=== PATIENT | female | born 1980 | race Two or more races ===

== ENCOUNTER 2024-01-17 08:36 | Emergency (ER) | payer MEDICAID, SELFPAY ==
--- NOTE | ~2024-01-17 | CT_ITS ---
EXAMINATION: CT ABDOMEN AND PELVIS WITHOUT CONTRAST CLINICAL INFORMATION: Probable kidney stones. COMPARISON: CT dated August 06, 2007 TECHNIQUE: Multidetector volumetric imaging was performed from the superior aspect of the liver through the pubic symphysis. Sagittal and coronal reformatted images were obtained on the technologist's workstation. This CT examination was performed using dose optimization techniques as appropriate, variously including the following: *Automated exposure control *Adjustment of mA and/or kV according to patient size (this includes techniques or standardized protocols for targeted exams where dose is matched to indication/reason for exam; i.e. extremities or head) *Use of iterative reconstruction technique DLP: 457 mGy-cm FINDINGS: Limited evaluation of the intra-abdominal organs and vascular structures due to lack of IV contrast. LIVER, GALLBLADDER, AND BILIARY TREE: Liver measures 16 cm. Focal punctate calcification right hepatic lobe. No pericholecystic fluid collection or gallbladder wall thickening. No intrahepatic or extrahepatic biliary ductal dilatation. PANCREAS: No peripancreatic fluid collections. No main pancreatic ductal dilatation. SPLEEN: 8 cm. ADRENAL GLANDS: No nodular lesions KIDNEYS AND URETERS: Right kidney: Less than 1 mm punctate calcifications in the pelvicalyceal system. No hydronephrosis. Small morphology of the kidney when compared with its contralateral side. Left kidney: Multiple less than 2 mm calculi throughout the pelvicalyceal system. There is a 2 cm fluid density lesion at the corticomedullary junction/parapelvic in the midportion lower pole junction of the left kidney. No hydronephrosis. BLADDER: Fluid-filled without gross calcifications or wall thickening. GASTROINTESTINAL TRACT: Abundant stool within the large intestine. No intestinal obstruction pattern. No ascites. No pneumatosis intestinalis. No pneumoperitoneum. I do not see the appendix, though no gross pericecal edema pattern. Punctate calcifications in the right peritoneal pelvic cavity. ABDOMINAL WALL: Small tiny fat-containing umbilical hernia. Diastases abdominal rectus muscles. LYMPH NODES: No gross lymphadenopathy. VASCULAR: No aneurysm, abdominal aorta. PELVIC VISCERA: Absent uterus. OSSEOUS STRUCTURES: Superior endplate compression deformity at representing 40% volume loss with 2 mm retropulsion at L1 vertebra and likely old. Multilevel thoracolumbar spondylosis. CT/CT abdomen pelvis wo IV con IMPRESSION: Nonobstructing nephrolithiasis, bilaterally. Probable cyst, left kidney. Abundant stool, large intestine without intestinal obstruction pattern. Small fat-containing umbilical hernia. Fleischner guidelines were followed. Electronically signed by: Miko Cabello MD 01/17/2024 01:53 PM [facility]SM[facility]APA
[2024-01-17 08:38] VITALS: BP 179/106; PULSE 102; RESP 18; TEMP 36.6; O2SAT 97; BMI 32.5
[2024-01-17 09:35] VITALS: BP 144/92; PULSE 96; RESP 20; TEMP 37.6; O2SAT 98
[2024-01-17 09:41] LABS: MANUAL DIFF FLAG NO
[2024-01-17 09:43] LABS: Basophils Percent Auto 0.8 % (0-2); Eosinophils Absolute Auto 0.1 X10*3/uL (0.0-0.4); Eosinophils Percent Auto 1.1 % (0-4); Hematocrit 33.4 % (37.0-47.0); Hemoglobin 10.4 g/dl (12.0-16.0); Lymphocytes Percent Auto 38.7 % (20-40); Mean Corpuscular HGB Conc 31.1 g/dl (31.0-35.0); Mean Corpuscular Hemoglobin 26.8 pg (27.0-33.0); Mean Corpuscular Volume 86.1 fL (80.0-98.0); Mean Platelet Volume 9.6 fL (9.4-12.3); Monocytes Absolute Auto 0.3 X10*3/uL (0.1-1.2); Monocytes Percent Auto 6.5 % (2-11); Neutrophils Absolute Auto 2.8 x10*3/uL (2.0-8.3); Neutrophils Percent Auto 52.9 % (45-73); Platelet Count 415 X10*3/uL (160-400); Red Blood Count 3.88 X10*6/uL (4.20-5.50); Red Cell Distribution Width 14.4 % (11.0-16.0); White Blood Count 5.2 X10*3/uL (4.8-10.8)
--- NOTE | 2024-01-17 09:48 | PC.NURSE ---
Awaiting urine spec. Pt. was only able to urinate a very small amount- not enough for urine tests.
--- NOTE | 2024-01-17 09:49 | ED.FEMALEGU ---
HPI - Female Genitourinary General Chief complaint: Urogenital-Female Stated complaint: kidney stone pain history UTI Time Seen by Provider: 01/17/24 08:56 Source: patient Mode of arrival: ambulatory Limitations: no limitations History of Present Illness HPI Narrative: this is a 43 years old the patient presented to the emergency department complaining of back pain, she states she has a as history of kidney stones a recurrent UTI she just returned from [place], the pain is localized in the more in the left side of the back left flank radiating to the front no reported fever no reported vomiting or diarrhea MD elicited complaint: dysuria and flank pain Pertinent past history: other (kidney stones) Onset (ago): day(s) (1) Severity: moderate Consistency: constant Urinary symptoms: Dysuria Exacerbating factors: urination Relieving factors: none Related Data Previous Rx's ?Medication ?Instructions ?Recorded ondansetron 4 mg disintegrating 4 mg PO Q8H 5 days #15 tabs 01/17/24 tablet oxycodone 5 mg tablet 5 mg PO Q6H PRN pain #15 tabs 01/17/24 polyethylene glycol 3350 17 17 g PO DAILY #119 grams 01/17/24 gram/dose oral powder (Miralax) Allergies Allergy/AdvReac Type Severity Reaction Status Date / Time diphenhydramine Allergy Severe PASSED OUT Unverified 11/13/19 21:03 [From BENADRYL] WITH IV USE GIVEN. shellfish derived Allergy Intermediate HIVES Unverified 11/02/19 16:41 [SHELLFISH DERIVED] lactose [LACTOSE] Allergy Unknown INTOLERANT Unverified 11/02/19 16:41 metoclopramide [From REGLAN] Allergy Unknown UNKNOWN Unverified 11/02/19 16:41 NSAIDS (Non-Steroidal Allergy Unknown PEPTIC Unverified 11/02/19 16:41 Anti-Inflamma ULCER [NSAIDS (NON-STEROIDAL ANTI-INFLAMMA] prochlorperazine Allergy Unknown UNKNOWN Unverified 11/02/19 16:41 [From COMPAZINE] sertraline [From ZOLOFT] Allergy Unknown SUICIDAL Unverified 11/02/19 16:41 THOUGHTS. zolpidem [From AMBIEN] Allergy Unknown HALLUCINATI Unverified 11/02/19 16:41 ONS ketorolac [From Toradol] Allergy Anaphylaxis Verified 01/17/24 08:42 Review of Systems Review of Systems: Yes all other systems are reviewed and are negative [facility] Past Medical History [facility] Narrative: history of kidney stone, history of recurrent urinary tract infection Physical Exam Vital Signs: Vital Signs: Last Vital Signs Temp 98.9 F 01/17/24 14:53 Pulse 93 01/17/24 14:53 Resp 18 01/17/24 14:53 BP 147/98 H 01/17/24 14:53 Pulse Ox 98 01/17/24 14:53 O2 Del Method Room Air 01/17/24 14:53 BMI result Body Mass Index 32.5 vital signs stable she looks well she is not toxic Const: General: cooperative Nutritional Appearance: well nourished Orientation/consciousness: patient oriented x3 HEENT: Head: Yes normal to inspection General nose exam: Normal external nose present Face and sinus: Yes normal facial exam Mouth: Normal oral and palatal mucosa present Throat: Yes posterior oropharynx normal Neck: Neck: Yes normal visual inspection and Yes full ROM Chest: Chest palpation & inspection: normal inspection of the chest Resp: Effort & Inspection: normal respiratory effort Auscultation: clear to auscultation bilaterally Cardio: Other: regular rate and rhythm Rate: regular rate Rhythm: regular rhythm GI: Inspection: Yes normal to inspection Palpation (GI): Soft to palpation, not firm, nontender and no guarding Auscultation: normal bowel sounds Skin: General skin exam: no rashes or lesions noted, elasticity normal and turgor normal Lesions: no lesions Rashes: no rashes Neuro: General: patient oriented x3 Course Reevaluation(s) Reevaluation #1: Patient is feeling better at this time, the urine does not show evidence of infection she has no bacteria in the urine she has epithelial cells 6-10 6-10 WBC also is nitrate negative. So I do not think she needs antibiotic. CT scan shows nephrolithiasis but not ureteral stone. At this point we will discharge the patient home she is very comfortable with the plan of care Time: 14:11 Medications Administered Discontinued Medications Generic Name Dose Route Start Last Admin Trade Name Freq PRN Reason Stop Dose Admin Ondansetron HCl 4 mg 01/17/24 09:47 01/17/24 09:54 Ondansetron Odt 4 Mg Tab.Rapdis TRANSLINGU 01/17/24 09:48 4 mg ONCE ONE Administration Oxycodone HCl 5 mg 12/02/24 09:48 01/17/24 09:54 Oxycodone Hcl Immed Release 5 Mg Tablet PO 01/17/24 09:49 5 mg ONCE ONE Administration Medical Decision Making Medical Decision Making [facility] Narrative: patient presented with a chief complaint of flank pain will obtain CT labs UA Differential Diagnosis Differential Diagnoses: The differential diagnosis associated with the presentation includes kidney stone/pyelonephritis Admission/Observation Consideration of admission/observation: Escalation of care including admission/observation considered Lab Data [facility] Lab Attestation statement: I reviewed the patient's lab results. 01/17/24 08:51 01/17/24 08:51 Labs: Lab Results 01/17/24 01/17/24 Range/Units 08:51 09:59 WBC 5.2 (4.8-10.8) X10*3/uL RBC 3.88 L (4.20-5.50) X10*6/uL Hgb 10.4 L (12.0-16.0) g/dl Hct 33.4 L (37.0-47.0) % MCV 86.1 (80.0-98.0) fL MCH 26.8 L (27.0-33.0) pg MCHC 31.1 (31.0-35.0) g/dl RDW 14.4 (11.0-16.0) % Plt Count 415 H (160-400) X10*3/uL MPV 9.6 (9.4-12.3) fL Immature Gran % (Auto) 0.0 (0.0-0.4) % Neut % (Auto) 52.9 (45-73) % Lymph % (Auto) 38.7 (20-40) % [place] % (Auto) 6.5 (2-11) % Eos % (Auto) 1.1 (0-4) % Baso % (Auto) 0.8 (0-2) % Lymph # (Auto) 2.0 (1.2-4.9) X10*3/uL [place] # (Auto) 0.3 (0.1-1.2) X10*3/uL Eos # (Auto) 0.1 (0.0-0.4) X10*3/uL Baso # (Auto) 0.0 (0.0-0.2) X10*3/uL Abs Immat Gran (auto) 0.00 (0.00-0.03) X10*3/uL Absolute Neuts (auto) 2.8 (2.0-8.3) x10*3/uL Absolute Nucleated RBC 0.000 (0.0-0.012) X10*3/uL Nucleated RBC % (auto) 0.0 (0.0-0.2) /100WBC Sodium 142 (135-145) mmol/L Potassium 3.9 (3.3-5.1) mmol/L Chloride 109 H (96-108) mmol/L Carbon Dioxide 24 (22-29) mmol/L Anion Gap 13 (12-20) BUN 16 (9-16) mg/dL Creatinine 0.72 (0.5-1.4) mg/dL Estim Creat Clear Calc 78.5 Estimated GFR > 60 Random Glucose 99 (60-115) mg/dL Calcium 9.4 (8.4-10.2) mg/dL Urine Color Yellow Urine Appearance Cloudy Urine pH 6.0 (5.0-9.0) Ur Specific [place] >= 1.030 H (1.005-1.025) Urine Protein 30 (1+) H (Neg-Trace) mg/dL Urine Glucose (UA) Negative (Negative) mg/dL Urine Ketones Negative (Negative) mg/dL Urine Blood Small (1+) H (Negative) Urine Nitrite Negative (Negative) Ur Leukocyte Esterase Moderate (2+) H (Negative) Urine RBC 3-5 H (0-2) /HPF Urine WBC 6-10 (0-5) /HPF Ur Squamous Epith Cells 6-10 (0-2) /HPF Calcium Oxalate Crystal Present Urine Bacteria None Seen (None Seen) Hyaline Casts 0-2 (0-2) /LPF Independent Interpretation I performed an independent interpretation of an: CT Scan Radiology Impression Discussion of test interpretation with radiology: I have reviewed the radiologist's reading. Prescription Management I considered prescription management with: Pain Medication Discharge Plan Discharge Clinical Impression: Acute flank pain, Bilateral nephrolithiasis Patient Disposition: Home, Self-Care Instructions: Flank Pain (ED) Prescriptions: New ondansetron 4 mg tablet,disintegrating 4 mg PO Q8H 5 Days Qty: 15 0RF oxycodone 5 mg tablet 5 mg PO Q6H PRN (Reason: pain) Qty: 15 0RF Rx Instructions: partial filing upon pt request; Partial Fill upon patient request. polyethylene glycol 3350 [Miralax] 17 gram/dose powder 17 g PO DAILY Qty: 119 0RF Referrals: Prasanna Black MD [Physician] - 2 days Interventions: ED Discharge Assessment Last Done: 01/17/24 14:53 Discharge Date/Time: 01/17/24 14:54 Print Language: Citizen Of [place]
[2024-01-17] MEDS: Ondansetron ODT 4 MG TAB.RAPDIS TRANSLINGU (09:54)
[2024-01-17] MEDS: oxyCODONE HCl Immed Release 5 MG TABLET PO (09:54)
[2024-01-17 10:00] LABS: Anion Gap 13 (12-20); Blood Urea Nitrogen 16 mg/dL (9-16); Calcium 9.4 mg/dL (8.4-10.2); Carbon Dioxide 24 mmol/L (22-29); Chloride 109 mmol/L (96-108); Creatinine Clr Calc Pharmacy 78.5; Estimated Glomerular Filt Rate > 60; Glucose Random 99 mg/dL (60-115); Potassium 3.9 mmol/L (3.3-5.1); Sodium 142 mmol/L (135-145)
[2024-01-17 10:06] LABS: Appearance Urine Cloudy; Color Urine Yellow; Glucose Urine UA Negative (Negative); Leukocyte Esterase Urine Moderate (2+) (Negative); Nitrite Urine Negative (Negative); Specific Gravity - Urine >= 1.030 (1.005-1.025); UMIC TRIGGER UACC YES; Urine Blood Small (1+) (Negative); Urine Ketones Negative (Negative); Urine Protein 30 (1+) mg/dL (Neg-Trace)
[2024-01-17 10:27] LABS: Bacteria Urine None Seen (None Seen); Calcium Oxalate Crystals Urine Present; Hyaline Casts Urine 0-2 /LPF (0-2); UACC Culture Trigger YES
[2024-01-17 12:15] VITALS: BP 147/98; PULSE 93; RESP 18; TEMP 37.2; O2SAT 98
[2024-01-17 14:53] VITALS: BP 147/98; PULSE 93; RESP 18; TEMP 37.2; O2SAT 98
== END 2024-01-17 14:54 | disposition home or self-care (01) ==
PROVIDERS: Emergency Provider Emergency Medicine
DX: N20.0 Calculus of kidney (principal); Z87.442 Personal history of urinary calculi; Z87.440 Personal history of urinary (tract) infections
CPT/HCPCS: 36415; 74176; 80048; 81001; 85025; 87086; 99284

== ENCOUNTER → 2024-01-17 09:48 | Outpatient (BNV) | payer MEDICAID, SELFPAY | PROVIDERS: Emergency Provider Emergency Medicine; Visit Provider Radiology Diagnostic Radiology | DX: N20.0 Calculus of kidney (principal); K42.9 Umbilical hernia without obstruction or gangrene | CPT/HCPCS: 74176 ==

== ENCOUNTER 2024-01-23 11:20 | Emergency (ER) | payer MEDICAID, SELFPAY ==
--- NOTE | ~2024-01-23 | CT_ITS ---
EXAMINATION: CT ABDOMEN AND PELVIS WITHOUT CONTRAST CLINICAL INFORMATION: Left flank pain, rule out ureteral stone COMPARISON: CT abdomen and pelvis on 02-07 TECHNIQUE: Multidetector volumetric imaging was performed from the superior aspect of the liver through the pubic symphysis. Sagittal and coronal reformatted images were obtained on the technologist's workstation. This CT examination was performed using dose optimization techniques as appropriate, variously including the following: *Automated exposure control *Adjustment of mA and/or kV according to patient size (this includes techniques or standardized protocols for targeted exams where dose is matched to indication/reason for exam; i.e. extremities or head) *Use of iterative reconstruction technique DLP: 513 mGy-cm FINDINGS: LUNG BASES: The visualized lung bases are unremarkable. LIVER, GALLBLADDER, AND BILIARY TREE: The liver is normal in size, shape, and attenuation. No focal hepatic lesion or biliary ductal dilatation is present. The gallbladder is unremarkable with no evidence of radiopaque gallstones, gallbladder wall thickening, or obvious pericholecystic inflammatory changes. PANCREAS: Unremarkable. SPLEEN: Unremarkable. ADRENAL GLANDS: Unremarkable. KIDNEYS AND URETERS: The kidneys are normal in size, shape, and attenuation. No hydronephrosis or renal calculi. Bilateral nonobstructing calculi. The largest is on the left and measures 0.4 cm. There is a left parapelvic cyst which is required follow-up. No perinephric stranding. BLADDER: Unremarkable. GASTROINTESTINAL TRACT: The small and large bowel are unremarkable. The appendix is unremarkable. ABDOMINAL WALL: No significant hernia is appreciated. LYMPH NODES: Normal. VASCULAR: Unremarkable. PELVIC VISCERA: Unremarkable. OSSEOUS STRUCTURES: Unremarkable. CT/CT abdomen pelvis wo IV con IMPRESSION: Bilateral nonobstructing renal calculi. Fleischner guidelines were followed. Electronically signed by: Connie Emery MD 01/23/2024 03:28 PM EST
--- NOTE | 2024-01-23 11:31 | ED_ITS ---
HPI - Female Genitourinary General Chief complaint: Urogenital-Female Stated complaint: uti Time Seen by Provider: 01/23/24 12:08 Source: patient Mode of arrival: ambulatory Limitations: no limitations History of Present Illness ED Provider: Dr. Roly Barney HPI Narrative: 43-year-old female with a history of hypertension, rheumatoid arthritis, ulcers, migraines, pancreatitis, kidney stones, urinary tract infections with sepsis who presents emergency department for evaluation of left flank pain radiating to the left lower quadrant, urinary frequency, fever, chills, nausea and vomiting. The patient states that she developed left-sided flank pain radiates were left lower quadrant since 01/14/2024 (9 days prior). She describes the pain as a sharp pain that a last minutes, go away for several minutes and then returned. She states that the pain is severe in his 11/24. She was also had urinary frequency and dysuria. She states she was had intermittent fever and chills. She had associated nausea and vomiting with no diarrhea. Patient states that she had similar symptoms when she was in [place] and was hospitalized 3 times in the month of December for urinary tract infection secondary to kidney stones and with sepsis. The patient was seen here in the emergency department on 01/17/2024 similar symptoms, her urinalysis was negative, and urine culture was negative, CT abdomen pelvis revealed renal stones but no obstructing stones. Related Data Previous Rx's ?Medication ?Instructions ?Recorded ondansetron 4 mg disintegrating 4 mg PO Q8H 5 days #15 tabs 01/17/24 tablet oxycodone 5 mg tablet 5 mg PO Q6H PRN pain #15 tabs 01/17/24 polyethylene glycol 3350 17 17 g PO DAILY #119 grams 01/17/24 gram/dose oral powder (Miralax) cefuroxime axetil 250 mg tablet 250 mg PO Q12H 5 days #10 tabs 01/23/24 morphine 15 mg immediate release 15 mg PO Q8H PRN pain #10 tabs 01/23/24 tablet Allergies Allergy/AdvReac Type Severity Reaction Status Date / Time diphenhydramine Allergy Severe PASSED OUT Verified 01/23/24 11:34 [From BENADRYL] WITH IV USE GIVEN. shellfish derived Allergy Intermediate HIVES Verified 01/23/24 11:34 [SHELLFISH DERIVED] lactose [LACTOSE] Allergy Unknown INTOLERANT Verified 01/23/24 11:34 metoclopramide [From REGLAN] Allergy Unknown UNKNOWN Verified 01/23/24 11:34 NSAIDS (Non-Steroidal Allergy Unknown PEPTIC Verified 01/23/24 11:34 Anti-Inflamma ULCER [NSAIDS (NON-STEROIDAL ANTI-INFLAMMA] prochlorperazine Allergy Unknown UNKNOWN Verified 01/23/24 11:34 [From COMPAZINE] sertraline [From ZOLOFT] Allergy Unknown SUICIDAL Verified 01/23/24 11:34 THOUGHTS. zolpidem [From AMBIEN] Allergy Unknown HALLUCINATI Verified 01/23/24 11:34 ONS ketorolac [From Toradol] Allergy Anaphylaxis Verified 01/23/24 11:34 Review of Systems 2 Review of Systems: Yes all other systems are reviewed and are negative [facility] Past Medical History [facility] Narrative: Social history: Patient states that her recently and she moved back to this area from [place] Social History Social History Advance Directives: No Advance Directives Information Provided: No Physical Exam 2 Vital Signs: Vital Signs: Last Vital Signs Temp 98.9 F 01/23/24 11:32 Pulse 117 H 01/23/24 11:32 Resp 18 01/23/24 11:32 BP 164/108 H 01/23/24 11:32 Pulse Ox 99 01/23/24 11:32 O2 Del Method Room Air 01/23/24 11:32 BMI result Body Mass Index 34.1 Vital signs revealed elevated blood pressure and elevated heart rate otherwise unremarkable Exam: General: Awake, alert in no distress Head: Normocephalic, atraumatic EENT: PERRL, Lids normal, sclera normal, conjunctiva normal, nose normal , ears normal, throat without erythema or exudates Neck: Supple, no adenopathy Lung: breath sounds symmetric, no wheezing, rales or rhonchi Chest: symmetric movement, nontender Heart: regular rate and rhythm, normal S1, S2 no murmurs or rubs Abdomen: Soft, moderate left lower quadrant and suprapubic tenderness, no rebound, no voluntary or involuntary guarding, normoactive bowel sounds Back: no vertebral tenderness, no CVAT Extremities: no deformities, moves all extremities symmetrically Neuro: Awake, alert, oriented, normal speech, cranial nerves intact, moves all extremities symmetrically Psych: Pleasant, cooperative Course Course Course Narrative: This is a rapid medical exam. Deferred additional HPI, ROS, PE to primary provider. 43 yo female with past medical history of HTN, HLD, migraines, gastric ulcers, RA, renal colic, pyelonephritis here with complaints of urinary urgency, nausea, chills, left sided flank pain since yesterday. Does not get her cycle d/t total hyst 2015 Patient seen 01/17/24 with imaging that showed kidney stones, none within the ureter. Given rx for oxycodone, zofran. WIll obtain labs, UA. VSS -A. Pascucci [employer] Medications Administered Discontinued Medications Generic Name Dose Route Start Last Admin Trade Name Freq PRN Reason Stop Dose Admin Morphine Sulfate 4 mg 01/23/24 12:23 01/23/24 13:09 Morphine Sulfate 4 Mg/Ml Cartridge IVPUSH 01/23/24 12:24 4 mg ONCE STA Administration Protocol Ondansetron HCl 4 mg 01/23/24 12:23 01/23/24 13:09 Ondansetron Hcl 4 Mg/2 Ml Vial IVPUSH 01/23/24 12:24 4 mg ONCE ONE Administration Medical Decision Making Medical Decision Making MDM Narrative: 43-year-old female with a history of hypertension, rheumatoid arthritis, ulcers, migraines, pancreatitis, kidney stones, urinary tract infections with sepsis who presents emergency department for evaluation of left flank pain radiating to the left lower quadrant, urinary frequency, fever, chills, nausea and vomiting x9 days. Patient was seen in the emergency department on 01/17/2024 for similar symptoms with a negative workup. Vital signs revealed an elevated blood pressure and elevated heart rate. Physical examination did reveal suprapubic and left lower quadrant tenderness with no CVA tenderness Differential diagnosis: ?Includes but is not limited to renal colic, ureteral stones, urinary tract infection, pyelonephritis, diverticulitis, pancreatitis, electrolyte abnormalities, anemia Patient was initially treated with the following: Morphine 4 mg IV, Zofran 4 mg IV, normal saline x1 L Course: 15:51 Patient got minimal relief of her abdominal pain with the above treatment but her nausea did improve. Patient was given Dilaudid 1 mg IV. Patient's laboratory evaluation revealed a microcytic anemia which is chronic. Otherwise her labs were unremarkable. Urinalysis was similar to the urine with RBCs, WBCs but no bacteria. Given her symptoms, I am going to treat her with cefuroxime 250 mg q.12 hours x5 days and she did get a dose here in the emergency department. Patient will also be prescribed morphine 15 mg every 8 hours as needed for pain. She was given printed and verbal instructions and discharged home. CT scan did reveal nonobstructing stones in no other findings to explain her pain or her other symptoms. Patient was advised to follow-up with our urologist for management and re-evaluation. Admission/Observation Consideration of admission/observation: Escalation of care including admission/observation considered (Yes) Lab Data MDM Lab Attestation statement: I reviewed the patient's lab results. 13:40 My independent interpretation patient's laboratory evaluation is as follows: Urinalysis revealed elevated specific gravity, positive protein, positive blood, positive leukocyte esterase. Microscopic revealed 6-10 RBCs, 6-10 WBCs, 3-5 squamous cells, no bacteria. Normocytic anemia with an H&H of 10.7 and 33.6 with an MCV of 85.7. Unchanged from previous values. CMP was normal. Lipase was normal. 01/23/24 12:39 01/23/24 12:39 Labs: Lab Results 01/23/24 01/23/24 01/23/24 Range/Units 12:35 12:38 12:39 WBC 5.5 (4.8-10.8) X10*3/uL RBC 3.92 L (4.20-5.50) X10*6/uL Hgb 10.7 L (12.0-16.0) g/dl Hct 33.6 L (37.0-47.0) % MCV 85.7 (80.0-98.0) fL MCH 27.3 (27.0-33.0) pg MCHC 31.8 (31.0-35.0) g/dl RDW 14.5 (11.0-16.0) % Plt Count 331 (160-400) X10*3/uL MPV 8.9 L (9.4-12.3) fL Immature Gran % (Auto) 0.0 (0.0-0.4) % Neut % (Auto) 62.3 (45-73) % Lymph % (Auto) 29.2 (20-40) % [place] % (Auto) 7.3 (2-11) % Eos % (Auto) 0.7 (0-4) % Baso % (Auto) 0.5 (0-2) % Lymph # (Auto) 1.6 (1.2-4.9) X10*3/uL [place] # (Auto) 0.4 (0.1-1.2) X10*3/uL Eos # (Auto) 0.0 (0.0-0.4) X10*3/uL Baso # (Auto) 0.0 (0.0-0.2) X10*3/uL Abs Immat Gran (auto) 0.00 (0.00-0.03) X10*3/uL Absolute Neuts (auto) 3.4 (2.0-8.3) x10*3/uL Absolute Nucleated RBC 0.000 (0.0-0.012) X10*3/uL Nucleated RBC % (auto) 0.0 (0.0-0.2) /100WBC Sodium 141 (135-145) mmol/L Potassium 4.0 (3.3-5.1) mmol/L Chloride 106 (96-108) mmol/L Carbon Dioxide 28 (22-29) mmol/L Anion Gap 11 L (12-20) BUN 12 (9-16) mg/dL Creatinine 0.66 (0.5-1.4) mg/dL Estim Creat Clear Calc 87.9 Estimated GFR > 60 Random Glucose 91 (60-115) mg/dL Lactic Acid 0.9 (0.5-2.0) mmol/L Calcium 9.8 (8.4-10.2) mg/dL Total Bilirubin 0.4 (0.0-1.0) mg/dL Direct Bilirubin 0.1 (0.0-0.5) mg/dL AST 27 (5-31) U/L ALT 23 (0-31) U/L Alkaline Phosphatase 91 (39-117) U/L Total Protein 7.5 (6.5-8.0) g/dL Albumin 4.1 (3.5-5.0) g/dL Lipase 16 (8-78) U/L Urine Color Yellow Urine Appearance Clear Urine pH 5.0 (5.0-9.0) Ur Specific [place] >= 1.030 H (1.005-1.025) Urine Protein 30 (1+) H (Neg-Trace) mg/dL Urine Glucose (UA) Negative (Negative) mg/dL Urine Ketones Trace (Negative) mg/dL Urine Blood Trace H (Negative) Urine Nitrite Negative (Negative) Ur Leukocyte Esterase Small (1+) H (Negative) Urine RBC 6-10 H (0-2) /HPF Urine WBC 6-10 H (0-5) /HPF Ur Squamous Epith Cells 3-5 (0-2) /HPF Urine Bacteria None Seen (None Seen) Hyaline Casts 3-5 (0-2) /LPF Radiology Impression Discussion of test interpretation with radiology: I have reviewed the radiologist's reading. Radiologist Impression: CT abdomen pelvis wo IV con IMPRESSION: Bilateral nonobstructing renal calculi. Fleischner guidelines were followed. Electronically signed by: Connie Emery MD 01/23/2024 03:28 PM Prescription Management I considered prescription management with: Pain Medication (Morphine) and Antibiotic (Cefuroxime) Chronic Conditions Patient?s care impacted by: Hypertension and Other (Nephrolithiasis) Critical Care Time Critical Care Time Critical Care Time: Yes Total Critical Care Time: 35 Attestation: Critical Care: The patient was critically ill with a high probability of imminent or life threatening deterioration. I spent greater than 30 minutes of discontinuous time evaluating the patient,delivering critical care at the bedside, discussing and evaluating pertinent data with consultants. Critical care time does not include time spent performing separately billable procedures or teaching. Total time spent performing critical care was 35 minutes. Discharge Plan Discharge Clinical Impression: Acute left flank pain, Acute left lower quadrant pain, Dysuria Patient Disposition: Home, Self-Care Additional Instructions: Your blood work was unremarkable. The CT scan did reveal kidney stones but no stone that is blocking the drainage of your urine and no signs of infection of your kidneys. Your urine did reveal white blood cells and red blood cells but no bacteria. Given your symptoms, I am going to treat you with cefuroxime 250 mg pills, 1 pill every 12 hours for 5 days. Take Tylenol (acetaminophen) 2 pills every 6 hours as needed for pain. For pain not relieved byTylenol take morphine 15 mg pills, 1 pill every 6 hours as needed for pain. This medication will make you sleepy, do not drive or work while taking this medication. Morphine is a narcotic medication and can be addicting. If you are concerned about addiction you can ask the pharmacist for less pills or do not get this prescription filled. Follow-up with your doctor in 2 days. Please return to the emergency department if your symptoms get worse or if you develop any symptoms that are concerning to you. Prescriptions: New morphine 15 mg tablet 15 mg PO Q8H PRN (Reason: pain) Qty: 10 0RF Rx Instructions: Partial Fill upon patient request. cefuroxime axetil 250 mg tablet 250 mg PO Q12H 5 Days Qty: 10 0RF No Action ondansetron 4 mg tablet,disintegrating 4 mg PO Q8H 5 Days Qty: 15 0RF oxycodone 5 mg tablet 5 mg PO Q6H PRN (Reason: pain) Qty: 15 0RF Rx Instructions: partial filing upon pt request; Partial Fill upon patient request. polyethylene glycol 3350 [Miralax] 17 gram/dose powder 17 g PO DAILY Qty: 119 0RF Print Language: [place]
[2024-01-23 11:32] VITALS: BP 164/108; PULSE 117; RESP 18; TEMP 37.2; O2SAT 99; BMI 34.1
[2024-01-23 12:44] LABS: MANUAL DIFF FLAG NO
[2024-01-23 12:46] LABS: Basophils Percent Auto 0.5 % (0-2); Eosinophils Percent Auto 0.7 % (0-4); Hematocrit 33.6 % (37.0-47.0); Hemoglobin 10.7 g/dl (12.0-16.0); Lymphocytes Absolute Auto 1.6 X10*3/uL (1.2-4.9); Lymphocytes Percent Auto 29.2 % (20-40); Mean Corpuscular HGB Conc 31.8 g/dl (31.0-35.0); Mean Corpuscular Hemoglobin 27.3 pg (27.0-33.0); Mean Corpuscular Volume 85.7 fL (80.0-98.0); Mean Platelet Volume 8.9 fL (9.4-12.3); Monocytes Absolute Auto 0.4 X10*3/uL (0.1-1.2); Monocytes Percent Auto 7.3 % (2-11); Neutrophils Absolute Auto 3.4 x10*3/uL (2.0-8.3); Neutrophils Percent Auto 62.3 % (45-73); Platelet Count 331 X10*3/uL (160-400); Red Blood Count 3.92 X10*6/uL (4.20-5.50); Red Cell Distribution Width 14.5 % (11.0-16.0); White Blood Count 5.5 X10*3/uL (4.8-10.8)
[2024-01-23 12:47] LABS: Appearance Urine Clear; Color Urine Yellow; Glucose Urine UA Negative (Negative); Leukocyte Esterase Urine Small (1+) (Negative); Nitrite Urine Negative (Negative); Specific Gravity - Urine >= 1.030 (1.005-1.025); UMIC TRIGGER UACC YES; Urine Blood Trace (Negative); Urine Ketones Trace mg/dL (Negative); Urine Protein 30 (1+) mg/dL (Neg-Trace)
[2024-01-23 12:52] LABS: Bacteria Urine None Seen (None Seen); UACC Culture Trigger YES
[2024-01-23 12:59] LABS: Lipase 16 U/L (8-78)
[2024-01-23 13:02] LABS: Lactic Acid 0.9 mmol/L (0.5-2.0)
[2024-01-23 13:03] LABS: Alanine Aminotransferase 23 U/L (0-31); Albumin Level 4.1 g/dL (3.5-5.0); Alkaline Phosphatase 91 U/L (39-117); Anion Gap 11 (12-20); Aspartate Amino Transferase 27 U/L (5-31); Bilirubin Direct 0.1 mg/dL (0.0-0.5); Bilirubin Total 0.4 mg/dL (0.0-1.0); Blood Urea Nitrogen 12 mg/dL (9-16); Calcium 9.8 mg/dL (8.4-10.2); Carbon Dioxide 28 mmol/L (22-29); Chloride 106 mmol/L (96-108); Creatinine Clr Calc Pharmacy 87.9; Estimated Glomerular Filt Rate > 60; Glucose Random 91 mg/dL (60-115); Sodium 141 mmol/L (135-145); Total Protein 7.5 g/dL (6.5-8.0)
[2024-01-23] MEDS: Morphine Sulfate 4 MG/ML CARTRIDGE IVPUSH (13:09)
[2024-01-23] MEDS: ondansetron HCL 4 MG/2 ML VIAL IVPUSH (13:09)
[2024-01-23 15:46] VITALS: BP 117/78; PULSE 92; RESP 16; TEMP 36.8; O2SAT 96
[2024-01-23] MEDS: HYDROmorphone HCl 1 MG/ML SYRINGE IVPUSH (15:59)
[2024-01-23] MEDS: cefuroxime axetiL 250 MG TABLET PO (15:59)
[2024-01-23 16:26] VITALS: BP 139/90; PULSE 99; RESP 16; TEMP 36.9; O2SAT 99
== END 2024-01-23 16:28 | disposition home or self-care (01) ==
PROVIDERS: Nurse Practitioner Family; Emergency Provider Emergency Medicine Emergency Medical Services
DX: N39.0 Urinary tract infection, site not specified (principal); R30.0 Dysuria; R11.2 Nausea with vomiting, unspecified; R35.0 Frequency of micturition; R10.2 Pelvic and perineal pain; R10.32 Left lower quadrant pain; Z79.899 Other long term (current) drug therapy
CPT/HCPCS: 36415; 74176; 80048; 80076; 81001; 83605; 83690; 85025; 87040; 87086; 96374; 96375; 99283; 99284; J1171; J2270; J2405

== ENCOUNTER 2024-01-31 16:28 | Emergency (ER) | payer MEDICAID, SELFPAY ==
[2024-01-31 16:47] VITALS: BP 182/111; PULSE 110; RESP 16; TEMP 37.4; O2SAT 100; BMI 32.5
--- NOTE | 2024-01-31 16:51 | ED_ITS ---
HPI - Abdominal Pain General Chief Complaint: Abdominal Pain Stated Complaint: pancreatitis? Related Data Previous Rx's ?Medication ?Instructions ?Recorded ondansetron 4 mg disintegrating 4 mg PO Q8H 5 days #15 tabs 01/17/24 tablet oxycodone 5 mg tablet 5 mg PO Q6H PRN pain #15 tabs 01/17/24 polyethylene glycol 3350 17 17 g PO DAILY #119 grams 01/17/24 gram/dose oral powder (Miralax) cefuroxime axetil 250 mg tablet 250 mg PO Q12H 5 days #10 tabs 01/23/24 morphine 15 mg immediate release 15 mg PO Q8H PRN pain #10 tabs 01/23/24 tablet levofloxacin 500 mg tablet 500 mg PO DAILY #7 tabs 02/02/24 methenamine hippurate 1 gram tablet 1 g PO BID #60 tabs 02/02/24 ondansetron 4 mg disintegrating 4 mg PO TID PRN nausea and 02/02/24 tablet vomiting 5 days #10 tabs Allergies Allergy/AdvReac Type Severity Reaction Status Date / Time diphenhydramine Allergy Severe PASSED OUT Verified 02/02/24 13:01 [From BENADRYL] WITH IV USE GIVEN. shellfish derived Allergy Intermediate HIVES Verified 02/02/24 13:01 [SHELLFISH DERIVED] lactose [LACTOSE] Allergy Unknown INTOLERANT Verified 02/02/24 13:01 metoclopramide [From REGLAN] Allergy Unknown UNKNOWN Verified 02/02/24 13:01 NSAIDS (Non-Steroidal Allergy Unknown PEPTIC Verified 02/02/24 13:01 Anti-Inflamma ULCER [NSAIDS (NON-STEROIDAL ANTI-INFLAMMA] prochlorperazine Allergy Unknown UNKNOWN Verified 02/02/24 13:01 [From COMPAZINE] sertraline [From ZOLOFT] Allergy Unknown SUICIDAL Verified 02/02/24 13:01 THOUGHTS. zolpidem [From AMBIEN] Allergy Unknown HALLUCINATI Verified 02/02/24 13:01 ONS Iodinated Contrast Media Allergy Anaphylaxis Verified 02/02/24 13:01 [Contrast Dye] ketorolac [From Toradol] Allergy Anaphylaxis Verified 02/02/24 13:01 [facility] Social History Social History Unable to assess alcohol history related to: Unknown Smoked in Last 30 Days: No Use of substances other than those prescribed or required for medical reasons: Unknown Advance Directives: No Advance Directives Information Provided: Yes Do you have a plan to hurt others: No Plan Physical Exam ED Vital Signs: Vital Signs - 24 hr 01/31/24 16:47 Temperature 99.3 F Pulse Rate 110 H Respiratory Rate 16 Blood Pressure 182/111 H Pulse Oximetry 100 Oxygen Delivery Method Room Air BMI result Body Mass Index 32.5 Course Course Course Narrative: This is an RME: Additional HPI, ROS, PE not included below will be deferred to primary provider. RME assessment and note performed by: Sarah Davis PA-C This is a 43-year-old female who presents emergency department with complaints of abdominal pain with diarrhea starting yesterday. History of pancreatitis, symptoms feel similar. Unable to tolerate p.o.. She is tachycardic and hypertensive, afebrile. Will obtain labs, EKG. Further ER evaluation needed. Reevaluation(s) Reevaluation #1: Patient left without completing treatment. Medical Decision Making Lab Data 01/31/24 17:49 01/31/24 17:49 Labs: Lab Results 01/31/24 Range/Units 17:49 WBC 9.1 (4.8-10.8) X10*3/uL RBC 3.91 L (4.20-5.50) X10*6/uL Hgb 10.6 L (12.0-16.0) g/dl Hct 33.3 L (37.0-47.0) % MCV 85.2 (80.0-98.0) fL MCH 27.1 (27.0-33.0) pg MCHC 31.8 (31.0-35.0) g/dl RDW 14.6 (11.0-16.0) % Plt Count 424 H D (160-400) X10*3/uL MPV 10.0 (9.4-12.3) fL Immature Gran % (Auto) 0.2 (0.0-0.4) % Neut % (Auto) 62.7 (45-73) % Lymph % (Auto) 28.1 (20-40) % [place] % (Auto) 7.9 (2-11) % Eos % (Auto) 0.7 (0-4) % Baso % (Auto) 0.4 (0-2) % Lymph # (Auto) 2.6 (1.2-4.9) X10*3/uL [place] # (Auto) 0.7 (0.1-1.2) X10*3/uL Eos # (Auto) 0.1 (0.0-0.4) X10*3/uL Baso # (Auto) 0.0 (0.0-0.2) X10*3/uL Abs Immat Gran (auto) 0.02 (0.00-0.03) X10*3/uL Absolute Neuts (auto) 5.7 (2.0-8.3) x10*3/uL Absolute Nucleated RBC 0.000 (0.0-0.012) X10*3/uL Nucleated RBC % (auto) 0.0 (0.0-0.2) /100WBC Sodium 142 (135-145) mmol/L Potassium 3.1 L D (3.3-5.1) mmol/L Chloride 109 H (96-108) mmol/L Carbon Dioxide 23 (22-29) mmol/L Anion Gap 13 (12-20) BUN 11 (9-16) mg/dL Creatinine 0.72 (0.5-1.4) mg/dL Estim Creat Clear Calc 78.5 Estimated GFR > 60 Random Glucose 119 H (60-115) mg/dL Lactic Acid 2.7 H* (0.5-2.0) mmol/L Calcium 9.2 D (8.4-10.2) mg/dL Magnesium 1.8 (1.6-2.6) mg/dL Total Bilirubin 0.3 (0.0-1.0) mg/dL Direct Bilirubin 0.2 (0.0-0.5) mg/dL AST 23 (5-31) U/L ALT 21 (0-31) U/L Alkaline Phosphatase 99 (39-117) U/L Troponin I High Sens 4.0 (<3.5-17.0) ng/L Total Protein 8.3 H (6.5-8.0) g/dL Albumin 4.5 (3.5-5.0) g/dL Lipase 44 (8-78) U/L Influenza Type A (PCR) NEGATIVE (Negative) Influenza Type B (PCR) NEGATIVE (Negative) RSV RNA Qual (PCR) NEGATIVE (Negative) SARS-CoV-2 RNA (RT-PCR) NEGATIVE (Negative) Discharge Plan Discharge Clinical Impression: Abdominal pain Patient Disposition: Left W/O Completing Treatment Prescriptions: No Action morphine 15 mg tablet 15 mg PO Q8H PRN (Reason: pain) Qty: 10 0RF Rx Instructions: Partial Fill upon patient request. cefuroxime axetil 250 mg tablet 250 mg PO Q12H 5 Days Qty: 10 0RF methenamine hippurate 1 gram tablet 1 g PO BID Qty: 60 0RF ondansetron 4 mg tablet,disintegrating 4 mg PO Q8H 5 Days Qty: 15 0RF oxycodone 5 mg tablet 5 mg PO Q6H PRN (Reason: pain) Qty: 15 0RF Rx Instructions: partial filing upon pt request; Partial Fill upon patient request. polyethylene glycol 3350 [Miralax] 17 gram/dose powder 17 g PO DAILY Qty: 119 0RF ondansetron 4 mg tablet,disintegrating 4 mg PO TID PRN (Reason: nausea and vomiting) 5 Days Qty: 10 0RF levofloxacin 500 mg tablet 500 mg PO DAILY Qty: 7 0RF Discharge Date/Time: 01/31/24 18:15
--- NOTE | 2024-01-31 16:52 | ECG_ITS ---
Test Reason : tachycardia Blood Pressure : / mmHG Vent. Rate : 117 BPM Atrial Rate : 117 BPM P-R Int : 114 ms QRS Dur : 072 ms QT Int : 330 ms P-R-T Axes : 068 076 031 degrees QTc Int : 460 ms Sinus tachycardia Nonspecific ST abnormality Abnormal ECG When compared with ECG of 13-NOV-2019 21:36, ST now depressed in Inferior leads ST now depressed in Lateral leads Referred By: Sarah Davis Electronically Signed By:LESLEE SON
[2024-01-31 18:02] LABS: MANUAL DIFF FLAG NO
[2024-01-31 18:18] LABS: Alanine Aminotransferase 21 U/L (0-31); Albumin Level 4.5 g/dL (3.5-5.0); Alkaline Phosphatase 99 U/L (39-117); Anion Gap 13 (12-20); Aspartate Amino Transferase 23 U/L (5-31); Bilirubin Direct 0.2 mg/dL (0.0-0.5); Bilirubin Total 0.3 mg/dL (0.0-1.0); Blood Urea Nitrogen 11 mg/dL (9-16); Calcium 9.2 mg/dL (8.4-10.2); Carbon Dioxide 23 mmol/L (22-29); Chloride 109 mmol/L (96-108); Creatinine Clr Calc Pharmacy 78.5; Estimated Glomerular Filt Rate > 60; Glucose Random 119 mg/dL (60-115); Lipase 44 U/L (8-78); Magnesium 1.8 mg/dL (1.6-2.6); Potassium 3.1 mmol/L (3.3-5.1); Sodium 142 mmol/L (135-145); Total Protein 8.3 g/dL (6.5-8.0)
[2024-01-31 18:21] LABS: Basophils Percent Auto 0.4 % (0-2); Eosinophils Absolute Auto 0.1 X10*3/uL (0.0-0.4); Eosinophils Percent Auto 0.7 % (0-4); Hematocrit 33.3 % (37.0-47.0); Hemoglobin 10.6 g/dl (12.0-16.0); Imm Gran Abs Auto 0.02 X10*3/uL (0.00-0.03); Imm Gran Pct Auto 0.2 % (0.0-0.4); Lymphocytes Absolute Auto 2.6 X10*3/uL (1.2-4.9); Lymphocytes Percent Auto 28.1 % (20-40); Mean Corpuscular HGB Conc 31.8 g/dl (31.0-35.0); Mean Corpuscular Hemoglobin 27.1 pg (27.0-33.0); Mean Corpuscular Volume 85.2 fL (80.0-98.0); Monocytes Absolute Auto 0.7 X10*3/uL (0.1-1.2); Monocytes Percent Auto 7.9 % (2-11); Neutrophils Absolute Auto 5.7 x10*3/uL (2.0-8.3); Neutrophils Percent Auto 62.7 % (45-73); Platelet Count 424 X10*3/uL (160-400); Red Blood Count 3.91 X10*6/uL (4.20-5.50); Red Cell Distribution Width 14.6 % (11.0-16.0); White Blood Count 9.1 X10*3/uL (4.8-10.8)
[2024-01-31 18:22] LABS: Lactic Acid 2.7 mmol/L (0.5-2.0)
[2024-01-31 18:40] LABS: Influenza A PCR NEGATIVE (Negative); Influenza B PCR NEGATIVE (Negative); Resp Syncy Virus RNA Qual PCR NEGATIVE (Negative); SARS COV2 PCR INHOUSE NEGATIVE (Negative)
== END 2024-01-31 18:15 | disposition left against medical advice (07) ==
PROVIDERS: Physician Assistant Medical; Emergency Provider Internal Medicine
DX: R10.2 Pelvic and perineal pain (principal); R00.0 Tachycardia, unspecified; Z03.818 Encounter for observation for suspected exposure to other biological agents ruled out; Z79.899 Other long term (current) drug therapy
CPT/HCPCS: 0241U; 36415; 80048; 80076; 83605; 83690; 83735; 84484; 85025; 87040; 93005; 99283

== ENCOUNTER → 2024-01-31 16:52 | Outpatient (BNV) | payer MEDICAID, SELFPAY | PROVIDERS: Emergency Provider Internal Medicine; Visit Provider Internal Medicine | DX: R94.31 Abnormal electrocardiogram [ECG] [EKG] (principal) | CPT/HCPCS: 93010 ==

== ENCOUNTER 2024-02-01 09:58 | Emergency (ER) | payer MEDICAID, SELFPAY | END 2024-02-01 12:15 | disposition left against medical advice (07) | PROVIDERS: Emergency Provider Emergency Medicine Emergency Medical Services | DX: R11.2 Nausea with vomiting, unspecified (principal) ==

== ENCOUNTER 2024-02-01 22:20 | Emergency (ER) | payer MEDICAID, SELFPAY ==
[2024-02-01 22:21] VITALS: BP 169/90; PULSE 113; RESP 20; TEMP 36.2; O2SAT 99; BMI 32.5
[2024-02-01 22:49] LABS: MANUAL DIFF FLAG NO
[2024-02-01 22:51] LABS: Basophils Percent Auto 0.3 % (0-2); Eosinophils Absolute Auto 0.1 X10*3/uL (0.0-0.4); Eosinophils Percent Auto 0.7 % (0-4); Hematocrit 31.2 % (37.0-47.0); Imm Gran Abs Auto 0.02 X10*3/uL (0.00-0.03); Imm Gran Pct Auto 0.2 % (0.0-0.4); Lymphocytes Absolute Auto 2.4 X10*3/uL (1.2-4.9); Lymphocytes Percent Auto 26.2 % (20-40); Mean Corpuscular HGB Conc 32.1 g/dl (31.0-35.0); Mean Corpuscular Hemoglobin 26.7 pg (27.0-33.0); Mean Corpuscular Volume 83.4 fL (80.0-98.0); Monocytes Absolute Auto 0.8 X10*3/uL (0.1-1.2); Monocytes Percent Auto 8.6 % (2-11); Neutrophils Absolute Auto 5.8 x10*3/uL (2.0-8.3); Platelet Count 346 X10*3/uL (160-400); Red Blood Count 3.74 X10*6/uL (4.20-5.50); Red Cell Distribution Width 14.7 % (11.0-16.0); White Blood Count 9.1 X10*3/uL (4.8-10.8)
[2024-02-01 23:06] LABS: Alanine Aminotransferase 15 U/L (0-31); Albumin Level 4.3 g/dL (3.5-5.0); Alkaline Phosphatase 94 U/L (39-117); Anion Gap 11 (12-20); Aspartate Amino Transferase 25 U/L (5-31); Bilirubin Direct 0.1 mg/dL (0.0-0.5); Bilirubin Total 0.3 mg/dL (0.0-1.0); Blood Urea Nitrogen 13 mg/dL (9-16); Calcium 9.4 mg/dL (8.4-10.2); Carbon Dioxide 26 mmol/L (22-29); Chloride 109 mmol/L (96-108); Creatinine Clr Calc Pharmacy 78.5; Estimated Glomerular Filt Rate > 60; Glucose Random 125 mg/dL (60-115); Lipase 35 U/L (8-78); Potassium 3.3 mmol/L (3.3-5.1); Sodium 143 mmol/L (135-145); Total Protein 7.6 g/dL (6.5-8.0)
[2024-02-01 23:33] LABS: Influenza A PCR NEGATIVE (Negative); Influenza B PCR NEGATIVE (Negative); Resp Syncy Virus RNA Qual PCR NEGATIVE (Negative); SARS COV2 PCR INHOUSE NEGATIVE (Negative)
[2024-02-02 01:25] VITALS: BP 155/103; PULSE 108; RESP 16; TEMP 36.6; O2SAT 99
[2024-02-02 02:42] LABS: Appearance Urine Turbid; Color Urine Yellow; Glucose Urine UA Negative (Negative); Leukocyte Esterase Urine Large (3+) (Negative); Nitrite Urine Negative (Negative); Specific Gravity - Urine 1.025 (1.005-1.025); UMIC TRIGGER UACC YES; Urine Blood Small (1+) (Negative); Urine Ketones 15 mg/dL (Negative); Urine Protein 30 (1+) mg/dL (Neg-Trace)
[2024-02-02 03:01] LABS: Bacteria Urine 3+ (None Seen); Calcium Oxalate Crystals Urine Present; Hyaline Casts Urine 0-2 /LPF (0-2); RBC Urine >20 /HPF (0-2); UACC Culture Trigger YES; WBC Urine >50 /HPF (0-5)
--- NOTE | 2024-02-02 03:20 | ED.ABDPAIN ---
HPI - Abdominal Pain General Chief Complaint: Abdominal Pain Stated Complaint: pancreatitus attack Time Seen by Provider: 02/02/24 02:15 Source: patient Mode of arrival: ambulatory Limitations: no limitations History of Present Illness ED Provider: HPI narrative: Patient complaining of L flank pain started yesterday patient has had 2 CT scan done 01/16 and 01/22 did not show any obstructive kidney stone showed bilateral nonobstructing calculi did have history of remote pancreatitis has slight nausea no vomiting no fever no chills no diarrhea patient has chronic UTI on cefuroxime which she finished 3 days ago had multiple courses of antibiotic in last 6 months cultures all were negative Related Data Previous Rx's ?Medication ?Instructions ?Recorded ondansetron 4 mg disintegrating 4 mg PO Q8H 5 days #15 tabs 01/17/24 tablet oxycodone 5 mg tablet 5 mg PO Q6H PRN pain #15 tabs 01/17/24 polyethylene glycol 3350 17 17 g PO DAILY #119 grams 01/17/24 gram/dose oral powder (Miralax) cefuroxime axetil 250 mg tablet 250 mg PO Q12H 5 days #10 tabs 01/23/24 morphine 15 mg immediate release 15 mg PO Q8H PRN pain #10 tabs 01/23/24 tablet levofloxacin 500 mg tablet 500 mg PO DAILY #7 tabs 02/02/24 methenamine hippurate 1 gram tablet 1 g PO BID #60 tabs 02/02/24 ondansetron 4 mg disintegrating 4 mg PO TID PRN nausea and 02/02/24 tablet vomiting 5 days #10 tabs Allergies Allergy/AdvReac Type Severity Reaction Status Date / Time diphenhydramine Allergy Severe PASSED OUT Verified 02/02/24 13:01 [From BENADRYL] WITH IV USE GIVEN. shellfish derived Allergy Intermediate HIVES Verified 02/02/24 13:01 [SHELLFISH DERIVED] lactose [LACTOSE] Allergy Unknown INTOLERANT Verified 02/02/24 13:01 metoclopramide [From REGLAN] Allergy Unknown UNKNOWN Verified 02/02/24 13:01 NSAIDS (Non-Steroidal Allergy Unknown PEPTIC Verified 02/02/24 13:01 Anti-Inflamma ULCER [NSAIDS (NON-STEROIDAL ANTI-INFLAMMA] prochlorperazine Allergy Unknown UNKNOWN Verified 02/02/24 13:01 [From COMPAZINE] sertraline [From ZOLOFT] Allergy Unknown SUICIDAL Verified 02/02/24 13:01 THOUGHTS. zolpidem [From AMBIEN] Allergy Unknown HALLUCINATI Verified 02/02/24 13:01 ONS Iodinated Contrast Media Allergy Anaphylaxis Verified 02/02/24 13:01 [Contrast Dye] ketorolac [From Toradol] Allergy Anaphylaxis Verified 02/02/24 13:01 Review of Systems Review of Systems Yes all other systems are reviewed and are negative [facility] Social History Social History Unable to assess alcohol history related to: Unknown Smoked in Last 30 Days: No Use of substances other than those prescribed or required for medical reasons: Unknown Advance Directives: No Advance Directives Information Provided: Yes Do you have a plan to hurt others: No Plan Physical Exam ED Vital Signs: Vital Signs - 24 hr 02/01/24 22:21 02/02/24 01:25 02/02/24 03:45 Temperature 97.2 F 97.8 F 97.8 F Pulse Rate 113 H 108 H 108 H Respiratory Rate 20 16 16 Blood Pressure 169/90 H 155/103 H 155/103 H Pulse Oximetry 99 99 99 Oxygen Delivery Method Room Air Room Air Room Air BMI result Body Mass Index 32.5 Appearance: Alert. Oriented X3. No acute distress. Eyes: PERRLA, No Nystagmus ENT: Pharynx normal. Oral Mucosa moist Neck: Normal inspection. Neck supple. CVS: Normal heart rate and rhythm. Pulses normal. Respiratory: No respiratory distress. Equal air entry bilateral, no wheezing/rales/rhonchi Abdomen: Soft and nontender. Bowel sounds are present, no mass palpable, no CVA tenderness diffuse paralumbar tenderness Skin: Skin warm and dry. Normal skin color. Normal skin turgor. Extremities: No lower extremity edema. No calf tenderness Neuro: Oriented X 3. No motor deficit. Medical Decision Making Medical Decision Making MDM Narrative: Patient with chronic UTI symptoms and flank pain at to CT scan already this month which were negative urine with WBCs and red cells nitrite multiple cultures in the past negative likely patient has interstitial cystitis will treat with methenamine hippurate for chronic suppressive treatment advised to follow with urologist as scheduled Lab Data [facility] Lab Attestation statement: I reviewed the patient's lab results. 02/01/24 22:44 02/01/24 22:44 Labs: Lab Results 02/01/24 02/02/24 Range/Units 22:44 02:34 WBC 9.1 (4.8-10.8) X10*3/uL RBC 3.74 L (4.20-5.50) X10*6/uL Hgb 10.0 L (12.0-16.0) g/dl Hct 31.2 L (37.0-47.0) % MCV 83.4 (80.0-98.0) fL MCH 26.7 L (27.0-33.0) pg MCHC 32.1 (31.0-35.0) g/dl RDW 14.7 (11.0-16.0) % Plt Count 346 (160-400) X10*3/uL MPV 9.0 L (9.4-12.3) fL Immature Gran % (Auto) 0.2 (0.0-0.4) % Neut % (Auto) 64.0 (45-73) % Lymph % (Auto) 26.2 (20-40) % [place] % (Auto) 8.6 (2-11) % Eos % (Auto) 0.7 (0-4) % Baso % (Auto) 0.3 (0-2) % Lymph # (Auto) 2.4 (1.2-4.9) X10*3/uL [place] # (Auto) 0.8 (0.1-1.2) X10*3/uL Eos # (Auto) 0.1 (0.0-0.4) X10*3/uL Baso # (Auto) 0.0 (0.0-0.2) X10*3/uL Abs Immat Gran (auto) 0.02 (0.00-0.03) X10*3/uL Absolute Neuts (auto) 5.8 (2.0-8.3) x10*3/uL Absolute Nucleated RBC 0.000 (0.0-0.012) X10*3/uL Nucleated RBC % (auto) 0.0 (0.0-0.2) /100WBC Sodium 143 (135-145) mmol/L Potassium 3.3 (3.3-5.1) mmol/L Chloride 109 H (96-108) mmol/L Carbon Dioxide 26 (22-29) mmol/L Anion Gap 11 L (12-20) BUN 13 (9-16) mg/dL Creatinine 0.72 (0.5-1.4) mg/dL Estim Creat Clear Calc 78.5 Estimated GFR > 60 Random Glucose 125 H (60-115) mg/dL Calcium 9.4 (8.4-10.2) mg/dL Total Bilirubin 0.3 (0.0-1.0) mg/dL Direct Bilirubin 0.1 (0.0-0.5) mg/dL AST 25 (5-31) U/L ALT 15 (0-31) U/L Alkaline Phosphatase 94 (39-117) U/L Total Protein 7.6 (6.5-8.0) g/dL Albumin 4.3 (3.5-5.0) g/dL Lipase 35 (8-78) U/L Urine Color Yellow Urine Appearance Turbid Urine pH 6.0 (5.0-9.0) Ur Specific [place] 1.025 (1.005-1.025) Urine Protein 30 (1+) H (Neg-Trace) mg/dL Urine Glucose (UA) Negative (Negative) mg/dL Urine Ketones 15 (Negative) mg/dL Urine Blood Small (1+) H (Negative) Urine Nitrite Negative (Negative) Ur Leukocyte Esterase Large (3+) H (Negative) Urine RBC >20 H (0-2) /HPF Urine WBC >50 H (0-5) /HPF Ur Squamous Epith Cells 11-20 (0-2) /HPF Calcium Oxalate Crystal Present Urine Bacteria 3+ (None Seen) Hyaline Casts 0-2 (0-2) /LPF Influenza Type A (PCR) NEGATIVE (Negative) Influenza Type B (PCR) NEGATIVE (Negative) RSV RNA Qual (PCR) NEGATIVE (Negative) SARS-CoV-2 RNA (RT-PCR) NEGATIVE (Negative) Discharge Plan Discharge Clinical Impression: Abdominal pain, Chronic UTI Patient Disposition: Home, Self-Care Instructions: Urinary Tract Infection in Women (DC), Abdominal Pain (ED) Additional Instructions: Cause of your chronic bacteriuria is not clear 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 cefuroxime axetil 250 mg tablet 250 mg PO Q12H 5 Days Qty: 10 0RF ondansetron 4 mg tablet,disintegrating 4 mg PO Q8H 5 Days Qty: 15 0RF oxycodone 5 mg tablet 5 mg PO Q6H PRN (Reason: pain) Qty: 15 0RF Rx Instructions: partial filing upon pt request; Partial Fill upon patient request. polyethylene glycol 3350 [Miralax] 17 gram/dose powder 17 g PO DAILY Qty: 119 0RF ondansetron 4 mg tablet,disintegrating 4 mg PO TID PRN (Reason: nausea and vomiting) 5 Days Qty: 10 0RF levofloxacin 500 mg tablet 500 mg PO DAILY Qty: 7 0RF Interventions: ED Discharge Assessment Last Done: 02/02/24 03:45 Discharge Date/Time: 02/02/24 03:45 Print Language: [place]
--- NOTE | 2024-02-02 03:32 | PC.NURSE ---
Dr. Alexander entered the patient's room to discuss lab results and plan of care. Dr. Alexander stated I am not going to give you pain medications for this chronic issue, but I will give you antibiotics for the infection and send you home with discharge papers . Patient does not appear to be in acute distress at this time. Patient appears to be resting comfortably, no grimacing, no guarding, has been intermittently sleeping (primarily while laying on her left side). Patient agreeable with plan of care, awaiting discharge paperwork. Care ongoing by this RN.
[2024-02-02 03:45] VITALS: BP 155/103; PULSE 108; RESP 16; TEMP 36.6; O2SAT 99
== END 2024-02-02 03:45 | disposition home or self-care (01) ==
PROVIDERS: Emergency Provider Internal Medicine
DX: N39.0 Urinary tract infection, site not specified (principal); R10.2 Pelvic and perineal pain; R11.0 Nausea; Z79.899 Other long term (current) drug therapy; Z03.818 Encounter for observation for suspected exposure to other biological agents ruled out
CPT/HCPCS: 0241U; 80053; 81001; 82248; 83690; 85025; 87086; 87147; 99283

== ENCOUNTER 2024-02-02 12:42 | Emergency (ER) | payer MEDICAID, SELFPAY ==
--- NOTE | ~2024-02-02 | CT_ITS ---
EXAMINATION: CT ABDOMEN AND PELVIS WITHOUT CONTRAST CLINICAL INFORMATION: Left-sided flank pain. COMPARISON: CT abdomen and pelvis from 01/23/2024. TECHNIQUE: Multidetector volumetric imaging was performed from the lung bases to the pubic without contrast. Sagittal and coronal reformatted images were obtained on the technologist workstation. This CT examination was performed using dose optimization techniques as appropriate, variously including the following: *Automated exposure control. *Adjustment of mA and/or kV according to patient size (this includes techniques or standardized protocols for targeted exams where dose is matched to indication/reason for exam; i.e. extremities or head). *Use of iterative reconstruction technique. DLP: 498 mGy-cm FINDINGS: LUNG BASES: Mild bilateral dependent atelectasis. Otherwise, no abnormalities of the visualized lung bases. No demonstrated abnormalities of the visualized cardiac structures. ABDOMEN/PELVIS: Liver, Biliary Ducts, and Gallbladder: The unenhanced liver is normal in size and attenuation without focal hepatic lesions or biliary ductal dilatation. The gallbladder is physiologically distended without radiopaque gallstones, pericholecystic fluid, or significant gallbladder wall thickening. Pancreas: The pancreas is normal in appearance. Adrenal Glands: The adrenal glands are normal in appearance. Spleen: The spleen is normal in appearance. Kidneys and Ureters: The unenhanced kidneys are normal in size without hydronephrosis. Multiple nonobstructive stones in the lower poles of the left greater than right kidneys, measuring punctate in size up to 0.4 cm. There is a 1.3 cm simple renal cyst in the lower pole the left kidney (no follow-up imaging recommended based on current guidelines at the time of examination). No ureterolithiasis or hydroureter. Urinary Bladder: The urinary bladder is partially distended without focal wall thickening. No bladder calculi are demonstrated. Gastrointestinal System: The stomach is decompressed and therefore not well evaluated on this exam. The small bowel is of normal caliber. The colon is normal in appearance without focal wall thickening or pericolonic inflammatory change. Normal appendix. Genitourinary: No demonstrated adnexal soft tissue masses. Intra-abdominal and Retroperitoneal Spaces: No intra-abdominal free fluid collections or gas. No mesenteric, retroperitoneal, or inguinal lymphadenopathy. VASCULATURE: Normal contour and caliber of the abdominal aorta. MUSCULOSKELETAL: Mild multilevel degenerative changes of the spine. Chronic anterior wedge deformity of the L1 vertebral body. No lytic or sclerotic osseous lesions demonstrated. No soft tissue masses demonstrated. CT/CT abdomen pelvis wo IV con IMPRESSION: 1. Bilateral nonobstructive nephrolithiasis. 2. No additional CT abnormalities to explain the patient's symptoms. Electronically signed by: Kaiser Carrera DO 02/02/2024 06:17 PM OSMAN
[2024-02-02 12:46] VITALS: BP 136/74; PULSE 120; O2SAT 98
[2024-02-02 12:58] VITALS: BP 168/96; PULSE 122; RESP 22; TEMP 37.1; O2SAT 98; BMI 32.5
--- NOTE | 2024-02-02 13:13 | ECG_ITS ---
Test Reason : tachycardia Blood Pressure : / mmHG Vent. Rate : 106 BPM Atrial Rate : 106 BPM P-R Int : 114 ms QRS Dur : 070 ms QT Int : 368 ms P-R-T Axes : 052 061 016 degrees QTc Int : 488 ms Sinus tachycardia Otherwise normal ECG When compared with ECG of 31-JAN-2024 17:40, ST no longer depressed in Inferior leads Referred By: Vidhi Mcclure Electronically Signed By:LESLEE SON
[2024-02-02 13:31] LABS: MANUAL DIFF FLAG NO
[2024-02-02 13:40] LABS: Basophils Percent Auto 0.4 % (0-2); Eosinophils Percent Auto 0.5 % (0-4); Hematocrit 32.4 % (37.0-47.0); Hemoglobin 10.5 g/dl (12.0-16.0); Imm Gran Abs Auto 0.03 X10*3/uL (0.00-0.03); Imm Gran Pct Auto 0.4 % (0.0-0.4); Lymphocytes Absolute Auto 1.6 X10*3/uL (1.2-4.9); Lymphocytes Percent Auto 21.7 % (20-40); Mean Corpuscular HGB Conc 32.4 g/dl (31.0-35.0); Mean Corpuscular Hemoglobin 26.9 pg (27.0-33.0); Mean Corpuscular Volume 83.1 fL (80.0-98.0); Mean Platelet Volume 9.6 fL (9.4-12.3); Monocytes Absolute Auto 0.6 X10*3/uL (0.1-1.2); Monocytes Percent Auto 7.9 % (2-11); Neutrophils Absolute Auto 5.1 x10*3/uL (2.0-8.3); Neutrophils Percent Auto 69.1 % (45-73); Platelet Count 372 X10*3/uL (160-400); Red Cell Distribution Width 14.6 % (11.0-16.0); White Blood Count 7.4 X10*3/uL (4.8-10.8)
[2024-02-02 13:43] LABS: INTERNATIONAL NORM RATIO 1.1 (0.9-1.1); Prothrombin Time 13.1 SEC (10.9-12.4)
--- NOTE | 2024-02-02 13:44 | ED.ABDPAIN ---
HPI - Abdominal Pain General Chief Complaint: Abdominal Pain Stated Complaint: L FLANK PAIN,H/O KIDNEY STONES PER EMS Time Seen by Provider: 02/02/24 12:48 History of Present Illness HPI narrative: Patient is a 43-year-old female presents today with having left-sided flank pain. The pain radiated down from the left flank to the suprapubic area had a history of kidney stones in the past. No fever chest pain or shortness breath no diaphoresis positive nausea. Had a history of urinary tract infection as well. Patient is status post hysterectomy In 2018. Denies any change in bowel movement. no coughing or congestion or upper respiratory symptoms. Related Data Previous Rx's ?Medication ?Instructions ?Recorded ondansetron 4 mg disintegrating 4 mg PO Q8H 5 days #15 tabs 01/17/24 tablet oxycodone 5 mg tablet 5 mg PO Q6H PRN pain #15 tabs 01/17/24 polyethylene glycol 3350 17 17 g PO DAILY #119 grams 01/17/24 gram/dose oral powder (Miralax) cefuroxime axetil 250 mg tablet 250 mg PO Q12H 5 days #10 tabs 01/23/24 morphine 15 mg immediate release 15 mg PO Q8H PRN pain #10 tabs 01/23/24 tablet levofloxacin 500 mg tablet 500 mg PO DAILY #7 tabs 02/02/24 methenamine hippurate 1 gram tablet 1 g PO BID #60 tabs 02/02/24 ondansetron 4 mg disintegrating 4 mg PO TID PRN nausea and 02/02/24 tablet vomiting 5 days #10 tabs Allergies Allergy/AdvReac Type Severity Reaction Status Date / Time diphenhydramine Allergy Severe PASSED OUT Verified 02/02/24 13:01 [From BENADRYL] WITH IV USE GIVEN. shellfish derived Allergy Intermediate HIVES Verified 02/02/24 13:01 [SHELLFISH DERIVED] lactose [LACTOSE] Allergy Unknown INTOLERANT Verified 02/02/24 13:01 metoclopramide [From REGLAN] Allergy Unknown UNKNOWN Verified 02/02/24 13:01 NSAIDS (Non-Steroidal Allergy Unknown PEPTIC Verified 02/02/24 13:01 Anti-Inflamma ULCER [NSAIDS (NON-STEROIDAL ANTI-INFLAMMA] prochlorperazine Allergy Unknown UNKNOWN Verified 02/02/24 13:01 [From COMPAZINE] sertraline [From ZOLOFT] Allergy Unknown SUICIDAL Verified 02/02/24 13:01 THOUGHTS. zolpidem [From AMBIEN] Allergy Unknown HALLUCINATI Verified 02/02/24 13:01 ONS Iodinated Contrast Media Allergy Anaphylaxis Verified 02/02/24 13:01 [Contrast Dye] ketorolac [From Toradol] Allergy Anaphylaxis Verified 02/02/24 13:01 Review of Systems Review of Systems Positive abdominal pain on the left flank area Yes all other systems are reviewed and are negative ON LICENSE OF [facility] Social History Social History Unable to assess alcohol history related to: Unknown Smoked in Last 30 Days: No Use of substances other than those prescribed or required for medical reasons: Unknown Advance Directives: No Advance Directives Information Provided: Yes Do you have a plan to hurt others: No Plan Physical Exam ED Vital Signs: Vital Signs - 24 hr 02/02/24 12:58 02/02/24 18:09 Temperature 98.8 F 97.9 F Pulse Rate 122 H 90 Respiratory Rate 22 H 18 Blood Pressure 168/96 H 135/71 Pulse Oximetry 98 98 Oxygen Delivery Method Room Air Room Air BMI result Body Mass Index 32.5 Appearance: Alert. Oriented X3. No acute distress. Eyes: Pupils equal, round and reactive to light. ENT: Pharynx normal. Neck: Normal inspection. Neck supple. No lymph nodes noted. No crepitus CVS: Normal heart rate and rhythm. Pulses normal. Normal S1 and S2 Respiratory: No respiratory distress. Breath sounds normal. No Wheezing. No rales Abdomen: Soft and nontender. No rigidity. No distention. good BS x4 Skin: Skin warm and dry. Normal skin color. Normal skin turgor. Extremities: No lower extremity edema. Neurovascular intact to all extremities. No Lacerations. No Rash Neuro: Oriented X 3. No motor deficit. No sensory deficit. Moving all extermities. No slurred speech Medical Decision Making Medical Decision Making MDM Narrative: 43 years old with a history of kidney stone status post partial hysterectomy presented today with having pain on urination frequency. Patient CT scan of the abdomen pelvis was done. Radiology's reading was negative for any ureteral stone. Patient's urine did showed signs of a UTI. A dose of Rocephin was given. Previous culture results was reviewed. Patient's electrolytes showed a potassium of 2.9 was repleted. Will ask patient to take good oral intake of potassium. Patient's hemoglobin is normal at 7.4. Hemoglobin is 10.5. No gross anemia. Will start patient on Levaquin. Patient claims that that has worked for her in the past for urinary tract infection wants that antibiotics if possible. Patient to be discharged home. Differential Diagnosis Differential Diagnoses: The differential diagnosis associated with the presentation includes Urinary tract infection, kidney stone, diverticulitis, obstruction abscess perforation Admission/Observation Consideration of admission/observation: Escalation of care including admission/observation considered Lab Data MDM Lab Attestation statement: I reviewed the patient's lab results. 02/02/24 12:15 02/02/24 12:15 Labs: Lab Results 02/02/24 02/02/24 Range/Units 12:15 13:49 WBC 7.4 (4.8-10.8) X10*3/uL RBC 3.90 L (4.20-5.50) X10*6/uL Hgb 10.5 L (12.0-16.0) g/dl Hct 32.4 L (37.0-47.0) % MCV 83.1 (80.0-98.0) fL MCH 26.9 L (27.0-33.0) pg MCHC 32.4 (31.0-35.0) g/dl RDW 14.6 (11.0-16.0) % Plt Count 372 (160-400) X10*3/uL MPV 9.6 (9.4-12.3) fL Immature Gran % (Auto) 0.4 (0.0-0.4) % Neut % (Auto) 69.1 (45-73) % Lymph % (Auto) 21.7 (20-40) % [place] % (Auto) 7.9 (2-11) % Eos % (Auto) 0.5 (0-4) % Baso % (Auto) 0.4 (0-2) % Lymph # (Auto) 1.6 (1.2-4.9) X10*3/uL [place] # (Auto) 0.6 (0.1-1.2) X10*3/uL Eos # (Auto) 0.0 (0.0-0.4) X10*3/uL Baso # (Auto) 0.0 (0.0-0.2) X10*3/uL Abs Immat Gran (auto) 0.03 (0.00-0.03) X10*3/uL Absolute Neuts (auto) 5.1 (2.0-8.3) x10*3/uL Absolute Nucleated RBC 0.000 (0.0-0.012) X10*3/uL Nucleated RBC % (auto) 0.0 (0.0-0.2) /100WBC PT 13.1 H (10.9-12.4) SEC INR 1.1 (0.9-1.1) Sodium 142 (135-145) mmol/L Potassium 2.9 L* (3.3-5.1) mmol/L Chloride 108 (96-108) mmol/L Carbon Dioxide 26 (22-29) mmol/L Anion Gap 11 L (12-20) BUN 11 (9-16) mg/dL Creatinine 0.65 (0.5-1.4) mg/dL Estim Creat Clear Calc 86.9 Estimated GFR > 60 Random Glucose 102 (60-115) mg/dL Lactic Acid 1.1 (0.5-2.0) mmol/L Calcium 8.9 (8.4-10.2) mg/dL Magnesium 1.8 (1.6-2.6) mg/dL Total Bilirubin 0.4 (0.0-1.0) mg/dL AST 25 (5-31) U/L ALT 17 (0-31) U/L Alkaline Phosphatase 92 (39-117) U/L Total Protein 7.9 (6.5-8.0) g/dL Albumin 4.4 (3.5-5.0) g/dL Urine Color Yellow Urine Appearance Cloudy Urine pH 6.5 (5.0-9.0) Ur Specific [place] 1.020 (1.005-1.025) Urine Protein 30 (1+) H (Neg-Trace) mg/dL Urine Glucose (UA) Negative (Negative) mg/dL Urine Ketones Trace (Negative) mg/dL Urine Blood Trace H (Negative) Urine Nitrite Negative (Negative) Ur Leukocyte Esterase Moderate (2+) H (Negative) Urine RBC 3-5 H (0-2) /HPF Urine WBC 11-20 H (0-5) /HPF Ur Squamous Epith Cells 6-10 (0-2) /HPF Urine Bacteria None Seen (None Seen) Hyaline Casts 3-5 (0-2) /LPF Independent Interpretation I performed an independent interpretation of an: CT Scan ( no gross ureteral stone noted) Radiology Impression Discussion of test interpretation with radiology: I have reviewed the radiologist's reading. External Record Review External record reviewed: Prior outpatient labs Chronic Conditions history of kidney stone history urinary tract infection Social Determinants Patient?s care significantly limited by Social Determinants of Health including: Inadequate housing and Problems related to primary support group Medications Administered Discontinued Medications Generic Name Dose Route Start Last Admin Trade Name Freq PRN Reason Stop Dose Admin Ceftriaxone Sodium 1 gm 02/02/24 14:48 02/02/24 14:58 Ceftriaxone Sodium 1 Gm Vial IVPUSH 02/02/24 14:49 1 gm ONCE ONE Administration Hydromorphone HCl 0.5 mg 02/02/24 13:41 02/02/24 14:14 Hydromorphone Hcl 0.5 Mg/0.5 Ml Syringe IVPUSH 02/02/24 13:42 0.5 mg ONCE ONE Administration Protocol Sodium Chloride 1,000 mls @ 999 mls/hr 02/02/24 13:45 02/02/24 15:16 Ns IV 02/02/24 14:45 Infused .Q1H1M MELINDA Infusion Ondansetron HCl 4 mg 02/02/24 13:41 02/02/24 14:14 Ondansetron Hcl 4 Mg/2 Ml Vial IVPUSH 02/02/24 13:42 4 mg ONCE ONE Administration Potassium Chloride 40 meq 02/02/24 14:56 02/02/24 15:03 Potassium Chloride Packet 20 Meq Packet PO 02/02/24 14:57 40 meq ONCE ONE Administration Discharge Plan Discharge Clinical Impression: Urinary tract infection Patient Disposition: Home, Self-Care Instructions: Urinary Tract Infection in Women (DC), Hypokalemia (ED) Prescriptions: New ondansetron 4 mg tablet,disintegrating 4 mg PO TID PRN (Reason: nausea and vomiting) 5 Days Qty: 10 0RF levofloxacin 500 mg tablet 500 mg PO DAILY Qty: 7 0RF No Action morphine 15 mg tablet 15 mg PO Q8H PRN (Reason: pain) Qty: 10 0RF Rx Instructions: Partial Fill upon patient request. cefuroxime axetil 250 mg tablet 250 mg PO Q12H 5 Days Qty: 10 0RF methenamine hippurate 1 gram tablet 1 g PO BID Qty: 60 0RF ondansetron 4 mg tablet,disintegrating 4 mg PO Q8H 5 Days Qty: 15 0RF oxycodone 5 mg tablet 5 mg PO Q6H PRN (Reason: pain) Qty: 15 0RF Rx Instructions: partial filing upon pt request; Partial Fill upon patient request. polyethylene glycol 3350 [Miralax] 17 gram/dose powder 17 g PO DAILY Qty: 119 0RF Referrals: Physician,Unknown J [Primary Care Provider] - 02/04/24 Print Language: Guinean
[2024-02-02 13:47] LABS: Lactic Acid 1.1 mmol/L (0.5-2.0)
[2024-02-02 13:57] LABS: Alanine Aminotransferase 17 U/L (0-31); Albumin Level 4.4 g/dL (3.5-5.0); Alkaline Phosphatase 92 U/L (39-117); Anion Gap 11 (12-20); Aspartate Amino Transferase 25 U/L (5-31); Bilirubin Total 0.4 mg/dL (0.0-1.0); Blood Urea Nitrogen 11 mg/dL (9-16); Calcium 8.9 mg/dL (8.4-10.2); Carbon Dioxide 26 mmol/L (22-29); Chloride 108 mmol/L (96-108); Creatinine Clr Calc Pharmacy 86.9; Estimated Glomerular Filt Rate > 60; Glucose Random 102 mg/dL (60-115); Magnesium 1.8 mg/dL (1.6-2.6); Potassium 2.9 mmol/L (3.3-5.1); Sodium 142 mmol/L (135-145); Total Protein 7.9 g/dL (6.5-8.0)
[2024-02-02 14:00] LABS: Appearance Urine Cloudy; Color Urine Yellow; Glucose Urine UA Negative (Negative); Leukocyte Esterase Urine Moderate (2+) (Negative); Nitrite Urine Negative (Negative); PH 6.5 (5.0-9.0); UMIC TRIGGER UACC YES; Urine Blood Trace (Negative); Urine Ketones Trace mg/dL (Negative); Urine Protein 30 (1+) mg/dL (Neg-Trace)
[2024-02-02 14:07] LABS: Bacteria Urine None Seen (None Seen); UACC Culture Trigger YES
[2024-02-02] MEDS: 0.9 % Sodium Chloride 1,000 ML 999 ML IV (14:13)
[2024-02-02] MEDS: HYDROmorphone HCl 0.5 MG/0.5 ML SYRINGE IVPUSH (14:14)
[2024-02-02] MEDS: ondansetron HCL 4 MG/2 ML VIAL IVPUSH (14:14)
[2024-02-02] MEDS: cefTRIAXone sodium 1 GM VIAL IVPUSH (14:58)
[2024-02-02] MEDS: Potassium Chloride Packet 20 MEQ PACKET 40 MEQ PO (15:03)
[2024-02-02 18:09] VITALS: BP 135/71; PULSE 90; RESP 18; TEMP 36.6; O2SAT 98
--- NOTE | 2024-02-02 18:17 | PC.NURSE ---
Pt stating she wants to go home, frustrated with wait time for CT result. dr palacio notified, will speak to patient.
[2024-02-02 18:38] VITALS: BP 135/71; PULSE 90; RESP 18; TEMP 36.6; O2SAT 98
== END 2024-02-02 18:45 | disposition home or self-care (01) ==
PROVIDERS: Emergency Provider Emergency Medicine Emergency Medical Services
DX: N39.0 Urinary tract infection, site not specified (principal); R10.2 Pelvic and perineal pain; R11.2 Nausea with vomiting, unspecified; R00.0 Tachycardia, unspecified; Z79.899 Other long term (current) drug therapy
CPT/HCPCS: 36415; 74176; 80053; 81001; 81003; 83605; 83735; 85025; 85610; 87040; 87086; 87147; 93005; 96361; 96374; 96375; 99285; J0696; J1171; J2405

== ENCOUNTER → 2024-02-02 13:13 | Outpatient (BNV) | payer MEDICAID, SELFPAY | PROVIDERS: Emergency Provider Emergency Medicine Emergency Medical Services; Visit Provider Internal Medicine | DX: R00.0 Tachycardia, unspecified (principal) | CPT/HCPCS: 93010 ==

== ENCOUNTER 2024-02-08 21:24 | Emergency (ER) | payer MEDICAID, SELFPAY ==
--- NOTE | 2024-02-08 | ECG_ITS ---
Test Reason : TACHYCARDIA Blood Pressure : / mmHG Vent. Rate : 114 BPM Atrial Rate : 114 BPM P-R Int : 118 ms QRS Dur : 068 ms QT Int : 330 ms P-R-T Axes : 046 059 032 degrees QTc Int : 454 ms Sinus tachycardia Otherwise normal ECG When compared with ECG of 02-FEB-2024 13:28, Nonspecific T wave abnormality has replaced inverted T waves in Inferior leads Referred By: Generic ED Physician Electronically Signed By:Ashish Kc
[2024-02-08 21:29] VITALS: BP 172/104; BP 200/130; PULSE 124; PULSE 125; RESP 20; TEMP 36.9; O2SAT 95; O2SAT 97; BMI 32.8
[2024-02-08 21:30] VITALS: PULSE 124
[2024-02-08 21:34] VITALS: BP 172/104; PULSE 124; RESP 20; TEMP 36.9; O2SAT 97
[2024-02-08 22:09] LABS: MANUAL DIFF FLAG NO
[2024-02-08 22:10] LABS: Basophils Absolute Auto 0.1 X10*3/uL (0.0-0.2); Basophils Percent Auto 0.7 % (0-2); Eosinophils Absolute Auto 0.1 X10*3/uL (0.0-0.4); Eosinophils Percent Auto 0.9 % (0-4); Hematocrit 31.9 % (37.0-47.0); Hemoglobin 10.5 g/dl (12.0-16.0); Imm Gran Abs Auto 0.02 X10*3/uL (0.00-0.03); Imm Gran Pct Auto 0.2 % (0.0-0.4); Lymphocytes Absolute Auto 2.7 X10*3/uL (1.2-4.9); Lymphocytes Percent Auto 29.6 % (20-40); Mean Corpuscular HGB Conc 32.9 g/dl (31.0-35.0); Mean Platelet Volume 9.6 fL (9.4-12.3); Monocytes Absolute Auto 0.8 X10*3/uL (0.1-1.2); Monocytes Percent Auto 9.1 % (2-11); Neutrophils Absolute Auto 5.4 x10*3/uL (2.0-8.3); Neutrophils Percent Auto 59.5 % (45-73); Platelet Count 438 X10*3/uL (160-400); Red Blood Count 3.89 X10*6/uL (4.20-5.50); Red Cell Distribution Width 14.8 % (11.0-16.0)
--- NOTE | 2024-02-08 22:11 | ED_ITS ---
HPI - General Adult General Chief complaint: Abdominal Pain Stated complaint: BACK PAIN RADIATING TO L ABD PER EMS Time Seen by Provider: 02/08/24 21:40 Source: patient, RN notes reviewed and old records reviewed Mode of arrival: EMS Limitations: no limitations History of Present Illness ED Provider: Vitaliy HPI narrative: 43-year-old female with past medical history significant for pancreatitis, recurrent UTI presents for evaluation of abdominal pain. Patient reports about 5 hours prior to arrival she developed mid back pain that has since rate around to the left mid to upper abdomen. She has associated nausea and vomiting. She reports a history of pancreatitis a month ago while in [place] and this feels similar. You she reports that she recently relocated to this area. She is currently on Levaquin for a UTI. Denies any urinary complaints pain Denies any fevers but endorses chills Her pain is 10/10, sharp, stabbing Related Data Previous Rx's ?Medication ?Instructions ?Recorded ondansetron 4 mg disintegrating 4 mg PO Q8H 5 days #15 tabs 01/17/24 tablet oxycodone 5 mg tablet 5 mg PO Q6H PRN pain #15 tabs 01/17/24 polyethylene glycol 3350 17 17 g PO DAILY #119 grams 01/17/24 gram/dose oral powder (Miralax) cefuroxime axetil 250 mg tablet 250 mg PO Q12H 5 days #10 tabs 01/23/24 morphine 15 mg immediate release 15 mg PO Q8H PRN pain #10 tabs 01/23/24 tablet levofloxacin 500 mg tablet 500 mg PO DAILY #7 tabs 02/02/24 methenamine hippurate 1 gram tablet 1 g PO BID #60 tabs 02/02/24 ondansetron 4 mg disintegrating 4 mg PO TID PRN nausea and 02/02/24 tablet vomiting 5 days #10 tabs Allergies Allergy/AdvReac Type Severity Reaction Status Date / Time diphenhydramine Allergy Severe PASSED OUT Verified 02/08/24 21:41 [From BENADRYL] WITH IV USE GIVEN. shellfish derived Allergy Intermediate HIVES Verified 02/08/24 21:41 [SHELLFISH DERIVED] lactose [LACTOSE] Allergy Unknown INTOLERANT Verified 02/08/24 21:41 metoclopramide [From REGLAN] Allergy Unknown UNKNOWN Verified 02/08/24 21:41 NSAIDS (Non-Steroidal Allergy Unknown PEPTIC Verified 02/08/24 21:41 Anti-Inflamma ULCER [NSAIDS (NON-STEROIDAL ANTI-INFLAMMA] prochlorperazine Allergy Unknown UNKNOWN Verified 02/08/24 21:41 [From COMPAZINE] sertraline [From ZOLOFT] Allergy Unknown SUICIDAL Verified 02/08/24 21:41 THOUGHTS. zolpidem [From AMBIEN] Allergy Unknown HALLUCINATI Verified 02/08/24 21:41 ONS Iodinated Contrast Media Allergy Anaphylaxis Verified 02/08/24 21:41 [Contrast Dye] ketorolac [From Toradol] Allergy Anaphylaxis Verified 02/08/24 21:41 Review of Systems 2 Constitutional: Constitutional: Denies body ache(s), Reports chills, Denies fever(s) and Denies frequent falls ENT: Denies vertigo and Denies dizziness Cardiovascular: Cardiovascular: Denies chest pain and Denies dyspnea Respiratory: Respiratory: Denies cough and Denies dyspnea Gastrointestinal: Gastrointestinal: Reports abdominal pain, Reports nausea and Reports vomiting Musculoskeletal: Musculoskeletal: Reports back pain Integumentary/Breasts: Skin/Breast: Denies rash Neurologic: Denies vertigo, Denies dizziness and Denies frequent falls Psychiatric: Psychiatric: Denies anxiety PMFSH Social History Social History Unable to assess alcohol history related to: Unknown Advance Directives: No Advance Directives Information Provided: No Do you have a plan to hurt others: No Plan Physical Exam ED Vital Signs: Vital Signs - 24 hr 02/08/24 21:29 02/08/24 21:34 02/08/24 23:23 Temperature 98.4 F 98.4 F Pulse Rate 124 H 124 H Respiratory Rate 20 20 16 Blood Pressure 172/104 H 172/104 H Pulse Oximetry 97 97 Oxygen Delivery Method Room Air Room Air BMI result Body Mass Index 32.8 Const General: healthy appearing, alert and awake Nutritional Appearance: well nourished Orientation/consciousness: patient oriented x3 HENMT Head: Yes normocephalic and Yes atraumatic Eyes Eyelids: Yes eyelids normal Conjunctivae: conjunctivae normal Sclerae: sclerae normal Corneas: corneas normal Pupils: Equal, round and reactive pupils present EOM: EOMs intact bilaterally Neck Neck: Yes full ROM Resp Effort & Inspection: normal respiratory effort, able to speak in complete sentences and not labored Cardio Rhythm: regular rhythm GI Inspection: No distended Palpation (GI): Soft to palpation, not firm, Tenderness to palpation present (GI) in the epigastrum and in the LUQ; Deshpande's sign negative and with no rebound tenderness, no guarding and not rigid General: Yes no CVA tenderness Back/Spine/Pelvis Back: no CVA tenderness Skin General skin exam: elasticity normal Neuro General: patient oriented x3 Cranial nerves: Yes Equal, round and reactive pupils present and Yes Bilaterally intact EOM present Cognition (Neuro): normal cognition Extrem Other: Moving all extremities well without any obvious deformities Course Reevaluation(s) Reevaluation #1: Patient's pain has resolved, she is no longer tachycardic and reports that she feels much better. I reviewed her labs, she has no white count, no significant electrolyte abnormality. Renal function within normal limits. It is possible that she passed a kidney stone to have severe, sudden onset of pain that is transient and has resolved. She would have calcium oxalate in her urine. She has follow-up with Urology next month per her report Time: 00:34 Medications Administered Discontinued Medications Generic Name Dose Route Start Last Admin Trade Name Freq PRN Reason Stop Dose Admin Sodium Chloride 1,000 mls @ 999 mls/hr 02/08/24 22:00 02/08/24 23:24 Ns IV 02/08/24 23:00 999 mls/hr .Q1H1M MELINDA Administration Morphine Sulfate 4 mg 02/08/24 21:56 02/08/24 23:23 Morphine Sulfate 4 Mg/Ml Cartridge IVPUSH 02/08/24 21:57 4 mg ONCE ONE Administration Protocol Ondansetron HCl 4 mg 02/08/24 21:56 02/08/24 23:23 Ondansetron Hcl 4 Mg/2 Ml Vial IVPUSH 02/08/24 21:57 4 mg ONCE ONE Administration Medical Decision Making Medical Decision Making MDM Narrative: 43-year-old female presents for evaluation of abdominal pain that radiates to her back. This is the patient's [facility] for abdominal related symptoms this month. She has had 3 CT scans of the abdomen pelvis. However that being said she appears uncomfortable, she was tachycardic, plan for labs initially, will treat with IV fluids and morphine. Plan for obstructive uropathy versus pyelonephritis, pancreatitis, less likely bowel obstruction. Less likely acute appendicitis or biliary disease as her pain is left-sided the central, not right-sided. Further workup as indicated Differential Diagnosis Differential Diagnoses: The differential diagnosis associated with the presentation includes As above Lab Data 02/08/24 22:03 02/08/24 22:03 Labs: Lab Results 02/08/24 02/08/24 Range/Units 22:03 22:54 WBC 9.0 (4.8-10.8) X10*3/uL RBC 3.89 L (4.20-5.50) X10*6/uL Hgb 10.5 L (12.0-16.0) g/dl Hct 31.9 L (37.0-47.0) % MCV 82.0 (80.0-98.0) fL MCH 27.0 (27.0-33.0) pg MCHC 32.9 (31.0-35.0) g/dl RDW 14.8 (11.0-16.0) % Plt Count 438 H (160-400) X10*3/uL MPV 9.6 (9.4-12.3) fL Immature Gran % (Auto) 0.2 (0.0-0.4) % Neut % (Auto) 59.5 (45-73) % Lymph % (Auto) 29.6 (20-40) % [place] % (Auto) 9.1 (2-11) % Eos % (Auto) 0.9 (0-4) % Baso % (Auto) 0.7 (0-2) % Lymph # (Auto) 2.7 (1.2-4.9) X10*3/uL [place] # (Auto) 0.8 (0.1-1.2) X10*3/uL Eos # (Auto) 0.1 (0.0-0.4) X10*3/uL Baso # (Auto) 0.1 (0.0-0.2) X10*3/uL Abs Immat Gran (auto) 0.02 (0.00-0.03) X10*3/uL Absolute Neuts (auto) 5.4 (2.0-8.3) x10*3/uL Absolute Nucleated RBC 0.000 (0.0-0.012) X10*3/uL Nucleated RBC % (auto) 0.0 (0.0-0.2) /100WBC Sodium 143 (135-145) mmol/L Potassium 3.3 (3.3-5.1) mmol/L Chloride 106 (96-108) mmol/L Carbon Dioxide 25 (22-29) mmol/L Anion Gap 15 (12-20) BUN 11 (9-16) mg/dL Creatinine 0.80 (0.5-1.4) mg/dL Estim Creat Clear Calc 67.7 Estimated GFR > 60 Random Glucose 105 (60-115) mg/dL Calcium 9.8 D (8.4-10.2) mg/dL Total Bilirubin 0.2 (0.0-1.0) mg/dL AST 27 (5-31) U/L ALT 21 (0-31) U/L Alkaline Phosphatase 101 (39-117) U/L Total Protein 8.1 H (6.5-8.0) g/dL Albumin 4.5 (3.5-5.0) g/dL Lipase 26 (8-78) U/L Urine Color Yellow Urine Appearance Cloudy Urine pH 5.5 (5.0-9.0) Ur Specific [place] >= 1.030 H (1.005-1.025) Urine Protein 100 (2+) H (Neg-Trace) mg/dL Urine Glucose (UA) Negative (Negative) mg/dL Urine Ketones Trace (Negative) mg/dL Urine Blood Trace H (Negative) Urine Nitrite Negative (Negative) Ur Leukocyte Esterase Small (1+) H (Negative) Urine RBC 6-10 H (0-2) /HPF Urine WBC 11-20 H (0-5) /HPF Ur Squamous Epith Cells 6-10 (0-2) /HPF Calcium Oxalate Crystal Present Urine Bacteria None Seen (None Seen) Hyaline Casts >20 (0-2) /LPF Urine Opiates Screen Not Detected (Not Detect) Ur Buprenorphine Scrn Not Detected (Not Detect) ng/mL Ur Oxycodone Screen Not Detected (Not Detect) ng/mL Urine Methadone Screen Not Detected (Not Detect) ng/mL Urine Fentanyl Screen Not Detected (Not Detect) Ur Barbiturates Screen Not Detected (Not Detect) Ur Phencyclidine Scrn Not Detected (Not Detect) Ur Amphetamines Screen Not Detected (Not Detect) U Benzodiazepines Scrn Not Detected (Not Detect) Urine Cocaine Screen Not Detected (Not Detect) U Marijuana (THC) Screen Not Detected (Not Detect) Independent Interpretation I performed an independent interpretation of an: EKG (Sinus tachycardia rate of [address] segment elevations or depressions.) Discharge Plan Discharge Clinical Impression: Abdominal pain Patient Disposition: Home, Self-Care Instructions: Abdominal Pain (ED) Additional Instructions: Your workup in the ER today was reassuring. This includes your blood work. Your urinalysis did show calcium oxalate which could be indicative of a recently passed kidney stone. Hydrate while in follow-up with your outpatient provider Prescriptions: No Action morphine 15 mg tablet 15 mg PO Q8H PRN (Reason: pain) Qty: 10 0RF Rx Instructions: Partial Fill upon patient request. cefuroxime axetil 250 mg tablet 250 mg PO Q12H 5 Days Qty: 10 0RF methenamine hippurate 1 gram tablet 1 g PO BID Qty: 60 0RF ondansetron 4 mg tablet,disintegrating 4 mg PO Q8H 5 Days Qty: 15 0RF oxycodone 5 mg tablet 5 mg PO Q6H PRN (Reason: pain) Qty: 15 0RF Rx Instructions: partial filing upon pt request; Partial Fill upon patient request. polyethylene glycol 3350 [Miralax] 17 gram/dose powder 17 g PO DAILY Qty: 119 0RF ondansetron 4 mg tablet,disintegrating 4 mg PO TID PRN (Reason: nausea and vomiting) 5 Days Qty: 10 0RF levofloxacin 500 mg tablet 500 mg PO DAILY Qty: 7 0RF Print Language: [place]
[2024-02-08 22:25] LABS: Alanine Aminotransferase 21 U/L (0-31); Albumin Level 4.5 g/dL (3.5-5.0); Alkaline Phosphatase 101 U/L (39-117); Anion Gap 15 (12-20); Aspartate Amino Transferase 27 U/L (5-31); Bilirubin Total 0.2 mg/dL (0.0-1.0); Blood Urea Nitrogen 11 mg/dL (9-16); Calcium 9.8 mg/dL (8.4-10.2); Carbon Dioxide 25 mmol/L (22-29); Chloride 106 mmol/L (96-108); Creatinine Clr Calc Pharmacy 67.7; Estimated Glomerular Filt Rate > 60; Glucose Random 105 mg/dL (60-115); Lipase 26 U/L (8-78); Potassium 3.3 mmol/L (3.3-5.1); Sodium 143 mmol/L (135-145); Total Protein 8.1 g/dL (6.5-8.0)
[2024-02-08 23:01] LABS: Appearance Urine Cloudy; Color Urine Yellow; Glucose Urine UA Negative (Negative); Leukocyte Esterase Urine Small (1+) (Negative); Nitrite Urine Negative (Negative); PH 5.5 (5.0-9.0); Specific Gravity - Urine >= 1.030 (1.005-1.025); UMIC TRIGGER UACC YES; Urine Blood Trace (Negative); Urine Ketones Trace mg/dL (Negative); Urine Protein 100 (2+) mg/dL (Neg-Trace)
[2024-02-08 23:13] LABS: Amphetamine Screen Urine Not Detected (Not Detect); Bacteria Urine None Seen (None Seen); Barbiturates, Urine Not Detected (Not Detect); Benzodiazepines Screen Urine Not Detected (Not Detect); Buprenorphine Scr Not Detected (Not Detect); Calcium Oxalate Crystals Urine Present; Cannabinoid Screen Urine Not Detected (Not Detect); Cocaine Screen Urine Not Detected (Not Detect); Fentanyl, urine Not Detected (Not Detect); Hyaline Casts Urine >20 /LPF (0-2); Methadone Screen, Urine Not Detected (Not Detect); Opiate Screen Urine Not Detected (Not Detect); Oxycodone Screen Urine Not Detected (Not Detect); Phencyclidine Screen Urine Not Detected (Not Detect); UACC Culture Trigger YES
[2024-02-08 23:23] VITALS: RESP 16
[2024-02-08] MEDS: Morphine Sulfate 4 MG/ML CARTRIDGE IVPUSH (23:23)
[2024-02-08] MEDS: ondansetron HCL 4 MG/2 ML VIAL IVPUSH (23:23)
[2024-02-08] MEDS: 0.9 % Sodium Chloride 1,000 ML 999 ML IV (23:24)
[2024-02-09 00:40] VITALS: BP 127/82; PULSE 90; RESP 12; TEMP 36.8; O2SAT 97
[2024-02-09 01:03] VITALS: BP 127/82; PULSE 90; RESP 12; TEMP 36.8; O2SAT 97
== END 2024-02-09 01:03 | disposition home or self-care (01) ==
PROVIDERS: Physician Assistant; Emergency Provider Internal Medicine
DX: M54.50 Low back pain, unspecified (principal); R10.2 Pelvic and perineal pain; R00.0 Tachycardia, unspecified; R11.2 Nausea with vomiting, unspecified; Z51.81 Encounter for therapeutic drug level monitoring; Z79.899 Other long term (current) drug therapy
CPT/HCPCS: 36415; 80053; 80307; 81001; 83690; 85025; 87086; 93005; 96361; 96374; 96375; 99285; J2270; J2405

== ENCOUNTER → 2024-02-08 21:47 | Outpatient (BNV) | payer MEDICAID, SELFPAY | PROVIDERS: Emergency Provider Internal Medicine; Visit Provider Internal Medicine Cardiovascular Disease | DX: R00.0 Tachycardia, unspecified (principal) | CPT/HCPCS: 93010 ==

== ENCOUNTER 2024-02-12 11:48 | Emergency (ER) | payer MEDICAID, SELFPAY | END 2024-02-12 12:24 | disposition left against medical advice (07) | PROVIDERS: Emergency Provider Emergency Medicine | DX: J45.909 Unspecified asthma, uncomplicated (principal); Z53.21 Procedure and treatment not carried out due to patient leaving prior to being seen by health care provider ==

== ENCOUNTER 2024-02-15 17:39 | Emergency (ER) | payer MEDICAID, SELFPAY ==
[2024-02-15 17:40] VITALS: BP 153/129; PULSE 137; O2SAT 97
[2024-02-15 17:54] VITALS: BP 152/109; PULSE 115; RESP 26; TEMP 37.2; O2SAT 98; BMI 32.5
--- NOTE | 2024-02-15 18:02 | ED.GENADULT ---
HPI - General Adult General Chief complaint: Abdominal Pain Stated complaint: SOB,CP,BODY ACHES Time Seen by Provider: 02/15/24 17:47 Source: patient Mode of arrival: ambulatory Limitations: no limitations History of Present Illness ED Provider: HPI narrative: Patient's history of asthma been here 6 times in last 1 month for flank pain had a history of remote pancreatitis was seen at [facility] yesterday and diagnose with influenza comes here as having pain all over the body tachycardic afebrile asking for pain medicine Related Data Previous Rx's ?Medication ?Instructions ?Recorded ondansetron 4 mg disintegrating 4 mg PO Q8H 5 days #15 tabs 01/17/24 tablet oxycodone 5 mg tablet 5 mg PO Q6H PRN pain #15 tabs 01/17/24 polyethylene glycol 3350 17 17 g PO DAILY #119 grams 01/17/24 gram/dose oral powder (Miralax) cefuroxime axetil 250 mg tablet 250 mg PO Q12H 5 days #10 tabs 01/23/24 morphine 15 mg immediate release 15 mg PO Q8H PRN pain #10 tabs 01/23/24 tablet levofloxacin 500 mg tablet 500 mg PO DAILY #7 tabs 02/02/24 methenamine hippurate 1 gram tablet 1 g PO BID #60 tabs 02/02/24 ondansetron 4 mg disintegrating 4 mg PO TID PRN nausea and 02/02/24 tablet vomiting 5 days #10 tabs Allergies Allergy/AdvReac Type Severity Reaction Status Date / Time diphenhydramine Allergy Severe PASSED OUT Verified 02/15/24 17:56 [From BENADRYL] WITH IV USE GIVEN. shellfish derived Allergy Intermediate HIVES Verified 02/15/24 17:56 [SHELLFISH DERIVED] lactose [LACTOSE] Allergy Unknown INTOLERANT Verified 02/15/24 17:56 metoclopramide [From REGLAN] Allergy Unknown UNKNOWN Verified 02/15/24 17:56 NSAIDS (Non-Steroidal Allergy Unknown PEPTIC Verified 02/15/24 17:56 Anti-Inflamma ULCER [NSAIDS (NON-STEROIDAL ANTI-INFLAMMA] prochlorperazine Allergy Unknown UNKNOWN Verified 02/15/24 17:56 [From COMPAZINE] sertraline [From ZOLOFT] Allergy Unknown SUICIDAL Verified 02/15/24 17:56 THOUGHTS. zolpidem [From AMBIEN] Allergy Unknown HALLUCINATI Verified 02/15/24 17:56 ONS Iodinated Contrast Media Allergy Anaphylaxis Verified 02/15/24 17:56 [Contrast Dye] ketorolac [From Toradol] Allergy Anaphylaxis Verified 02/15/24 17:56 Review of Systems Review of Systems: Yes all other systems are reviewed and are negative PMFSH Social History Social History Unable to assess alcohol history related to: Unknown Advance Directives: No Advance Directives Information Provided: No Do you have a plan to hurt others: No Plan Physical Exam ED Vital Signs: Vital Signs - 24 hr 02/15/24 17:54 Temperature 99 F Pulse Rate 115 H Respiratory Rate 26 H Blood Pressure 152/109 H Pulse Oximetry 98 BMI result Body Mass Index 32.5 Appearance: Alert. Oriented X3. No acute distress. Eyes: No pallor or icterus ENT: Pharynx normal. Oral Mucosa moist Neck: Normal inspection. Neck supple. CVS: Regular heart rate rhythm tachycardic Pulses normal. Respiratory: No respiratory distress. Equal air entry bilateral, bilateral wheeze Abdomen: Soft and nontender. Bowel sounds are present, no mass palpable, no CVA tenderness Skin: Skin warm and dry. Normal skin color. Normal skin turgor. Extremities: No lower extremity edema. No calf tenderness Neuro: Oriented X 3. No motor deficit. Medical Decision Making Medical Decision Making MDM Narrative: Patient with anxiety with tachycardia during stay in the ED patient has been here multiple times for multiple will give DuoNeb treatment and cough syrup 1809: Patient has refused nebulizing treatment would like to go home and take the inhaler treatment at home patient has been taking prednisone for asthma heart rate improved to 100 now Discharge Plan Discharge Clinical Impression: Influenza A, Asthma Patient Disposition: Left Against Medical Advice Instructions: Asthma (ED), Influenza (DC) Additional Instructions: Take medication as prescribed by your previous visit Report to the ER if you decide to get further management Prescriptions: No Action morphine 15 mg tablet 15 mg PO Q8H PRN (Reason: pain) Qty: 10 0RF Rx Instructions: Partial Fill upon patient request. cefuroxime axetil 250 mg tablet 250 mg PO Q12H 5 Days Qty: 10 0RF methenamine hippurate 1 gram tablet 1 g PO BID Qty: 60 0RF ondansetron 4 mg tablet,disintegrating 4 mg PO Q8H 5 Days Qty: 15 0RF oxycodone 5 mg tablet 5 mg PO Q6H PRN (Reason: pain) Qty: 15 0RF Rx Instructions: partial filing upon pt request; Partial Fill upon patient request. polyethylene glycol 3350 [Miralax] 17 gram/dose powder 17 g PO DAILY Qty: 119 0RF ondansetron 4 mg tablet,disintegrating 4 mg PO TID PRN (Reason: nausea and vomiting) 5 Days Qty: 10 0RF levofloxacin 500 mg tablet 500 mg PO DAILY Qty: 7 0RF Stand Alone Forms: Against Medical Advice Print Language: Brazilian
--- NOTE | 2024-02-15 18:27 | PC.NURSE ---
Pt arrived via EMS, this primary nurse did not triage this pt, this RN was not in room before DC was in, pt refused medications, RN who triage dc patient at this time
[2024-02-15 18:30] VITALS: BP 152/109; PULSE 115; RESP 26; TEMP 37.2; O2SAT 98
== END 2024-02-15 18:31 | disposition left against medical advice (07) ==
PROVIDERS: Emergency Provider Internal Medicine
DX: J10.1 Influenza due to other identified influenza virus with other respiratory manifestations (principal); J45.909 Unspecified asthma, uncomplicated; R06.02 Shortness of breath; M79.10 Myalgia, unspecified site; R07.89 Other chest pain; R00.0 Tachycardia, unspecified
CPT/HCPCS: 99283

== ENCOUNTER 2024-02-20 17:42 | Emergency (ER) | payer MEDICAID, SELFPAY ==
--- NOTE | ~2024-02-20 | CT_ITS ---
CLINICAL HISTORY: right flank pain CT abdomen and pelvis without contrast Comparison: CT/SR - CT ABDOMEN PELVIS WO IV CON - 02/02/24 15:50 EST Findings: Lung bases clear. Gallbladder and bile ducts normal. Unremarkable liver, pancreas, spleen, and adrenal glands. Unchanged nonobstructing bilateral renal calculi. Normal urinary bladder. Hysterectomy changes. No free fluid or free air within the abdomen or pelvis. Normal small bowel, appendix, and colon. Bones intact. No suspicious bone lesion. IMPRESSION: No acute findings. Unchanged nonobstructing bilateral renal calculi. This document has been electronically signed by: Logan Daigle MD on 02/21/2024 00:35:17
[2024-02-20 17:50] VITALS: BP 170/00; PULSE 138; O2SAT 99
[2024-02-20 18:19] VITALS: BP 175/101; PULSE 121; RESP 16; TEMP 37.4; O2SAT 98; BMI 33.2
--- NOTE | 2024-02-20 18:27 | ED.GENADULT ---
HPI - General Adult General Chief complaint: Abdominal Pain Stated complaint: R side abd pain, N/V Time Seen by Provider: 02/20/24 22:51 Related Data Previous Rx's ?Medication ?Instructions ?Recorded ondansetron 4 mg disintegrating 4 mg PO Q8H 5 days #15 tabs 01/17/24 tablet oxycodone 5 mg tablet 5 mg PO Q6H PRN pain #15 tabs 01/17/24 polyethylene glycol 3350 17 17 g PO DAILY #119 grams 01/17/24 gram/dose oral powder (Miralax) cefuroxime axetil 250 mg tablet 250 mg PO Q12H 5 days #10 tabs 01/23/24 morphine 15 mg immediate release 15 mg PO Q8H PRN pain #10 tabs 01/23/24 tablet levofloxacin 500 mg tablet 500 mg PO DAILY #7 tabs 02/02/24 methenamine hippurate 1 gram tablet 1 g PO BID #60 tabs 02/02/24 ondansetron 4 mg disintegrating 4 mg PO TID PRN nausea and 02/02/24 tablet vomiting 5 days #10 tabs sulfamethoxazole 800 1 tab PO BID Urinary tract 02/21/24 mg-trimethoprim 160 mg tablet infection #14 tabs (Bactrim DS) Allergies Allergy/AdvReac Type Severity Reaction Status Date / Time diphenhydramine Allergy Severe PASSED OUT Verified 02/20/24 18:22 [From BENADRYL] WITH IV USE GIVEN. shellfish derived Allergy Intermediate HIVES Verified 02/20/24 18:22 [SHELLFISH DERIVED] lactose [LACTOSE] Allergy Unknown INTOLERANT Verified 02/20/24 18:22 metoclopramide [From REGLAN] Allergy Unknown UNKNOWN Verified 02/20/24 18:22 NSAIDS (Non-Steroidal Allergy Unknown PEPTIC Verified 02/20/24 18:22 Anti-Inflamma ULCER [NSAIDS (NON-STEROIDAL ANTI-INFLAMMA] prochlorperazine Allergy Unknown UNKNOWN Verified 02/20/24 18:22 [From COMPAZINE] sertraline [From ZOLOFT] Allergy Unknown SUICIDAL Verified 02/20/24 18:22 THOUGHTS. zolpidem [From AMBIEN] Allergy Unknown HALLUCINATI Verified 02/20/24 18:22 ONS Iodinated Contrast Media Allergy Anaphylaxis Verified 02/20/24 18:22 [Contrast Dye] ketorolac [From Toradol] Allergy Anaphylaxis Verified 02/20/24 18:22 [facility] Social History Social History Unable to assess alcohol history related to: Unknown Advance Directives: No Advance Directives Information Provided: Yes Do you have a plan to hurt others: No Plan Physical Exam ED Vital Signs: Vital Signs - 24 hr 02/20/24 18:19 Temperature 99.3 F Pulse Rate 121 H Respiratory Rate 16 Blood Pressure 175/101 H Pulse Oximetry 98 Oxygen Delivery Method Room Air BMI result Body Mass Index 33.2 Course Course Course Narrative: RME: 43-year-old female presents to ED for right lower quadrant abdominal pain that is not generalized. Patient has history of pancreatitis. Patient denies any constipation genitourinary symptoms. Labs SARs strep ordered. Medications Administered Discontinued Medications Generic Name Dose Route Start Last Admin Trade Name Freq PRN Reason Stop Dose Admin Hydromorphone HCl 0.5 mg 02/20/24 23:12 02/20/24 23:32 Hydromorphone Hcl 0.5 Mg/0.5 Ml Syringe IVPUSH 02/20/24 23:13 0.5 mg ONCE ONE Administration Protocol Sodium Chloride 1,000 mls @ 999 mls/hr 02/20/24 23:15 02/20/24 23:32 Ns IV 02/21/24 00:15 999 mls/hr .Q1H1M MELINDA Administration Ondansetron HCl 4 mg 02/20/24 23:12 02/20/24 23:32 Ondansetron Hcl 4 Mg/2 Ml Vial IVPUSH 02/20/24 23:13 4 mg ONCE ONE Administration Medical Decision Making Lab Data 02/20/24 19:43 02/20/24 19:43 Labs: Lab Results 02/20/24 02/20/24 Range/Units 19:43 19:51 WBC 8.0 (4.8-10.8) X10*3/uL RBC 3.98 L (4.20-5.50) X10*6/uL Hgb 10.3 L (12.0-16.0) g/dl Hct 32.6 L (37.0-47.0) % MCV 81.9 (80.0-98.0) fL MCH 25.9 L (27.0-33.0) pg MCHC 31.6 (31.0-35.0) g/dl RDW 15.0 (11.0-16.0) % Plt Count 434 H (160-400) X10*3/uL MPV 9.6 (9.4-12.3) fL Immature Gran % (Auto) 0.4 (0.0-0.4) % Neut % (Auto) 63.1 (45-73) % Lymph % (Auto) 28.1 (20-40) % [place] % (Auto) 7.3 (2-11) % Eos % (Auto) 0.9 (0-4) % Baso % (Auto) 0.2 (0-2) % Lymph # (Auto) 2.3 (1.2-4.9) X10*3/uL [place] # (Auto) 0.6 (0.1-1.2) X10*3/uL Eos # (Auto) 0.1 (0.0-0.4) X10*3/uL Baso # (Auto) 0.0 (0.0-0.2) X10*3/uL Abs Immat Gran (auto) 0.03 (0.00-0.03) X10*3/uL Absolute Neuts (auto) 5.1 (2.0-8.3) x10*3/uL Absolute Nucleated RBC 0.000 (0.0-0.012) X10*3/uL Nucleated RBC % (auto) 0.0 (0.0-0.2) /100WBC PT 13.2 H (10.9-12.4) SEC INR 1.1 (0.9-1.1) APTT 27.9 (26.0-36.8) SEC Sodium 145 (135-145) mmol/L Potassium 3.5 (3.3-5.1) mmol/L Chloride 111 H (96-108) mmol/L Carbon Dioxide 25 (22-29) mmol/L Anion Gap 13 (12-20) BUN 10 (9-16) mg/dL Creatinine 0.64 (0.5-1.4) mg/dL Estim Creat Clear Calc 89.4 Estimated GFR > 60 Random Glucose 123 H (60-115) mg/dL Calcium 9.3 (8.4-10.2) mg/dL Total Bilirubin 0.2 (0.0-1.0) mg/dL AST 24 (5-31) U/L ALT 28 (0-31) U/L Alkaline Phosphatase 83 (39-117) U/L Total Protein 7.5 (6.5-8.0) g/dL Albumin 4.1 (3.5-5.0) g/dL Lipase 20 (8-78) U/L Beta HCG, Quant 3 mIU/mL Urine Color Yellow Urine Appearance Clear Urine pH 6.5 (5.0-9.0) Ur Specific [place] 1.020 (1.005-1.025) Urine Protein Negative (Neg-Trace) mg/dL Urine Glucose (UA) Negative (Negative) mg/dL Urine Ketones Trace (Negative) mg/dL Urine Blood Negative (Negative) Urine Nitrite Negative (Negative) Ur Leukocyte Esterase Moderate (2+) H (Negative) Urine RBC 3-5 H (0-2) /HPF Urine WBC 6-10 H (0-5) /HPF Ur Squamous Epith Cells 0-2 (0-2) /HPF Urine Bacteria None Seen (None Seen) Hyaline Casts 0-2 (0-2) /LPF Influenza Type A (PCR) NEGATIVE (Negative) Influenza Type B (PCR) NEGATIVE (Negative) RSV RNA Qual (PCR) NEGATIVE (Negative) SARS-CoV-2 RNA (RT-PCR) NEGATIVE (Negative) Discharge Plan Discharge Clinical Impression: Urinary tract infection Patient Disposition: Home, Self-Care Instructions: Urinary Tract Infection in Women (DC) Prescriptions: New sulfamethoxazole-trimethoprim [Bactrim DS] 800-160 mg tablet 1 tab PO BID Qty: 14 0RF No Action morphine 15 mg tablet 15 mg PO Q8H PRN (Reason: pain) Qty: 10 0RF Rx Instructions: Partial Fill upon patient request. cefuroxime axetil 250 mg tablet 250 mg PO Q12H 5 Days Qty: 10 0RF methenamine hippurate 1 gram tablet 1 g PO BID Qty: 60 0RF ondansetron 4 mg tablet,disintegrating 4 mg PO Q8H 5 Days Qty: 15 0RF oxycodone 5 mg tablet 5 mg PO Q6H PRN (Reason: pain) Qty: 15 0RF Rx Instructions: partial filing upon pt request; Partial Fill upon patient request. polyethylene glycol 3350 [Miralax] 17 gram/dose powder 17 g PO DAILY Qty: 119 0RF ondansetron 4 mg tablet,disintegrating 4 mg PO TID PRN (Reason: nausea and vomiting) 5 Days Qty: 10 0RF levofloxacin 500 mg tablet 500 mg PO DAILY Qty: 7 0RF Referrals: Physician,Unknown J [Primary Care Provider] - 02/23/24 Print Language: Salvadorean
[2024-02-20 19:48] LABS: MANUAL DIFF FLAG NO
[2024-02-20 19:51] LABS: Basophils Percent Auto 0.2 % (0-2); Eosinophils Absolute Auto 0.1 X10*3/uL (0.0-0.4); Eosinophils Percent Auto 0.9 % (0-4); Hematocrit 32.6 % (37.0-47.0); Hemoglobin 10.3 g/dl (12.0-16.0); Imm Gran Abs Auto 0.03 X10*3/uL (0.00-0.03); Imm Gran Pct Auto 0.4 % (0.0-0.4); Lymphocytes Absolute Auto 2.3 X10*3/uL (1.2-4.9); Lymphocytes Percent Auto 28.1 % (20-40); Mean Corpuscular HGB Conc 31.6 g/dl (31.0-35.0); Mean Corpuscular Hemoglobin 25.9 pg (27.0-33.0); Mean Corpuscular Volume 81.9 fL (80.0-98.0); Mean Platelet Volume 9.6 fL (9.4-12.3); Monocytes Absolute Auto 0.6 X10*3/uL (0.1-1.2); Monocytes Percent Auto 7.3 % (2-11); Neutrophils Absolute Auto 5.1 x10*3/uL (2.0-8.3); Neutrophils Percent Auto 63.1 % (45-73); Platelet Count 434 X10*3/uL (160-400); Red Blood Count 3.98 X10*6/uL (4.20-5.50)
[2024-02-20 19:55] LABS: INTERNATIONAL NORM RATIO 1.1 (0.9-1.1); Prothrombin Time 13.2 SEC (10.9-12.4)
[2024-02-20 19:57] LABS: Partial Thromboplastin Time 27.9 SEC (26.0-36.8)
[2024-02-20 20:04] LABS: Appearance Urine Clear; Color Urine Yellow; Glucose Urine UA Negative (Negative); Leukocyte Esterase Urine Moderate (2+) (Negative); Nitrite Urine Negative (Negative); PH 6.5 (5.0-9.0); UMIC TRIGGER UACC YES; Urine Blood Negative (Negative); Urine Ketones Trace mg/dL (Negative); Urine Protein Negative (Neg-Trace)
[2024-02-20 20:10] LABS: Alanine Aminotransferase 28 U/L (0-31); Albumin Level 4.1 g/dL (3.5-5.0); Alkaline Phosphatase 83 U/L (39-117); Anion Gap 13 (12-20); Aspartate Amino Transferase 24 U/L (5-31); Bilirubin Total 0.2 mg/dL (0.0-1.0); Blood Urea Nitrogen 10 mg/dL (9-16); Calcium 9.3 mg/dL (8.4-10.2); Carbon Dioxide 25 mmol/L (22-29); Chloride 111 mmol/L (96-108); Creatinine Clr Calc Pharmacy 89.4; Estimated Glomerular Filt Rate > 60; Glucose Random 123 mg/dL (60-115); HCG Quantitative 3 mIU/mL; Lipase 20 U/L (8-78); Potassium 3.5 mmol/L (3.3-5.1); Sodium 145 mmol/L (135-145); Total Protein 7.5 g/dL (6.5-8.0)
[2024-02-20 20:25] LABS: Influenza A PCR NEGATIVE (Negative); Influenza B PCR NEGATIVE (Negative); Resp Syncy Virus RNA Qual PCR NEGATIVE (Negative); SARS COV2 PCR INHOUSE NEGATIVE (Negative)
[2024-02-20 20:27] LABS: Bacteria Urine None Seen (None Seen); Hyaline Casts Urine 0-2 /LPF (0-2); Squamous Epithelial Cell Urine 0-2 /HPF (0-2); UACC Culture Trigger YES
--- NOTE | 2024-02-20 23:14 | ED_ITS ---
HPI - Abdominal Pain General Chief Complaint: Abdominal Pain Stated Complaint: R side abd pain, N/V Time Seen by Provider: 02/20/24 22:51 History of Present Illness HPI narrative: Patient is 43 years old presents today with having right lower quadrant pain that was sudden abrupt in onset. Had a history of pancreatitis in the past. History of kidney stones in the past. Status post hysterectomy. Patient from home. No fever no chills. Has pain that was very son. It is sharp. Is similar to previous kidney stone. No change in bowel movement. Associated with nausea. Related Data Previous Rx's ?Medication ?Instructions ?Recorded ondansetron 4 mg disintegrating 4 mg PO Q8H 5 days #15 tabs 01/17/24 tablet oxycodone 5 mg tablet 5 mg PO Q6H PRN pain #15 tabs 01/17/24 polyethylene glycol 3350 17 17 g PO DAILY #119 grams 01/17/24 gram/dose oral powder (Miralax) cefuroxime axetil 250 mg tablet 250 mg PO Q12H 5 days #10 tabs 01/23/24 morphine 15 mg immediate release 15 mg PO Q8H PRN pain #10 tabs 01/23/24 tablet levofloxacin 500 mg tablet 500 mg PO DAILY #7 tabs 02/02/24 methenamine hippurate 1 gram tablet 1 g PO BID #60 tabs 02/02/24 ondansetron 4 mg disintegrating 4 mg PO TID PRN nausea and 02/02/24 tablet vomiting 5 days #10 tabs sulfamethoxazole 800 1 tab PO BID Urinary tract 02/21/24 mg-trimethoprim 160 mg tablet infection #14 tabs (Bactrim DS) Allergies Allergy/AdvReac Type Severity Reaction Status Date / Time diphenhydramine Allergy Severe PASSED OUT Verified 02/20/24 18:22 [From BENADRYL] WITH IV USE GIVEN. shellfish derived Allergy Intermediate HIVES Verified 02/20/24 18:22 [SHELLFISH DERIVED] lactose [LACTOSE] Allergy Unknown INTOLERANT Verified 02/20/24 18:22 metoclopramide [From REGLAN] Allergy Unknown UNKNOWN Verified 02/20/24 18:22 NSAIDS (Non-Steroidal Allergy Unknown PEPTIC Verified 02/20/24 18:22 Anti-Inflamma ULCER [NSAIDS (NON-STEROIDAL ANTI-INFLAMMA] prochlorperazine Allergy Unknown UNKNOWN Verified 02/20/24 18:22 [From COMPAZINE] sertraline [From ZOLOFT] Allergy Unknown SUICIDAL Verified 02/20/24 18:22 THOUGHTS. zolpidem [From AMBIEN] Allergy Unknown HALLUCINATI Verified 02/20/24 18:22 ONS Iodinated Contrast Media Allergy Anaphylaxis Verified 02/20/24 18:22 [Contrast Dye] ketorolac [From Toradol] Allergy Anaphylaxis Verified 02/20/24 18:22 Review of Systems Review of Systems Positive right-sided abdominal pain Yes all other systems are reviewed and are negative [facility] Past Medical History Attestation statement: The following information was validated with the patient. Social History Social History Unable to assess alcohol history related to: Unknown Advance Directives: No Advance Directives Information Provided: Yes Do you have a plan to hurt others: No Plan Physical Exam ED Vital Signs: Vital Signs - 24 hr 02/20/24 18:19 Temperature 99.3 F Pulse Rate 121 H Respiratory Rate 16 Blood Pressure 175/101 H Pulse Oximetry 98 Oxygen Delivery Method Room Air BMI result Body Mass Index 33.2 Appearance: Alert. Oriented X3. No acute distress. Eyes: Pupils equal, round and reactive to light. ENT: Pharynx normal. Neck: Normal inspection. Neck supple. No lymph nodes noted. No crepitus CVS: Normal heart rate and rhythm. Pulses normal. Normal S1 and S2 Respiratory: No respiratory distress. Breath sounds normal. No Wheezing. No rales Abdomen: Soft and nontender. No rigidity. No distention. good BS x4 Skin: Skin warm and dry. Normal skin color. Normal skin turgor. Extremities: No lower extremity edema. Neurovascular intact to all extremities. No Lacerations. No Rash Neuro: Oriented X 3. No motor deficit. No sensory deficit. Moving all extermities. No slurred speech Medical Decision Making Medical Decision Making MDM Narrative: Patient is 43 years old presents today with having lower abdominal. History of UTIs in the past. Patient's electrolytes are normal. Lipase is normal. No evidence for pancreatitis. No evidence for liver disease. Patient's urine showed a question UTI with 2+ leukocyte esterase but only 6-10 white cell with no bacteria seen. Flu COVID RSV all negative. CT scan of the abdomen pelvis was interpreted by Radiology is negative for any acute evidence of abscess no perforation no appendicitis. Will start patient on antibiotics will discharge patient home close follow-up on an outpatient basis. In stable condition. Differential Diagnosis Differential Diagnoses: The differential diagnosis associated with the presentation includes UTI, appendicitis, kidney stone, infected kidney stone Admission/Observation Consideration of admission/observation: Escalation of care including admission/observation considered Lab Data MDM Lab Attestation statement: I reviewed the patient's lab results. 02/20/24 19:43 02/20/24 19:43 Labs: Lab Results 02/20/24 02/20/24 Range/Units 19:43 19:51 WBC 8.0 (4.8-10.8) X10*3/uL RBC 3.98 L (4.20-5.50) X10*6/uL Hgb 10.3 L (12.0-16.0) g/dl Hct 32.6 L (37.0-47.0) % MCV 81.9 (80.0-98.0) fL MCH 25.9 L (27.0-33.0) pg MCHC 31.6 (31.0-35.0) g/dl RDW 15.0 (11.0-16.0) % Plt Count 434 H (160-400) X10*3/uL MPV 9.6 (9.4-12.3) fL Immature Gran % (Auto) 0.4 (0.0-0.4) % Neut % (Auto) 63.1 (45-73) % Lymph % (Auto) 28.1 (20-40) % [place] % (Auto) 7.3 (2-11) % Eos % (Auto) 0.9 (0-4) % Baso % (Auto) 0.2 (0-2) % Lymph # (Auto) 2.3 (1.2-4.9) X10*3/uL [place] # (Auto) 0.6 (0.1-1.2) X10*3/uL Eos # (Auto) 0.1 (0.0-0.4) X10*3/uL Baso # (Auto) 0.0 (0.0-0.2) X10*3/uL Abs Immat Gran (auto) 0.03 (0.00-0.03) X10*3/uL Absolute Neuts (auto) 5.1 (2.0-8.3) x10*3/uL Absolute Nucleated RBC 0.000 (0.0-0.012) X10*3/uL Nucleated RBC % (auto) 0.0 (0.0-0.2) /100WBC PT 13.2 H (10.9-12.4) SEC INR 1.1 (0.9-1.1) APTT 27.9 (26.0-36.8) SEC Sodium 145 (135-145) mmol/L Potassium 3.5 (3.3-5.1) mmol/L Chloride 111 H (96-108) mmol/L Carbon Dioxide 25 (22-29) mmol/L Anion Gap 13 (12-20) BUN 10 (9-16) mg/dL Creatinine 0.64 (0.5-1.4) mg/dL Estim Creat Clear Calc 89.4 Estimated GFR > 60 Random Glucose 123 H (60-115) mg/dL Calcium 9.3 (8.4-10.2) mg/dL Total Bilirubin 0.2 (0.0-1.0) mg/dL AST 24 (5-31) U/L ALT 28 (0-31) U/L Alkaline Phosphatase 83 (39-117) U/L Total Protein 7.5 (6.5-8.0) g/dL Albumin 4.1 (3.5-5.0) g/dL Lipase 20 (8-78) U/L Beta HCG, Quant 3 mIU/mL Urine Color Yellow Urine Appearance Clear Urine pH 6.5 (5.0-9.0) Ur Specific [place] 1.020 (1.005-1.025) Urine Protein Negative (Neg-Trace) mg/dL Urine Glucose (UA) Negative (Negative) mg/dL Urine Ketones Trace (Negative) mg/dL Urine Blood Negative (Negative) Urine Nitrite Negative (Negative) Ur Leukocyte Esterase Moderate (2+) H (Negative) Urine RBC 3-5 H (0-2) /HPF Urine WBC 6-10 H (0-5) /HPF Ur Squamous Epith Cells 0-2 (0-2) /HPF Urine Bacteria None Seen (None Seen) Hyaline Casts 0-2 (0-2) /LPF Influenza Type A (PCR) NEGATIVE (Negative) Influenza Type B (PCR) NEGATIVE (Negative) RSV RNA Qual (PCR) NEGATIVE (Negative) SARS-CoV-2 RNA (RT-PCR) NEGATIVE (Negative) Radiology Impression Discussion of test interpretation with radiology: I have reviewed the radiologist's reading. External Record Review External record reviewed: Outpatient record Prior CT scan results from January Prescription Management I considered prescription management with: Antibiotic Chronic Conditions Status post hysterectomy Social Determinants Patient?s care significantly limited by Social Determinants of Health including: Problems related to primary support group Medications Administered Discontinued Medications Generic Name Dose Route Start Last Admin Trade Name Freq PRN Reason Stop Dose Admin Hydromorphone HCl 0.5 mg 02/20/24 23:12 02/20/24 23:32 Hydromorphone Hcl 0.5 Mg/0.5 Ml Syringe IVPUSH 02/20/24 23:13 0.5 mg ONCE ONE Administration Protocol Sodium Chloride 1,000 mls @ 999 mls/hr 02/20/24 23:15 02/20/24 23:32 Ns IV 02/21/24 00:15 999 mls/hr .Q1H1M MELINDA Administration Ondansetron HCl 4 mg 02/20/24 23:12 02/20/24 23:32 Ondansetron Hcl 4 Mg/2 Ml Vial IVPUSH 02/20/24 23:13 4 mg ONCE ONE Administration Discharge Plan Discharge Clinical Impression: Urinary tract infection Patient Disposition: Home, Self-Care Instructions: Urinary Tract Infection in Women (DC) Prescriptions: New sulfamethoxazole-trimethoprim [Bactrim DS] 800-160 mg tablet 1 tab PO BID Qty: 14 0RF No Action morphine 15 mg tablet 15 mg PO Q8H PRN (Reason: pain) Qty: 10 0RF Rx Instructions: Partial Fill upon patient request. cefuroxime axetil 250 mg tablet 250 mg PO Q12H 5 Days Qty: 10 0RF methenamine hippurate 1 gram tablet 1 g PO BID Qty: 60 0RF ondansetron 4 mg tablet,disintegrating 4 mg PO Q8H 5 Days Qty: 15 0RF oxycodone 5 mg tablet 5 mg PO Q6H PRN (Reason: pain) Qty: 15 0RF Rx Instructions: partial filing upon pt request; Partial Fill upon patient request. polyethylene glycol 3350 [Miralax] 17 gram/dose powder 17 g PO DAILY Qty: 119 0RF ondansetron 4 mg tablet,disintegrating 4 mg PO TID PRN (Reason: nausea and vomiting) 5 Days Qty: 10 0RF levofloxacin 500 mg tablet 500 mg PO DAILY Qty: 7 0RF Referrals: Physician,Unknown J [Primary Care Provider] - 02/23/24 Print Language: Fijian
[2024-02-20] MEDS: 0.9 % Sodium Chloride 1,000 ML 999 ML IV (23:32)
[2024-02-20] MEDS: HYDROmorphone HCl 0.5 MG/0.5 ML SYRINGE IVPUSH (23:32)
[2024-02-20] MEDS: ondansetron HCL 4 MG/2 ML VIAL IVPUSH (23:32)
[2024-02-21 01:30] VITALS: BP 135/98; PULSE 98; RESP 16; TEMP 36.7; O2SAT 98
[2024-02-21] MEDS: Sulfamethox/Trimeth 800/160 TABLET 1 TAB PO (01:30)
[2024-02-21 01:33] VITALS: BP 135/98; PULSE 98; RESP 16; TEMP 36.7; O2SAT 98
== END 2024-02-21 01:34 | disposition home or self-care (01) ==
PROVIDERS: Physician Assistant; Emergency Provider Emergency Medicine Emergency Medical Services
DX: N39.0 Urinary tract infection, site not specified (principal); R11.2 Nausea with vomiting, unspecified; R10.31 Right lower quadrant pain; Z03.818 Encounter for observation for suspected exposure to other biological agents ruled out; Z87.442 Personal history of urinary calculi
CPT/HCPCS: 0241U; 74176; 80053; 81001; 81003; 83690; 84702; 85025; 85610; 85730; 87086; 87147; 96361; 96374; 96375; 99284; J1171; J2405

== ENCOUNTER → 2024-02-20 23:12 | Outpatient (BNV) | payer MEDICAID, SELFPAY | PROVIDERS: Emergency Provider Emergency Medicine Emergency Medical Services; Visit Provider Radiology Diagnostic Radiology | DX: N20.0 Calculus of kidney (principal) | CPT/HCPCS: 74176 ==

== ENCOUNTER 2024-12-21 10:06 | Emergency (ER) | payer OTHER, MEDICAID, SELFPAY ==
[2024-12-21 10:09] VITALS: BP 171/96; PULSE 110; RESP 18; TEMP 36.4; O2SAT 99; BMI 31.9
--- NOTE | 2024-12-21 10:09 | ED.GENADULT ---
HPI - General Adult General Chief complaint: Abdominal Pain Stated complaint: Kidney Stone Time Seen by Provider: 12/21/24 10:53 Source: patient, RN notes reviewed and old records reviewed Mode of arrival: ambulatory Limitations: no limitations History of Present Illness ED Provider: Wood HPI narrative: Patient is a 44-year-old female recently treated for UTI with 2 courses of Bactrim presenting to the emergency department with complaint of bilateral flank pain. States she was initially diagnosed and treated at [facility]. Complains of bilateral flank pain, chills and nausea for the past 3 days. Denies any gross hematuria. Denies fevers. Denies any nausea, vomiting, diarrhea, constipation. MD complaint: Flank pain Onset (ago): day(s) Related Data Previous Rx's ?Medication ?Instructions ?Recorded ondansetron 4 mg disintegrating 4 mg PO Q8H 5 days #15 tabs 01/17/24 tablet oxycodone 5 mg tablet 5 mg PO Q6H PRN pain #15 tabs 01/17/24 polyethylene glycol 3350 17 17 g PO DAILY #119 grams 01/17/24 gram/dose oral powder (Miralax) cefuroxime axetil 250 mg tablet 250 mg PO Q12H 5 days #10 tabs 01/23/24 morphine 15 mg immediate release 15 mg PO Q8H PRN pain #10 tabs 01/23/24 tablet levofloxacin 500 mg tablet 500 mg PO DAILY #7 tabs 02/02/24 methenamine hippurate 1 gram tablet 1 g PO BID #60 tabs 02/02/24 ondansetron 4 mg disintegrating 4 mg PO TID PRN nausea and 02/02/24 tablet vomiting 5 days #10 tabs sulfamethoxazole 800 1 tab PO BID Urinary tract 02/21/24 mg-trimethoprim 160 mg tablet infection #14 tabs (Bactrim DS) Allergies Allergy/AdvReac Type Severity Reaction Status Date / Time diphenhydramine (From Allergy Severe PASSED OUT Verified 12/21/24 10:12 BENADRYL) WITH IV USE GIVEN. shellfish derived (SHELLFISH Allergy Intermediate HIVES Verified 12/21/24 10:12 DERIVED) lactose (LACTOSE) Allergy Unknown INTOLERANT Verified 12/21/24 10:12 metoclopramide (From REGLAN) Allergy Unknown UNKNOWN Verified 12/21/24 10:12 NSAIDS (Non-Steroidal Allergy Unknown PEPTIC Verified 12/21/24 10:12 Anti-Inflamma (NSAIDS ULCER (NON-STEROIDAL ANTI-INFLAMMA) prochlorperazine (From Allergy Unknown UNKNOWN Verified 12/21/24 10:12 COMPAZINE) sertraline (From ZOLOFT) Allergy Unknown SUICIDAL Verified 12/21/24 10:12 THOUGHTS. zolpidem (From AMBIEN) Allergy Unknown HALLUCINATI Verified 12/21/24 10:12 ONS Iodinated Contrast Media Allergy Anaphylaxis Verified 12/21/24 10:12 (Contrast Dye) ketorolac (From Toradol) Allergy Anaphylaxis Verified 12/21/24 10:12 Review of Systems Review of Systems: as per hpi Yes all other systems are reviewed and are negative Constitutional: Constitutional: Reports as per HPI [facility] Social History Social History Advance Directives: No Advance Directives Information Provided: Yes Do you have a plan to hurt others: No Plan Physical Exam ED Vital Signs: Vital Signs - 24 hr 12/21/24 10:09 Temperature 97.6 F Pulse Rate 110 H Respiratory Rate 18 Blood Pressure 171/96 H Pulse Oximetry 99 Oxygen Delivery Method Room Air BMI result Body Mass Index 31.9 Vital signs have been reviewed and appear to be correct. Blood pressure elevated. Heart rate mildly tachycardic. Respiratory rate normal. Temperature normal. Oxygen saturation normal. Const General: cooperative, healthy appearing and no acute distress Orientation/consciousness: oriented to person, oriented to place, oriented to time and patient oriented x3 Limitations: no limitations [facility] Head: Yes normocephalic and Yes atraumatic Ears: external ears normal General nose exam: Normal external nose present Face and sinus: Yes face symmetric Mouth: oropharynx normal and moist mucous membranes Throat: Yes uvula midline Eyes Pupils: Equal, round and reactive pupils present Neck Neck: Yes normal visual inspection and Yes supple Resp Effort & Inspection: normal respiratory effort and able to speak in complete sentences Auscultation: clear to auscultation bilaterally Cardio Rate: regular rate Rhythm: regular rhythm Heart sounds: S1 normal heart sound present and S2 normal heart sound present GI Palpation (GI): Soft to palpation and nontender Auscultation: normoactive bowel sounds General: Yes CVA tenderness on the right Back/Spine/Pelvis Back: CVA tenderness Skin General skin exam: elasticity normal and turgor normal Neuro General: oriented to person, oriented to place, oriented to time, patient oriented x3, moves all extremities, no focal motor deficits and CN's II-XI intact bilaterally Cranial nerves: Yes Equal, round and reactive pupils present Cognition (Neuro): normal cognition Extrem General: Yes full ROM, Yes no pedal edema and Yes no calf tenderness Psych Mental Status: mental status grossly normal Affect: normal affect Thought process: Normal thought process present Course Course Course Narrative: Rapid medical examination performed in triage by Rahel Flores PA-C: Patient is a 44 year old assigned female at presenting to the emergency department with flank pain. Detailed physical exam and review of systems are deferred to the signal tester. Labs ordered. Patient placed back in the waiting room pending room availability and results. Medical Decision Making Medical Decision Making [facility] Narrative: Patient is a 44-year-old female recently treated for UTI with 2 courses of Bactrim presenting to the emergency department with complaint of bilateral flank pain. On exam patient is awake, A+Ox3, VS WNL, afebrile, normal neurological exam without focal deficits, physical exam findings as above. Given reported symptoms and physical exam findings, initial differential includes but is not limited to UTI, pyelonephritis, renal colic, ureteral calculi, hydronephrosis. Labs unremarkable. UA notable for 1+ leukocytes, 2+ blood, 11-20 wbc's, 11-20 epithelials, 4+ bacteria. Patient declined pain and nausea medications when RN attempted to medicate her. CT abdomen pelvis without contrast ordered, however, notified by nursing that patient eloped from the department prior to obtaining CT imaging. I attempted to contact patient via telephone number listed in chart to discuss UA results, no answer, was unable to leave voicemail. Differential Diagnosis Differential Diagnoses: The differential diagnosis associated with the presentation includes as per [facility] Admission/Observation Consideration of admission/observation: Escalation of care including admission/observation considered Patient would have been admitted to the hospital and transferred to appropriate facility had their clinical presentation warranted hospital admission. Lab Data [facility] Lab Attestation statement: I reviewed the patient's lab results. as per [facility] 12/21/24 10:29 12/21/24 10:29 Labs: Lab Results 12/21/24 Range/Units 10:29 WBC 4.9 (4.8-10.8) X10*3/uL RBC 4.31 (4.20-5.50) X10*6/uL Hgb 13.2 D (12.0-16.0) g/dl Hct 39.8 D (37.0-47.0) % MCV 92.3 (80.0-98.0) fL MCH 30.6 (27.0-33.0) pg MCHC 33.2 (31.0-35.0) g/dl RDW 13.1 (11.0-16.0) % Plt Count 251 D (160-400) X10*3/uL MPV 9.1 L (9.4-12.3) fL Immature Gran % (Auto) 0.2 (0.0-0.4) % Neut % (Auto) 54.4 (45-73) % Lymph % (Auto) 36.0 (20-40) % Prentiss % (Auto) 7.0 (2-11) % Eos % (Auto) 1.6 (0-4) % Baso % (Auto) 0.8 (0-2) % Lymph # (Auto) 1.8 (1.2-4.9) X10*3/uL Prentiss # (Auto) 0.3 (0.1-1.2) X10*3/uL Eos # (Auto) 0.1 (0.0-0.4) X10*3/uL Baso # (Auto) 0.0 (0.0-0.2) X10*3/uL Abs Immat Gran (auto) 0.01 (0.00-0.03) X10*3/uL Absolute Neuts (auto) 2.7 (2.0-8.3) x10*3/uL Absolute Nucleated RBC 0.000 (0.0-0.012) X10*3/uL Nucleated RBC % (auto) 0.0 (0.0-0.2) /100WBC Sodium 142 (135-145) mmol/L Potassium 3.4 (3.3-5.1) mmol/L Chloride 109 H (96-108) mmol/L Carbon Dioxide 27 (22-29) mmol/L Anion Gap 9 L (12-20) BUN 14 (9-16) mg/dL Creatinine 0.68 (0.5-1.4) mg/dL Estim Creat Clear Calc 81.3 Estimated GFR > 60 Random Glucose 104 (60-115) mg/dL Calcium 9.5 (8.4-10.2) mg/dL Total Bilirubin 0.4 (0.0-1.0) mg/dL AST 23 (5-31) U/L ALT 17 (0-31) U/L Alkaline Phosphatase 65 (39-117) U/L Total Protein 7.1 (6.5-8.0) g/dL Albumin 4.3 (3.5-5.0) g/dL Urine Color Yellow Urine Appearance Cloudy Urine pH 5.0 (5.0-9.0) Ur Specific Screven >= 1.030 H (1.005-1.025) Urine Protein Trace (Neg-Trace) mg/dL Urine Glucose (UA) Negative (Negative) mg/dL Urine Ketones Negative (Negative) mg/dL Urine Blood Moderate (2+) H (Negative) Urine Nitrite Negative (Negative) Ur Leukocyte Esterase Small (1+) H (Negative) Urine RBC 11-20 H (0-2) /HPF Urine WBC 11-20 H (0-5) /HPF Ur Squamous Epith Cells 11-20 (0-2) /HPF Urine Bacteria 4+ (None Seen) Hyaline Casts 0-2 (0-2) /LPF External Record Review External record reviewed: Inpatient record, Office record and Outpatient record Discharge Plan Discharge Clinical Impression: Flank pain Patient Disposition: Left W/O Completing Treatment Prescriptions: No Action morphine 15 mg tablet 15 mg PO Q8H PRN (Reason: pain) Qty: 10 0RF Rx Instructions: Partial Fill upon patient request. cefuroxime axetil 250 mg tablet 250 mg PO Q12H 5 Days Qty: 10 0RF methenamine hippurate 1 gram tablet 1 g PO BID Qty: 60 0RF ondansetron 4 mg tablet,disintegrating 4 mg PO Q8H 5 Days Qty: 15 0RF oxycodone 5 mg tablet 5 mg PO Q6H PRN (Reason: pain) Qty: 15 0RF Rx Instructions: partial filing upon pt request; Partial Fill upon patient request. polyethylene glycol 3350 [Miralax] 17 gram/dose powder 17 g PO DAILY Qty: 119 0RF ondansetron 4 mg tablet,disintegrating 4 mg PO TID PRN (Reason: nausea and vomiting) 5 Days Qty: 10 0RF levofloxacin 500 mg tablet 500 mg PO DAILY Qty: 7 0RF sulfamethoxazole-trimethoprim [Bactrim DS] 800-160 mg tablet 1 tab PO BID Qty: 14 0RF
[2024-12-21 10:33] LABS: MANUAL DIFF FLAG NO
--- NOTE | 2024-12-21 10:33 | MHC.EDTECH ---
Clean catch urine collected/sent. Labs drawn/sent
[2024-12-21 10:35] LABS: Hematocrit 39.8 % (37.0-47.0); Hemoglobin 13.2 g/dl (12.0-16.0); Imm Gran Abs Auto 0.01 X10*3/uL (0.00-0.03); Imm Gran Pct Auto 0.2 % (0.0-0.4); Lymphocytes Absolute Auto 1.8 X10*3/uL (1.2-4.9); Mean Corpuscular HGB Conc 33.2 g/dl (31.0-35.0); Mean Corpuscular Hemoglobin 30.6 pg (27.0-33.0); Mean Corpuscular Volume 92.3 fL (80.0-98.0); NRBC Abs Auto 0.000 X10*3/uL (0.0-0.012); NRBC Pct Auto 0.0 /100WBC (0.0-0.2); Platelet Count 251 X10*3/uL (160-400); Red Blood Count 4.31 X10*6/uL (4.20-5.50); White Blood Count 4.9 X10*3/uL (4.8-10.8)
[2024-12-21 10:36] LABS: Appearance Urine Cloudy; Glucose Urine UA Negative (Negative); PH 5.0 (5.0-9.0); Specific Gravity - Urine >= 1.030 (1.005-1.025); UMIC TRIGGER UACC YES
[2024-12-21 10:46] LABS: UACC Culture Trigger YES
[2024-12-21 11:01] LABS: Alanine Aminotransferase 17 U/L (0-31); Albumin Level 4.3 g/dL (3.5-5.0); Alkaline Phosphatase 65 U/L (39-117); Anion Gap 9 (12-20); Aspartate Amino Transferase 23 U/L (5-31); Blood Urea Nitrogen 14 mg/dL (9-16); Calcium 9.5 mg/dL (8.4-10.2); Carbon Dioxide 27 mmol/L (22-29); Chloride 109 mmol/L (96-108); Creatinine Clr Calc Pharmacy 81.3; Estimated Glomerular Filt Rate > 60; Potassium 3.4 mmol/L (3.3-5.1); Sodium 142 mmol/L (135-145); Total Protein 7.1 g/dL (6.5-8.0)
--- NOTE | 2024-12-21 11:20 | PC.NURSE ---
Pt refused IV placement stating that she has bad veins and took tyl and zofran at home.
--- OUTSIDE RECORDS SUMMARY | 2024-12-21 12:10 | XMS_ITS | Encounter Summary ---
Author Organization [facility] Address [address] [place] [address] Care Team Providers Care Resident In Diagnostic Radiology Name Role Phone [facility] Unavailable Unavailable Omaira Champion APRN Primary Care Provider [phone] Encounter Details Date Type Department Care Team (Late st Contact Info) Description 05/12/2024 Scanned Document [facility] [address] [address] Henna Brush MD [address] [facility] [address] [place], [place] [address] Social History Tobacco Use Types Packs/Day Years Used Date Smoking Tobacco: Never Smokeless Tobacco: Never Alcohol Use Standard Drinks/Week Comments Not Currently 0 (1 standard drink = 0.6 oz pur e alcohol) PHQ-2 Answer Date Recorded PHQ-2 Total Score 0 03/12/2022 Comments No Sex and Gender Information Value Date Recorded Sex Assigned at Female 03/11/2022 1:40 PM EST Legal Sex Female 4:21 PM EDT Gender Identity Female 03/11/2022 1:40 PM EST Sexual Orientation Heterosexual (straight) 05/29 11:03 AM EDT documented as of this encounter Plan of Treatment Not on file documented as of this encounter Visit Diagnoses Not on filedocumented in this encounter Care Teams Resident In Diagnostic Radiology Relationship Specialty Start Date End Date Omaira Champion APRN [address] [place] [address] PCP - General Internal Medicine 04/18/24 [facility] 02/14/22 documented as of this encounter
--- OUTSIDE RECORDS SUMMARY | 2024-12-21 12:10 | XMS_ITS | Encounter Summary ---
Author Organization [facility] Address [address] [place] [address] Care Team Providers Care Rock Breaker Name Role Phone Nicola Mcbride MD Primary Care Provider [phone] [facility] Primary Care Provider Unavailable Pcp, No Primary Care Provider Unavailabl e [facility] Unavailable Unavailable Unknown Primary Care Provider [phone] [facility] Primary Care Provider Unavailable Nicola Mcbride MD Primary Care Provider + Omaira Champion APRN Primary Care Provider [phone] Encounter Details Date Type Department Care Team (Late st Contact Info) Description 05/20/2021 Scanned Document [facility] Neurology [address] [address] Nicola Mcbride MD [address] [place], [place] [address] Social History Tobacco Use Types Packs/Day Years Used Date Smoking Tobacco: Never Smokeless Tobacco: Never Alcohol Use Standard Drinks/Week Comments Not Currently 0 (1 standard drink = 0.6 oz pur e alcohol) Comments No Sex and Gender Information Value Date Recorded Sex Assigned at Female 03/11/2022 1:40 PM EST Legal Sex Female 4:21 PM EDT Gender Identity Female 03/11/2022 1:40 PM EST Sexual Orientation Heterosexual (straight) 05/29 11:03 AM EDT documented as of this encounter Plan of Treatment Not on file documented as of this encounter Visit Diagnoses Not on filedocumented in this encounter Additional Health Concerns Infection Onset Date Last Indicated Resolved Time R/O Respiratory Disease 03/12/2024 03/12/202402/16 7:19 AM EST documented as of this encounter Care Teams Rock Breaker Relationship Specialty Start Date End Date Nicola Mcbride MD [address] [place] [address] PCP - General Family Medicine 11/16/19 10/15/21 [facility] PCP - General 10/16/21 02/13/22 Pcp, No PCP - General General Medicine 02/14/22 03/21/22 Unknown Unknow Provider Address PCP - General 08/31/22 09/11/22 [facility] PCP - General 09/12/22 02/21/24 Nicola Mcbride MD [address] [place] [address] PCP - General Family Medicine 02/22/24 04/17/24 Omaira Champion APRN [address] [place] [phone] PCP - General Internal Medicine 04/18/24 [facility] 02/14/22 documented as of this encounter
--- OUTSIDE RECORDS SUMMARY | 2024-12-21 12:10 | XMS_ITS | Encounter Summary ---
Author Organization [facility] Address [address] [place] [address] Care Team Providers Care Assembly Line Driver Name Role Phone Nicola Mcbride MD Primary Care Provider [phone] [facility] Primary Care Provider Unavailable Pcp, No Primary Care Provider Unavailabl e [facility] Unavailable Unavailable Unknown Primary Care Provider [phone] [facility] Primary Care Provider Unavailable Nicola Mcbride MD Primary Care Provider + Omaira Champion APRN Primary Care Provider [phone] Encounter Details Date Type Department Care Team (Late st Contact Info) Description 09/18/2020 Scanned Document [facility] Rheumatology [address] [address] Nicola Mcbride MD [address] [place], [place] [address] Social History Tobacco Use Types Packs/Day Years [...] documented as of this encounter Care Teams Assembly Line Driver Relationship Specialty Start Date End Date Nicola Mcbride MD [address] [place] [address] PCP - General Family Medicine 11/16/19 10/15/21 [facility] PCP - General 10/16/21 02/13/22 Pcp, No PCP - General General Medicine 02/14/22 03/21/22 Unknown Unknow Provider Address PCP - General 08/31/22 09/11/22 [facility] PCP - General 09/12/22 02/21/24 Nicola Mcbride MD [address] [place] [address] PCP - General Family Medicine 02/22/24 04/17/24 Omaira Champion, ERYN [address] [place] [phone] PCP - General Internal Medicine 04/18/24 [facility] 02/14/22 documented as of this encounter
--- OUTSIDE RECORDS SUMMARY | 2024-12-21 12:10 | XMS_ITS | Encounter Summary ---
Author Organization [facility] Address [address] [place] [address] Care Team Providers Care Straightener And Aligner Name Role Phone Nicola Mcbride MD Primary Care Provider [phone] [facility] Primary Care Provider Unavailable Pcp, No Primary Care Provider Unavailabl e [facility] Unavailable Unavailable Unknown Primary Care Provider [phone] [facility] Primary Care Provider Unavailable Nicola Mcbride MD Primary Care Provider + Omaira Champion APRN Primary Care Provider [phone] Encounter Details Date Type Department Care Team (Late st Contact Info) Description 05/20/2021 Scanned Document [facility] Neurology [address] [address] Nicola Mcbride MD [address] [place], [place] [address] Social History Tobacco Use Types Packs/Day Years [...] documented as of this encounter Care Teams Straightener And Aligner Relationship Specialty Start Date End Date Nicola Mcbride MD [address] [place] [address] PCP - General Family Medicine 11/16/19 10/15/21 [facility] PCP - General 10/16/21 02/13/22 Pcp, No PCP - General General Medicine 02/14/22 03/21/22 Unknown Unknow Provider Address PCP - General 08/31/22 09/11/22 [facility] PCP - General 09/12/22 02/21/24 Nicola Mcbride MD [address] [place] [address] PCP - General Family Medicine 02/22/24 04/17/24 Omaira Champion APRN [address] [place] [phone] PCP - General Internal Medicine 04/18/24 [facility] 02/14/22 documented as of this encounter
--- OUTSIDE RECORDS SUMMARY | 2024-12-21 12:10 | XMS_ITS | Encounter Summary ---
Author Organization [facility] Address [address] [place] [address] Care Team Providers Care Assistant Producer Name Role Phone [facility] Primary Care Provider Unavailable Pcp, No Primary Care Provider Unavailabl e [facility] Unavailable Unavailable Unknown Primary Care Provider +-[phone] [facility] Primary Care Provider Unavailable Nicola Mcbride MD Primary Care Provider [phone] Omaira Champion APRN Primary Care Provider [phone] Encounter Details Date Type Department Care Team (Late st Contact Info) Description 10/22/2021 Scanned Document [facility] [address] [facility] [address] [place] [address] Provider, Generic Social History Tobacco Use Types Packs/Day Years [...] Orientation Heterosexual (straight) 05/29 11:03 AM EDT COVID-19 Exposure Response Date Recorded In the last 10 days, have yo u been in contact with someone who was confirmed or suspected to have Coronavirus/COVID-19? No / Unsure 10/16/2021 10:10 AM EDT documented as of this encounter Plan of Treatment Not on file documented as of this encounter Visit Diagnoses Not on filedocumented in this encounter Additional Health Concerns Infection Onset Date Last Indicated Resolved Time R/O Respiratory Disease 03/12/2024 03/12/202402/16 7:19 AM EST documented as of this encounter Care Teams Assistant Producer Relationship Specialty Start Date End Date [facility] PCP - General 10/16/21 02/13/22 Pcp, No PCP - General General Medicine 02/14/22 03/21/22 Unknown Unknow Provider Address PCP - General 08/31/22 09/11/22 [facility] PCP - General 09/12/22 02/21/24 Nicola Mcbride MD [address] [place] [address] PCP - General Family Medicine 02/22/24 04/17/24 Omaira Champion, AIR SUPPORT OPERATIONS OPERATOR [address] [place] [phone] PCP - General Internal Medicine 04/18/24 [facility] 02/14/22 documented as of this encounter
--- OUTSIDE RECORDS SUMMARY | 2024-12-21 12:10 | XMS_ITS | Clinical Summary ---
Author Organization [facility] Address [address] [place] [address] Care Team Providers Care Student Development Coordinator Name Role Phone [facility] Unavailable Unavailable Omaira Champion APRN Primary Care Provider [phone] Allergies Active Allergy Reactions Criticality Noted Date Comments Adhesives/Tape Hives Medium 08/08/2019 Paper tape is OK per pt Amoxicillin Hives Medium 08/26/2021 Amoxicillin-Pot Clavulanate Hives Medium 02/14/2022 Diphenhydramine Hives,Anxiety Medium 02/14/2022 Ibuprofen Hives Medium 02/14/2022 Iodinated Contrast Media Hives Medium 02/29/2020 Iodine Hives Medium 02/14/2022 Lactose GI Intolerance/Nausea/ Vomiting Low 10/09/2015 Nsaids Hives,GI Intolerance/Nausea/ Vomiting Medium 09/28/2017 Prochlorperazine Hives Medium 02/14/2022 Metoclopramide Hives Medium 02/14/2022 Sertraline Hives,Other (See Comments) Medium 01/10/2013 SUICIDAL THOUGHTS Shellfish Allergy Itching,Shortness Of Breath,Hives High 02/14/2013 Unsure of reaction to betadine Zolpidem Delirium/Confusion/ Psychosis Medium 12/25/2012 Pt states she starts seeing things and gets amnesia when she takes more than 10 mg Medications albuterol (PROVENTIL HFA; VENTOLIN HFA) 108 (90 Base) MCG/ACT inhaler Inhale 2 puffs every 4 (four) hours as needed. 11/22/19 21 Active PANTOprazole (PROTONIX) 40 MG EC tablet Take 1 tablet (40 mg total) by mouth every morning before breakfast. 30 tablet 08/26/19 22 Active EPINEPHrine 0.3 mg/0.3 mL IJ auto-injection Inject 0.3 mL (0.3 mg total) into the thigh once as needed for allergic reaction. 03/06/19 23 Active clonazePAM (KlonoPIN) 0.5 MG tablet Take 1 tablet (0.5 mg total) by mouth daily as needed. 04/21/19 23 Active ondansetron (ZOFRAN-ODT) 4 MG disintegrating tablet Take 1 tablet (4 mg total) by mouth 3 times daily (every 8 hours) as needed for nausea or vomiting. Place tablet on tongue to dissolve. 10 tablet 10/05/19 23 Active ketoconazole (NIZORAL) 2 % cream Apply topically 2 (two) times a day. Apply to affected area twice daily 15 g 03/14/19 25 Active losartan (COZAAR) 50 MG tablet Take 1 tablet (50 mg total) by mouth daily. 30 tablet 04/04/19 25 Active cloNIDine (CATAPRES) 0.1 MG tablet Take 1 tablet (0.1 mg total) by mouth 2 (two) times a day. Active divalproex er (DEPAKOTE ER) 250 MG 24 hr tablet Take 1 tablet (250 mg total) by mouth daily. 04/19/19 25 Active Depakote Sprinkles 125 MG capsule Take 1 capsule (125 mg total) by mouth 2 (two) times a day. 04/19/19 25 Active amLODIPine (NORVASC) 5 MG tablet Take 1 tablet (5 mg total) by mouth daily. 03/28/19 25 Active methylPREDNISolone (MEDROL DOSEPAK) 4 MG tablet Take as directed. Be sure to take all the tablets in decreasing doses as stated in the juanjo 21 tablet 09/11/19 25 Active tiZANidine (ZANAFLEX) 2 MG tabletIndications: Chronic midline low back pain with right-sided sciatica Take 1 tablet (2 mg total) by mouth 3 (three) times a day. 90 tablet 10/05/19 25 Active oxyCODONE (ROXICODONE) 5 MG immediate release tablet Take 1 tablet (5 mg total) by mouth Every 4 (four) to 6 (six) hours as needed for severe pain. Max Daily Amount: 30 mg 2 tablet 11/24/19 25 Active sulfamethoxazole-t rimethoprim (BACTRIM DS,SEPTRA DS) 800-160 MG per tablet Take 1 tablet by mouth 2 (two) times a day. Take as directed or until you run out. Take with lots of fluids. 10 tablet 11/24/19 25 025 Active Problems Problem Noted Date Diagnosed Date Gastroesophageal reflux disease 05/06/2022 Depression 12/18/2021 Overview (05/06/2022): On lithium and klonopin, follows behavioral health clinic. 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 Lung volume not tested, DLCO normal. No bronchoprovocation test. Encounters Date Type Department Care Team Description 11/23/2024 7:10 AM EDT - 11/23/2024 11:14 AM EDT Emergency [facility] Emergency Department [facility] [place] [address] Shama Lombardo MD UTI (urinary tract infection) (Primary Dx) Discharge Disposition: Home or Self Care 11/23/2024 Travel 11/01/2024 Scanned Document [facility] [address] [place] [address] Henna Brush MD 10/25/2024 7:58 AM EDT - 10/25/2024 2:15 PM EDT Emergency [facility] Emergency Department [address] [place] [id number] Vincenzo Esquivel MD Acute cystitis (Primary Dx) Discharge Disposition: Home or Self Care 10/25/2024 Travel 10/04/2024 11:00 AM EDT Office Visit [facility] [address] [place] [address] Henna Brush MD Encounter for therapeutic drug monitoring (Primary Dx); Cocaine use; Noncompliance with treatment plan; Illness anxiety disorder ; Anxiety; Chronic midline low back pain with right-sided sciatica 10/04/2024 Travel from Last 3 Months Social History Tobacco Use Types Packs/Day Years Used Date Smoking Tobacco: Never Smokeless Tobacco: Never Tobacco Cessation:Counseling Given: Not Answered Alcohol Use Standard Drinks/Week Comments Never 0 (1 standard drink = 0.6 oz pur e alcohol) PHQ-2 Answer Date Recorded PHQ-2 Total Score 0 03/12/2022 [facility] - Occupational Stress Questionnaire Answer Date Recorded Do you feel stress - tense, restless, nervous, or anxious, or unable to sleep at night because your mind is troubled all the time - these days? To some extent 10/02/2024 Physical Activity Answer Date Recorded On average, how many days pe r week do you engage in moderate to strenuous exercise (like a brisk walk)? 4 days 10/02/2024 On average, how many minutes do you exercise per day at this level? 40 min 10/02/2024 Comments No Sex and Gender Information Value Date Recorded Sex Assigned at Female 03/11/2022 1:40 PM EST Legal Sex Female 4:21 PM EDT Gender Identity Female 03/11/2022 1:40 PM EST Sexual Orientation Heterosexual (straight) 05/29 11:03 AM EDT Last Filed Vital Signs Vital Sign Reading Time Taken Comments Blood Pressure 121/73 11/23/2024 11:10 AM EDT Pulse 90 11/23/2024 11:10 AM EDT Temperature 36.9 C (98.4 F) 11/23/2024 11:10 AM EDT Respiratory Rate 18 11/23/2024 11:10 AM EDT Oxygen Saturation 99% 11/23/2024 11:10 AM EDT Inhaled Oxygen Concentration - - Weight 68.5 kg (151 lb 0.2 oz) 10/25/2024 7:56 A M EDT Height 144.8 cm (4' 9 ) 10/25/2024 7:56 AM EDT Body Mass Index 32.68 10/25/2024 7:56 AM EDT Plan of Treatment Health Maintenance Due Date Last Done Comments Hepatitis C Virus Screening 1978 DTaP/Tdap/Td Vaccines (1 - Tdap) 1997 Hepatitis B Vaccines (1 of 3 - 19+ 3-dose series) 1997 Pneumococcal Vaccine: Pediat lynn (0-5 Years) and At-Risk Patients (6 to 49 Years) (1 of 2 - PCV) 1997 Pap Smear (Ages 21-65) 07/29/1999 Mammogram 2018 Colonoscopy 07/29/2023 Influenza Vaccine 09/15/2024 12/20/2013, , 03/09/2012 COVID-19 Vaccine ( - 2023-2 5 season) 2024 HIV Screening Completed 10/08/2011 Controlled Substance Agreeme nt Initial and Annual Review Discontinued 05/08/2024 Chronic Controlled Substance User PDMP Review Discontinued 08/04/2024, 05/08/2024, 03/11/2024, Additional history exists Chronic Controlled Substance Toxicology Screening Discontinued 10/04/2024, 10/04/2024, 10/04/2024, Additional history exists Procedures Procedure Name Priority Date/Time Associated Diagnosis Comments CT ABDOMEN+PELVIS W/O CONTRAST STAT 11/23/2024 9:12 AM EDT ECG 12-LEAD STAT 11/23/2024 8:06 AM EDT URINALYSIS WITH REFLEX TO MICROSCOPIC AND CULTURE STAT 11/23/2024 7:45 AM EDT (REPORT) REFLEXIVE URINE CULTURE Routine 11/23/2024 7:45 AM EDT LIPASE STAT 11/23/2024 7:32 AM EDT MAGNESIUM STAT 11/23/2024 7:32 AM EDT COMPREHENSIVE METABOLIC PANEL STAT 11/23/2024 7:32 AM EDT COMPLETE BLOOD COUNT, WITH DIFFERENTIAL STAT 11/23/2024 7:[address] STONE STUDY W/O CONTRAST STAT 10/25/2024 11:32 AM EDT LACTIC ACID, PLASMA STAT 10/25/2024 9 :02 AM EDT COMPREHENSIVE METABOLIC PANEL STAT 10/25/2024 9:02 AM EDT COMPLETE BLOOD COUNT, WITH DIFFERENTIAL STAT 10/25/2024 9:02 AM EDT BLOOD CULTURE (HOSP LAB) STAT 10/25/2024 9:02 AM EDT XR CHEST 1 VIEW-PORTABLE STAT 10/25/2024 8:53 AM EDT MICROSCOPIC URINALYSIS STAT 8:23 AM EDT URINALYSIS WITH REFLEX TO MICROSCOPIC AND CULTURE STAT 10/25/2024 8:23 AM EDT DRUG MONITOR, TRAMADOL, QN, URINE Routine 10/04/2024 11:15 AM EDT DRUG MONITOR, TAPENTADOL, QN, URINE Routine 10/04/2024 11:15 AM EDT DRUG MONITORING, PREGABALIN, QUANTITATIVE, URINE Routine 10/04/2024 11:15 AM EDT PAIN MGMT, FENTANYL, QN, URINE Routine 10/04/2024 11:15 AM EDT PAIN MGMT, HEROIN METAB W/CONFIRMATION, URINE Routine 10/04/2024 11:15 AM EDT DRUG MONITORING,BUPRENORPHI NE WITH CONFIRMATION,NALOXONE, URINE Routine 10/04/2024 11:15 AM EDT DRUG MONITOR, ALCOHOL, METAB, W/CONF, URINE Routine 10/04/2024 11:15 AM EDT DRUG MONITOR, PANEL 1, W/CONF, URINE Routine 10/04/2024 11:15 AM EDT DRUG MONITOR, MEDMATCH Routine 11:15 AM EDT from Last 3 Months Results * CT Abdomen+pelvis w/o contrast- flank pain (11/23/2024 9:12 AM EDT) Anatomical Region Laterality Modality Abdomen, Pelvis Computed Tomogra phy 11/23/2024 9:20 AM EDT Impressions 11/23/2024 9:31 AM EDT Bilateral renal calculi. No significant hydronephrosis. Stable fluid attenuation structure within the left lower pole, probably a parapelvic cyst. Stable L1 vertebral body compression fracture. Moderate to large amount of residual stool in the rectum. No evidence for bowel obstruction. Narrative 11/23/2024 9:31 AM EDT CLINICAL INFORMATION: Flank pain COMPARISON: Noncontrast CT abdomen and pelvis 10/25/2024 TECHNIQUE: CT Abdomen and Pelvis w/o contrast. Protocol: Routine. Oral Contrast: Given. Dose modulation and/or iterative reconstruction was utilized to minimize dose. FINDINGS: Lower Chest: Unremarkable. Liver: Unremarkable. Gallbladder/Biliary: Unremarkable. No biliary dilation. Spleen: Unremarkable. Pancreas: Unremarkable. No masses or ductal dilation. Adrenals: Unremarkable. Kidneys: Again seen are bilateral small/punctate renal calculi, left greater than right with the largest measuring approximately 3 mm within the left lower pole. No evidence for ureteral calculus. There is a stable approximately 2 cm fluid attenuation structure within the left lower pole, probably a parapelvic cyst. There is cortical scarring along the lateral aspect of the right kidney. Retroperitoneum: No aortic aneurysm. No adenopathy. Gastrointestinal: Moderate to large amount of residual stool in the rectum. No obstruction. Urinary Bladder: Unremarkable. Reproductive: Status post hysterectomy. Bones: Again seen is a L1 vertebral body compression fracture. Procedure Note Ron Shah MD - 11/23/2024 CLINICAL INFORMATION: Flank pain COMPARISON: Noncontrast CT abdomen and pelvis 10/25/2024 TECHNIQUE: CT Abdomen and Pelvis w/o contrast. Protocol: Routine. OralContrast: Given. Dose modulation and/or iterative reconstruction wasutilized to minimize dose. FINDINGS: Lower Chest: Unremarkable. Liver: Unremarkable. Gallbladder/Biliary: Unremarkable. No biliary dilation. Spleen: Unremarkable. Pancreas: Unremarkable. No masses or ductal dilation. Adrenals: Unremarkable. Kidneys: Again seen are bilateral small/punctate renal calculi, leftgreater than right with the largest measuring approximately 3 mm withinthe left lower pole. No evidence for ureteral calculus. There is a stableapproximately 2 cm fluid attenuation structure within the left lower pole, probably a parapelvic cyst. There iscortical scarring along the lateral aspect of the right kidney. Retroperitoneum: No aortic aneurysm. No adenopathy. Gastrointestinal: Moderate to large amount of residual stool in therectum. No obstruction. Urinary Bladder: Unremarkable. Reproductive: Status post hysterectomy. Bones: Again seen is a L1 vertebral body compression fracture. IMPRESSION: Bilateral renal calculi. No significant hydronephrosis. Stable fluid attenuation structure within the left lower pole, probably aparapelvic cyst. Stable L1 vertebral body compression fracture. Moderate to large amount of residual stool in the rectum. No evidence forbowel obstruction. us Shama Lombardo MD IMG CT ORDERABLES Final Result * ECG 12 lead (11/23/2024 8:06 AM EDT) Ventricular rate 67 BPM EKG [facility] Atrial rate 67 BPM EKG [facility] P-R interval 114 ms EKG [facility] QRS duration 68 ms EKG [facility] Q-T interval 394 ms EKG [facility] QTC calculation (Bazett) 416 ms EKG [facility] P axis 48 degrees EKG [facility] R axis 39 degrees EKG [facility] T axis 47 degrees EKG [facility] 11/23/2024 8:06 AM EDT Narrative EKG [facility] - 11/23/2024 1:44 PM EDT Normal sinus rhythm Normal ECG When compared with ECG of 04-Aug-2024 07:09, Nonspecific T wave abnormality no longer evident in Anterior leads Confirmed by MD Smith Anja ([id number]) on 11/23/2024 1:44:50 PM Procedure Note Pineda Smith MD - 11/23/2024 Normal sinus rhythm Normal ECG When compared with ECG of 04-Aug-2024 07:09, Nonspecific T wave abnormality no longer evident in Anterior leads Confirmed by MD Smith Anja ([id number]) on 11/23/2024 1:44:50 PM us Shama Lombardo MD ECG ORDERABLES Final Result [facility] * (ABNORMAL) Reflexive Urine Culture (11/23/2024 7:45 AM EDT) Culture Non lactose fermenting Gram negative yadira 1000 col/mL (A) 11/25/2024 8:34 AM EDT [facility] Culture Gram positive coryneform bacillus or Gram positive cocci 1000 col/mL (A) 11/25/2024 8:34 AM EDT [facility] Culture This is a mixed culture. No further identification will be performed.(A) 11/25/2024 8:34 AM EDT [facility] Urine specimen obtained by clean catch procedure / Unknown 11/23/2024 7:45 AM EDT 11/23/2024 7:58 AM EDT Comment:Urine us Shama Lombardo MD MICROBIOLOGY - GENERAL ORDERABLE S Final Result [facility] [address] [place] [address], [place] * (ABNORMAL) Urinalysis with Reflex to Microscopic and Culture (11/23/2024 7:45 AM EDT) Only the most recent of2 resultswithin the time period is included. Color Yellow 11/23/2024 8:36 AM EDT [facility] Clarity Clear 11/23/2024 8:36 AM EDT [facility] Specific [employer] Mdl 1.020 1.005 - 1.030 11/23/2024 8:36 AM EDT [facility] pH 6.0 5.0 - 8.0 11/23/2024 8:36 AM EDT [facility] Leukocyte Esterase Small(A) Negative 11/23/2024 8:36 AM EDT [facility] Nitrite Negative Negative 11/23/2024 8:36 AM EDT [facility] Protein Negative Negative mg/dL 11/23/2024 8:36 AM EDT [facility] Glucose Negative Negative mg/dL 11/23/2024 8:36 AM EDT [facility] Ketones Trace(A) Negative mg/dL 11/23/2024 8:36 AM EDT [facility] Blood Small(A) Negative 11/23/2024 8:36 AM EDT [facility] Bilirubin Negative Negative 11/23/2024 8:36 AM EDT [facility] RBC 12(H) 0 - 4 per hpf 11/23/2024 8:36 AM EDT [facility] WBC 16(H) 0 - 4 per hpf 11/23/2024 8:36 AM EDT [facility] Epithelial Cells 4 per hpf 11/23/2024 8:36 AM EDT [facility] Bacteria Present(A) Absent 11/23/2024 8:36 AM EDT [facility] Comment:Presence of bacteria does not necessarily indicate a UTI. Please correlate with degree of pyuria and presence of clinical symptoms for UTI. Urine Urine specimen obtained by clean catch procedure / Unknown 11/23/2024 7:45 AM EDT 11/23/2024 7:58 AM EDT us Shama Lombardo MD URINE ORDERABLES Final Result [facility] [address] [place] [address], [place] * Complete Blood Count, with Differential (11/23/2024 7:32 AM EDT) Only the most recent of2 resultswithin the time period is included. White Blood Cell Count 8.7 4.0 - 11.0 Thou/uL 11/23/2024 7:52 AM EDT [facility] Platelet Count 327 150 - 450 Thou/uL 11/23/2024 7:52 AM EDT [facility] Hemoglobin 13.5 11.7 - 15.7 g/dL 11/23/2024 7:52 AM EDT [facility] Hematocrit 40.9 35.0 - 47.0 % 11/23/2024 7:52 AM EDT [facility] Red Blood Cell Count 4.40 4.00 - 5.40 Mil/uL 11/23/2024 7:52 AM EDT [facility] MCV 93 80 - 100 fL 11/23/2024 7:52 AM EDT [facility] MCH 30.7 26.0 - 34.0 pg 11/23/2024 7:52 AM EDT [facility] MCHC 33.0 30.0 - 36.0 g/dL 11/23/2024 7:52 AM EDT [facility] RDW 12.9 11.5 - 14.5 % 11/23/2024 7:52 AM EDT [facility] MPV 9.1 7.5 - 12.5 fL 11/23/2024 7:52 AM EDT [facility] Neutrophils Auto 79.5 % 11/24/19 7:52 AM EDT [facility] Immature Granulocytes 0.7 % 11/23/2024 7:52 AM EDT [facility] Lymphocytes Auto 17.4 % 11/24/19 7:52 AM EDT [facility] Monocytes Auto 2.3 % 11/23/2024 7:52 AM EDT [facility] Eosinophils Auto 0.0 % 11/24/19 7:52 AM EDT [facility] Basophils Auto 0.1 % 11/23/2024 7:52 AM EDT [facility] Abs Neutrophils Auto 6.88 2.00 - 7.50 Thou/uL 11/23/2024 7:52 AM EDT [facility] Abs Immature Granulocytes 0.06 0.00 - 0.10 Thou/uL 11/23/2024 7:52 AM EDT [facility] Abs Lymphocytes Auto 1.51 1.50 - 4.50 Thou/uL 11/23/2024 7:52 AM EDT [facility] Abs Monocytes Auto 0.20 0.20 - 1.50 Thou/uL 11/23/2024 7:52 AM EDT [facility] Abs Eosinophils Auto 0.00 0.00 - 0.70 Thou/uL 11/23/2024 7:52 AM EDT [facility] Abs Basophils Auto 0.01 0.00 - 0.20 Thou/uL 11/23/2024 7:52 AM EDT [facility] Blood Blood specimen / Unknown 11/23/2024 7:32 AM EDT 11/23/2024 7:39 AM EDT us Shama Lombardo MD LAB BLOOD ORDERABLES Final Resul t [facility] [address] [place] [address], * Magnesium (11/23/2024 7:32 AM EDT) Magnesium 1.9 1.6 - 2.6 mg/dL 11/23/2024 8:23 AM EDT [facility] Blood Blood specimen / Unknown 11/23/2024 7:32 AM EDT 11/23/2024 7:39 AM EDT us Shama Lombardo MD LAB BLOOD ORDERABLES Final Resul t Performing Organization Address City/[facility]/[place] [address], [place] * Lipase (11/23/2024 7:32 AM EDT) Lipase 34 12 - 53 U/L 11/23/2024 8:23 AM EDT [facility] Blood Blood specimen / Unknown 11/23/2024 7:32 AM EDT 11/23/2024 7:39 AM EDT us Shama Lombardo MD LAB BLOOD ORDERABLES Final Resul t Performing Organization Address City/[facility] [place] [address], [place] * (ABNORMAL) Comprehensive Metabolic Panel (11/23/2024 7:32 AM EDT) Only the most recent of2 resultswithin the time period is included. Glucose 106 74 - 106 mg/dL 11/23/2024 8:23 AM EDT [facility] Comment:Fasting: <100 mg/dL, Non-Fasting: <200 mg/dL (ADA 2005) Blood Urea Nitrogen (BUN) 14 9 - 23 mg/dL 11/23/2024 8:23 AM EDT [facility] Creatinine 0.81 0.60 - 1.00 mg/dL 11/23/2024 8:23 AM EDT [facility] eGFR >90 >59 11/23/2024 8:23 AM EDT [facility] Comment:CKD-EPI (2020) in mL /min/1.73 sq meters. Sodium 137 136 - 145 mmol/L 11/23/2024 8:23 AM EDT [facility] Potassium 4.8(H) 3.4 - 4.5 mmol/L 11/23/2024 8:23 AM EDT [facility] Comment:Slight hemolysis Chloride 103 98 - 107 mmol/L 11/23/2024 8:23 AM EDT [facility] CO2 24 20 - 31 mmol/L 11/23/2024 8:23 AM EDT [facility] Calcium 10.1 8.7 - 10.5 mg/dL 11/23/2024 8:23 AM EDT [facility] Alkaline Phosphatase 71 32 - 122 U/L 11/23/2024 8:23 AM EDT [facility] Aspartate Aminotrans (AST) 36(H) <34 U/L 11/23/2024 8:23 AM EDT [facility] Alanine Aminotrans (ALT) 19 7 - 35 U/L 11/23/2024 8:23 AM EDT [facility] Bilirubin, Total 0.3 0.3 - 1.2 mg/dL 11/23/2024 8:23 AM EDT [facility] Protein, Total 8.5(H) 5.7 - 8.2 g/dL 11/23/2024 8:23 AM EDT [facility] Albumin 5.0(H) 3.4 - 4.8 g/dL 11/23/2024 8:23 AM EDT [facility] BUN/Creatinine Ratio 17 10.0 - 25.0 Ratio 11/23/2024 8:23 AM EDT [facility] Globulin 3.5 1.5 - 3.9 g/dL 11/23/2024 8:23 AM EDT [facility] Albumin/Globulin Ratio 1.4(L) 1.5 - 2.5 Ratio 11/23/2024 8:23 AM EDT [facility] Anion Gap 10 5 - 15 11/23/2024 8:23 AM EDT [facility] Blood Blood specimen / Unknown 11/23/2024 7:32 AM EDT 11/23/2024 7:39 AM EDT us Shama Lombardo MD LAB BLOOD ORDERABLES Final Resul t [facility] [address] [place] [address], [place] * CT Stone study w/o contrast (10/25/2024 11:32 AM EDT) Anatomical Region Laterality Modality Abdomen, Pelvis Computed Tomogra phy 10/25/2024 11:4 7 AM EDT Impressions 10/25/2024 12:24 PM EDT No significant change in bilateral nonobstructing renal calculi. Narrative 10/25/2024 12:24 PM EDT CLINICAL INFORMATION: Nephrolithiasis, diagnosed with kidney stones yesterday at [facility] COMPARISON: [facility] abdomen and pelvis 10/24/2024, [facility] CT abdomen and pelvis 06/29/2024. Please note that this patient has had 12 CT scans performed [facility] since February [address] scans performed at [facility] since February 2024. TECHNIQUE: CT Abdomen and Pelvis w/o contrast. Protocol: Renal stone. Oral Contrast: Not Given. Dose modulation and/or iterative reconstruction was utilized to minimize dose. FINDINGS: Lower Chest: Unremarkable. Liver: Visualized portions of the unenhanced liver are unremarkable. Gallbladder/Biliary: Unremarkable. No biliary dilation. Spleen: Unremarkable. Pancreas: Unremarkable. No masses or ductal dilation. Adrenals: Unremarkable. Kidneys: Bilateral nonobstructing renal calculi are without significant change since 10/24/2024, the largest of which measures 3 mm in the left lower pole. No hydronephrosis or obstructive uropathy. Stable 1.5 cm left lower pole renal cyst. Calcified phleboliths stable. Retroperitoneum: No aortic aneurysm. No adenopathy. Gastrointestinal: Unremarkable. No obstruction. Urinary Bladder: Unremarkable. Reproductive: Status post hysterectomy. Bones: No acute or suspicious abnormalities. Stable chronic impression deformity of the L1 vertebral body. Procedure Note Rebecca Avendaño MD - 10/25/2024 CLINICAL INFORMATION: Nephrolithiasis, diagnosed with kidney stonesyesterday at [facility] COMPARISON: [facility] abdomen and pelvis 10/24/2024, [facility] CT abdomen andpelvis 06/29/2024. Please note that this patient has had 12 CT scans [facility] [address] scans performed at [facility] since February 2024. TECHNIQUE: CT Abdomen and Pelvis w/o contrast. Protocol: Renal stone.Oral Contrast: Not Given. Dose modulation and/or iterative reconstructionwas utilized to minimize dose. FINDINGS: Lower Chest: Unremarkable. Liver: Visualized portions of the unenhanced liver are unremarkable. Gallbladder/Biliary: Unremarkable. No biliary dilation. Spleen: Unremarkable. Pancreas: Unremarkable. No masses or ductal dilation. Adrenals: Unremarkable. Kidneys: Bilateral nonobstructing renal calculi are without significantchange since 10/24/2024, the largest of which measures 3 mm in the leftlower pole. No hydronephrosis or obstructive uropathy. Stable 1.5 cm leftlower pole renal cyst. Calcified phleboliths stable. Retroperitoneum: No aortic aneurysm. No adenopathy. Gastrointestinal: Unremarkable. No obstruction. Urinary Bladder: Unremarkable. Reproductive: Status post hysterectomy. Bones: No acute or suspicious abnormalities. Stable chronic impressiondeformity of the L1 vertebral body. IMPRESSION: No significant change in bilateral nonobstructing renal calculi. us Deana Greenwood PA-C IMG CT ORDERABLES Final Res ult * Blood Culture (10/25/2024 9:02 AM EDT) Culture Sterile after 5 days 10/30/2024 7:32 AM EDT [facility] Blood Blood specimen / Unknown 10/25/2024 9:02 AM EDT 10/25/2024 9:14 AM EDT Comment:Blood us Deana Greenwood PA-C LAB BLOOD ORDERABLES Final Result [facility] [address] [place] [address], [place] * Lactic Acid, Plasma (10/25/2024 9:02 AM EDT) Lactic Acid 0.9 0.5 - 1.9 mmol/L 10/25/2024 9:36 AM EDT [facility] Blood Blood specimen / Unknown 10/25/2024 9:02 AM EDT 10/25/2024 9:10 AM EDT Deana Greenwood PA-C LAB BLOOD ORDERABLES Final Result [facility] [address] [place] [address], * XR Chest 1 view-Portable (10/25/2024 8:53 AM EDT) Anatomical Region Laterality Modality Chest Digital Radiogra phy 10/25/2024 9:01 AM EDT Impressions 10/25/2024 9:02 AM EDT Negative study. Narrative 10/25/2024 9:02 AM EDT CLINICAL INFORMATION: sepsis r/u, pls eval pna COMPARISON: Chest x-ray 08/04/2024 TECHNIQUE: AP view of the chest. FINDINGS: Heart/Mediastinum: Normal heart size. Unremarkable mediastinum. Lungs: No acute consolidation. No pleural effusions. Osseous Structures: No acute abnormalities. Procedure Note Rebecca Avendaño MD - 10/25/2024 CLINICAL INFORMATION: sepsis r/u, pls eval pna COMPARISON: Chest x-ray 08/04/2024 TECHNIQUE: AP view of the chest. FINDINGS: Heart/Mediastinum: Normal heart size. Unremarkable mediastinum. Lungs: No acute consolidation. No pleural effusions. Osseous Structures: No acute abnormalities. IMPRESSION: Negative study. Deana Greenwood PA-C IMG DIAGNOSTIC IMAGING ORDE RABLES Final Result * (ABNORMAL) Microscopic Urinalysis (10/25/2024 8:23 AM EDT) WBC 5(H) 0 - 4 per hpf 10/25/2024 9:49 AM EDT [facility] RBC 20(H) 0 - 4 per hpf 10/25/2024 9:49 AM EDT [facility] Bacteria Absent Absent 10/25/2024 9:49 AM EDT [facility] Crystals Absent 10/25/2024 9:49 AM EDT [facility] Epithelial Cells 11 per hpf 10/25/2024 9:49 AM EDT [facility] Urine specimen / Unknown 10/25/2024 8:23 AM EDT 10/25/2024 8:56 AM EDT us Deana Greenwood PA-C URINE ORDERABLES Final Resu lt [facility] [address] [place] [address], [place] * (ABNORMAL) DRUG MONITOR, PANEL 1, W/CONF, URINE (10/04/2024 11:15 AM EDT) Amphetamines, Urine Ql NEGATIVE <500 ng/mL [employer] Barbiturates NEGATIVE <300 ng/mL [employer] Benzodiazepines NEGATIVE <100 ng/mL [employer] Cocaine Metabolite POSITIVE(A) <150 ng/mL [employer] Benzoylecgonine 266(H) <100 ng/mL [employer] medMATCH Benzoylecgonine INCONSISTEN T(A) [facility] [employer] Cocaine Comments [facility] [employer] Comment:See Cocaine Notes, L DT Notes Marijuana Metabolite NEGATIVE <20 ng/mL [employer] Methadone Metabolite NEGATIVE <100 ng/mL [facility] [employer] Opiates NEGATIVE <100 ng/mL [employer] Oxycodone Screen, Urine NEGATIVE <100 ng/mL [employer] Phencyclidine, Urine NEGATIVE <25 ng/mL [facility] [employer] Creatinine, Urine 144.1 > or = 20.0 mg/dL [employer] pH 6.3 4.5 - 9.0 [employer] Oxidant NEGATIVE <200 mcg/mL [employer] Notes and Comments [employer] Comment: This drug testing is for medical treatment only. Analysis was performed as non-forensic testing and these results should be used only by healthcare providers to render diagnosis or treatment, or to monitor progress of medical conditions. Cocaine Notes: Benzoylecgonine detected is consistent with the use of the drug Cocaine. LDT Notes: Confirmation tests were developed and their analytical performance characteristics have been determined by [employer]. It has not been cleared or approved by the FDA. This assay has been validated pursuant to the CLIA regulations and is used for clinical purposes. medMATCH(R) enables providers to identify if drug use is consistent or inconsistent with a corresponding prescribed medication(s) list. Healthcare Providers needing Interpretation assistance, please contact us at [phone] ( ) M-F, 8am to 10pm EST 10/04/2024 11:1 5 AM EDT 10/04/2024 10:17 PM EDT Henna Brush MD URINE ORDERABLES Final [facility] [address] [place] [phone] * Drug Monitor, MedMATCH (Q [id number]) (10/04/2024 11:15 AM EDT) Pathologist [facility] medMATCH Summary [employer] Comment: Prescribed Prescribed Not Prescribed Consistent Inconsistent Inconsistent [employer] Benzoylecgonine Prescribed Drug 1 Pregabalin [employer] 10/04/2024 11:1 5 AM EDT 10/04/2024 10:17 PM EDT us Henna Brush MD URINE ORDERABLES Final Resu lt Performing Organization Address [facility]/ZIP Co de Phone Number [address] [place] [address] * Drug Monitor, Tapentadol, Qn, Urine (Q [id number]) (10/04/2024 11:15 AM EDT) Tapentadol NEGATIVE <50 ng/mL [facility] Nortapentadol NEGATIVE <50 ng/mL [facility] Tapentadol Comments [facility] Comment:See LDT Notes 10/04/2024 11:1 5 AM EDT 10/04/2024 10:17 PM EDT us Henna Brush MD URINE ORDERABLES Final Resu lt Performing Organization Address [facility] Co de Phone Number [facility] [address] [place] [address] * Drug Monitor, Alcohol, Metab, W/Conf, Urine (Q [id number]) (10/04/2024 11:15 AM EDT) Alcohol Metabolites NEGATIVE <500 ng/mL [employer] 10/04/2024 11:1 5 AM EDT 10/04/2024 10:17 PM EDT us Henna Brush MD URINE ORDERABLES Final Resu lt Performing Organization Address [facility] Co de Phone Number [address] [place] [address] * (ABNORMAL) Drug Monitoring, Pregabalin, Quantitative, Urine (Q [id number]) (10/04/2024 11:15 AM EDT) Pregabalin NEGATIVE <1000 ng/mL [employer] Medmatch Pregabalin INCONSISTENT (A) [employer] Pregabalin Comments [employer] Comment:See LDT Notes 10/04/2024 11:1 5 AM EDT 10/04/2024 10:17 PM EDT us Henna Brush MD URINE ORDERABLES Final Resu lt Performing Organization Address [facility] Co de Phone Number [address] [place] [phone] * Drug Monitor, Tramadol, Qn, Urine (Q [id number]) (10/04/2024 11:15 AM EDT) Desmethyltramadol NEGATIVE <100 ng/mL [employer] Tramadol NEGATIVE <100 ng/mL [employer] Tramadol Comments [employer] Comment:See LDT Notes 10/04/2024 11:1 5 AM EDT 10/04/2024 10:17 PM EDT us Henna Brush MD URINE ORDERABLES Final Resu lt Performing Organization Address [facility] Co de Phone Number [address] [place] [phone] * Drug Monitoring,Buprenorphine With Confirmation,Naloxone, Urine ([id number]) (10/04/2024 11:15 AM EDT) Buprenorphine, Urine Ql NEGATIVE <5 ng/mL [employer] 10/04/2024 11:1 5 AM EDT 10/04/2024 10:17 PM EDT us Henna Brush MD URINE ORDERABLES Final Resu lt Performing Organization Address [facility] Co de Phone Number [address] [place] [phone] * Pain Mgmt, Heroin Metab W/Confirmation, Urine (Q [id number]) (10/04/2024 11:15 AM EDT) 6 Acetylmorphine NEGATIVE <10 ng/mL [facility] 10/04/2024 11:1 5 AM EDT 10/04/2024 10:17 PM EDT us Henna Brush MD URINE ORDERABLES Final Resu lt Performing Organization Address [facility] Co de Phone Number [address] [place] [phone] * Pain Mgmt, Fentanyl, Qn, Urine (Q [id number]) (10/04/2024 11:15 AM EDT) Fentanyl, Urine NEGATIVE <0.5 ng/mL [employer] Norfentanyl, Urine NEGATIVE <0.5 ng/mL [employer] Fentanyl Comments [employer] Comment:See LDT Notes 10/04/2024 11:1 5 AM EDT 10/04/2024 10:17 PM EDT us Henna Brush MD URINE ORDERABLES Final Resu lt Performing Organization Address [facility] de Phone Number [address] [place] [phone] from Last 3 Months Insurance [facility] Care Teams Student Development Coordinator Relationship Specialty Start Date End Date Omaira Champion APRN [address] [place] [phone] PCP - General Internal Medicine 04/18/24 [facility] 02/14/22
--- OUTSIDE RECORDS SUMMARY | 2024-12-21 12:10 | XMS_ITS | Encounter Summary ---
Author Organization [facility] Address [address] [place] [address] Care Team Providers Care Branch Sales Manager Name Role Phone Nicola Mcbride MD Primary Care Provider [phone] [facility] Primary Care Provider Unavailable Pcp, No Primary Care Provider Unavailabl e [facility] Unavailable Unavailable Unknown Primary Care Provider [phone] [facility] Primary Care Provider Unavailable Nicola Mcbride MD Primary Care Provider + Omaira Champion APRN Primary Care Provider [phone] Encounter Details Date Type Department Care Team (Late st Contact Info) Description 07/20/2021 Scanned Document [address] [place] [phone] Provider, Generic Social History Tobacco Use [...] suspected to have Coronavirus/COVID-19? No / Unsure 07/17/2021 2:32 PM EDT documented as of this encounter Plan of Treatment Not on file documented as of this encounter Visit Diagnoses Not on filedocumented in this encounter Additional Health Concerns Infection Onset Date Last Indicated Resolved Time R/O Respiratory Disease 03/12/2024 03/12/202402/16 7:19 AM EST documented as of this encounter Care Teams Branch Sales Manager Relationship Specialty Start Date End Date Nicola Mcbride MD [address] [place], [place] [phone] PCP - General Family Medicine 11/16/19 10/15/21 [facility] PCP - General 10/16/21 02/13/22 [facility] PCP - General General Medicine 02/14/22 03/21/22 Unknown Unknow Provider Address PCP - General 08/31/22 09/11/22 [facility] PCP - General 09/12/22 02/21/24 Nicola Mcbride MD [address] [place] [address] PCP - General Family Medicine 02/22/24 04/17/24 Omaira Champion APRN [address] [place] [phone] PCP - General Internal Medicine 04/18/24 [facility] 02/14/22 documented as of this encounter
--- OUTSIDE RECORDS SUMMARY | 2024-12-21 12:10 | XMS_ITS | Encounter Summary ---
Author Organization Formerly [facility] Address [address] [place] [address] Care Team Providers Care Record Tabulating Clerk Name Role Phone [facility] Unavailable Unavailable Omaira Champion APRN Primary Care Provider [phone] Encounter Details Date Type Department Care Team (Late st Contact Info) Description 11/01/2024 Scanned Document [facility] Pain Management [address] [place] [address] Henna Brush MD [address] [facility] [address] [place], [place] [id number] Social History Tobacco Use Types Packs/Day Years Used Date Smoking Tobacco: Never Smokeless Tobacco: Never Alcohol Use Standard Drinks/Week Comments Never 0 (1 standard drink = 0.6 oz pur e alcohol) PHQ-2 Answer Date Recorded PHQ-2 Total Score 0 03/12/2022 [facility] Occup[facility] ional [facility] - Occupational Stress [...] on filedocumented in this encounter Care Teams Record Tabulating Clerk Relationship Specialty Start Date End Date Omaira Champion APRN [address] [place] [phone] PCP - General Internal Medicine 04/18/[address] [facility] 02/14/22 documented as of this encounter
--- OUTSIDE RECORDS SUMMARY | 2024-12-21 12:10 | XMS_ITS | Encounter Summary ---
Author Organization [facility] Address [address] [place] [address] Care Team Providers Care Senior Clinical Data Manager Name Role Phone [facility] Unavailable Unavailable Nicola Mcbride MD Primary Care Provider [phone] Omaira Champion APRN Primary Care Provider [phone] Encounter Details Date Type Department Care Team (Late st Contact Info) Description 04/07/2024 Scanned Document [facility] Radiology [address] [place] [address] Provider, Generic Social History Tobacco Use Types [...] on filedocumented in this encounter Care Teams Senior Clinical Data Manager Relationship Specialty Start Date End Date Nicola Mcbride MD [address] [place] [address] PCP - General Family Medicine 02/22/24 04/17/24 Omaira Champion APRN [address] [place] [phone] PCP - General Internal Medicine 04/18/24 [facility] 02/14/22 documented as of this encounter
--- OUTSIDE RECORDS SUMMARY | 2024-12-21 12:10 | XMS_ITS | Encounter Summary ---
Author Organization [facility] Address [address] [place] [address] Care Team Providers Care Food Adviser Name Role Phone [facility] Unavailable Unavailable Omaira Champion APRN Primary Care Provider [phone] Encounter Details Date Type Department Care Team (Late st Contact Info) Description 05/09/2024 Scanned Document [facility] [address] [place] [address] Henna Brush MD [address] [facility] [address] [place], [place] [address] Social History Tobacco Use Types Packs/Day Years [...] on filedocumented in this encounter Care Teams Food Adviser Relationship Specialty Start Date End Date Omaira Champion APRN [address] [place] [phone] PCP - General Internal Medicine 04/18/24 [facility] 02/14/22 documented as of this encounter
--- NOTE | 2024-12-21 12:39 | PC.NURSE ---
Pt left unit without talking to nurse, without notifying any staff. stacey foote
== END 2024-12-21 13:00 | disposition left against medical advice (07) ==
PROVIDERS: Physician Assistant Medical; Emergency Provider Emergency Medicine
DX: R10.A0 Flank pain, unspecified side (principal); Z87.440 Personal history of urinary (tract) infections; R11.0 Nausea; R82.90 Unspecified abnormal findings in urine; Z79.899 Other long term (current) drug therapy
CPT/HCPCS: 36415; 80053; 81001; 85025; 87086; 99282; 99283

== ENCOUNTER 2024-12-28 11:25 | Emergency (ER) | payer OTHER, MEDICAID, SELFPAY ==
[2024-12-28 11:39] VITALS: BP 122/73; PULSE 86; RESP 18; TEMP 36.8; O2SAT 100; BMI 32.2
--- NOTE | 2024-12-28 11:43 | ED.GENADULT ---
HPI - General Adult General Chief complaint: General Medical Stated complaint: General Medical Time Seen by Provider: 12/28/24 12:41 Source: patient, RN notes reviewed and old records reviewed Mode of arrival: ambulatory History of Present Illness ED Provider: Kati Christian PA-C HPI narrative: 44-year-old female with a past medical history of rheumatoid arthritis presenting to the ED complaining of rheumatoid arthritis flare x2 days with worsening pain and swelling to bilateral hands and feet. Reports pain worse with movement and palpation. States she used to follow with endocrinology in [place] however has been 1 year ago and has not followed up since his passing. States she used to take Lyrica, prednisone, and pain medication. Is attempting to establish care with endocrinology at [facility]. Denies fever, chills, injuries, trauma, gout history Related Data Previous Rx's ?Medication ?Instructions ?Recorded ondansetron 4 mg disintegrating 4 mg PO Q8H 5 days #15 tabs 01/17/24 tablet oxycodone 5 mg tablet 5 mg PO Q6H PRN pain #15 tabs 01/17/24 polyethylene glycol 3350 17 17 g PO DAILY #119 grams 01/17/24 gram/dose oral powder (Miralax) cefuroxime axetil 250 mg tablet 250 mg PO Q12H 5 days #10 tabs 01/23/24 morphine 15 mg immediate release 15 mg PO Q8H PRN pain #10 tabs 01/23/24 tablet levofloxacin 500 mg tablet 500 mg PO DAILY #7 tabs 02/02/24 methenamine hippurate 1 gram tablet 1 g PO BID #60 tabs 02/02/24 ondansetron 4 mg disintegrating 4 mg PO TID PRN nausea and 02/02/24 tablet vomiting 5 days #10 tabs sulfamethoxazole 800 1 tab PO BID Urinary tract 02/21/24 mg-trimethoprim 160 mg tablet infection #14 tabs (Bactrim DS) prednisone 10 mg tablet 10 mg PO BID 5 days #10 tabs 12/28/24 Allergies Allergy/AdvReac Type Severity Reaction Status Date / Time diphenhydramine (From Allergy Severe PASSED OUT Verified 12/28/24 11:40 BENADRYL) WITH IV USE GIVEN. shellfish derived (SHELLFISH Allergy Intermediate HIVES Verified 12/28/24 11:40 DERIVED) lactose (LACTOSE) Allergy Unknown INTOLERANT Verified 12/28/24 11:40 metoclopramide (From REGLAN) Allergy Unknown UNKNOWN Verified 12/28/24 11:40 NSAIDS (Non-Steroidal Allergy Unknown PEPTIC Verified 12/28/24 11:40 Anti-Inflamma (NSAIDS ULCER (NON-STEROIDAL ANTI-INFLAMMA) prochlorperazine (From Allergy Unknown UNKNOWN Verified 12/28/24 11:40 COMPAZINE) sertraline (From ZOLOFT) Allergy Unknown SUICIDAL Verified 12/28/24 11:40 THOUGHTS. zolpidem (From AMBIEN) Allergy Unknown HALLUCINATI Verified 12/28/24 11:40 ONS Iodinated Contrast Media Allergy Anaphylaxis Verified 12/28/24 11:40 (Contrast Dye) ketorolac (From Toradol) Allergy Anaphylaxis Verified 12/28/24 11:40 Review of Systems Review of Systems: Yes all other systems are reviewed and are negative Constitutional: Constitutional: Reports as per [facility] Past Medical History Attestation statement: The following information was validated with the patient. Source: old records reviewed Social History Social History Advance Directives: No Advance Directives Information Provided: Yes Physical Exam ED Vital Signs: Vital Signs - 24 hr 12/28/24 11:39 12/28/24 14:29 Temperature 98.3 F 98.4 F Pulse Rate 86 80 Respiratory Rate 18 16 Blood Pressure 122/73 128/80 Pulse Oximetry 100 95 Oxygen Delivery Method Room Air BMI result Body Mass Index 32.2 Const General: cooperative, healthy appearing and no acute distress Orientation/consciousness: patient oriented x3 Limitations: no limitations [facility] Head: Yes normal to inspection and Yes atraumatic Ears: hearing grossly normal bilaterally General nose exam: Normal external nose present Face and sinus: Yes normal facial exam Eyes General: appearance normal, both eyes and all related structures EOM: EOMs intact bilaterally Neck Neck: Yes normal visual inspection and Yes no meningeal signs Resp Effort & Inspection: normal respiratory effort and no respiratory distress Cardio Rate: regular rate Skin Rashes: no rashes Wounds: no wounds Neuro General: patient oriented x3, tone normal and no meningeal signs Cranial nerves: Yes CN's II-XII intact bilaterally Gait exam (Neuro): Normal gait present Extrem Other: bilateral hands and ankles / feet with mild swelling. Diffuse joint tenderness. No erythema or warmth. Neurovascularly intact. No crepitus. No lymphangitis. Course Course Course Narrative: RME: 44-year-old female with history of rheumatoid arthritis presents to ED for rheumatoid arthritis flare. Patient states generalized joint pain, cramping and feet swelling. patient requesting IV solumedrol. has appointment with Rheumatoid specialist on -- no leukocytosis. ESR minimally elevated to 23. CRP WNL. > case d/w Dr. Pan > Agreeable to discharge patient home with prednisone 10 mg b.i.d. x5 days with close endocrinology follow-up. Had lengthy discussion with patient at bedside that steroids are not recommended from ED however with her limited outpatient services at this time/known prior improvement with prednisone will send 5 day course. Results discussed with patient including worrisome signs and symptoms and strict return precautions, and when to return to the emergency department. They verbalized understanding and feel safe for discharge at this time. Medical Decision Making Medical Decision Making MDM Narrative: 44-year-old female with a past medical history of rheumatoid arthritis presenting to the ED complaining of rheumatoid arthritis flare x2 days with worsening pain and swelling to bilateral hands and feet. On exam vital signs stable, NAD, nontoxic appearing, physical exam as noted above. Concern for RA flare vs MSK pain. No evidence of septic joint / arthritis. Lower suspicion for gout plan: Labs Please refer to course for remaining clinical decision making, interpretation of labs/imaging results, and discussions with consultants and/or family members. Differential Diagnosis Differential Diagnoses: The differential diagnosis associated with the presentation includes As above Lab Data [facility] Lab Attestation statement: I reviewed the patient's lab results. 12/28/24 11:53 12/28/24 11:53 Labs: Lab Results 12/28/24 Range/Units 11:53 WBC 5.2 (4.8-10.8) X10*3/uL RBC 4.40 (4.20-5.50) X10*6/uL Hgb 13.5 (12.0-16.0) g/dl Hct 41.0 (37.0-47.0) % MCV 93.2 (80.0-98.0) fL MCH 30.7 (27.0-33.0) pg MCHC 32.9 (31.0-35.0) g/dl RDW 13.3 (11.0-16.0) % Plt Count 272 (160-400) X10*3/uL MPV 9.3 L (9.4-12.3) fL Immature Gran % (Auto) 0.2 (0.0-0.4) % Neut % (Auto) 50.1 (45-73) % Lymph % (Auto) 39.0 (20-40) % Sully % (Auto) 8.8 (2-11) % Eos % (Auto) 1.3 (0-4) % Baso % (Auto) 0.6 (0-2) % Lymph # (Auto) 2.0 (1.2-4.9) X10*3/uL Sully # (Auto) 0.5 (0.1-1.2) X10*3/uL Eos # (Auto) 0.1 (0.0-0.4) X10*3/uL Baso # (Auto) 0.0 (0.0-0.2) X10*3/uL Abs Immat Gran (auto) 0.01 (0.00-0.03) X10*3/uL Absolute Neuts (auto) 2.6 (2.0-8.3) x10*3/uL Absolute Nucleated RBC 0.000 (0.0-0.012) X10*3/uL Nucleated RBC % (auto) 0.0 (0.0-0.2) /100WBC ESR 23 H (0-20) MM/HR Sodium 143 (135-145) mmol/L Potassium 3.7 (3.3-5.1) mmol/L Chloride 107 (96-108) mmol/L Carbon Dioxide 28 (22-29) mmol/L Anion Gap 12 (12-20) BUN 14 (9-16) mg/dL Creatinine 0.69 (0.5-1.4) mg/dL Estim Creat Clear Calc 80.7 Estimated GFR > 60 Random Glucose 91 (60-115) mg/dL Calcium 9.7 (8.4-10.2) mg/dL Magnesium 1.8 (1.6-2.6) mg/dL Total Bilirubin 0.2 (0.0-1.0) mg/dL AST 21 (5-31) U/L ALT 16 (0-31) U/L Alkaline Phosphatase 79 (39-117) U/L Total Creatine Kinase 117 (26-140) U/L C-Reactive Protein 0.50 (< or = 0.50) mg/dL Total Protein 7.5 (6.5-8.0) g/dL Albumin 4.4 (3.5-5.0) g/dL External Record Review External record reviewed: Inpatient record, Office record, Outpatient record, Prior outpatient labs, Prior outpatient radiology, Primary care record and Outside ED record Tests considered The following testing was considered but not selected: As above Prescription Management I considered prescription management with: Pain Medication Chronic Conditions Patient?s care impacted by: Other (RA) Social Determinants Patient?s care significantly limited by Social Determinants of Health including: Other Social Determinant of Health Discharge Plan Discharge Clinical Impression: Rheumatoid arthritis flare Patient Disposition: Home, Self-Care Instructions: Rheumatoid Arthritis (ED) Additional Instructions: your blood work is reassuring Please take prednisone as prescribed You need to establish care with endocrinology in your PCP If areas become increasingly swollen, painful, red, warm or you have fever return to the ED Prescriptions: New prednisone 10 mg tablet 10 mg PO BID 5 Days Qty: 10 0RF No Action morphine 15 mg tablet 15 mg PO Q8H PRN (Reason: pain) Qty: 10 0RF Rx Instructions: Partial Fill upon patient request. cefuroxime axetil 250 mg tablet 250 mg PO Q12H 5 Days Qty: 10 0RF methenamine hippurate 1 gram tablet 1 g PO BID Qty: 60 0RF ondansetron 4 mg tablet,disintegrating 4 mg PO Q8H 5 Days Qty: 15 0RF oxycodone 5 mg tablet 5 mg PO Q6H PRN (Reason: pain) Qty: 15 0RF Rx Instructions: partial filing upon pt request; Partial Fill upon patient request. polyethylene glycol 3350 [Miralax] 17 gram/dose powder 17 g PO DAILY Qty: 119 0RF ondansetron 4 mg tablet,disintegrating 4 mg PO TID PRN (Reason: nausea and vomiting) 5 Days Qty: 10 0RF levofloxacin 500 mg tablet 500 mg PO DAILY Qty: 7 0RF sulfamethoxazole-trimethoprim [Bactrim DS] 800-160 mg tablet 1 tab PO BID Qty: 14 0RF Referrals: [facility] Endocrinology [Provider Group] - 3 days Interventions: ED Discharge Assessment Last Done: 12/28/24 14:29 Discharge Date/Time: 12/28/24 14:29 Print Language: French
[2024-12-28 11:58] LABS: MANUAL DIFF FLAG NO
[2024-12-28 12:00] LABS: Hematocrit 41.0 % (37.0-47.0); Hemoglobin 13.5 g/dl (12.0-16.0); Imm Gran Abs Auto 0.01 X10*3/uL (0.00-0.03); Imm Gran Pct Auto 0.2 % (0.0-0.4); Lymphocytes Absolute Auto 2.0 X10*3/uL (1.2-4.9); Mean Corpuscular HGB Conc 32.9 g/dl (31.0-35.0); Mean Corpuscular Hemoglobin 30.7 pg (27.0-33.0); Mean Corpuscular Volume 93.2 fL (80.0-98.0); NRBC Abs Auto 0.000 X10*3/uL (0.0-0.012); NRBC Pct Auto 0.0 /100WBC (0.0-0.2); Platelet Count 272 X10*3/uL (160-400); Red Blood Count 4.40 X10*6/uL (4.20-5.50); White Blood Count 5.2 X10*3/uL (4.8-10.8)
[2024-12-28 12:18] LABS: Alanine Aminotransferase 16 U/L (0-31); Albumin Level 4.4 g/dL (3.5-5.0); Alkaline Phosphatase 79 U/L (39-117); Anion Gap 12 (12-20); Aspartate Amino Transferase 21 U/L (5-31); Blood Urea Nitrogen 14 mg/dL (9-16); Calcium 9.7 mg/dL (8.4-10.2); Carbon Dioxide 28 mmol/L (22-29); Chloride 107 mmol/L (96-108); Creatinine Clr Calc Pharmacy 80.7; Estimated Glomerular Filt Rate > 60; Potassium 3.7 mmol/L (3.3-5.1); Sodium 143 mmol/L (135-145); Total Protein 7.5 g/dL (6.5-8.0)
[2024-12-28 12:37] LABS: Erythrocyte Sedimentation Rate 23 MM/HR (0-20)
[2024-12-28 13:19] LABS: Magnesium 1.8 mg/dL (1.6-2.6)
[2024-12-28 14:29] VITALS: BP 128/80; PULSE 80; RESP 16; TEMP 36.9; O2SAT 95
--- OUTSIDE RECORDS SUMMARY | 2024-12-28 15:16 | XMS_ITS | Encounter Summary ---
Author Organization [facility] and [facility] Address [address] [place] [address] Care Team Providers Care Front Desk Coordinator Name Role Phone AkiraOmaira ferreira ERYN Primary Care Provider [phone] Encounter Details Date Type Department Care Team ([facility] st Contact Info) Description 10/28/2024 Results Follow-Up [facility] Emergency Department [address] [place] [address] Oren Gibbs MD [address] [place] [address] UA reflex to culture, Urinalysis with culture reflex ( LMW YH), Urine culture Social History Tobacco Use Types Packs/Day Years Used Date Smoking Tobacco: Never Smokeless Tobacco: Never Alcohol Use Standard Drinks/Week Comments Not Currently 0 (1 standard drink = 0.6 oz pur e alcohol) [facility] Utilities Answer Date Recorded In the past 12 months has [employer] gas, oil, or water [employer] threatened to shut off services in your home? No 03/23/2024 Social Connection and Isolation Panel Answer Date Recorded In a typical week, how many times do you talk on the phone with family, friends, or neighbors? Patient declined 05/26/2020 How often do you get togethe r with friends or relatives? Patient declined 05/26/2020 How often do you attend quaker or gnosticism serv ices? Patient declined 05/26/2020 Do you belong to any clubs o r organizations such as quaker groups, unions, fraternal or athletic groups, or school groups? Patient declined 05/26/2020 How often do you attend meet ings of the clubs or organizations you belong to? Patient declined 05/26/2020 Are you , , di vorced, , never , or living with a partner? Patient declined 05/26/2020 AUDIT-C Answer Date Recorded Q1: How often do you have a drink containing alc ohol? Monthly or less 06/26/2020 Average Number of Drinks Not on file Frequency of Binge Drinking Not on file 06/15 PHQ-2 Answer Date Recorded PHQ-2 Total Score 0 03/23/2024 [facility] - Occupational Stress Questionnaire Answer Date Recorded Do you feel stress - tense, restless, nervous, or anxious, or unable to sleep at night because your mind is troubled all the time - these days? Patient declined 05/26/2020 Exercise Vital Sign Answer Date Recorde d On average, how many days pe r week do you engage in moderate to strenuous exercise (like a brisk walk)? Patient declined On average, how many minutes do you engage in exercise at this level? Patient declined 05/26/2020 Hunger Vital Sign Answer Date Recorded Within the past 12 months, y ou worried that your food would run out before you got the money to buy more. Never true 03/23/19 25 Within the past 12 months, t he food you bought just didn't last and you didn't have money to get more. Never true 03/23/2024 PRAPARE - Transportation Answer Date Re corded In the past 12 months, has l ack of transportation kept you from medical appointments or from getting medications? No 07/2024 In the past 12 months, has l ack of transportation kept you from meetings, work, or from getting things needed for daily living? No 03/23/2024 Housing Stability Answer Date Recorded What is your living situation today? I have a [place] place to live 03/23/2024 Housing Stability Not on file 03/23/2024 Interpersonal Safety Answer Date Record ed Is there anyone in your life that is hurting or threatening you in anyway? no 10/24/2024 Physical Indicators of Abuse No evidence of phys ical abuse 10/24/2024 Comments No Sex and Gender Information Value Date Recorded Sex Assigned at Female 08/20/2021 7:10 AM EDT Legal Sex Female 8:50 AM EST Gender Identity Female 04/10/2024 2:45 AM EST Sexual Orientation Straight 06/09/2024 11 :58 PM EDT documented as of this encounter Miscellaneous Notes * Result Encounter Note - Oren Gibbs MD - 10/28/2024 5:19 PM EDT On appropriate antibiotic ( bactrim). documented in this encounter Plan of Treatment Not on file documented as of this encounter Visit Diagnoses Not on filedocumented in this encounter Additional Health Concerns Assessment Noted Time PHQ-9 Depression Total Score: 2 12/02/19 22 1:13 PM EDT documented as of this encounter Care Teams Front Desk Coordinator Relationship Specialty Start Date End Date Omaira Champion APRN [address] [place] [phone] PCP - General Family Medicine 04/10/24 documented as of this encounter
--- OUTSIDE RECORDS SUMMARY | 2024-12-28 15:16 | XMS_ITS | Encounter Summary ---
Author Organization [facility] and [facility] Address [address] [place] [address] Care Team Providers Care International Operations Manager Name Role Phone AkiraOmaira ferreira ERYN Primary Care Provider [phone] Encounter Details Date Type Department Care Team (Late st Contact Info) Description 10/22/2024 Results Follow-Up [facility] [address] [facility] [address] [place] [address] Oren Gibbs MD [address] [place] [address] UA reflex to culture, Urinalysis with culture reflex ( LMW YH), Urine culture Social History Tobacco Use Types Packs/Day Years Used Date Smoking Tobacco: Never Smokeless Tobacco: Never Alcohol Use Standard Drinks/Week Comments Not Currently 0 (1 standard drink = 0.6 oz pur e alcohol) [facility] Utilities Answer Date Recorded In the past 12 months has [employer], gas, oil, or water [employer] threatened to shut off services in your home? No 03/23/2024 Social Connection and Isolation Panel Answer Date Recorded In a typical week, how many times do you talk on the phone with family, friends, or neighbors? Patient declined 05/26/2020 How often do you get togethe r with friends or relatives? Patient declined 05/26/2020 How often do you attend congregation or zoroastrian serv ices? Patient declined 05/26/2020 Do you belong to any clubs o r organizations such as congregation groups, unions, fraternal or athletic groups, or [...] Date Recorded PHQ-2 Total Score 0 03/23/2024 [facility] - Occupational Stress Questionnaire Answer Date [...] hurting or threatening you in anyway? no 12/11/2024 Physical Indicators of Abuse No evidence of phys ical abuse 12/11/2024 Comments No Sex and Gender Information Value Date Recorded Sex Assigned at Female 08/20/2021 7:10 AM EDT Legal Sex Female 8:50 AM EST Gender Identity Female 04/10/2024 2:45 AM EST Sexual Orientation Straight 06/09/2024 11 :58 PM EDT documented as of this encounter Miscellaneous Notes * Result Encounter Note - Mary Lundberg RN - 10/26/2024 5:12 PM EDT Phone number in chart called and spoke with patient. Patient identity and privacy verified prior todiscussion. Provider message, UCX result and follow up reviewed. Patient states she experienced severe pain, was seen at [facility] and prescribed Bactrim. Patient will f/u with PCP, Neurology and Urology. * Result Encounter Note - Mary Lundberg RN - 10/23/2024 1:22 PM EDT Phone number in chart called and voicemail message left for call back to discuss provider message and result. [employer] message sent. * Result Encounter Note - Oren Gibbs MD - 10/22/2024 9:29 AM EDT Declined abx - said she will follow with Urology - confirm documented in this encounter Plan of Treatment Not on file documented as of this encounter Visit Diagnoses Not on filedocumented in this encounter Additional Health Concerns Assessment Noted Time PHQ-9 Depression Total Score: 2 12/02/19 22 1:13 PM EDT documented as of this encounter Care Teams International Operations Manager Relationship Specialty Start Date End Date Omaira Champion APRN [address] [place] [phone] PCP - General Family Medicine 04/10/24 documented as of this encounter
--- OUTSIDE RECORDS SUMMARY | 2024-12-28 15:16 | XMS_ITS | Encounter Summary ---
Author Organization [facility] and [facility] Address [address] [place] [address] Care Team Providers Care Pharmacy Buyer Name Role Phone AkiraOmaira Robert CERNA Primary Care Provider [phone] Encounter Details Date Type Department Care Team ([facility] st Contact Info) Description 09/05/2024 Scanned Document INTERFACE DEFAULT [address] [place] [id number] System, Provider Not In Social History Tobacco Use Types Packs/Day Years Used Date Smoking Tobacco: Never Smokeless Tobacco: Never Alcohol Use Standard Drinks/Week Comments Not Currently 0 (1 standard drink = 0.6 oz pur e alcohol) [facility] Utilities Answer Date Recorded In the past 12 months has th e electric, gas, oil, or water company threatened to shut off services in your home? No 03/23/2024 Social Connection and Isolation Panel Answer Date Recorded In a typical week, how many times do you talk on the phone with family, friends, or neighbors? Patient declined 05/26/2020 How often do you get togethe r with friends or relatives? Patient declined 05/26/2020 How often do you attend judaism or baptism serv ices? Patient declined 05/26/2020 Do you belong to any clubs o r organizations such as judaism groups, unions, fraternal or athletic groups, or [...] Average Number of Drinks Not on file 021 Frequency of Binge Drinking Not on file 06/15 PHQ-2 Answer Date Recorded PHQ-2 Total Score 0 03/23/2024 [facility] - Occupational Stress Questionnaire Answer Date Recorded [...] your living situation today? I have a [facility] place to live 03/23/2024 Housing Stability Not on file 03/23/2024 Interpersonal Safety Answer Date Record ed Is there anyone in your life that is hurting or threatening you in anyway? no 08/20/2024 Physical Indicators of Abuse No evidence of phys ical abuse 08/20/2024 Comments No Sex and Gender Information Value [...] documented as of this encounter Care Teams Pharmacy Buyer Relationship Specialty Start Date End Date Omaira Champion, WAFER SUBSTRATE TESTER [address] [place] [phone] PCP - General Family Medicine 04/10/24 documented as of this encounter
--- OUTSIDE RECORDS SUMMARY | 2024-12-28 15:16 | XMS_ITS | Encounter Summary ---
Author Organization [facility] and [facility] Address [address] [place] [address] Care Team Providers Care Regulatory Submissions Associate Name Role Phone AkiraOmaira ferreira ERYN Primary Care Provider [phone] Encounter Details Date Type Department Care Team (Late st Contact Info) Description 12/08/2012 Abstract [facility] [address] [place] [address], [address] [place], [place] [id number] Viky Fountain APRN [address] [place] [address] Social History Tobacco Use Types Packs/Day Years Used Date Smoking Tobacco: Never Alcohol Use Standard Drinks/Week Comments Not Asked 0 (1 standard drink = 0.6 oz pur e alcohol) Comments Unknown Sex and Gender Information Value Date Recorded [...] Infection Onset Date Last Indicated Resolved Time ESBL 10/05/2018 10/05/2018 10/07/2018 3:03 PM EDT MDR E. coli Comment:Urine: 10/05/18, 04/16/19 10/07/2018 10/07/20182018 3:03 PM EDT ESBL E. coli 04/16/2019 04/16/2019 04/18/2019 1:12 PM EST ESBL E. coli 04/17/2019 04/17/2019 04/20/2019 7:53 AM EST R/O COVID-19 09/24/2019 09/24/2019 09/24/2019 6:14 PM EDT R/O COVID-19 10/10/2019 10/10/2019 10/10/2019 2:56 PM EDT R/O COVID-19 11/09/2019 11/09/2019 11/09/2019 11:5 6 PM EDT R/O COVID-19 12/21/2019 12/21/2019 12/21/2019 3:39 PM EST R/O COVID-19 01/18/2020 01/18/2020 01/18/2020 3:23 AM EST R/O COVID-19 03/16/2020 03/16/2020 03/16/2020 5:30 PM EST COVID-19 03/16/2020 03/16/2020 03/26/2020 7:19 PM EST R/O COVID-19 04/10/2020 04/10/2020 04/10/2020 3:37 PM EST COVID-19 04/10/2020 04/10/2020 04/20/2020 7:19 PM EST R/O COVID-19 04/23/2020 04/23/2020 04/23/2020 4:25 AM EST R/O Influenza 04/23/2020 04/23/2020 04/23/2020 4:2 5 AM EST COVID-19 Comment:Patient meets criteria for removal of precautions per current protocol. 04/23/2020 04/23/2020 04/23/2020 7:[address] R/O Respiratory Virus 08/22/2021 08/22/20212021 3:53 PM EDT R/O COVID-19 08/22/2021 08/22/2021 08/22/2021 3:53 PM EDT R/O Respiratory Virus 12/12/2021 12/12/20212021 7:10 AM EDT R/O COVID-19 12/12/2021 12/12/2021 12/12/2021 7:10 AM EDT R/O Influenza 04/18/2024 04/18/2024 04/18/2024 10: 57 AM EST R/O RSV 04/18/2024 04/18/2024 04/18/2024 10:5 7 AM EST R/O Respiratory Virus 04/18/2024 04/18/20242024 10:57 AM EST R/O COVID-19 04/18/2024 04/18/2024 04/18/2024 10:5 7 AM EST R/O Influenza 07/08/2024 07/08/2024 07/09/2024 3:4 1 AM EDT R/O RSV 07/08/2024 07/08/2024 07/09/2024 3:41 AM EDT R/O Respiratory Virus 07/08/2024 07/08/20242024 3:41 AM EDT R/O COVID-19 07/08/2024 07/08/2024 07/09/2024 3:41 AM EDT documented as of this encounter Care Teams Regulatory Submissions Associate Relationship Specialty Start Date End Date Omaira Champion APRN [address] [place] [phone] PCP - General Family Medicine 04/10/24 documented as of this encounter
--- OUTSIDE RECORDS SUMMARY | 2024-12-28 15:16 | XMS_ITS | Encounter Summary ---
Author Organization [facility] Address [address] [place] [address] Care Team Providers Care Network Program Manager Name Role Phone Nicola Mcbride MD Primary Care Provider [phone] [facility] Primary Care Provider Unavailable Pcp, No Primary Care Provider Unavailabl e [facility] Unavailable Unavailable Unknown Primary Care Provider [phone] [facility] Primary Care Provider Unavailable Nicola Mcbride MD Primary Care Provider + Omaira Champion APRN Primary Care Provider [phone] Encounter Details Date Type Department Care Team (Late st Contact Info) Description 05/20/2021 Scanned Document [facility] Neurology [address] [address] Nicola Mcbride MD [address] [place], [place] [phone] Social History Tobacco Use Types Packs/Day Years [...] documented as of this encounter Care Teams Network Program Manager Relationship Specialty Start Date End Date Nicola Mcbride MD [address] [place] [address] PCP - General Family Medicine 11/16/19 10/15/21 [facility] PCP - General 10/16/21 02/13/22 Pcp, No PCP - General General Medicine 02/14/22 03/21/22 Unknown Unknow Provider Address PCP - General 08/31/22 09/11/22 [facility] PCP - General 09/12/22 02/21/24 Nicola Mcbride MD [address] [place] [address] PCP - General Family Medicine 02/22/24 04/17/24 Omaira Champion APRN [address] [place] [phone] PCP - General Internal Medicine 04/18/24 [facility] 02/14/22 12/26/24 documented as of this encounter
--- OUTSIDE RECORDS SUMMARY | 2024-12-28 15:16 | XMS_ITS | Encounter Summary ---
Author Organization [facility] and [facility] Address [address] [place] [address] Care Team Providers Care Uniform Attendant Name Role Phone Omaira Champion APRN Primary Care Provider [phone] Encounter Details Date Type Department Care Team (Latest Contact Info) Description 06/28/2024 Transcribed Orders Purchase Draw Station - [address] [address] Omaira Couch NP [address] [phone] Bipolar disorder, unspecified (HC Code) (Primary Dx) Social History Tobacco Use Types Packs/Day Years Used Date Smoking Tobacco: Never Smokeless Tobacco: Never Alcohol Use Standard Drinks/Week Comments Not Currently 0 (1 standard drink = 0.6 oz pur e alcohol) [facility] Utilities Answer Date Recorded In the past 12 months has [employer], gas, oil, or water [employer] threatened to shut off services in your home? No 03/23/2024 Social Connection and Isolation Panel Answer Date Recorded In a typical week, how many times do you talk on the phone with family, friends, or neighbors? Patient declined 05/26/2020 How often do you get togethe r with friends or relatives? Patient declined 05/26/2020 How often do you attend taoist or hinduism serv ices? Patient declined 05/26/2020 Do you belong to any clubs o r organizations such as taoist groups, unions, fraternal or athletic groups, or [...] Date Recorded PHQ-2 Total Score 0 03/23/2024 [facility] - Occupational Stress [...] hurting or threatening you in anyway? no 06/21/2024 Physical Indicators of Abuse No evidence of phys ical abuse 06/21/2024 Comments No Sex and Gender Information Value Date Recorded Sex Assigned at Female 08/20/2021 7:10 AM EDT Legal Sex Female 8:50 AM EST Gender Identity Female 04/10/2024 2:45 AM EST Sexual Orientation Straight 06/09/2024 11 :58 PM EDT documented as of this encounter Plan of Treatment Not on file documented as of this encounter Procedures Procedure Name Priority Date/Time Associated Diagnosis Comments COMPREHENSIVE METABOLIC PANEL Routine 06/28/2024 7:50 AM EDT Bipolar disorder, unspecified (HC Code) VALPROIC ACID LEVEL, TOTAL Routine 06/28/2024 7:50 AM EDT Bipolar disorder, unspecified (HC Code) COMPREHENSIVE METABOLIC PANEL Routine 06/28/2024 7:50 AM EDT Bipolar disorder, unspecified (HC Code) documented in this encounter Results * Comprehensive metabolic panel (06/28/2024 7:50 AM EDT) Sodium 142 136 - 144 mmol/L [facility] Potassium 3.7 3.3 - 5.3 mmol/L 06/28/2024 9:45 AM [facility] Chloride 105 98 - 107 mmol/L [facility] CO2 26 20 - 30 mmol/L 06/28/2024 9:45 AM [facility] Anion Gap 11 7 - 17 06/28/2024 9:45 AM [facility] Glucose 95 70 - 100 mg/dL 06/28/2024 9:45 AM [facility] BUN 14 6 - 20 mg/dL 06/28/2024 9:45 AM [facility] Creatinine 0.67 0.40 - 1.30 mg/dL 06/28/2024 9:45 AM [facility] Calcium 9.6 8.8 - 10.2 mg/dL 06/28/2024 9:45 AM [facility] BUN/Creatinine Ratio 20.9 8.0 - 23.0 06/28/2024 9:45 AM [facility] Total Protein 7.7 5.9 - 8.3 g/dL 025 9:45 AM [facility] Comment:As of 2023, th e reference interval for Total Protein has been changed from (6.6 to 8.7 g/dL) to (5.9 to 8.3 g/dL). Albumin 4.4 3.6 - 5.1 g/dL 06/28/2024 9:45 AM [facility] Comment:As of 2023, th e reference interval for Albumin has been changed from (3.6 to 4.9 g/dL) to (3.6 to 5.1 g/dL). Total Bilirubin 0.3 <=1.2 mg/dL 06/29/19 25 9:45 AM [facility] Alkaline Phosphatase 72 9 - 122 U/L 06/28/2024 9:45 AM [facility] Alanine Aminotransferase (ALT) 21 10 - 35 U/L 06/28/2024 9:45 AM [facility] Comment:Calcium dobesilate c an cause artificially low ALT results at therapeutic concentrations Aspartate Aminotransferase (AST) 24 10 - 35 U/L 06/28/2024 9:45 AM [facility] Globulin 3.3 2.0 - 3.9 g/dL 06/28/2024 9:45 AM [facility] Comment:As of 2023, th e reference interval for Globulin has been changed from (2.3 to 3.5 g/dL) to (2.0 to 3.9 g/dL). A/G Ratio 1.3 1.0 - 2.2 06/28/2024 9:45 AM [facility] AST/ALT Ratio 1.1 Reference Range Not Established 06/28/2024 9:45 AM [facility] eGFR (Creatinine) >60 >=60 mL/min/1.73m2 06/28/2024 9:45 AM [facility] Comment: [facility] utilizes CKD-EPI Creatinine 2020 to report eGFR. Values < 60 mL/min/1.73 m2 may indicate CKD if present for more than three months AND creatinine is at steady state. The eGFR provides a rough estimate of kidney function. For further guidance, please refer to the CKD: Adult Extrusion Machine Operator Signature pathway. Creatinine Delta -0.12 See Comment 025 9:45 AM EDT [facility] Comment: Delta creatinine is the difference between the current creatinine and the most recent prior creatinine (if available within the previous 12 months). It is intended to detect significant changes in kidney function for patients whose creatinine is <5 mg/dL. A delta is not calculated for patients whose baseline creatinine is >=5 mg/dL or those who do not have a baseline within the last year. The following deltas will flag as critical (triggering a call from the laboratory): a) Deltas >= +1.5 mg/dL for patients with baseline creatinine <= 1.5 mg/dL. b) Deltas >= +3 mg/dL for patients with baseline creatinine between 1.5 and 5 mg/dL. Blood Venipuncture / Unknown 06/28/2024 7:50 AM EDT 06/28/2024 7:50 AM EDT us Omaira Couch NP LAB BLOOD ORDERABLES Final Res ult Performing Organization Address [facility] Co de Phone Number [address] [phone] * (ABNORMAL) Valproic acid level, total (06/28/2024 7:50 AM EDT) Valproic Acid Lvl 24.3(L) 50.0 - 100.0 ug/mL 06/28/2024 9:35 AM EDT [facility] Blood Venipuncture / Unknown 06/28/2024 7:50 AM EDT 06/28/2024 7:50 AM EDT us Omaira Couch NP LAB BLOOD ORDERABLES Final Res ult Performing Organization Address [facility] Co de Phone Number [address] [phone] documented in this encounter Visit Diagnoses Diagnosis Bipolar disorder, unspecified (HC Code) (HC CODE)- Primary Bipolar disorder, unspecified documented in this encounter Additional Health Concerns Infection Onset Date Last Indicated Resolved Time R/O Influenza 07/08/2024 07/08/2024 07/09/2024 3:4 1 AM EDT R/O RSV 07/08/2024 07/08/2024 07/09/2024 3:41 AM EDT R/O Respiratory Virus 07/08/2024 07/08/20242024 3:41 AM EDT R/O COVID-19 07/08/2024 07/08/2024 07/09/2024 3:41 AM EDT Assessment Noted Time PHQ-9 Depression Total Score: 2 12/02/19 22 1:13 PM EDT documented as of this encounter Care Teams Uniform Attendant Relationship Specialty Start Date End Date Omaira Champion, ERYN [address] [place] [phone] PCP - General Family Medicine 04/10/24 documented as of this encounter
--- OUTSIDE RECORDS SUMMARY | 2024-12-28 15:16 | XMS_ITS | Encounter Summary ---
Author Organization [facility] Address [address] [place] [address] Care Team Providers Care Dry Cleaner Apprentice Name Role Phone [facility] Unavailable Unavailable Nicola Mcbride MD Primary Care Provider [phone] Omaira Champion APRN Primary Care Provider [phone] Encounter Details Date Type Department Care Team (Late st Contact Info) Description 04/07/2024 Scanned Document [facility] Radiology [address] [place] [address] Provider, Generic Social History Tobacco [...] on filedocumented in this encounter Care Teams Dry Cleaner Apprentice Relationship Specialty Start Date End Date Nicola Mcbride MD [address] [place] [address] PCP - General Family Medicine 02/22/24 04/17/24 Omaira Champion APRN [address] [place] [phone] PCP - General Internal Medicine 04/18/24 [facility] 02/14/22 12/26/24 documented as of this encounter
--- OUTSIDE RECORDS SUMMARY | 2024-12-28 15:16 | XMS_ITS | Encounter Summary ---
Author Organization [facility] and [facility] Address [address] [place] [address] Care Team Providers Care Network Developer Name Role Phone Omaira Champion APRN Primary Care Provider [phone] Reason for Referral * Psychiatric (Routine) - Closed Specialty Diagnoses / Procedures Referred By Kala wooten Referred To Contact Psychiatry / Behavioral Health Diagnoses Bipolar 1 disorder (HC Code) (HC CODE) Anxiety Allison Castaneda MD Phone: tel: fax: [facility] [address] [place] [address] Phone: tel: fax: Referral ID Status Reason Start Date Expiration Date V isits Requested Visits Authorized [id number] Closed Specialty Services Required 07/20/2017 07/30/2018 90 90 Encounter Details Date Type Department Care Team (Latest Contact Info) Description 07/30/2017 Transcribed Orders [facility] [address] [place] [address] Allison Castaneda MD [address] [place] [address] [phone] Bipolar 1 disorder (HC Code) (Primary Dx); Anxiety Social History Tobacco Use Types Packs/Day Years Used Date Smoking Tobacco: Never Smokeless Tobacco: Never Alcohol Use Standard Drinks/Week Comments No 0 (1 standard drink = 0.6 oz pur e alcohol) Comments No Sex and Gender Information Value Date Recorded Sex Assigned at Female 08/20/2021 7:10 AM EDT Legal Sex Female 8:50 AM EST Gender Identity Female 04/10/2024 2:45 AM EST Sexual Orientation Straight 06/09/2024 11 :58 PM EDT documented as of this encounter Plan of Treatment Scheduled Referrals Name Type Priority Associated Diagnoses Order Schedule Ambulatory referral to Behavioral Health/[facility] Behavioral Health Outpatient Referral Routine Bipolar 1 disorder (HC Code) Anxiety Ordered: 07/30/2017 documented as of this encounter Visit Diagnoses Diagnosis Bipolar 1 disorder (HC Code) (HC CODE)- Primary Bipolar I disorder, most recent episode (or current) unspecified Anxiety Anxiety state, unspecified documented in this encounter Additional Health [...] 07/08/20242024 3:41 AM EDT R/O COVID-19 07/08/2024 07/08/202407/09/2024 3:41 AM EDT Assessment Noted Time PHQ-9 Depression Total Score: 19 017 3:11 PM EST documented as of this encounter Care Teams Network Developer Relationship Specialty Start Date End Date Omaira Champion APRN [address] [place] [address] PCP - General Family Medicine 04/10/24 documented as of this encounter
--- OUTSIDE RECORDS SUMMARY | 2024-12-28 15:16 | XMS_ITS | Encounter Summary ---
Author Organization [facility] Address [address] [place] [address] Care Team Providers Care Development Chemist Name Role Phone Nicola Mcbride MD Primary Care Provider [phone] [facility] Primary Care Provider Unavailable Pcp, No Primary Care Provider Unavailabl e [facility] Unavailable Unavailable Unknown Primary Care Provider [phone] [facility] Primary Care Provider Unavailable Nicola Mcbride MD Primary Care Provider + Omaira Champion APRN Primary Care Provider [phone] Encounter Details Date Type Department Care Team (Late st Contact Info) Description 09/18/2020 Scanned Document [facility] Rheumatology [address] [phone] Nicola Mcbride MD [address] [place], [place] [phone] Social History Tobacco Use Types Packs/Day Years [...] documented as of this encounter Care Teams Development Chemist Relationship Specialty Start Date End Date Nicola Mcbride MD [address] [place] [address] PCP - General Family Medicine 11/16/19 10/15/21 [facility] PCP - General 10/16/21 02/13/22 Pcp, No PCP - General General Medicine 02/14/22 03/21/22 Unknown Unknow Provider Address PCP - General 08/31/22 09/11/22 [facility] PCP - General 09/12/22 02/21/24 Nicola Mcbride MD [address] [place] [address] PCP - General Family Medicine 02/22/24 04/17/24 Omaira Champion, ERYN [address] [place] [phone] PCP - General Internal Medicine 04/18/24 [facility] 02/14/22 12/26/24 documented as of this encounter
--- OUTSIDE RECORDS SUMMARY | 2024-12-28 15:16 | XMS_ITS | Encounter Summary ---
Author Organization [facility] and [facility] Address [address] [place] [address] Care Team Providers Care Upper Cutter Out Name Role Phone AkiraOmaira ferreira Robert CERNA Primary Care Provider [phone] Encounter Details Date Type Department Care Team ([facility] st Contact Info) Description 04/25/2022 Scanned Document INTERFACE DEFAULT [address] [place] [phone] System, Provider Not In Social History Tobacco Use Types Packs/Day Years Used Date Smoking Tobacco: Never Smokeless Tobacco: Never Alcohol Use Standard Drinks/Week Comments Not Currently 0 (1 standard drink = 0.6 oz pur e alcohol) Social Connection and Isolation Panel Answer Date Recorded In a typical week, how many times do you talk on the phone with family, friends, or neighbors? Patient declined 05/26/2020 How often do you get togethe r with friends or relatives? Patient declined 05/26/2020 How often do you attend shinto or nondenominational serv ices? Patient declined 05/26/2020 Do you belong to any clubs o r organizations such as shinto groups, unions, fraternal or athletic groups, or [...] PHQ-2 Answer Date Recorded PHQ-2 Total Score 2 12/01/2021 [facility] - Occupational Stress Questionnaire Answer Date Recorded [...] exercise at this level? Patient declined 05/26/2020 Comments No Sex and Gender Information Value Date Recorded Sex Assigned at Female 08/20/2021 7:10 AM EDT Legal Sex Female 8:50 AM EST Gender Identity Female 04/10/2024 2:45 AM EST Sexual Orientation Straight 06/09/2024 11 :58 PM EDT COVID-19 Exposure Response Date Recorded In the last 10 days, have yo u been in contact with someone who was confirmed or suspected to have Coronavirus/COVID-19? No / Unsure 04/18/2022 5:55 AM EST documented as of this encounter Plan of Treatment Not on file documented as of this encounter Visit Diagnoses Not on filedocumented in this encounter Additional Health Concerns Infection Onset Date Last Indicated Resolved Time R/O Influenza 04/18/2024 04/18/2024 04/18/2024 10: 57 [...] documented as of this encounter Care Teams Upper Cutter Out Relationship Specialty Start Date End Date Omaira Champion, RECORD SEARCHER [address] [place] [phone] PCP - General Family Medicine 04/10/24 documented as of this encounter
--- OUTSIDE RECORDS SUMMARY | 2024-12-28 15:16 | XMS_ITS | Encounter Summary ---
Author Organization [facility] and [facility] Address [address] [place] [address] Care Team Providers Care Marketing Research Coordinator Name Role Phone Omaira Champion APRN Primary Care Provider [phone] Reason for Referral * Consultation (Routine) - New Request Specialty Diagnoses / Procedures Referred By Kala wooten Referred To Contact Neurology Diagnoses Hx of migraine headaches Omaira Champion APRN [address] [place] [address] Phone: tel: fax: [address] [address] Phone: tel: fax: Referral ID Status Reason Start Date Expiration Date Visits Requested Visits Authorized [id number] New Request Specialty Services Required: Fax 04/19/2024 04/19/2025 1 1 Encounter Details Date Type Department Care Team (Latest Contact Info) Description 04/19/2024 Transcribed Orders [facility]TER[facility] REFERRAL S[facility] [address] [place] [id number] Omaira Champion APRN [address] [place] [address] Hx of migraine headaches (Primary Dx) Social History Tobacco Use Types Packs/Day Years Used Date Smoking Tobacco: Never Smokeless Tobacco: Never Alcohol Use Standard Drinks/Week Comments Not Currently 0 (1 standard drink = 0.6 oz pur e alcohol) [facility] Utilities Answer Date Recorded In the past [...] declined 05/26/2020 How often do you attend methodist or pentecostal serv ices? Patient declined 05/26/2020 Do you belong to any clubs o r organizations such as methodist groups, unions, fraternal or athletic groups, or [...] Date Recorded PHQ-2 Total Score 0 03/23/2024 [facility] - Occupational Stress Questionnaire Answer Date Recorded [...] living situation today? I have a [facility] place to live 03/23/2024 Housing Stability Not on file 03/23/2024 Interpersonal Safety Answer Date Record ed Is there anyone in your life that is hurting or threatening you in anyway? no 04/20/2024 Physical Indicators of Abuse No evidence of phys ical abuse 04/20/2024 Comments No Sex and Gender Information Value Date Recorded Sex Assigned at Female 08/20/2021 7:10 AM EDT Legal Sex Female 8:50 AM EST Gender Identity Female 04/10/2024 2:45 AM EST Sexual Orientation Straight 06/09/2024 11 :58 PM EDT documented as of this encounter Plan of Treatment Scheduled Referrals Name Type Priority Associated Diagnoses Order Schedule Ambulatory referral to Neurology Outpatient Referral Routine Hx of migraine headaches Ordered: 04/19/2024 documented as of this encounter Visit Diagnoses Diagnosis Hx of migraine headaches- Primary Personal history of other disorders of nervous system and sense organs documented in this encounter Additional Health Concerns [...] documented as of this encounter Care Teams Marketing Research Coordinator Relationship Specialty Start Date End Date Omaira Champion, FACILITY MAINTENANCE TECHNICIAN [address] [place] [address] PCP - General Family Medicine 04/10/24 documented as of this encounter
--- OUTSIDE RECORDS SUMMARY | 2024-12-28 15:16 | XMS_ITS | Encounter Summary ---
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 Patient declined 05/26/2020 Do you belong to any clubs o r organizations such as zoroastrian groups, unions, fraternal or athletic groups, or [...] file 06/15 PHQ-2 Answer Date Recorded PHQ-2 Score 2 07/19/2018 [facility] - Occupational Stress Questionnaire Answer Date [...] as of this encounter Plan of Treatment Pending Results Name Type Priority Associated Diagnoses Date /Time Miscellaneous test, blood ([facility]) Lab Routine False positive serological test for syphilis 10/15/2020 10:28 AM EDT Scheduled Orders Name Type Priority Associated Diagnoses Orde r Schedule Miscellaneous test, blood ([facility]) Lab Routine False positive serological test for syphilis 1 Occurrences starting 10/15/2020 until 10/15/2021 documented as of this encounter Visit Diagnoses Diagnosis False positive serological test for syphilis- Primary documented in this encounter Additional Health Concerns Infection Onset Date Last Indicated Resolved Time R/O Respiratory Virus 08/22/2021 08/22/20212021 3:53 PM [...] Assessment Noted Time PHQ-9 Depression Total Score: 9 09/22/19 18 9:41 AM EDT documented as of this encounter Care Teams Retail Loss Prevention Specialist Relationship Specialty Start Date End Date Omaira Champion, ERYN [address] [place] [address] PCP - General Family Medicine 04/10/24 documented as of this encounter
--- OUTSIDE RECORDS SUMMARY | 2024-12-28 15:16 | XMS_ITS | Encounter Summary ---
Author Organization [facility] and [facility] Address [address] [place] [address] Care Team Providers Care Photoengraving Photographer Name Role Phone AkiraOmaira Robert CERNA Primary Care Provider [phone] Encounter Details Date Type Department Care Team ([facility] st Contact Info) Description 09/01/2024 Scanned Document INTERFACE DEFAULT [address] [place] [phone] System, Provider Not In Social History Tobacco Use Types Packs/Day Years Used Date Smoking Tobacco: Never Smokeless Tobacco: Never Alcohol Use Standard Drinks/Week Comments Not Currently 0 (1 standard drink = 0.6 oz pur e alcohol) [facility] Utilities Answer Date Recorded In the [...] declined 05/26/2020 How often do you attend moravian or yarsani serv ices? Patient declined 05/26/2020 Do you belong to any clubs o r organizations such as moravian groups, unions, fraternal or athletic groups, or [...] Date Recorded PHQ-2 Total Score 0 03/23/2024 [facility] - Occupational Stress Questionnaire Answer [...] your living situation today? I have a [facility] place to live 03/23/2024 Housing Stability Not [...] documented as of this encounter Care Teams Photoengraving Photographer Relationship Specialty Start Date End Date Omaira Champion, FILM MOUNTER [address] [place] [phone] PCP - General Family Medicine 04/10/24 documented as of this encounter
--- OUTSIDE RECORDS SUMMARY | 2024-12-28 15:16 | XMS_ITS | Encounter Summary ---
Author Organization [facility] Address [address] [place] [address] Care Team Providers Care Splicing Machine Operator Automatic Name Role Phone AkiraOmaira Robert CERNA Primary Care Provider [phone] Encounter Details Date Type Department Care Team ([facility] st Contact Info) Description 05/08/2024 Scanned Document INTERFACE DEFAULT [address] [place] [phone] System, Provider Not In Social History Tobacco Use Types Packs/Day Years Used Date Smoking Tobacco: Never Smokeless Tobacco: Never Alcohol Use Standard Drinks/Week Comments Not Currently 0 (1 standard drink = 0.6 oz pur e alcohol) [facility] Utilities Answer Date Recorded In the [...] declined 05/26/2020 How often do you attend sikhism or protestant serv ices? Patient declined 05/26/2020 Do you belong to any clubs o r organizations such as sikhism groups, unions, fraternal or athletic groups, or [...] Date Recorded PHQ-2 Total Score 0 03/23/2024 [facility] - Occupational Stress Questionnaire Answer Date [...] your living situation today? I have a [facility] place to live 03/23/2024 Housing Stability [...] documented as of this encounter Care Teams Splicing Machine Operator Automatic Relationship Specialty Start Date End Date Omaira Champion, ACCOUNTING OFFICER [address] [place] [phone] PCP - General Family Medicine 04/10/24 documented as of this encounter
--- OUTSIDE RECORDS SUMMARY | 2024-12-28 15:16 | XMS_ITS | Encounter Summary ---
Author Organization [facility] and [facility] Address [address] [place] [address] Care Team Providers Care Bag Turner Name Role Phone Omaira Champion DIESEL TRUCK MECHANIC Primary Care Provider [phone] Encounter Details Date Type Department Care Team (Late st Contact Info) Description 09/08/2018 Documentation [facility] [address] [place] [address] Elayne Kaminski LCSW [address] [facility] [address] [place] [address] Social History Tobacco Use Types Packs/Day Years Used Date Smoking Tobacco: Never Smokeless Tobacco: Never Alcohol Use Standard Drinks/Week Comments No 0 (1 standard drink = 0.6 oz pur e alcohol) [facility]-C Answer Date Recorded Frequency of Alcohol Consumption Never 04/14/2018 Average Number of Drinks Not on file 019 Frequency of Binge Drinking Not on file 03/19 PHQ-2 Answer Date Recorded PHQ-2 Score 2 07/19/2018 Comments No Sex and Gender Information Value Date Recorded Sex Assigned at Female 08/20/2021 7:10 AM EDT Legal Sex Female 8:50 AM EST Gender Identity Female 04/10/2024 2:45 AM EST Sexual Orientation Straight 06/09/2024 11 :58 PM EDT documented as of this encounter Functional Status documented as of this encounter Miscellaneous Notes * Referral - Elayne Kaminski LCSW - 09/08/2018 1:06 PM EDT Soda Flaker received a referral from Nicolasa Decker APRN of [facility]. Patient was recently in the [facility] ED being treated for lithium toxicity. She was evaluated by Dr. Laura López of theBIT team who recommended IOP level of care. Soda Flaker called patient to overview program and make appointment. Patient stated that she could not make Wednesdays as she sees her daughter who is in DCF custody. Soda Flaker offered That we could possibly work with DCF to change her visitation day so she couldattend program-- but patient stated she did not want to attend the IOP and did not want group therapy, that she wanted individual therapy. Patient stated she had questions about her medication and would call Nicolasa Decker immediately. Soda Flaker also called Nicolasa Decker to inform patient refused IOP services. Patient declined IOP services at this time and if she reconsiders conventional mortgage underwriter provided name and number. Elayne Kamniski LCSW 09/08/2018 1:16 PM documented in this encounter Plan of Treatment [...] documented as of this encounter Care Teams Bag Turner Relationship Specialty Start Date End Date Omaira Champion, ERYN [address] [place] [phone] PCP - General Family Medicine 04/10/24 documented as of this encounter
--- OUTSIDE RECORDS SUMMARY | 2024-12-28 15:16 | XMS_ITS | Clinical Summary ---
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 than 10,000 CFU/mL. 12/12/2024 3:46 AM EDT [facility] DEPARTMENT OF LABORATORY MEDICINE Urine URINE SPECIMEN OBTAINED BY CLEAN CATCH PROCEDURE / Unknown Collection / Unknown 12/11/2024 2:13 AM EDT 12/11/2024 2:22 AM EDT Narrative [facility] DEPARTMENT OF LABORATORY MEDICINE - 12/12/2024 3:46 AM EDT Culture, organism identification, and/or susceptibility results may have been generated with a non-FDA approved method. All methods used in this report have been validated by [facility] Microbiology for clinical use. Ara Salazar MD MICROBIOLOGY - GENERAL ORD ERABLES Final Result [facility] DEPARTMENT OF LABORATORY MEDICINE [address] [place] [id number], [facility] [phone] * (ABNORMAL) Basic metabolic panel (12/11/2024 2:06 AM EDT) Sodium 141 136 - 145 mmol/L 12/11/2024 2:35 AM T [facility] Potassium 3.7 3.5 - 5.1 mmol/L 12/11/2024 2:35 AM T [facility] Chloride 104 98 - 107 mmol/L 12/11/2024 2:35 AM [facility] CO2 28 21 - 32 mmol/L 12/11/2024 2:35 AM [facility] Anion Gap 9 5 - 16 12/11/2024 2:35 AM [facility] Glucose 108(H) 70 - 100 mg/dL 12/11/2024 2:35 AM T [facility] BUN 10 7 - 18 mg/dL 12/11/2024 2:35 AM [facility] Creatinine 0.82 0.60 - 1.00 mg/dL 12/11/2024 2:35 AM [facility] Calcium 9.4 8.5 - 10.5 mg/dL 12/11/2024 2:35 AM [facility] BUN/Creatinine Ratio 12.2 8.0 - 23.0 12/11/2024 2:35 AM [facility] eGFR (Creatinine) >60 >=60 mL/min/1.73 m2 12/11/2024 2:35 AM [facility] Comment: [facility] utilizes CKD-EPI Creatinine 2020 to report eGFR. Values < 60 mL/min/1.73 m2 may indicate CKD if present for more than three months AND creatinine is at steady state. The eGFR provides a rough estimate of kidney function. For further guidance, please refer to the CKD: Adult General Manager Food Signature pathway. Creatinine Delta 0.17 See Comment 2:35 AM EDT [facility] Comment: Delta creatinine is the difference between [...] and 5 mg/dL. Blood Venipuncture / Unknown 12/11/2024 2:06 AM EDT 12/11/2024 2:08 AM EDT us Ara Salazar MD LAB BLOOD ORDERABLES Final Result [facility] [address] [place] [phone] * CBC auto differential (12/11/2024 2:06 AM EDT) Only the most recent of3 resultswithin the time period is included. WBC 6.7 4.0 - 11.0 x1000/ L 12/11/2024 2:11 AM EDT [facility] RBC 4.53 4.00 - 6.00 M/ L 12/11/2024 2:11 AM EDT [facility] Hemoglobin 14.1 11.7 - 15.5 g/dL 12/11/2024 2:11 AM EDT [facility] Hematocrit 41.00 35.00 - 45.00 % 12/11/2024 2:11 AM EDT [facility] MCV 90.5 80.0 - 100.0 fL 12/11/2024 2:11 AM EDT [facility] MCH 31.1 27.0 - 33.0 pg 12/11/2024 2:11 AM EDT [facility] MCHC 34.4 31.0 - 36.0 g/dL 12/11/2024 2:11 AM EDT [facility] RDW-CV 12.9 11.0 - 15.0 % 12/11/2024 2:11 AM EDT [facility] Platelets 281 150 - 420 x1000/ L 12/11/2024 2:11 AM EDT [facility] MPV 9.2 8.0 - 12.0 fL 12/11/2024 2:11 AM EDT [facility] Neutrophils 57.0 39.0 - 72.0 % 12/11/2024 2:11 AM EDT [facility] Lymphocytes 32.2 17.0 - 50.0 % 12/11/2024 2:11 AM EDT [facility] Monocytes 9.2 4.0 - 12.0 % 12/11[facility]24 [facility] Eosinophils 0.9 0.0 - 5.0 % 12/11/2024 2:11 AM EDT [facility] Basophil 0.6 0.0 - 1.4 % 12/11/2024 2:[facility] Immature Granulocytes 0.1 0.0 - 1.0 % 12/11/2024 2:11 AM EDT [facility] nRBC 0.0 0.0 - 1.0 % 12/11/2024 2:11 AM EDT [facility] Absolute Lymphocyte Count 2.17 0.60 - 3.70 x 1000/ L 12/11/2024 2:11 AM EDT [facility] Monocyte Absolute Count 0.62 0.00 - 1.00 x 1000/ L 12/11/2024 2:[facility] Eosinophil Absolute Count 0.06 0.00 - 1.00 x 1000/ L 12/11/2024 2:11 AM EDT [facility] Basophil Absolute Count 0.04 0.00 - 1.00 x 1000/ L 12/11/2024 2:11 AM EDT [facility] Absolute Immature Granulocyte Count 0.01 0.00 - 0.30 x 1000/ L 12/11/2024 2:11 AM EDT [facility] Absolute nRBC 0.00 0.00 - 1.00 x 1000/ L 12/11/2024 2:11 AM EDT [facility] ANC (Abs Neutrophil Count) 3.84 2.00 - 7.60 x 1000/ L 12/11/2024 2:11 AM EDT [facility] Blood Venipuncture / Unknown 12/11/2024 2:06 AM EDT 12/11/2024 2:09 AM EDT us Ara Salazar MD LAB BLOOD ORDERABLES Final Result [facility] [address] [place] [address] * (ABNORMAL) Comprehensive metabolic panel (12/01/2024 1:59 PM EDT) Only the most recent of2 resultswithin the time period is included. Sodium 141 136 - 144 mmol/L 12/01/2024 2:27 PM EDT [facility] Potassium 3.9 3.3 - 5.3 mmol/L 12/01/2024 2:27 PM [facility] Chloride 104 98 - 107 mmol/L 12/01/2024 2:27 PM EDT [facility] CO2 21 20 - 30 mmol/L 12/01/2024 2:27 PM [facility] Anion Gap 16 7 - 17 12/01/2024 2:27 PM T [facility] Glucose 90 70 - 100 mg/dL 12/01/2024 2:27 PM [facility] BUN 25(H) 6 - 20 mg/dL 12/01/2024 2:27 PM T [facility] Creatinine 0.65 0.40 - 1.30 mg/dL 12/01/2024 2:27 PM T [facility] Calcium 9.9 8.8 - 10.2 mg/dL 12/01/2024 2:27 PM [facility] BUN/Creatinine Ratio 38.5(H) 8.0 - 23.0 12/01/2024 2:27 PM [facility] Total Protein 8.3 5.9 - 8.3 g/dL 2:27 PM [facility] Albumin 4.9 3.6 - 5.1 g/dL 12/01/2024 2:27 PM [facility] Total Bilirubin 0.4 <=1.2 mg/dL 12/02/19 2:27 PM [facility] Alkaline Phosphatase 75 9 - 122 U/L 12/01/2024 2:27 PM [facility] Alanine Aminotransferase (ALT) 21 10 - 35 U/L 12/01/2024 2:27 PM [facility] Comment:Calcium dobesilate c an cause artificially low ALT results at therapeutic concentrations Aspartate Aminotransferase (AST) 24 10 - 35 U/L 12/01/2024 2:27 PM [facility] Globulin 3.4 2.0 - 3.9 g/dL 12/01/2024 2:27 PM [facility] A/G Ratio 1.4 1.0 - 2.2 12/01/2024 2:27 PM [facility] AST/ALT Ratio 1.1 Reference Range Not Established 12/01/2024 2:27 PM [facility] eGFR (Creatinine) >60 >=60 mL/min/1.73m2 12/01/2024 2:27 PM [facility] Comment: [facility] utilizes CKD-EPI Creatinine 2020 to report eGFR. Values < 60 mL/min/1.73 m2 may indicate CKD if present for more than three months AND creatinine is at steady state. The eGFR provides a rough estimate of kidney function. For further guidance, please refer to the CKD: Adult General Manager Food Signature pathway. Creatinine Delta -0.01 See Comment 2:27 PM [facility] Comment: Delta creatinine is the difference [...] and 5 mg/dL. Blood Venipuncture / Unknown 12/01/2024 1:59 PM EDT 12/01/2024 2:03 PM EDT us Ben Torres MD LAB BLOOD ORDERABLES Fi nal Result [address] [phone] * CT Head wo IV Contrast (11/13/2024 9:50 PM EDT) Anatomical Region Laterality Modality Head, Ortho Head Computed Tomogr aphy 11/13/2024 9:56 PM EDT Impressions 11/13/2024 9:57 PM EDT No acute intracranial abnormality. Please note that Noncontrast Head CT is not sensitive for the detection of ischemic infarct. If ischemic infarct is of clinical concern, additional clinical or imaging evaluation is recommended. [facility] Radiology Notify System Classification: Routine. Reported and signed by: Sarah Byers MD [facility] Narrative 11/13/2024 9:[address] HEAD WO IV CONTRAST INDICATION: headache, worse than prior COMPARISON: CT HEAD CERVICAL SPINE WO IV CONTRAST ([facility]) 2019-03-12; MRI BRAIN W WO IV CONTRAST 2015-04-01 TECHNIQUE: CT images were obtained from the skull base to the vertex without intravenous contrast. Coronal and sagittal multiplanar reformatted images were provided. FINDINGS: There is no intracranial hemorrhage, edema, mass, mass effect or midline shift. There is no evidence of acute major vascular distribution infarct. The ventricles and sulci are symmetric and normal in size. The basal cisterns are patent. The paranasal sinuses are clear. The mastoids are clear. The visualized osseous structures are intact. The globes are intact. Procedure Note Sarah Byers MD - 11/13/2024 CT HEAD WO IV CONTRAST INDICATION: headache, worse than prior COMPARISON: CT HEAD CERVICAL SPINE WO IV CONTRAST ([facility]) 2019-03-12;MRI BRAIN W WO IV CONTRAST 2015-04-01 TECHNIQUE: CT images were obtained from the skull base to the vertexwithout intravenous contrast. Coronal and sagittal multiplanar reformattedimages were provided. FINDINGS: There is no intracranial hemorrhage, edema, mass, mass effect or midlineshift. There is no evidence of acute major vascular distribution infarct.The ventricles and sulci are symmetric and normal in size. The basalcisterns are patent. The paranasal sinuses are clear. The mastoids are clear. The visualizedosseous structures are intact. The globes are intact. IMPRESSION: No acute intracranial abnormality. Please note that Noncontrast Head CT is not sensitive for the detection ofischemic infarct. If ischemic infarct is of clinical concern, additionalclinical or imaging evaluation is recommended. [facility] Radiology Notify System Classification: Routine. Reported and signed by: Sarah Byers MD [facility] Chuck Hooker MD IMG CT ORDERABLES Final Result * EKG (11/13/2024 8:22 PM EDT) Heart Rate 85 bpm [facility] EKG QRS Interval 80 ms [facility] EKG QT Interval 382 ms [facility] EKG QTC Interval 454 ms [facility] EKG P Iona 72 deg [facility] EKG QRS Iona 83 deg [facility] EKG T Wave Iona 68 deg [facility] EKG P-R Interval 118 msec [facility] EKG SEVERITY Borderline ECG severity [facility] EKG Comment::Normal sinus rhythm :Possible Left atrial enlargement:Borderline ECG:Electronically Signed On 11-14-2024 05:27:17 EDT by Adam Morrison MD OTHER / Unknown 11/13/2024 8 :22 PM EDT us Seven Berg MD ECG ORDERABLES Final Result [facility] * Cardiac EKG Result Scan (11/13/2024 12:00 AM EDT) us Provider Not In System CV CARDIAC REPORT (CVR) F inal Result * CT Abdomen Pelvis wo IV Contrast and NO PO contrast (10/24/2024 9:05 PM EDT) Anatomical Region Laterality Modality Abdomen, Pelvis, Ortho Pelvi s, Abdomen and Pelvis, RCC Abdomen/Pelvis Computed Tomography 10/24/2024 8:56 PM EDT Impressions 10/24/2024 9:16 PM EDT Nephrolithiasis without evidence of hydronephrosis. Please note that ultrasound may be of value to follow up renal stones and assess for hydronephrosis. Please note that in the last 6 months patient underwent 9 CT abdomen pelvis examination [facility] Classification: Routine. Reported and signed by: Fabi Rodrigues MD [facility] Narrative 10/24/2024 9:[address] ABDOMEN PELVIS WO IV CONTRAST on INDICATION: Right flank pain, history of stones, rule out stone. COMPARISON: 08/20/2024 TECHNIQUE: CT images of the abdomen and pelvis were obtained without the administration of intravenous contrast. FINDINGS: Lung bases: Visualized lung bases are clear. Hepatobiliary: Unremarkable. Pancreas: Unremarkable. Spleen: Unremarkable. Adrenal glands: Unremarkable. Kidneys: Multiple nonobstructive calculi are seen in the left kidney and a single punctate nonobstructive calculus in the right kidney. There is no hydronephrosis. Simple appearing cyst at the lower pole of the left kidney. There is mild right renal cortical scarring.. Bowel: No bowel obstruction. Lymph nodes: No lymphadenopathy. Peritoneum: No ascites. Vasculature: No abdominal aortic aneurysm. Calcifications are seen along the right ovarian vein- a sequela of prior TSH BSO. Pelvis: No mass. Post hysterectomy Musculoskeletal system and soft tissue: No aggressive osseous lesion. Stable chronic superior endplate deformity of the L1 vertebral body. Procedure Note Fbai Rodrigues MD - 10/24/2024 CT ABDOMEN PELVIS WO IV CONTRAST on INDICATION: Right flank pain, history of stones, rule out stone. COMPARISON: 08/20/2024 TECHNIQUE: CT images of the abdomen and pelvis were obtained without theadministration of intravenous contrast. FINDINGS: Lung bases: Visualized lung bases are clear. Hepatobiliary: Unremarkable. Pancreas: Unremarkable. Spleen: Unremarkable. Adrenal glands: Unremarkable. Kidneys: Multiple nonobstructive calculi are seen in the left kidney and asingle punctate nonobstructive calculus in the right kidney. There is nohydronephrosis. Simple appearing cyst at the lower pole of the leftkidney. There is mild right renal cortical scarring.. Bowel: No bowel obstruction. Lymph nodes: No lymphadenopathy. Peritoneum: No ascites. Vasculature: No abdominal aortic aneurysm. Calcifications are seen alongthe right ovarian vein- a sequela of prior TSH BSO. Pelvis: No mass. Post hysterectomy Musculoskeletal system and soft tissue: No aggressive osseous lesion.Stable chronic superior endplate deformity of the L1 vertebral body. IMPRESSION: Nephrolithiasis without evidence of hydronephrosis. Please note thatultrasound may be of value to follow up renal stones and assess forhydronephrosis. Please note that in the last 6 months patient underwent 9CT abdomen pelvis examination [facility] Classification: Routine. Reported and signed by: Fabi Rodrigues MD [facility] us Seven Berg MD [facility] [place] CT ORDERABLES Final Resul t * Procalcitonin (BH GH LMW Q YH) (10/24/2024 8:17 PM EDT) Procalcitonin <0.06 See Comment ng/mL 10/24/2024 9:08 PM EDT [facility] Comment: Procalcitonin Value Likelihood of Active Comments Bacterial Infection Less than or = to 0.25 ng/mL Unlikely See Comment 1 0.26 - 0.50 ng/mL Possible See Comment 2 >0.50 ng/mL Likely See Comment 2 Caution is advised as above reference ranges may not be applicable in pediatric and patients. Comment 1: Procalcitonin may be low in the early phase of an infection and clinical judgement should be used. Procalcitonin has a high negative predictive value. Recommend repeating in 12-24 hours if there is high clinical suspicion of bacterial infection. Comment 2: When clinically stable, consider repeating to determine the duration of antibiotic therapy. High procalcitonin levels may be seen in a number of clinical states not limited to but including: acute kidney injury, end stage renal disease, severe trauma and post-operative states. Caution should be exercised when interpreting procalcitonin in and patients. Procalcitonin is not affected by corticosteroid use. Blood Venipuncture / Unknown 10/24/2024 8:17 PM EDT 10/24/2024 8:37 PM EDT Seven Berg MD LAB BLOOD ORDERABLES Final Re sult Performing Organization Address [facility]/ZIP Co de Phone Number [facility] [address] [place] [address] * Lactic Acid, Whole Blood, Venous (Reflex 2H Repeat) ([facility]) (10/24/2024 8:17 PM EDT) Lactic Acid, Blood Gas 0.7 0.6 - 1.4 mmol/L 10/24/2024 8:45 PM EDT [facility] Blood Venipuncture / Unknown 10/24/2024 8:17 PM EDT 10/24/2024 8:39 PM EDT Seven Berg MD LAB BLOOD ORDERABLES Final Re sult [facility] [address] [place] [address] * Blood culture (10/24/2024 8:17 PM EDT) Only the most recent of2 resultswithin the time period is included. Blood Culture No Growth after 5 days of incubation 10/30/2024 3:33 AM EDT [facility]ORATORY MEDICINE Blood PERIPHERAL BLOOD SPECIMEN / Unknown Venipuncture / Unknown 10/24/2024 8:17 PM EDT 10/24/2024 8:37 PM EDT Narrative [facility] DEPARTMENT OF LABORATORY MEDICINE - 10/30/2024 3:33 AM EDT All blood culture bottles with growth will be reported. Culture, organism identification, and/or susceptibility results may have been generated with a non-FDA approved method. All methods used in this report have been validated by [facility] Microbiology for clinical use. Anaerobic bottle loaded. Aerobic bottle loaded. Seven Berg MD MICROBIOLOGY - GENERAL ORDERA BLES Final Result Performing Organization Address [facility] Co de Phone Number [facility] DEPARTMENT OF LABORATORY MEDICINE [address] [place] [id number], [facility] [phone] * Protime and INR (10/24/2024 8:17 PM EDT) Prothrombin Time 10.6 9.0 - 12.0 seconds 10/24/2024 8:53 PM EDT [facility] INR 1.05 0.90 - 1.10 10/24/2024 8:53 PM EDT [facility] Blood Venipuncture / Unknown 10/24/2024 8:17 PM EDT 10/24/2024 8:37 PM EDT Narrative [facility] - 10/24/2024 8:53 PM EDT Effective 10/19/2024. New Normal Reference Intervals are in place at all [facility] Labs. Seven Berg MD LAB BLOOD ORDERABLES Final Re sult [facility] [address] [place] [address] * (ABNORMAL) Lipid panel (01/18/2020 12:44 PM EST) Cholesterol 174 See Comment mg/dL 01/18/2020 3:18 PM EST [facility] Comment: Total Cholesterol (mg/dL) Adults (>18 years) Children (<18 years) Desirable <200 <170 Borderline-High 200-239 170-199 High >=240 >=200 HDL 48 >=40 mg/dL 01/18/2020 3:18 PM [facility] Triglycerides 99 See Comment mg/dL 01/18/2020 3:18 PM [facility] Comment: Triglycerides (mg/dL) Adults (>18 years) Children (<18 years) Desirable <150 Not Established Borderline-High 150-199 Not Established High 200-499 Not Established Chol/HDL Ratio 3.6 0.0 - 5.0 01/18/2020 3:18 PM [facility] LDL Calculated 106(H) See Comment mg/dL 01/18/2020 3:18 PM [facility] Comment: LDL Cholesterol (mg/dL) Adults (>18 years) Children (<18 years) Desirable <100 <110 Above Desirable 100-129 Not Established Borderline-High 130-159 110-129 High 160-189 >=130 Very High >=190 Not Established Blood Venipuncture / Unknown 01/18/2020 12:44 PM EST 01/18/2020 1:18 PM EST us Malcolm Peña MD LAB BLOOD ORDERABL [place] [address], [facility] [phone] * Cytology urogynaecologist cases ([facility]) (05/22/2015 9:45 AM EDT) Cytology Paste Mixer Liquid Cases [facility] REPORT Procedures/Addend a Attached Patient: RAVINDRA MCDONNELL MR #: [id number] (SI=[id number]) Submitted by: Jody Vizcaino M.D. FINAL DIAGNOSIS ENDOCERVICAL, SUREPATH PAP SMEAR: Primary Diagnosis: NEGATIVE FOR INTRAEPITHELIAL LESION OR MALIGNANCY. Additional Findings: ENDOCERVICAL/TRANS FORMATION ZONE COMPONENT PRESENT. Specimen Adequacy: THIS SPECIMEN IS SATISFACTORY FOR EVALUATION. NOTE: Cervical/vaginal cytology is a screening tool for cervical carcinoma and its precursor lesions with an inherent false negative rate. It is an inaccurate test for detection of endometrial lesions and should not be used to evaluate suspected endometrial abnormalities. (The [place] System, 2001) 05/27/2015 16:24 * Report Electronically Signed Out * This electronic signature indicates that the pathologist has personally reviewed the available gross and/or microscopic material and has based the diagnosis on that evaluation. Specimen(s) Received: ENDOCERVICAL, SUREPATH PAP SMEAR Clinical History and Impression: Screening co-testing HPV ordered per protocol Collection device: brush and spatula Procedures/Addenda MOLECULAR DX: HR HPV SCREENING Ordered: 05/23/2015 Status: Signed Out Reported: 05/27/2015 Pathologist: [facility] Interpretation Specimen: SurePath Pap Smear - BPT - ENDOCERVICAL, SUREPATH PAP SMEAR BELOW CUTOFF FOR HIGH RISK HPV HPV types 16, 18, 31, 33, 35, 39, 45, 51, 52, 56, 58, 59, 66, and 68 DNA were either considered NEGATIVE, undetectable,or below the pre-set threshold. This test was performed at [facility] Department of Pathology, [address] [place] [id number], CLIA# [id number] using the Deepti irais 4800 HPV Test System and is only approved by the Food and Drug Administration (FDA) for use oncervicalspecimen s collected in Cytyc Preservcyt Solution (ThinPrep). When using ThinPrep liquid based samples for non-cervical specimens, SurePath liquid based samples, or formalin fixed paraffin embedded tissue, the performance characteristics have been determined by [facility]. Although testing on samples that are not cervical in origin, and/or in any other medium besides ThinPrep, has not been cleared or approved by the FDA, the FDA has determined that such clearance or approval is not necessary. [facility] 05/22/2015 9:45 AM EDT Comment:ENDOCERVICAL, SUREPA TH PAP SMEAR+ HPV Jody Vizcaino MD PATHOLOGY/CYTOLOGY ORDERABL ES Final Result Performing Organization Address [facility] Co de Phone Number [facility] Department of Pathology [address] [place] [phone] * Hepatitis C antibody (10/08/2011 10:30 AM EDT) Hepatitis C Ab Non Reactive Non Reactive [facility] Hepatitis C Antibody Signal/Cutoff Ratio 0.02 ratio [facility] Comment: HCV S/CO RATIO: HCV testing by EIA is regarded as a screening test. S/CO Ratio is recommended by CDC as a means of intitially assessing the validity of initially POSITIVE HCV testing and the need for follow-up (confirmatory testing). S/CO Ratio <1.0 Negative, No further testing needed. S/CO Ratio 1.0 - 3.8 (low), unconfirmed POSITIVE - follow-up (RIBA confrimatory testing) recommended. S/CO Ratio >3.8 (high), confirmed POSITIVE (further testing may be advisable to distinguish past from active HCV infection). BLOOD SPECIMEN / Unknown 10/08/2011 10:30 AM EDT us Cam Evans MD LAB BLOOD ORDERABLES Final R esult Performing Organization Address [facility]/ZIP Co de Phone Number [facility] [address] [place] [phone] * HIV-1 and HIV-2 antibodies ( Y) (10/08/2011 10:30 AM EDT) Exposure? No [facility] HIV-1/HIV-2 Ab Negative [facility] BLOOD SPECIMEN / Unknown 10/08/2011 10:30 AM EDT Cam Evans MD LAB BLOOD ORDERABLES Final R esult [facility] [address] [place] [address] from Last 3 Months or Most Recently Relevant to Health Maintenance Insurance [place] [address] [place] [id number] Advance Directives * Full Code (Latest Code Status on File) Date Activated Date Inactivated Comments 03/23/2024 4:29 PM 03/25/2024 1:48 PM * Full Code Date Activated Date Inactivated Comments 03/07/2024 10:58 AM 03/08/2024 5:06 PM * Full Code Date Activated Date Inactivated Comments 02/28/2024 2:40 PM 03/01/2024 5:35 PM Question Answer Comments With Whom was the Code Status Discussed? Patient * Full ACLS Date Activated Date Inactivated Comments 04/23/2020 3:12 AM 04/23/2020 4:09 PM * Full ACLS Date Activated Date Inactivated Comments 01/18/2020 9:51 AM 01/20/2020 3:56 PM Question Answer Comments With Whom was the Code Status Discussed? Patient Care Teams Card Placer Relationship Specialty Start Date End Date Omaira Champion, ERYN [address] [place] [address] PCP - General Family Medicine 04/10/24
--- OUTSIDE RECORDS SUMMARY | 2024-12-28 15:16 | XMS_ITS | Encounter Summary ---
Author Organization [facility] Address [address] [place] [address] Care Team Providers Care Forensic Medical Examiner Name Role Phone AkiraOmaira Robert CERNA Primary Care Provider [phone] Reason for Visit * Reason Comments Medication Refill Encounter Details Date Type Department Care Team (Late st Contact Info) Description 12/25/2020 Refill Neurology [address] [address] Poncho Sun MD [address] [place] [phone] Medication Refill Social History Tobacco Use Types Packs/Day Years [...] declined 05/26/2020 How often do you attend catholic or jewish serv ices? Patient declined 05/26/2020 Do you belong to any clubs o r organizations such as catholic groups, unions, fraternal or athletic groups, or [...] Answer Date Recorded PHQ-2 Score 2 07/19/2018 [facility]at [facility] - Occupational Stress Questionnaire Answer Date [...] Exposure Response Date Recorded In the last month, have you been in contact with someone who was confirmed or suspected to have Coronavirus / COVID-19? No / Unsure 12/16/2020 8:27 AM EDT documented as of this encounter Miscellaneous Notes * Telephone Encounter - Emerson Jung LPN - 12/25/2020 3:52 PM EST Medication Refill Safety Checks: Medication order: Fioricet Is this a new order? No If yes, was the previous order discontinued? Not Applicable If the order is being updated, did you update the instruction box? Not Applicable Were the medication safety checks including the 5 rights of medication administration (Patient, medication name, dose, route, time/frequency) completed prior to sending the request to pharmacy? Yes For tapering/titrating dosages, were the medication dosages and schedules verified with a second nurse? Not Applicable Correct pharmacy? yes Controlled prescription pended to provider for approval of refill. documented in this encounter Plan of Treatment [...] documented as of this encounter Care Teams Forensic Medical Examiner Relationship Specialty Start Date End Date Omaira Champion, METER ENGINEER [address] [place] [phone] PCP - General Family Medicine 04/10/24 documented as of this encounter
--- OUTSIDE RECORDS SUMMARY | 2024-12-28 15:16 | XMS_ITS | Encounter Summary ---
Author Organization [facility] Address [address] [place] [address] Care Team Providers Care Information Systems Architect Name Role Phone [facility] Unavailable Unavailable Omaira Champion APRN Primary Care Provider [phone] Encounter Details Date Type Department Care Team (Late st Contact Info) Description 05/12/2024 Scanned Document [facility] [address] [place] [address] Henna Brush MD [address] [facility] [address] [place], [place] [address] Social History Tobacco Use Types Packs/Day Years [...] on filedocumented in this encounter Care Teams Information Systems Architect Relationship Specialty Start Date End Date Omaira Champion APRN [address] [place] [address] PCP - General Internal Medicine 04/18/24 [facility] 02/14/22 12/26/24 documented as of this encounter
--- OUTSIDE RECORDS SUMMARY | 2024-12-28 15:16 | XMS_ITS | Encounter Summary ---
Author Organization [facility] Address [address] [place] [address] Care Team Providers Care Mill Crane Operator Name Role Phone [facility] Unavailable Unavailable Omaira Champion APRN Primary Care Provider [phone] Encounter Details Date Type Department Care Team (Late st Contact Info) Description 11/01/2024 Scanned Document [facility] Pain Management [address] [place] [address] Henna Brush MD [address] [facility] [address] [place], [place] [address] Social History Tobacco Use Types Packs/Day Years Used Date Smoking Tobacco: Never Smokeless Tobacco: Never Alcohol Use Standard Drinks/Week Comments Never 0 (1 standard drink = 0.6 oz pur e alcohol) PHQ-2 Answer Date Recorded PHQ-2 Total Score 0 03/12/2022 [facility] Occupat ional Health - Occupational Stress [...] on filedocumented in this encounter Care Teams Mill Crane Operator Relationship Specialty Start Date End Date Omaira Champion APRN [address] [place] [phone] PCP - General Internal Medicine 04/18/24 [facility] 02/14/22 12/26/24 documented as of this encounter
--- OUTSIDE RECORDS SUMMARY | 2024-12-28 15:16 | XMS_ITS | Encounter Summary ---
Author Organization [facility] Address [address] [place] [address] Care Team Providers Care Orthopaedic Nurse Name Role Phone Nicola Mcbride MD Primary Care Provider [phone] [facility] Primary Care Provider Unavailable Pcp, No Primary Care Provider Unavailabl e [facility] Unavailable Unavailable Unknown Primary Care Provider [phone] [facility] Primary Care Provider Unavailable Nicola Mcbride MD Primary Care Provider + Omaira Champion APRN Primary Care Provider [phone] Encounter Details Date Type Department Care Team (Late st Contact Info) Description 05/20/2021 Scanned Document [facility] Neurology [address] [address] Nicola Mcbride MD [address] [place], [place] [address] Social History Tobacco Use Types Packs/Day Years [...] documented as of this encounter Care Teams Orthopaedic Nurse Relationship Specialty Start Date End Date Nicola Mcbride MD [address] [place] [address] PCP - General Family Medicine 11/16/19 10/15/21 [facility] PCP - General 10/16/21 02/13/22 Pcp, No PCP - General General Medicine 02/14/22 03/21/22 Unknown Unknow Provider Address PCP - General 08/31/22 09/11/22 [facility] PCP - General 09/12/22 02/21/24 Nicola Mcbride MD [address] [place] [address] PCP - General Family Medicine 02/22/24 04/17/24 Omaira Champion APRN [address] [place] [phone] PCP - General Internal Medicine 04/18/24 [facility] 02/14/22 12/26/24 documented as of this encounter
--- OUTSIDE RECORDS SUMMARY | 2024-12-28 15:16 | XMS_ITS | Encounter Summary ---
Author Organization [facility] Address [address] [place] [address] Care Team Providers Care Chocolate Finisher Name Role Phone AkiraOmaira ferreira ERYN Primary Care Provider [phone] Encounter Details Date Type Department Care Team (Latest Contact Info) Description 07/06/2016 Transcribed Orders [facility] [address] [place] [address] Cl Gutierrez MD [address] [place] [address] Low back pain (Primary Dx); Chronic intractable pain Social History Tobacco Use Types Packs/Day Years [...] Procedure Name Priority Date/Time Associated Diagnosis Comments ALBUMIN/CREATININE PANEL, URINE, RANDOM Routine 07/06/2016 8:58 AM EDT Low back pain Chronic intractable pain COMPREHENSIVE METABOLIC PANEL Routine 07/06/2016 8:58 AM EDT Low back pain Chronic intractable pain SEDIMENTATION RATE (ESR) Routine 07/06/2016 8:58 AM EDT Low back pain Chronic intractable pain CBC WITH AUTO DIFFERENTIAL Routine 07/06/2016 8:58 AM EDT Low back pain Chronic intractable pain IRON AND TIBC Routine 07/06/2016 8:58 AM EDT Low back pain Chronic intractable pain ZZZTOXICOLOGY SCREEN, URINE (BH L) Routine 07/06/2016 8:58 AM EDT Low back pain Chronic intractable pain CBC AND DIFFERENTIAL Routine 07/06/2016 8:58 AM EDT Low back pain Chronic intractable pain HEMOGLOBIN A1C Routine 07/06/2016 8:58 AM EDT Low back pain Chronic intractable pain FERRITIN Routine 07/06/2016 8:58 AM EDT Low back pain Chronic intractable pain COMPREHENSIVE METABOLIC PANEL Routine 07/06/2016 8:58 AM EDT Low back pain Chronic intractable pain documented in this encounter Results * (ABNORMAL) CBC auto differential (07/06/2016 8:58 AM EDT) WBC 8.9 4.8 - 10.8 x1000/uL 07/06/2016 9:15 AM T [facility] RBC 3.8 M/uL 07/06/2016 9:15 AM [facility] Hemoglobin 12.1 12.0 - 15.0 g/dL 07/06/2016 9:15 AM [facility] Hematocrit 35.9(L) 36.0 - 48.0 % 07/06/2016 9:15 AM [facility] MCV 94.7 81.0 - 99.0 fL 07/06/2016 9:15 AM [facility] MCHC 33.7 33.0 - 37.0 g/dL 07/06/2016 9:15 AM [facility] RDW-CV 13.2 % 07/06/2016 9:15 AM [facility] Platelets 391 120 - 450 x1000/uL 07/06/2016 9:15 AM [facility] MPV 9.0 fL 07/06/2016 9:15 AM [facility] ANC (Abs Neutrophil Count) 4.1 2.2 - 7.2 x 1000/uL 07/06/2016 9:15 AM [facility] Neutrophils 46.3 45.0 - 90.0 % 07/06/2016 9:15 AM [facility] Lymphocytes 46.8 10.0 - 50.0 % 07/06/2016 9:15 AM [facility] Absolute Lymphocyte Count 4.2 0.5 - 5.4 x 1000/uL 07/06/2016 9:15 AM [facility] Monocytes 6.0 3.0 - 11.0 % 07/06/2016 9:15 AM [facility] Monocyte Absolute Count 0.5 0.1 - 1.2 x 1000/uL 07/06/2016 9:15 AM [facility] Eosinophils 0.2 0.0 - 4.0 % 07/06/2016 9:15 AM [facility] Eosinophil Absolute Count 0.0 0.0 - 0.4 x 1000/uL 07/06/2016 9:15 AM [facility] Basophil 0.5 0.0 - 2.0 % 07/06/2016 9:15 AM [facility] Basophil Absolute Count 0.0 0.0 - 0.2 x 1000/uL 07/06/2016 9:15 AM [facility] Immature Granulocytes 0.2 0.0 - 0.4 % 07/06/2016 9:15 AM [facility] Absolute Immature Granulocyte Count 0.0 <=3.0 x 1000/uL 07/06/2016 9:15 AM [facility] nRBC 0.0 % 07/06/2016 9:15 AM [facility] Absolute nRBC 0.0 x 1000/uL 07/06/2016 9:15 AM [facility] MCH 31.9 25.0 - 35.0 pg 07/06/2016 9:15 AM [facility] Blood specimen (specimen) Venipuncture / Unknown 07/06/2016 8:58 AM EDT 07/06/2016 9:04 AM EDT us Cl Gutierrez MD LAB BLOOD ORDERABLES Final Resu lt [facility] [address] [place] [address], [facility] [[email or web address]] [phone] * Comprehensive metabolic panel (07/06/2016 8:58 AM EDT) Sodium 140 137 - 145 mmol/L 07/06/2016 9:36 AM [facility] Potassium 3.7 3.5 - 5.1 mmol/L 07/06/2016 9:36 AM [facility] Chloride 107 98 - 107 mmol/L 07/06/2016 9:36 AM [facility] CO2 25 22 - 30 mmol/L 07/06/2016 9:36 AM [facility] Anion Gap 8 7 - 16 07/06/2016 9:36 AM [facility] Glucose 79 70 - 100 mg/dL 07/06/2016 9:36 AM [facility] BUN 11 7 - 17 mg/dL 07/06/2016 9:36 AM [facility] Creatinine 0.55 0.52 - 1.04 mg/dL 07/06/2016 9:36 AM [facility] Calcium 9.6 8.4 - 10.2 mg/dL 07/06/2016 9:36 AM [facility] BUN/Creatinine Ratio 20.0 06/16 9:36 AM [facility] Total Protein 7.1 6.3 - 8.2 g/dL 07/06/2016 9:36 AM [facility] Albumin 4.1 3.5 - 5.0 g/dL 07/06/2016 9:36 AM [facility] Total Bilirubin 0.3 0.2 - 1.3 mg/dL 07/06/2016 9:36 AM [facility] Alkaline Phosphatase 48 38 - 126 U/L 07/06/2016 9:36 AM [facility] Alanine Aminotransferase (ALT) 19 9 - 52 U/L 07/06/2016 9:36 AM [facility] Aspartate Aminotransferase (AST) 15 14 - 36 U/L 07/06/2016 9:36 AM T [facility] Globulin 3.0 2.0 - 3.5 g/dL 07/06/2016 9:36 AM T [facility] A/G Ratio 1.4 1.1 - 2.2 07/06/2016 9:36 AM EDT [facility] eGFR (Afr Amer) >60 >60 mL/min/1. 73m2 07/06/2016 9:36 AM T [facility] Comment: Values under 60mL/min/1.73m2 may indicate CKD if noted for more than 3 months. eGFR is only valid if creatinine is at steady state. eGFR (NON -[place] Zealander) >60 >60 mL/min/1. 73m2 07/06/2016 9:36 AM T [facility] Comment: Values under 60mL/min/1.73m2 may indicate CKD if noted for more than 3 months. eGFR is only valid if creatinine is at steady state. Blood specimen (specimen) Venipuncture / Unknown 07/06/2016 8:58 AM EDT 07/06/2016 9:04 AM EDT us Cl Gutierrez MD LAB BLOOD ORDERABLES Final Resu lt [facility] [address] [place] [address] * (ABNORMAL) Sedimentation rate (ESR) (07/06/2016 8:58 AM EDT) Sedimentation Rate (ESR) 26(H) 0 - 21 mm/hr 07/06/2016 9:18 AM EDT [facility] Blood specimen (specimen) Venipuncture / Unknown 07/06/2016 8:58 AM EDT 07/06/2016 9:04 AM EDT us Cl Gutierrez MD LAB BLOOD ORDERABLES Final Resu lt [facility] [address] [place] [address] * Hemoglobin A1c (07/06/2016 8:58 AM EDT) Hemoglobin A1c 6.4 4.4 - 6.4 % 07/06/2016 11:11 AM EDT [facility] Blood specimen (specimen) Venipuncture / Unknown 07/06/2016 8:58 AM EDT 07/06/2016 9:03 AM EDT us Cl Gutierrez MD LAB BLOOD ORDERABLES Final Resu lt Performing Organization Address [facility]/ZIP Co de Phone Number [facility] [address] [place] [address] * Iron and TIBC ([facility]) (07/06/2016 8:58 AM EDT) Iron 54 37 - 170 ug/dL 07/06/2016 9:46 AM EDT [facility] TIBC 376 250 - 450 ug/dL 07/06/2016 9:46 AM EDT [facility] Iron Saturation 14 13 - 45 % 7 9:46 AM EDT [facility] Blood specimen (specimen) Venipuncture / Unknown 07/06/2016 8:58 AM EDT 07/06/2016 9:04 AM EDT us Cl Gutierrez MD LAB BLOOD ORDERABLES Final Resu lt Performing Organization Address [facility] Co de Phone Number [facility] [address] [place] [address] * Ferritin (07/06/2016 8:58 AM EDT) Ferritin 13 6 - 137 ng/mL 07/06/2016 10:09 AM EDT [facility] Blood specimen (specimen) Venipuncture / Unknown 07/06/2016 8:58 AM EDT 07/06/2016 9:04 AM EDT us Cl Gutierrez MD LAB BLOOD ORDERABLES Final Resu lt [facility] [address] [place] [address] * Albumin/creatinine panel, urine, random (07/06/2016 8:58 AM EDT) Albumin, Urine, Random 17.4 Reference Range Not Established mg/L 07/06/2016 9:40 AM EDT [facility] Creatinine, Urine, Random 137 Reference Range not established mg/dL 07/06/2016 9:40 AM T [facility] Albumin/Creatin ine Ratio, Urine, Random 12.7 Reference Range not established mg/g Cr 07/06/2016 9:40 AM T [facility] Comment: The ADA recommends the following guidelines: Normal <30 mcg/mg Microalbuminuria 30 - 299 mcg/mg Clinical albuminuria > 300 mcg/mg At least two of three specimens collected within a 3-6 month period should be abnormal before considering a patient to be within a diagnostic category. Urine specimen (specimen) Collection / Unknown 07/06/2016 8:58 AM EDT 07/06/2016 9:03 AM EDT Cl Gutierrez MD URINE ORDERABLES Final Result [facility] [address] [place] [address] * (ABNORMAL) Toxicology screen, urine (BH L) (07/06/2016 8:58 AM EDT) Ethanol Urine Negative <25 mg/dL = Negative 07/06/2016 9:43 AM T [facility] Amphetamine Screen, Urine Negative <1000 ng/mL = Negative 07/06/2016 9:43 AM [facility] Benzodiazepine Screen, Urine Negative <300 ng/mL = Negative 07/06/2016 9:43 AM [facility] Cannabinoid Screen, Urine Negative <50 ng/mL = Negative 07/06/2016 9:43 AM T [facility] Methadone Screen, Urine Negative <300 ng/mL = Negative 07/06/2016 9:43 AM [facility] Opiate Screen, Urine Positive(A) <300 ng/mL = Negative 07/06/2016 9:43 AM EDT [facility] Oxycodone Screen, Urine Negative <100 ng/mL = Negative 07/06/2016 9:43 AM T [facility] Phencyclidine Screen, Urine Negative <25 ng/mL = Negative 07/06/2016 9:43 AM [facility] Cocaine Metabolites, Ur Negative <300 ng/mL = Negative 07/06/2016 9:43 AM EDT [facility] Barbiturate Screen, Urine Negative <200 ng/mL = Negative 07/06/2016 9:43 AM T [facility] 6-Acetylmorphine Negative <10 ng/mL = Negative 07/06/2016 9:43 AM T [facility] Comment:6-acetylmorphine is a heroin metabolite. While its absence (in the presence of OPIATES) does not rule out heroin use, its presence is regarded as an indication of illicit heroin use. Propoxyphene Negative <300 ng/mL = Negative 07/06/2016 9:43 AM [facility] Urine specimen (specimen) Collection / Unknown 07/06/2016 8:58 AM EDT 07/06/2016 9:03 AM EDT [facility] - 07/06/2016 9:43 AM EDT A positive result indicates a concentration greater than the detection limit. A negative result indicates a concentration less than the detection limit. These results are intended for patient management only. They are single method determinations and no chain of evidence has been maintained. A POSITIVE RESULT INDICATES THE PRESUMPTIVE PRESENCE OF A DRUG AND DOES NOT INDICATE OR MEASURE INTOXICATION. Cl Gutierrez MD URINE ORDERABLES Final Result [facility] [address] [place] [address] documented in this encounter Visit Diagnoses Diagnosis Low back pain- Primary Lumbago Chronic intractable pain Other chronic pain documented in this encounter Additional Health Concerns [...] Assessment Noted Time PHQ-9 Depression Total Score: 0 05/13/19 17 1:50 PM EDT documented as of this encounter Care Teams Chocolate Finisher Relationship Specialty Start Date End Date Omaira Champion APRN [address] [place] [phone] PCP - General Family Medicine 04/10/24 documented as of this encounter
--- OUTSIDE RECORDS SUMMARY | 2024-12-28 15:16 | XMS_ITS | Encounter Summary ---
Author Organization [facility] Address [address] [place] [address] Care Team Providers Care Plate Put In Worker Name Role Phone AkiraOmaira ferreira Robert CERNA Primary Care Provider [phone] Reason for Visit * Reason Comments Other Appointment Encounter Details Date Type Department Care Team (Late st Contact Info) Description 02/17/2022 Telephone Orthopaedics & Rehabilitation at [address] [facility] [address] [facility] [place], [place] [phone] Khoa Kaye MD [address] [place] [address] Other; Appointment Social History Tobacco Use Types Packs/Day Years [...] declined 05/26/2020 How often do you attend confucianism or mandaen serv ices? Patient declined 05/26/2020 Do you belong to any clubs o r organizations such as confucianism groups, unions, fraternal or athletic groups, or [...] Date Recorded PHQ-2 Total Score 2 12/01/2021 [facility] Occupat ional [facility] - Occupational Stress Questionnaire Answer Date Recorded [...] suspected to have Coronavirus/COVID-19? No / Unsure 02/05/2022 5:18 AM EST documented as of this encounter Miscellaneous Notes * Telephone Encounter - Betty Mathias - 02/17/2022 12:45 PM EST Pt called apt was CX on 03-06 she has been in the ER three times for back pain I don't see anything soon please advise? documented in this encounter Plan of Treatment [...] documented as of this encounter Care Teams Plate Put In Worker Relationship Specialty Start Date End Date Omaira Champion, SUPERVISOR [employer]SEMBLY [address] [place] [phone] PCP - General Family Medicine 04/10/24 documented as of this encounter
--- OUTSIDE RECORDS SUMMARY | 2024-12-28 15:16 | XMS_ITS | Encounter Summary ---
Author Organization [facility] Address [address] [place] [address] Care Team Providers Care Field Coil Winder Name Role Phone [facility] Unavailable Unavailable Omaira Champion APRN Primary Care Provider [phone] Encounter Details Date Type Department Care Team (Late st Contact Info) Description 05/09/2024 Scanned Document [facility] [address] [place] [address] Henna Brush MD [address] [facility] [address] [place], [place] [address] Social History Tobacco Use Types Packs/Day Years [...] on filedocumented in this encounter Care Teams Field Coil Winder Relationship Specialty Start Date End Date Omaira Champion APRN [address] [place] [phone] PCP - General Internal Medicine 04/18/24 [facility] 02/14/22 12/26/24 documented as of this encounter
--- OUTSIDE RECORDS SUMMARY | 2024-12-28 15:17 | XMS_ITS | Encounter Summary ---
Author Organization [facility] Address [address] [place] [address] Care Team Providers Care Braid Cutter Name Role Phone Akira Omaira oRbert CERNA Primary Care Provider [phone] Encounter Details Date Type Department Care Team (Latest Contact Info) Description 03/08/2014 Transcribed Orders [facility] [place] [phone] Stacey Calderón MD [address] [place] [phone] Tachycardia (Primary Dx) Social History Tobacco Use Types [...] on file documented as of this encounter Results * EKG (03/08/2014 9:00 AM EST) Heart Rate 96 BPM [facility] EKG Heart Rate 96 BPM [facility] EKG P-R Interval 116 ms [facility] EKG QRS Duration 80 ms [facility] EKG Q-T Interval 348 ms [facility] EKG QTC Calculation(Be zet) 439 ms [facility] EKG P [place] 53 degrees [facility] EKG R [place] 60 degrees [facility] EKG T [place] 43 degrees [facility] EKG Diagnosis Normal sinus rhythm [facility] EKG 03/08/2014 9:00 AM EST 03/08/2014 2:18 PM EST us Oren Gusman MD ECG ORDERABLES Final Result [facility] EKG documented in this encounter Visit Diagnoses Diagnosis Tachycardia- Primary Tachycardia, unspecified documented in this encounter Additional Health [...] documented as of this encounter Care Teams Braid Cutter Relationship Specialty Start Date End Date Omaira Champion, FLOATING OPERATOR [address] [place] [phone] PCP - General Family Medicine 04/10/24 documented as of this encounter
--- OUTSIDE RECORDS SUMMARY | 2024-12-28 15:17 | XMS_ITS | Encounter Summary ---
Author Organization [facility] and [facility] Address [address] [place] [address] Care Team Providers Care Cemetery Laborer Name Role Phone AkiraOmaira ferreira ASSISTANT ENGINEER Primary Care Provider [phone] Encounter Details Date Type Department Care Team (Late st Contact Info) Description 03/15/2015 Documentation [facility] [address] [place] [address], [place] [address] Elayne Kaminski LCSW [address] [facility] [address] [place] [address] Social History Tobacco Use Types Packs/Day Years [...] PM EDT documented as of this encounter Progress Notes * Elayne Kaminski LCSW - 03/15/2015 2:40 PM EST Spoke with pt this month as she wanted to get a med mgmt appt. Pt has been seen at [facility] by 2 providers for med mgmt and was also slated to be in the Adult IOP over the course of 2-3 years. She was not compliant with any of the programs offered. She missed appts and her treatment over time became more and more inconsistent. When speaking with Anamaria there is an ongoing discussion that she lives across the street from the clinic and this would improve her chances to getting to appts. Due to approx. 3 years of non compliance pt was discharged from [facility]. Her last appt at [facility] was 12/09/12 and she was a no show . documented in this encounter Plan of Treatment [...] Noted Time PHQ-9 Depression Total Score: 0 01/24/20 15 9:08 AM EST documented as of this encounter Care Teams Cemetery Laborer Relationship Specialty Start Date End Date Omaira Champion, ASSISTANT ENGINEER [address] [place] [phone] PCP - General Family Medicine 04/10/24 documented as of this encounter
--- OUTSIDE RECORDS SUMMARY | 2024-12-28 15:17 | XMS_ITS | Encounter Summary ---
Author Organization [facility] and [facility] Address [address] [place] [address] Care Team Providers Care Airline Reservation Agent Name Role Phone Omaira Champion RETAIL MARKETING MANAGER Primary Care Provider [phone] Encounter Details Date Type Department Care Team (Late st Contact Info) Description 12/12/2019 Abstract [facility] [address] [facility] [address] [facility] [place] [address] Nicola Mcbride MD [address] [place] [address] Social History Tobacco Use Types Packs/Day Years Used Date Smoking Tobacco: Never Smokeless Tobacco: Never Alcohol Use Standard Drinks/Week Comments No 0 (1 standard drink = 0.6 oz pur e alcohol) Social Connection and Isolation Panel Answer Date Recorded Frequency of Communication with Friends and Fami ly Patient declined 11/09/2019 Frequency of Social Gatherings with Friends and Family Patient declined 11/09/2019 Attends Mandaen Services Patient declined 10/17 Active Member of Clubs or Organizations Patient declined 11/09/2019 Attends Club or Organization Meetings Patient de clined 11/09/2019 Marital Status Patient declined 11/09/2019 AUDIT-C Answer Date Recorded Frequency of Alcohol Consumption Never 04/14/2018 Average Number of Drinks Not on file 019 Frequency of Binge Drinking Not on file 03/19 PHQ-2 Answer Date Recorded PHQ-2 Score 2 07/19/2018 [facility] of Occupat ional Health - Occupational Stress Questionnaire Answer Date Recorded Feeling of Stress Patient declined 11/09/2019 Exercise Vital Sign Answer Date Recorde d Days of Exercise per Week Patient declined 11/08 Minutes of Exercise per Session Patient declined 11/09/2019 Comments No Sex and Gender Information Value [...] have Coronavirus / COVID-19? No / Unsure 12/15/2019 9:16 PM EDT documented as of this encounter Plan of Treatment Not on file documented as of this encounter Visit Diagnoses Not on filedocumented in this encounter Additional Health Concerns Infection Onset Date Last Indicated Resolved Time R/O COVID-19 12/21/2019 12/21/2019 12/21/2019 3:39 PM [...] documented as of this encounter Care Teams Airline Reservation Agent Relationship Specialty Start Date End Date Omaira Champion, ERYN [address] [place] [phone] PCP - General Family Medicine 04/10/24 documented as of this encounter
--- OUTSIDE RECORDS SUMMARY | 2024-12-28 15:17 | XMS_ITS | Clinical Summary ---
Author Organization [facility] Address [address] [place] [address] Care Team Providers Care Food Service Assistant Name Role Phone System, Sa245 Provider Not In Primary Care Provi maria isabel Unavailable Source Comments PLEASE NOTE, if this patient is a minor, it may be UNLAWFUL to discuss sensitive information that is contained in these records (such as FAMILY PLANNING, MENTAL HEALTH or SUBSTANCE ABUSE) with the minor patient's parent or other person without the patient's specific authorization.[facility] Allergies Active Allergy Reactions Criticality Noted Date Comments Adhesive Tape-Silicones Hives,Unknown High 0 Paper tape is OK per pt Adhesive Tapes 08/26/2021 Amoxicillin 08/26/2021 Amoxicillin-Pot Clavulanate Hives Medium 02/14/2022 Diphenhydramine Anxiety,Hives Medium 02/14/2022 Diphenhydramine Hcl 10/27/2021 Ibuprofen Hives Medium 02/14/2022 Iodinated Contrast Media Hives High 02/29/2020 hives, wheezing per pt. hives, wheezing per pt. Iodine Hives Medium 10/27/2021 Ketorolac Anaphylaxis High 02/12/2024 Lactase Unknown Medium 08/08/2019 Lactose 12/18/2021 Metoclopramide Anaphylaxis,Anxiety, Unknown,Hives High 11/16/2012 Given hives,acting out,itchy Metoclopramide Hcl Hives,Itching 10/27/2021 Nsaids (Non-Steroidal Anti-Inflammatory Drug) Hives,Nausea and Vomiting Medium 09/28/2017 Oxycodone GI intolerance,Nausea and Vomiting,Unknown Medium 08/08/2019 Tolerated percocet in the past 04/22/20 2330 Penicillins Unknown Medium 08/26/2021 Prochlorperazine Hives Medium 10/27/2021 Sertraline Hives Medium 01/10/2013 Other Reaction(s): Other (See Comments) SUICIDAL THOUGHTS Shellfish Derived Hives 10/27/2021 Urinary Incont. Sheath Fixing Strips & Adhesives Unknown Medium 08/08/2019 Paper tape is OK per pt Zolpidem Medium 12/25/2012 Other Reaction(s): Delirium/Confusio n/Psychosis Pt states she starts seeing things and gets amnesia when she takes more than 10 mg Medications albuterol HFA (PROAIR HFA) 90 mcg/actuation inhalerIndications :Upper respiratory symptom Inhale 2 Puffs into the lungs every 4 (four) hours as needed for shortness of breath or wheezing 18 g 5 12/30/19 22 Active EPINEPHrine (EPIPEN) 0.3 mg/0.3 mL pen injectorIndication s:History of anaphylaxis Inject 0.3 mL into the muscle as needed for anaphylaxis 2 Each 2 03/06/19 23 Active Additional Information Patient not taking.Reported on 04/17/2024 ondansetron HCL (ZOFRAN) 4 mg tablet 05/26/19 23 Active sucralfate (CARAFATE) 100 mg/mL suspension 05/07/19 23 Active pantoprazole (PROTONIX) 40 mg EC tabletIndications: Epigastric pain TAKE 1 TABLET BY MOUTH EVERY MORNING BEFORE BREAKFAST 30 Tablet 1 08/21/19 23 Active losartan (COZAAR) 50 mg tabletIndications: Hypertension, unspecified type TAKE 1 TABLET BY MOUTH ONCE DAILY 30 Tablet 09/18/19 23 Active cloNIDine (CATAPRES) 0.1 mg tablet Take 0.1 mg by mouth twice a day Active lithium carbonate 300 mg tablet Take 600 mg by mouth 2 (two) times daily 04/21/19 23 Active ketoconazole (NIZORAL) 2 % cream Apply topically 2 (two) times daily 03/14/19 25 Active atenoloL (TENORMIN) 25 mg tablet Take 25 mg by mouth once daily 10/04/19 24 Active busPIRone (BUSPAR) 5 mg tablet Take 5 mg by mouth 3 (three) times daily 11/03/19 24 Active cefuroxime (CEFTIN) 500 mg tablet 04/12/19 25 Active cefuroxime axetil (CEFTIN) 250 mg tablet TAKE 1 TABLET (250 MG) BY MOUTH EVERY 12 HOURS FOR 5 DAYS 01/23/20 24 Active cephalexin (KEFLEX) 500 mg capsule TAKE ONE CAPSULE BY MOUTH FOUR TIMES A DAY FOR 7 DAYS 10/13/19 24 Active clonazePAM (KLONOPIN) 0.5 mg tablet 04/07/19 25 Active diazePAM (VALIUM) 2 mg tablet Take 2 mg by mouth 2 (two) times daily as needed for anxiety 11/26/19 24 Active gabapentin (NEURONTIN) 100 mg capsule TAKE ONE CAPSULE BY MOUTH EVERY MORNING AND TAKE ONE CAPSULE BY MOUTH ONE TIME DAILY AT NOON AND TAKE ONE CAPSULE BY MOUTH AT BEDTIME 11/26/19 24 Active HYDROcodone-acetam inophen (NORCO) 5-325 mg per tablet Take 1 Tablet by mouth every 6 (six) hours as needed 04/10/19 25 Active levoFLOXacin (LEVAQUIN) 500 mg tablet Take 500 mg by mouth once daily 02/02/20 24 Active levoFLOXacin (LEVAQUIN) 750 mg tablet Take 750 mg by mouth once daily 10/27/19 24 Active methenamine hippurate (HIPREX) 1 gram tab Take 1 g by mouth 2 (two) times daily 02/02/20 24 Active methocarbamoL (ROBAXIN) 500 mg tablet TAKE ONE TABLET BY MOUTH FOUR TIMES A DAY FOR 10 DAYS 11/26/19 24 Active methocarbamoL (ROBAXIN) 750 mg tablet TAKE TWO TABLETS BY MOUTH THREE TIMES A DAY NEEDED FOR MUSCLE SPASMS (OR PAIN) 10/13/19 24 Active morphine (MSIR) 15 mg tablet TAKE 1 TABLET (15 MG) BY MOUTH EVERY 8 HOURS NEEDED FOR PAIN. 01/23/20 24 Active nitrofurantoin, macrocrystal-monoh ydrate, (MACROBID) 100 mg capsule 04/10/19 25 Active ondansetron ODT (ZOFRAN-ODT) 4 mg disintegrating tablet DISSOLVE 1 TABLET 3 TIMES A DAY NEEDED FOR NAUSEA AND VOMITING FOR 5 DAYS Active oseltamivir (TAMIFLU) 75 mg capsule TAKE 1 CAPSULE BY MOUTH EVERY 12 HOURS FOR 5 DAYS. 02/12/20 24 Active oxyCODONE (ROXICODONE) 5 mg tablet Take 5 mg by mouth every 6 (six) hours as needed for pain 01/17/20 24 Active oxyCODONE-acetamin ophen (PERCOCET) 5-325 mg per tablet Take 1 Tablet by mouth every 6 (six) hours as needed 04/04/19 25 Active polyethylene glycol, PEG, 3350 (GLYCOLAX) 17 gram/dose powder MIX AND DISSOLVE 17 G DIRECTED AND TAKE BY MOUTH DAILY 01/17/20 24 Active potassium chloride 20 mEq ER tablet Take 20 mEq by mouth once daily 07/25/19 24 Active predniSONE (DELTASONE) 20 mg tablet Take 40 mg by mouth daily 04/04/19 25 Active predniSONE 50 mg tablet TAKE ONE TABLET BY MOUTH ONE TIME DAILY FOR 7 DAYS 10/27/19 24 Active sulfamethoxazole-t rimethoprim (BACTRIM DS) 800-160 mg per tablet TAKE 1 TABLET ORALLY 2 TIMES A DAY FOR URINARY TRACT INFECTION 02/20/19 25 Active tamsulosin (FLOMAX) 0.4 mg 24 hr capsule Take 0.4 mg by mouth nightly at bedtime 10/27/19 24 Active tiZANidine (ZANAFLEX) 4 mg tablet TAKE 1 TABLET (4 MG TOTAL) BY MOUTH EVERY 8 (EIGHT) HOURS IF NEEDED (MUSCLE PAIN). 07/18/19 24 Active traMADoL (ULTRAM) 50 mg tablet TAKE 1 TABLET (50 MG TOTAL) BY MOUTH EVERY 6 HOURS NEEDED FOR SEVERE PAIN FOR UP TO 5 DAYS 07/18/19 24 Active butalbital-acetami nophen-caff 50-325-40 mg per capsuleIndications :Migraine headaches Take 1 Capsule by mouth every 8 (eight) hours as needed for headaches 30 Capsule 04/18/19 25 Active amLODIPine (NORVASC) 5 mg tabletIndications: Hypertension, unspecified type TAKE 1 TABLET BY MOUTH ONCE DAILY 90 Tablet 07/04/19 25 Active Active Problems Problem Noted Date Diagnosed Date Upper respiratory symptom 12/29/2021 History of kidney stones 12/18/2021 Depression 12/18/2021 Overview (12/18/2021): Patient with long history of bipolar depression and distant history of suicide attempts Off treatment for > 6 months Assessment & Plan (12/18/2021 7:10 PM EDT): Refer patient to for CBT and medication management Hypertension 12/18/2021 Overview (04/15/2024): Refilled amlodipine BP elevated today, has not taken medication LABS ORDERED Low salt diet Assessment & Plan (04/16/2022 9:32 AM EST): Cont currents meds FU in 2-3 weeks for lab review, BP check and assessment of swelling in feet Assessment & Plan (12/18/2021 7:09 PM EDT): Check labs Restart Amlodipine Monitor home BP DASH Diet Medication adherence Discussed emergency symptoms Discussed sequale of poorly controlled hypertension I.d, heart disease, stroke, nephropathy F/U in 3 months Epigastric pain 12/18/2021 Overview (12/18/2021): Pantoprazole daily prn Aoid spicy food, citrus, chocolate, mints, sodas, NSAIDs (Ibuprofen, Naproxen..) F/u with PCP Anxiety 12/08/2012 Encounters Date Type Department Care Team Description 11/30/2024 10:55 AM EDT Office Visit [facility] [address] [place] [phone] Elizabeth Bishop PA-C 11/30/2024 Travel from Last 3 Months Immunizations Immunization Administration Dates Next Due DTAP (Infanrix) 04/01/2010 Flu, Preservative Free 12/20/2013 Hep B, Adult/Adol (UAOFFFM-L-NRVDW/RECOMBIVAX-AD ULT) 09/24/2016 INFLUENZA, SEASONAL, INJECTABLE 03/09/2012 INFLUENZA, SEASONAL, INJECTABLE, PRESERVATIVE FR EE 03/27/2013 PNEUMOCOCCAL POLYSACCHARIDE PPV23 (Pneumovax 23) 04/01/2010 Tuberculin Skin Test (Tst), Unspecified Formulat ion 10/14/2016,09/30/2016 Family History Medical History Relation Name Comments Stomach Cancer Mother Relation Name Status Comments Mother Social History Tobacco Use Types Packs/Day Years Used Date Smoking Tobacco: Never Passive Smoke Exposure: Never Smokeless Tobacco: Never Tobacco Cessation:Counseling Given: Not Answered Alcohol Use Standard Drinks/Week Comments Never 0 (1 standard drink = 0.6 oz pur e alcohol) Social Connections Answer Date Recorded Connectedness 0 10/29/2023 Financial Resource Strain Answer Date R ecorded How hard is it for you to pa y for the very basics like food, housing, heating, medical care, and medications? 1 03/28 Stress Answer Date Recorded Stress 0 09/10/2021 Physical Activity Answer Date Recorded Physical Activity 0 09/10/2021 Food Insecurity Answer Date Recorded Did you worry that your hous ehold would run out of food before you were able to get more? 1 03/28/2024 Transportation Needs Answer Date Record ed In the past 12 months, has l ack of transportation kept you from medical appointments, meetings, work or from getting things needed for daily living? 1 03/28/2024 Housing Stability Answer Date Recorded What is your living situation today? 1 03/28/2024 Safety and Environment Answer Date Krzysztof rded How often does anyone, inclu ding family and friends, physically hurt you? 1 03/28/2024 Utilities Answer Date Recorded Utilities 0 09/10/2021 Employment Answer Date Recorded Stress 0 10/29/2023 Comments No Sex and Gender Information Value Date Recorded Sex Assigned at Female 12/18/2021 10:53 AM PDT Legal Sex Female 6:28 AM PDT Gender Identity Female 07/25/2021 6:28 AM PDT Sexual Orientation Straight 07/25/2021 6: 28 AM PDT Last Filed Vital Signs Vital Sign Reading Time Taken Comments Blood Pressure 134/98 11/30/2024 10:55 AM EDT Pulse 112 11/30/2024 10:55 AM EDT Temperature 37.1 C (98.7 F) 11/30/2024 10:54 AM EDT Respiratory Rate 20 03/28/2024 9:55 AM EST Oxygen Saturation 98% 11/30/2024 10:55 AM EDT Inhaled Oxygen Concentration - - Weight 66.2 kg (146 lb) 11/30/2024 10:54 AM EDT Height 146.7 cm (4' 9.75 ) 11/30/2024 10:54 AM E DT Body Mass Index 30.78 11/30/2024 10:54 AM EDT Plan of Treatment Health Maintenance Due Date Last Done Comments HPV Screening (self-collect) 1978 HPV Screening 1978 Pap + HPV 1978 Urine Drug Screen 1978 Anxiety Screening 1989 Imm-Pneumococcal (2 of 2 - PCV) 04/01/2011 1 Imm-Hepatitis B (2 of 3 - 19 + 3-dose series) 10/22/2016 09/24/2016 Cervical Cancer Screening 05/21/2018 Pap Smear 05/21/2018 05/22/2015 Breast Cancer Screening (Mammogram) 2018 Imm-DTaP/Tdap/Td (2 - Tdap) 04/01/2020 04/01/2010 Lipid Screening 05/01/2023 04/30/2022, 01/18/2020 CT Colonography 07/29/2023 Colonoscopy 07/29/2023 Colorectal Cancer Screening 07/29/2023 FIT/gFOBT 07/29/2023 Fecal DNA 07/29/2023 Flexible Sigmoidoscopy 07/29/2023 Depression Monitoring 06/25/2024 03/28/2024 [id number] ( season) 2024 Imm-Influenza (#1) 2024 12/20/2013, 0 03/27/2013, 03/09/2012 Relationship Safety Screening/Counseling 03/28/2025 03/28/2024 Tobacco Screening 04/17/2025 04/17/2024 Diabetes Screening 11/23/2025 11/23/2024, 0 10/25/2024, 09/10/2024, Additional history exists HIV Screening Completed 10/08/2011 Hepatitis C Screening Completed 04/30/2022, 012 Alcohol and Drug Screen Completed 03/28/2024, 05/18 Cervical Ablation/Cold-Knife Conization Discontinued Cervical Cryotherapy Discontinued Colposcopy Discontinued Excision/Leep Discontinued HPV Genotyping Discontinued Vaginal Pap Discontinued Vulvoscopy Discontinued Procedures Procedure Name Priority Date/Time Associated Diagnosis Comments HEPATITIS C ANTIBODY WITH RFLX TO HCV RNA PCR W/RFLX TO GENOTYPE Routine 04/30/2022 9:12 AM EDT Encounter for screening for other disorder COMPREHENSIVE METABOLIC PANEL Routine 04/30/2022 9:12 AM EDT Hypertension, unspecified type LIPID PANEL Routine 04/30/2022 9:12 AM EDT Hypertension, unspecified type from Last 3 Months or Most Recently Relevant to Health Maintenance Results * HEPATITIS C ANTIBODY WITH RFLX TO HCV RNA PCR W/RFLX TO GENOTYPE (04/30/2022 9:12 AM EDT) Pathologist [facility] HEPATITIS C ANTIBODY NON-REACTI VE NON-REACT SHAJI 05/01/2022 7:54 PM EDT [facility] SIGNAL TO CUT-OFF 0.03 <1.00 05/01/2022 7:54 PM EDT [facility] Blood Blood / Unknown 04/30/2022 9 :12 AM EDT 04/30/2022 8:18 PM EDT Narrative [employer] [facility] - 05/01/2022 7:58 PM EDT FASTING:YES . HCV antibody was non-reactive. There is no laboratory evidence of HCV infection. . In most cases, no further action is required. However, if recent HCV exposure is suspected, a test for HCV RNA (test code 27908) is suggested. . For additional information, please refer to http://education.[employer]/faq/LFA402 (This link is being provided for informational/ educational purposes only.) Omaira Champion APRN LAB - BLOOD DRAW Final Result [facility] [address] [phone], [facility] [address] [address] * (ABNORMAL) LIPID PANEL (04/30/2022 9:12 AM EDT) Pathologist [facility] CHOLESTEROL, TOTAL 198 <200 mg/dL 04/30/2022 10:12 PM EDT [facility] HDL CHOLESTEROL 62 > OR = 50 mg/dL 04/30/2022 10:12 PM EDT [facility] TRIGLYCERIDES 92 <150 mg/dL 04/30/2022 10:12 PM EDT [facility] LDL-CHOLESTEROL 116(H) mg/dL (calc) 04/30/2022 10:12 PM EDT [facility] CHOL/HDLC RATIO 3.2 <5.0 (calc) 04/30/2022 10:12 PM EDT [facility] NON-HDL CHOLESTEROL 136(H) <130 mg/dL (calc) 04/30/2022 10:12 PM EDT [facility] Blood Blood / Unknown 04/30/2022 9 :12 AM EDT 04/30/2022 8:29 PM EDT Narrative [employer] [facility] - 04/30/2022 11:10 PM EDT FASTING:YES Reference range: <100 . Desirable range <100 mg/dL for primary prevention; <70 mg/dL for patients with CHD or diabetic patients with > or = 2 CHD risk factors. . LDL-C is now calculated using the Jean Paul calculation, which is a validated novel method providing better accuracy than the Friedewald equation in the estimation of LDL-C. rBian MCMAHON et al. DILLON. 2013;310(19): 1079-4259 (http://education.[employer]/faq/WLF594) For patients with diabetes plus 1 major ASCVD risk factor, treating to a non-HDL-C goal of <100 mg/dL (LDL-C of <70 mg/dL) is considered a therapeutic option. Omaira Champion APRN LAB - BLOOD DRAW Final Result [facility] [address] [address], [facility] [address] [address] * COMPREHENSIVE METABOLIC PANEL (04/30/2022 9:12 AM EDT) GLUCOSE 94 65 - 99 mg/dL 04/30/2022 10:12 PM EDT [facility] UREA NITROGEN (BUN) 17 7 - 25 mg/dL 04/30/2022 10:12 PM EDT [facility] CREATININE (blood) 0.70 0.50 - 0.99 mg/dL 04/30/2022 10:12 PM EDT [facility] EGFR 110 > OR = 60 mL/min/1 .73m2 04/30/2022 10:12 PM EDT [facility] BUN/CREATININE RATIO NOT APPLICABLE 6 - 22 (calc) 04/30/2022 10:12 PM EDT [facility] SODIUM 138 135 - 146 mmol/L 04/30/2022 10:12 PM EDT [facility] POTASSIUM 3.9 3.5 - 5.3 mmol/L 04/30/2022 10:12 PM EDT [facility] CHLORIDE 103 98 - 110 mmol/L 04/30/2022 10:12 PM EDT [facility] CARBON DIOXIDE 27 20 - 32 mmol/L 04/30/2022 10:12 PM EDT [facility] CALCIUM 9.5 8.6 - 10.2 mg/dL 04/30/2022 10:12 PM EDT [facility] PROTEIN, TOTAL 7.3 6.1 - 8.1 g/dL 04/30/2022 10:12 PM EDT [facility] ALBUMIN 4.4 3.6 - 5.1 g/dL 04/30/2022 10:12 PM EDT [facility] GLOBULIN 2.9 1.9 - 3.7 g/dL (calc) 04/30/2022 10:12 PM EDT [facility] ALBUMIN/GLOBULI N RATIO 1.5 1.0 - 2.5 (calc) 04/30/2022 10:12 PM EDT [facility] BILIRUBIN, TOTAL 0.5 0.2 - 1.2 mg/dL 04/30/2022 10:12 PM [employer] [facility] ALKALINE PHOSPHATASE 63 31 - 125 U/L 04/30/2022 10:12 PM EDT [facility] AST 16 10 - 30 U/L 04/30/2022 10:12 PM [employer] ALT 15 6 - 29 U/L 04/30/2022 10:12 PM [employer] Blood Blood / Unknown 04/30/2022 9 :12 AM EDT 04/30/2022 8:29 PM EDT [facility] [employer] [facility] 04/30/2022 11:10 PM EDT FASTING:YES . Fasting reference interval . The eGFR is based on the CKD-EPI 2020 equation. To calculate the new eGFR from a previous Creatinine or Cystatin C result, go to https://www.kidney.org/professionals/ kdoqi/gfr%5Fcalculator Omaira Champion APRN LAB - BLOOD DRAW Final Result [facility] [place] [id number] [place] [address], [facility] [address] [address] from Last 3 Months or Most Recently Relevant to Health Maintenance Insurance [place] MEDICAID Member Subscriber Plan / Payer (Ef fective 2021-Present) Name:Anamaria Edwards Relation to Subscriber:Self Name:Anamaria Edwards Payer ID:[id number] Group ID:[id number] Type:Medicaid Address: [address] [address] Care Teams Food Service Assistant Relationship Specialty Start Date End Date [facility] Not In [place] PCP - General 09/12/24
--- OUTSIDE RECORDS SUMMARY | 2024-12-28 15:17 | XMS_ITS | Encounter Summary ---
Author Organization [facility] Address [address] [place] [address] Care Team Providers Care Guide Changer Name Role Phone Omaira Champion PATTERN DRAFTER Primary Care Provider [phone] Encounter Details Date Type Department Care Team (Late st Contact Info) Description 11/13/2014 Documentation [facility] [address] [place] [address], FIRST FLOOR [place] [id number] Denae Guerra LCSW [address] [place] [id number] Social History Tobacco Use Types Packs/Day Years [...] of this encounter Miscellaneous Notes * Telephone Communication - Denae Guerra LCSW - 11/13/2014 4:54 PM EDT Patient was referred to [facility] in June 2014, however [facility] staff has been unable to connect with patient due to patient not answering phone and voicemail being full. However, this engineering writer was ableto contact patient today. Patient stated she was unable to be reached, due to moving up to [place] this summer. Patient reports she was going to move [place] to [place] permanently, however reports she recently returned to [place], [place] be staying in [place] for now. This engineering writer discussed referral to [facility], and patientstated, Oh no, I'm not looking for IOP right now. Patient stated she has an outpatient therapist and that she is stable currently and looking for outpatient medication management. This engineering writer disc ussed [facility] outpatient medication management services, however patient stated, No,I want to meet with Dr. Mascorro in the clinic on . I don't want to come down to the [facility] office. Patientstated last week her PCP made a referral for her to see Dr. Mascorro at the clinic. Junior Automation Engineer made patient aware if she is interested in IOP in the future, to contact this engineering writer. Patient expressed thank s. Junior Automation Engineer to F/U as needed. Denae Guerra LCSW 11/13/2014 4:59 PM documented in this encounter Plan of [...] Noted Time PHQ-9 Depression Total Score: 0 05/17/19 15 9:39 AM EDT documented as of this encounter Care Teams Guide Changer Relationship Specialty Start Date End Date Omaira Champion, ERYN [address] [place] [address] PCP - General Family Medicine 04/10/24 documented as of this encounter
--- OUTSIDE RECORDS SUMMARY | 2024-12-28 15:17 | XMS_ITS | Encounter Summary ---
Author Organization [facility] and [facility] Address [address] [place] [address] Care Team Providers Care Music Store Manager Name Role Phone AkiraOmaira ferreira Robert CERNA Primary Care Provider [phone] Encounter Details Date Type Department Care Team (Late st Contact Info) Description 05/08/2014 Transcribed Orders [facility] [place] [phone] Graciela Sparks MD [address] [place] [address] [address] [place] [address] Ecchymosis (Primary Dx) Social History Tobacco Use Types [...] documented as of this encounter Results * Iron and TIBC (BH GH L YH) (05/08/2014 7:35 AM EDT) Iron 57 37 - 170 mcg/dL [facility] TIBC 433 250 - 450 [facility] Iron Saturation 13 13 - 45 % [facility] Blood specimen (specimen) 05/08/2014 7:35 AM EDT us Oren Gusman MD LAB BLOOD ORDERABLES Edited R esult - Final [facility] [address] [place] [address] documented in this encounter Visit Diagnoses Diagnosis Ecchymosis- Primary Other specified circulatory system disorders documented in this encounter Additional Health Concerns [...] Noted Time PHQ-9 Depression Total Score: 0 05/03/19 15 9:32 AM EDT documented as of this encounter Care Teams Music Store Manager Relationship Specialty Start Date End Date Omaira Champion, PRESS BRAKE OPERATOR [address] [place] [phone] PCP - General Family Medicine 04/10/24 documented as of this encounter
--- OUTSIDE RECORDS SUMMARY | 2024-12-28 15:17 | XMS_ITS | Encounter Summary ---
Author Organization [facility] and [facility] Address [address] [place] [address] Care Team Providers Care Vending Supervisor Name Role Phone AkiraOmaira ferreira Robert CERNA Primary Care Provider [phone] Encounter Details Date Type Department Care Team (Latest Contact Info) Description 05/11/2019 Transcribed Orders [place] [phone] Jung Diaz MD MPH Simple bruising (Primary Dx) Social History Tobacco Use Types [...] have Coronavirus / COVID-19? No / Unsure 05/11/2019 7:29 AM EDT documented as of this encounter Functional Status documented as of this encounter Plan of Treatment Not on file documented as of this encounter Visit Diagnoses Diagnosis Simple bruising- Primary Contusion of unspecified site documented in this encounter Additional Health Concerns Infection Onset Date Last Indicated Resolved Time R/O COVID-19 09/24/2019 09/24/2019 09/24/2019 6:14 PM [...] documented as of this encounter Care Teams Vending Supervisor Relationship Specialty Start Date End Date Omaira Champion, ERYN [address] [place] [phone] PCP - General Family Medicine 04/10/24 documented as of this encounter
--- OUTSIDE RECORDS SUMMARY | 2024-12-28 15:17 | XMS_ITS | Encounter Summary ---
Author Organization [facility] and [facility] Address [address] [place] [address] Care Team Providers Care Charhouse Worker Name Role Phone Omaira Champion GROUP SALES MANAGER Primary Care Provider [phone] Encounter Details Date Type Department Care Team (Late st Contact Info) Description 09/20/2013 Abstract [facility] [address] [place] [phone] Nancy Mathur, TONIA Social History Tobacco Use Types Packs/Day Years [...] documented as of this encounter Care Teams Charhouse Worker Relationship Specialty Start Date End Date Omaira Champion, ERYN [address] [place] [phone] PCP - General Family Medicine 04/10/24 documented as of this encounter
--- OUTSIDE RECORDS SUMMARY | 2024-12-28 15:17 | XMS_ITS | Clinical Summary ---
Author Organization [facility] Address [address] [place] [address] Care Team Providers Care Personal Fitness Manager Name Role Phone Akira Omaira Robert CERNA Primary Care Provider [phone] Allergies Active Allergy Reactions Criticality Noted Date [...] EDT - 11/23/2024 11:14 AM EDT [facility] Emergency Department [address] [place] [phone] Shama Lombardo MD UTI (urinary tract infection) (Primary Dx) Discharge Disposition: Home or Self Care 11/23/2024 Travel 11/01/2024 Scanned Document [facility] [address] [place] [address] Henna Brush MD 10/25/2024 7:58 AM EDT - 10/25/2024 2:15 PM EDT [facility] Emergency Department [address] [place] [address] Vincenoz Esquivel MD Acute cystitis (Primary Dx) Discharge Disposition: Home or Self Care 10/25/2024 Travel 10/04/2024 11:00 AM EDT Office Visit [facility] [address] [place] [address] Henna Brush MD Encounter for therapeutic drug [...] Date Recorded PHQ-2 Total Score 0 03/12/2022 [facility] of Occupat ional Health - Occupational Stress [...] AM EDT) Ventricular rate 67 BPM EKG [facility] Atrial rate 67 BPM EKG [facility] P-R interval 114 ms EKG [facility] QRS duration 68 ms EKG [facility] Q-T interval 394 ms EKG [facility] QTC calculation (Bazett) 416 ms EKG [facility] P axis 48 degrees EKG [facility] R axis 39 degrees EKG [facility] T axis 47 degrees EKG [facility] 11/23/2024 8:06 AM EDT Narrative EKG [facility] - 11/23/2024 1:44 PM EDT Normal sinus rhythm Normal ECG When compared with ECG of 04-Aug-2024 07:09, Nonspecific T wave abnormality no longer evident in Anterior leads Confirmed by MD Smith Anja ([id number]) on 11/23/2024 1:44:50 PM Procedure Note Pineda Smith MD - 11/23/2024 Normal sinus rhythm Normal ECG When compared with ECG of 04-Aug-2024 07:09, Nonspecific T wave abnormality no longer evident in Anterior leads Confirmed by MD Smith Anja ([id number]) on 11/23/2024 1:44:50 PM us Shama Lombardo MD ECG ORDERABLES [facility] * (ABNORMAL) Reflexive Urine Culture (11/23/2024 7:45 AM EDT) Culture Non lactose fermenting Gram negative yadira 1000 col/mL (A) 11/25/2024 8:34 AM EDT [facility] Culture Gram positive coryneform bacillus or Gram positive cocci 1000 col/mL (A) 11/25/2024 8:34 AM EDT [facility] Culture This is a mixed culture. No further identification will be performed.(A) 11/25/2024 8:34 AM EDT [facility] Urine specimen obtained by clean catch procedure / Unknown 11/23/2024 7:45 AM EDT 11/23/2024 7:58 AM EDT Comment:Urine us Shama Lombardo MD MICROBIOLOGY - GENERAL ORDERABLE S Final Result [facility] [address] [place] [address], [place] * (ABNORMAL) Urinalysis with Reflex to Microscopic and Culture (11/23/2024 7:45 AM EDT) Only the most recent of2 resultswithin the time period is included. Color Yellow 11/23/2024 8:36 AM EDT [facility] Clarity Clear 11/23/2024 8:36 AM EDT [facility] Specific [place] 1.020 1.005 - 1.030 11/23/2024 8:36 AM EDT [facility] pH 6.0 5.0 - 8.0 11/23/2024 8:36 AM EDT [facility] Leukocyte Esterase Small(A) Negative 11/23/2024 8:36 AM EDT [facility] Nitrite Negative Negative 11/23/2024 8:36 AM EDT [facility] Protein Negative Negative mg/dL 11/23/2024 8:36 AM EDT [facility] Glucose Negative Negative mg/dL 11/23/2024 8:36 AM EDT [facility] Ketones Trace(A) Negative mg/dL 11/23/2024 8:36 AM EDT [facility] Blood Small(A) Negative 11/23/2024 8:36 AM EDT [facility] Bilirubin Negative Negative 11/23/2024 8:36 AM EDT [facility] RBC 12(H) 0 - 4 per hpf 11/23/2024 8:36 AM EDT [facility] WBC 16(H) 0 - 4 per hpf 11/23/2024 8:36 AM EDT [facility] Epithelial Cells 4 per hpf 11/23/2024 8:36 AM EDT [facility] Bacteria Present(A) Absent 11/23/2024 8:36 AM EDT [facility] Comment:Presence of bacteria does not necessarily indicate a UTI. Please correlate with degree of pyuria and presence of clinical symptoms for UTI. Urine Urine specimen obtained by clean catch procedure / Unknown 11/23/2024 7:45 AM EDT 11/23/2024 7:58 AM EDT us Shama Lombardo MD URINE ORDERABLES Final Result [facility] [address] [place] [address], [place] * Complete Blood Count, with Differential (11/23/2024 7:32 AM EDT) Only the most recent of2 resultswithin the time period is included. White Blood Cell Count 8.7 4.0 - 11.0 Thou/uL 11/23/2024 7:52 AM EDT [facility] Platelet Count 327 150 - 450 Thou/uL 11/23/2024 7:52 AM EDT [facility] Hemoglobin 13.5 11.7 - 15.7 g/dL 11/23/2024 7:52 AM EDT [facility] Hematocrit 40.9 35.0 - 47.0 % 11/23/2024 7:52 AM EDT [facility] Red Blood Cell Count 4.40 4.00 - 5.40 Mil/uL 11/23/2024 7:52 AM EDT [facility] MCV 93 80 - 100 fL 11/23/2024 7:52 AM EDT [facility] MCH 30.7 26.0 - 34.0 pg 11/23/2024 7:52 AM EDT [facility] MCHC 33.0 30.0 - 36.0 g/dL 11/23/2024 7:52 AM EDT [facility] RDW 12.9 11.5 - 14.5 % 11/23/2024 7:52 AM EDT [facility] MPV 9.1 7.5 - 12.5 fL 11/23/2024 7:52 AM EDT [facility] Neutrophils Auto 79.5 % 11/24/19 7:52 AM EDT [facility] Immature Granulocytes 0.7 % 11/23/2024 7:52 AM EDT [facility] Lymphocytes Auto 17.4 % 11/24/19 7:52 AM EDT [facility] Monocytes Auto 2.3 % 11/23/2024 7:52 AM EDT [facility] Eosinophils Auto 0.0 % 11/24/19 7:52 AM EDT [facility] Basophils Auto 0.1 % 11/23/2024 7:52 AM EDT [facility] Abs Neutrophils Auto 6.88 2.00 - 7.50 Thou/uL 11/23/2024 7:52 AM EDT [facility] Abs Immature Granulocytes 0.06 0.00 - 0.10 Thou/uL 11/23/2024 7:52 AM EDT [facility] Abs Lymphocytes Auto 1.51 1.50 - 4.50 Thou/uL 11/23/2024 7:52 AM EDT [facility] Abs Monocytes Auto 0.20 0.20 - 1.50 Thou/uL 11/23/2024 7:52 AM EDT [facility] Abs Eosinophils Auto 0.00 0.00 - 0.70 Thou/uL 11/23/2024 7:52 AM EDT [facility] Abs Basophils Auto 0.01 0.00 - 0.20 Thou/uL 11/23/2024 7:52 AM EDT [facility] Blood Blood specimen / Unknown 11/23/2024 7:32 AM EDT 11/23/2024 7:39 AM EDT us Shama Lombardo MD LAB BLOOD ORDERABLES Final Resul t [facility] [address] [place] [address], [place] * Magnesium (11/23/2024 7:32 AM EDT) Magnesium 1.9 1.6 - 2.6 mg/dL 11/23/2024 8:23 AM EDT [facility] Blood Blood specimen / Unknown 11/23/2024 7:32 AM EDT 11/23/2024 7:39 AM EDT us Shama Lombardo MD LAB BLOOD ORDERABLES Final Resul t Performing Organization Address City/[facility]/[place] [address], [place] * Lipase (11/23/2024 7:32 AM EDT) Lipase 34 12 - 53 U/L 11/23/2024 8:23 AM EDT [facility] Blood Blood specimen / Unknown 11/23/2024 7:32 AM EDT 11/23/2024 7:39 AM EDT Shama Lombardo MD LAB BLOOD ORDERABLES Final Resul t Performing Organization Address [facility] [place] [address], [place] * (ABNORMAL) Comprehensive Metabolic Panel (11/23/2024 7:32 AM EDT) Only the most recent of2 resultswithin the time period is included. Glucose 106 74 - 106 mg/dL 11/23/2024 8:23 AM EDT [facility] Comment:Fasting: <100 mg/dL, Non-Fasting: <200 mg/dL (ADA 2004) Blood Urea Nitrogen (BUN) 14 9 - 23 mg/dL 11/23/2024 8:23 AM EDT [facility] Creatinine 0.81 0.60 - 1.00 mg/dL 11/23/2024 8:23 AM EDT [facility] eGFR >90 >59 11/23/2024 8:23 AM EDT [facility] Comment:CKD-EPI (2020) in mL /min/1.73 sq meters. Sodium 137 136 - 145 mmol/L 11/23/2024 8:23 AM EDT [facility] Potassium 4.8(H) 3.4 - 4.5 mmol/L 11/23/2024 8:23 AM EDT [facility] Comment:Slight hemolysis Chloride 103 98 - 107 mmol/L 11/23/2024 8:23 AM EDT [facility] CO2 24 20 - 31 mmol/L 11/23/2024 8:23 AM EDT [facility] Calcium 10.1 8.7 - 10.5 mg/dL 11/23/2024 8:23 AM EDT [facility] Alkaline Phosphatase 71 32 - 122 U/L 11/23/2024 8:23 AM EDT [facility] Aspartate Aminotrans (AST) 36(H) <34 U/L 11/23/2024 8:23 AM EDT [facility] Alanine Aminotrans (ALT) 19 7 - 35 U/L 11/23/2024 8:23 AM EDT [facility] Bilirubin, Total 0.3 0.3 - 1.2 mg/dL 11/23/2024 8:23 AM EDT [facility] Protein, Total 8.5(H) 5.7 - 8.2 g/dL 11/23/2024 8:23 AM EDT [facility] Albumin 5.0(H) 3.4 - 4.8 g/dL 11/23/2024 8:23 AM EDT [facility] BUN/Creatinine Ratio 17 10.0 - 25.0 Ratio 11/23/2024 8:23 AM EDT [facility] Globulin 3.5 1.5 - 3.9 g/dL 11/23/2024 8:23 AM EDT [facility] Albumin/Globulin Ratio 1.4(L) 1.5 - 2.5 Ratio 11/23/2024 8:23 AM EDT [facility] Anion Gap 10 5 - 15 11/23/2024 8:23 AM EDT [facility] Blood Blood specimen / Unknown 11/23/2024 7:32 AM EDT 11/23/2024 7:39 AM EDT us Shama Lombardo MD LAB BLOOD ORDERABLES Final Resul t [facility] [address] [place] [address], [place] * CT Stone study w/o contrast (10/25/2024 11:32 AM EDT) Anatomical Region Laterality Modality Abdomen, Pelvis Computed Tomogra phy 10/25/2024 11:4 7 AM EDT Impressions 10/25/2024 12:24 PM EDT No significant change in bilateral nonobstructing renal calculi. Narrative 10/25/2024 12:24 PM EDT CLINICAL INFORMATION: Nephrolithiasis, diagnosed with kidney stones yesterday at [facility] COMPARISON: [facility] CT abdomen and pelvis 10/24/2024, [facility] CT abdomen and pelvis 06/29/2024. Please note that this patient has had 12 CT scans performed at [facility] since February [address] scans performed at [facility] since February 2024. TECHNIQUE: CT Abdomen and [...] INFORMATION: Nephrolithiasis, diagnosed with kidney stonesyesterday at [facility] COMPARISON: [facility] CT abdomen and pelvis 10/24/2024, [facility] CT abdomen andpelvis 06/29/2024. Please note that this patient has had 12 CT scans performed at [facility] sinceFebruary [address] scans performed at [facility] since February 2024. TECHNIQUE: CT Abdomen and [...] after 5 days 10/30/2024 7:32 AM EDT [facility] Blood Blood specimen / Unknown 10/25/2024 9:02 AM EDT 10/25/2024 9:14 AM EDT Comment:Blood us Deana [place] PA-C LAB BLOOD ORDERABLES Final Result [facility] [address] [place] [address], [place] * Lactic Acid, Plasma (10/25/2024 9:02 AM EDT) Lactic Acid 0.9 0.5 - 1.9 mmol/L 10/25/2024 9:36 AM EDT [facility] Blood Blood specimen / Unknown 10/25/2024 9:02 AM EDT 10/25/2024 9:10 AM EDT Deana Greenwood PA-C LAB BLOOD ORDERABLES Final Result [facility] [address] [place] [address], * XR Chest 1 view-Portable (10/25/2024 8:53 [...] 4 per hpf 10/25/2024 9:49 AM EDT [facility] RBC 20(H) 0 - 4 per hpf 10/25/2024 9:49 AM EDT [facility] Bacteria Absent Absent 10/25/2024 9:49 AM EDT [facility] Crystals Absent 10/25/2024 9:49 AM EDT [facility] Epithelial Cells 11 per hpf 10/25/2024 9:49 AM EDT [facility] Urine specimen / Unknown 10/25/2024 8:23 AM EDT 10/25/2024 8:56 AM EDT us Deana [place] PA-C URINE ORDERABLES Final Resu lt [facility] [address] [place] [address], [place] * (ABNORMAL) DRUG MONITOR, PANEL 1, W/CONF, URINE (10/04/2024 11:15 AM EDT) Amphetamines, Urine Ql NEGATIVE <500 ng/mL [facility] Barbiturates NEGATIVE <300 ng/mL [facility] Benzodiazepines NEGATIVE <100 ng/mL [facility] Cocaine Metabolite POSITIVE(A) <150 ng/mL [facility] Benzoylecgonine 266(H) <100 ng/mL [facility] medMATCH Benzoylecgonine INCONSISTEN T(A) [facility] Cocaine Comments [facility] Comment:See Cocaine Notes, L DT Notes Marijuana Metabolite NEGATIVE <20 ng/mL [facility] Methadone Metabolite NEGATIVE <100 ng/mL [facility] Opiates NEGATIVE <100 ng/mL [facility] Oxycodone Screen, Urine NEGATIVE <100 ng/mL [facility] Phencyclidine, Urine NEGATIVE <25 ng/mL [facility] Creatinine, Urine 144.1 > or = 20.0 mg/dL [facility] pH 6.3 4.5 - 9.0 [facility] Oxidant NEGATIVE <200 mcg/mL [facility] Notes and Comments Q [facility] Comment: This drug testing is for medical [...] analytical performance characteristics have been determined by [facility]. It has not been cleared or approved by the FDA. This assay has been validated pursuant to the CLIA regulations and is used for clinical purposes. medMATCH(R) enables providers to identify if drug use is consistent or inconsistent with a corresponding prescribed medication(s) list. Healthcare Providers needing Interpretation assistance, please contact us at [phone] ( ) M-F, 8am to 10pm EST 10/04/2024 11:1 5 AM EDT 10/04/2024 10:17 PM EDT Henna Brush MD URINE ORDERABLES Final Resu lt Performing Organization Address [facility] de Phone Number [facility] [address] [place] [phone] * Drug Monitor, MedMATCH (Q [id number]) (10/04/2024 11:15 AM EDT) medMATCH Summary [facility] Comment: Prescribed Prescribed Not Prescribed Consistent Inconsistent Inconsistent [facility] Benzoylecgonine Prescribed Drug 1 Pregabalin [facility] 10/04/2024 11:1 5 AM EDT 10/04/2024 10:17 PM EDT Henna Brush MD URINE ORDERABLES Final Resu lt Performing Organization Address City[facility] Co de Phone Number [employer] [facility] [address] [place] [address] * Drug Monitor, Tapentadol, Qn, Urine (Q [id number]) (10/04/2024 11:15 AM EDT) Tapentadol NEGATIVE <50 ng/mL [facility] [place] Nortapentadol NEGATIVE <50 ng/mL [facility] [place] Tapentadol Comments [facility] [place] Comment:See LDT Notes 10/04/2024 11:1 5 AM EDT 10/04/2024 10:17 PM EDT us Henna Brush MD URINE ORDERABLES Final Resu lt Performing Organization Address [facility] de Phone Number [employer] [address] [facility] [place] [address] * Drug Monitor, Alcohol, Metab, W/Conf, Urine (Q [id number]) (10/04/2024 11:15 AM EDT) Alcohol Metabolites NEGATIVE <500 ng/mL [facility] 10/04/2024 11:1 5 AM EDT 10/04/2024 10:17 PM EDT us Henna Brush MD URINE ORDERABLES Final Resu lt Performing Organization Address [facility] Co de Phone Number [facility] [address] [place] [address] * (ABNORMAL) Drug Monitoring, Pregabalin, Quantitative, Urine (Q [id number]) (10/04/2024 11:15 AM EDT) Pregabalin NEGATIVE <1000 ng/mL [facility] Medmatch Pregabalin INCONSISTENT (A) [facility] Pregabalin Comments [facility] Comment:See LDT Notes 10/04/2024 11:1 5 AM EDT 10/04/2024 10:17 PM EDT us Henna Brush MD URINE ORDERABLES Final Resu lt Performing Organization Address [facility] Co de Phone Number [employer] [address] [place] [phone] * Drug Monitor, Tramadol, Qn, Urine (Q [id number]) (10/04/2024 11:15 AM EDT) Desmethyltramadol NEGATIVE <100 ng/mL [facility] Tramadol NEGATIVE <100 ng/mL [facility] Tramadol Comments [facility] Comment:See LDT Notes 10/04/2024 11:1 5 AM EDT 10/04/2024 10:17 PM EDT us Henna Brush MD URINE ORDERABLES Final Resu lt Performing Organization Address [facility] Co de Phone Number [employer] [address] [place] [phone] * Drug Monitoring,Buprenorphine With Confirmation,Naloxone, Urine ([id number]) (10/04/2024 11:15 AM EDT) Buprenorphine, Urine Ql NEGATIVE <5 ng/mL [facility] 10/04/2024 11:1 5 AM EDT 10/04/2024 10:17 PM EDT us Henna Brush MD URINE ORDERABLES Final Resu lt Performing Organization Address [facility] Co de Phone Number [employer] [address] [place] [phone] * Pain Mgmt, Heroin Metab W/Confirmation, Urine (Q [id number]) (10/04/2024 11:15 AM EDT) 6 Acetylmorphine NEGATIVE <10 ng/mL [facility] [employer] 10/04/2024 11:1 5 AM EDT 10/04/2024 10:17 PM EDT Henna Brush MD URINE ORDERABLES Final Resu lt Performing Organization Address [facility] Co de Phone Number [employer] [facility] [facility] [address] [place] [phone] * Pain Mgmt, Fentanyl, Qn, Urine (Q [id number]) (10/04/2024 11:15 AM EDT) Fentanyl, Urine NEGATIVE <0.5 ng/mL [facility] Norfentanyl, Urine NEGATIVE <0.5 ng/mL [facility] Fentanyl Comments [facility] Comment:See LDT Notes 10/04/2024 11:1 5 AM EDT 10/04/2024 10:17 PM EDT Henna Brush MD URINE ORDERABLES Final Resu lt Performing Organization Address [facility] Co de Phone Number [employer] [address] [place] [phone] from Last 3 Months Insurance [facility] Care Teams Personal Fitness Manager Relationship Specialty Start Date End Date Omaira Champion APRN [address] [place] [phone] PCP - General Internal Medicine 04/18/24
--- OUTSIDE RECORDS SUMMARY | 2024-12-28 15:17 | XMS_ITS | Encounter Summary ---
Author Organization [facility] Address [address] [place] [address] Care Team Providers Care Wood [employer] Neck Whipper Name Role Phone Omaira Champion BAKED GOODS STOCK CLERK Primary Care Provider [phone] Encounter Details Date Type Department Care Team (Late st Contact Info) Description 11/08/2014 Documentation [facility] [address] [place] [address], [place] [address] Sonia Jolly, TONIA Social History Tobacco Use Types Packs/Day [...] 12/12/2021 7:10 AM EDT R/O Influenza 04/18/2024 04/18/202404/18/2024 10: 57 AM EST R/O RSV 04/18/2024 [...] documented as of this encounter Care Teams [employer] Neck Whipper Relationship Specialty Start Date End Date Omaira Champion, ERYN [address] [place] [phone] PCP - General Family Medicine 04/10/24 documented as of this encounter
--- OUTSIDE RECORDS SUMMARY | 2024-12-28 15:17 | XMS_ITS | Clinical Summary ---
Author Organization [facility] Address [address] [place] [address] Phone Care Team Providers Care Remote Sensing Technician Name Role Phone Physician, No Pcp Primary Care Provider Unavaila ble Allergies Active Allergy Reactions Criticality Noted Date Comments Amoxicillin-Pot Clavulanate 02/12/20 Prochlorperazine 02/12/2024 Iodinated Contrast Media 02/12/2024 Lactose 02/12/2024 Penicillins 02/12/2024 Metoclopramide Hcl 02/12/2024 Ketorolac Anaphylaxis High 02/12/2024 Sertraline 02/12/2024 Medications albuterol HFA (PROAIR HFA ; PROVENTIL HFA ; VENTOLIN HFA) 90 mcg/actuation inhaler Inhale 2 puffs by mouth every 4 (four) hours if needed for wheezing. 1 each 02/12/2024 Active Medical History Medical History Date Comments Arthritis Migraines Asthma Social History Tobacco Use Types Packs/Day Years Used Date Smoking Tobacco: Never Smokeless Tobacco: Never Tobacco Cessation:Counseling Given: Not Answered Alcohol Use Standard Drinks/Week Comments Not Currently 0 (1 standard drink = 0.6 oz pur e alcohol) Comments Unknown Sex and Gender Information Value Date Recorded Sex Assigned at Female 02/12/2024 3:26 PM EST Legal Sex Female 12:40 PM EST Gender Identity Female 02/12/2024 3:26 PM EST Sexual Orientation Straight 02/12/2024 3: 26 PM EST Obstetrics History Last Filed Vital Signs Vital Sign Reading Time Taken Comments Blood Pressure 164/130 02/15/2024 4:21 PM EST Pulse 129 02/15/2024 4:21 PM EST Temperature 36.9 C (98.4 F) 02/15/2024 4:21 PM EST Respiratory Rate 22 02/15/2024 4:21 PM EST Oxygen Saturation 100% 02/15/2024 4:21 PM EST Inhaled Oxygen Concentration - - Weight 68 kg (150 lb) 02/15/2024 4:21 PM EST Height 144.8 cm (4' 9 ) 02/15/2024 4:21 PM EST Body Mass Index 32.46 02/15/2024 4:21 PM EST Plan of Treatment Health Maintenance Due Date Last Done Comments Breast Cancer Screening 1978 Colorectal Cancer Screening: Colonoscopy 1978 Pneumococcal Vaccine: Pediatrics (0 to 5 Years) and At-Risk Patients (6 to 49 Years) (2 of 2 - PCV) 04/01/2011 04/01/2010 Hepatitis B Vaccines (2 of 3 - 19+ 3-dose series) 10/22/2016 09/24/2016 Cervical Cancer Screening: Pap Smear 05/21/2018 05/22/2015 DTaP,Tdap,and Td Vaccines (2 - Tdap) 04/01/2020 04/01/2010 Social Influencers of Health Screening 02/12/2024 Depression Screening 02/16/2024 COVID-19 Vaccine ( season) 2024 Influenza Vaccine (#1) 2024 4, 03/27/2013, 03/09/2012 Cholesterol Screening (Lipid Panel) 01/17/2025 01/18/2020 Hypertension/CHF/CAD Annual BMP Blood Test 02/14/2025 02/15/2024, 02/12/2024, 10/03/2022, Additional history exists RSV Immunization Adult Patients (1 - 1-dose 75+ series) 2053 HIV Screening Completed 10/08/2011 Hepatitis C Screening Completed 10/08/2011 MMR Vaccines Aged Out 10/01/2016 No longer eligi ble based on patient's age to complete this topic HIB Vaccines Aged Out No longer eligi ble based on patient's age to complete this topic HPV Vaccines Aged Out No longer eligi ble based on patient's age to complete this topic Hepatitis A Vaccines Aged Out No long er eligible based on patient's age to complete this topic IPV Vaccines Aged Out No longer eligi ble based on patient's age to complete this topic Meningococcal ACWY Vaccine Aged Out N o longer eligible based on patient's age to complete this topic Meningococcal B Vaccine Aged Out No l onger eligible based on patient's age to complete this topic RSV Immunization Patients Under 20 months Aged Out No longer eligible based on patient's age to complete this topic Varicella Vaccines Aged Out No longer eligible based on patient's age to complete this topic Procedures Procedure Name Priority Date/Time Associated Diagnosis Comments COMPREHENSIVE METABOLIC PANEL STAT 02/15/2024 4:31 PM EST from Last 3 Months or Most Recently Relevant to Health Maintenance Results * (ABNORMAL) Comprehensive metabolic panel (02/15/2024 4:31 PM EST) Sodium 137 133 - 145 mmol/L LAB CHEMISTRY METHOD 02/15/2024 6:10 PM [facility] Potassium 3.5 3.5 - 5.5 mmol/L LAB CHEMISTRY METHOD 02/15/2024 6:10 PM [facility] Chloride 105 96 - 110 mmol/L LAB CHEMISTRY METHOD 02/15/2024 6:10 PM [facility] CO2 25 21 - 32 mmol/L LAB CHEMISTRY METHOD 02/15/2024 6:10 PM [facility] Anion Gap 7 3 - 11 LAB CHEMISTRY METHOD 02/15/2024 6:10 PM [facility] Glucose 107(H) 70 - 100 mg/dL LAB CHEMISTRY METHOD 02/15/2024 6:10 PM [facility] BUN 10 5 - 25 mg/dL LAB CHEMISTRY METHOD 02/15/2024 6:10 PM [facility] Creatinine 0.69 0.50 - 1.10 mg/dL LAB CHEMISTRY METHOD 02/15/2024 6:10 PM [facility] eGFR 109 >=60 mL/min/1. 73m2 LAB CHEMISTRY METHOD 02/15/2024 6:10 PM [facility] Comment:Calculation based on the Chronic Kidney Disease Epidemiology Collaboration (CKD-EPI) equation refit without adjustment for race. BUN/Creatinine Ratio 14.5 LAB CHEMISTRY METHOD 02/15/2024 6:10 PM [facility] Calcium 9.7 8.5 - 10.5 mg/dL LAB CHEMISTRY METHOD 02/15/2024 6:10 PM [facility] AST (SGOT) 34 10 - 42 unit/L LAB CHEMISTRY METHOD 02/15/2024 6:10 PM [facility] ALT (SGPT) 29 10 - 60 unit/L LAB CHEMISTRY METHOD 02/15/2024 6:10 PM [facility] Alkaline Phosphatase 94 42 - 121 unit/L LAB CHEMISTRY METHOD 02/15/2024 6:10 PM [facility] Total Protein 8.0 6.0 - 8.0 g/dL LAB CHEMISTRY METHOD 02/15/2024 6:10 PM [facility] Albumin 4.0 3.2 - 5.0 g/dL LAB CHEMISTRY METHOD 02/15/2024 6:10 PM [facility] Total Bilirubin 0.3 0.0 - 1.4 mg/dL LAB CHEMISTRY METHOD 02/15/2024 6:10 PM [facility] Blood Venous blood specimen / Unknown Venipuncture / Unknown 02/15/2024 4:31 PM EST 02/15/2024 5:14 PM EST us Flaquito Redd DO LAB BLOOD ORDERABLES Final Result [facility] [address] [place] [address], from Last 3 Months or Most Recently Relevant to Health Maintenance Insurance MEDICAID - [place] Care Teams Remote Sensing Technician Relationship Specialty Start Date End Date Physician, No Pcp PCP - General 02/12/24
--- OUTSIDE RECORDS SUMMARY | 2024-12-28 15:17 | XMS_ITS | Encounter Summary ---
Author Organization [facility] Address [address] [place] [address] Care Team Providers Care Ophthalmic Asst Name Role Phone [facility] [place] Primary Care Provider Unavailable Pcp, No Primary Care Provider Unavailabl e [facility] [place] Unavailable Unavailable Unknown Primary Care Provider [phone] [facility] [place] Primary Care Provider Unavailable Nicola Mcbride MD Primary Care Provider [phone] Omaira Champion APRN Primary Care Provider [phone] Encounter Details Date Type Department Care Team (Late st Contact Info) Description 10/22/2021 Scanned Document [facility] [address] [facility] [address] [place] [address] Provider, Generic Social History Tobacco [...] documented as of this encounter Care Teams Ophthalmic Asst Relationship Specialty Start Date End Date [facility] [place] PCP - General 10/16/21 02/13/22 Pcp, No PCP - General General Medicine 02/14/22 03/21/22 Unknown Unknow Provider Address PCP - General 08/31/22 09/11/22 [facility] [place] PCP - General 09/12/22 02/21/24 Nicola Mcbride MD [address] [place] [phone] PCP - General Family Medicine 02/22/24 04/17/24 Omaira Champion, INDUSTRIAL SALES ENGINEER [address] [place] [phone] PCP - General Internal Medicine 04/18/24 [facility] [place] 02/14/22 12/26/24 documented as of this encounter
--- OUTSIDE RECORDS SUMMARY | 2024-12-28 15:17 | XMS_ITS | Encounter Summary ---
Author Organization [facility] Address [address] [place] [address] Care Team Providers Care Senior Accounting Associate Name Role Phone AkiraOmaira ferreira ERYN Primary Care Provider [phone] Encounter Details Date Type Department Care Team (Latest Contact Info) Description 05/03/2014 Transcribed Orders [facility] [place] [address] Adam Velazquez MD [address] [facility] [address] [place] [phone] Calculus of kidney (Primary Dx) Social History Tobacco Use Types [...] documented as of this encounter Results * (ABNORMAL) CBC and differential (05/03/2014 7:40 AM EDT) WBC 7.52 4.80 - 10.80 X 10(3)/[facility] RBC 3.79 3.50 - 5.50 X 10(6)/[facility] Hemoglobin 11.5(L) 12.0 - 15.0 g/dL [facility] Hematocrit 34.9(L) 36.0 - 48.0 % [facility] MCV 92.1 81.0 - 99.0 FL [facility] MCH 30.3 25.0 - 36.0 pg [facility] MCHC 33.0 33.0 - 37.0 g/dL [facility] Red Cell Distribution Width SD 50.7(H) 36.4 - 46.3 FL [facility] Red Cell Distribution Width-CV 15.0(H) 11.7 - 14.4 % [facility] Platelets 341 120 - 450 X 10(3)/[facility] MPV 9.2(H) 8.5 - 9.0 FL [facility] nRBC% 0.0 0.0 - 0.0 /100 WBC [facility] nRBC Absolute, Auto 0.00 0.00 - 0.00 /[facility] Blood specimen (specimen) ARM NEC / Unknown 05/03/2014 7:40 AM EDT us Adam Velazquez MD LAB BLOOD ORDERABLES Final Result [facility] [address] [place] [address] * (ABNORMAL) Comprehensive metabolic panel (05/03/2014 7:40 AM EDT) Glucose 98 70 - 100 mg/dL [facility] BUN 12 7 - 17 mg/dL [facility] Creatinine 0.50(L) 0.52 - 1.04 mg/dL [facility] Sodium 139 137 - 145 mmol/L [facility] Potassium 3.9 3.5 - 5.1 mmol/L [facility] Chloride 102 98 - 107 mmol/L [facility] CO2 26 22 - 30 mmol/L [facility] Anion Gap 11 7 - 16 mmol/L [facility] Calcium 9.7 8.4 - 10.2 mg/dL [facility] Total Protein 6.9 6.3 - 8.2 g/dL [facility] Albumin 4.0 3.5 - 5.0 g/dL [facility] Globulin 3.0 2.0 - 3.5 g/dL [facility] A/G Ratio 1.3 1.1 - 2.2 [facility] Aspartate Aminotransferase (AST) 20 14 - 36 u/l [facility] Alkaline Phosphatase 48 38 - 126 u/l [facility] Total Bilirubin 0.1(L) 0.2 - 1.3 mg/dL [facility] Alanine Aminotransferase (ALT) 38 9 - 52 u/l [facility] eGFR >60 [facility] Comment: Interpretation Stage 1 90 ml/min or greater Healthy kidneys or kidney damage with normal or high eGFR Stage 2 60-89 ml/min Kidney damage and mild decrease in eGFR Stage 3 30-59 ml/min Moderate decrease in eGFR Stage 4 15-29 ml/min Severe decrease in eGFR Stage 5 <15 ml/min Kidney failure The GFR is calculated to include the patient's race and gender as entered in Patient Demographics. Blood specimen (specimen) 05/03/2014 7:40 AM EDT Adam Velazquez MD LAB BLOOD ORDERABLES Edite d Result - Final [facility] [address] [place] [address] documented in this encounter Visit Diagnoses Diagnosis Calculus of kidney- Primary documented in this encounter Additional Health [...] documented as of this encounter Care Teams Senior Accounting Associate Relationship Specialty Start Date End Date Omaira Champion, ERYN [address] [place] [phone] PCP - General Family Medicine 04/10/24 documented as of this encounter
--- OUTSIDE RECORDS SUMMARY | 2024-12-28 15:17 | XMS_ITS | Encounter Summary ---
Author Organization [facility] Address [address] [place] [address] Care Team Providers Care Actuarial Science Professor Name Role Phone Nicola Mcbride MD Primary Care Provider [phone] [facility] Primary Care Provider Unavailable Pcp, No Primary Care Provider Unavailabl e [facility] Unavailable Unavailable Unknown Primary Care Provider [phone] [facility] Primary Care Provider Unavailable Nicola Mcbride MD Primary Care Provider + Omaira Champion APRN Primary Care Provider [phone] Encounter Details Date Type Department Care Team (Late st Contact Info) Description 07/20/2021 Scanned Document [address] [place] [phone] Provider, Generic Social History Tobacco Use [...] documented as of this encounter Care Teams Actuarial Science Professor Relationship Specialty Start Date End Date Nicola Mcbride MD [address] [place] [address] PCP - General Family Medicine 11/16/19 10/15/21 [facility] PCP - General 10/16/21 02/13/22 Pcp, Alize PCP - General General Medicine 02/14/22 03/21/22 Unknown Unknow Provider Address PCP - General 08/31/22 09/11/22 [facility] PCP - General 09/12/22 02/21/24 Nicola Mcbride MD [address] [place] [address] PCP - General Family Medicine 02/22/24 04/17/24 Omaira Champion APRN [address] [place] [phone] PCP - General Internal Medicine 04/18/24 [facility] 02/14/22 12/26/24 documented as of this encounter
== END 2024-12-28 14:29 | disposition home or self-care (01) ==
PROVIDERS: Physician Assistant; Emergency Provider Emergency Medicine
DX: M06.89 Other specified rheumatoid arthritis, multiple sites (principal); M79.10 Myalgia, unspecified site; Z79.899 Other long term (current) drug therapy
CPT/HCPCS: 36415; 80053; 82550; 83735; 85025; 85652; 86140; 99282; 99284

== ENCOUNTER 2025-01-13 10:23 | Emergency (ER) | payer OTHER, MEDICAID, SELFPAY ==
--- OUTSIDE RECORDS SUMMARY | 2025-01-11 03:31 | XMS_ITS | Encounter Summary ---
Author Organization [facility] Address [address] [place] [address] Care Team Providers Care Grounds Crew Supervisor Name Role Phone Pcp, Does Not Have A Primary Care Provider Unava ilable Reason for Visit * Reason Comments Flank Pain BIBA from [facility] c/ o left flank pain 11/24. Hx kidney stones. Encounter Details Date Type Department Care Team (Late st Contact Info) Description 01/11/2025 3:31 AM EST - 01/11/2025 4:36 AM EST Emergency [facility] Emergency Department [address] [place] [id number] Ara Salazar MD [address] [place] [phone] Left flank pain (Primary Dx) Discharge Disposition: Home or Self Care Social History Tobacco Use Types Packs/Day Years Used Date Smoking Tobacco: Never Smokeless Tobacco: Never Alcohol Use Standard Drinks/Week Comments Not Currently 0 (1 standard drink = 0.6 oz pur e alcohol) [facility] Utilities Answer Date Recorded In the past 12 months has [employer] electric, gas, oil, or water [employer] threatened to shut off services in your home? No 03/23/2024 Social Connection and Isolation Panel Answer Date Recorded In a typical week, how many times do you talk on the phone with family, friends, or neighbors? Patient declined 05/26/2020 How often do you get togethe r with friends or relatives? Patient declined 05/26/2020 How often do you attend caodaism or episcopal serv ices? Patient declined 05/26/2020 Do you belong to any clubs o r organizations such as caodaism groups, unions, fraternal or athletic groups, or [...] Date Recorded PHQ-2 Total Score 0 03/23/2024 [facility] [place] of Occupat ional Health - Occupational Stress [...] hurting or threatening you in anyway? no 01/11/2025 Physical Indicators of Abuse No evidence of phys ical abuse 01/11/2025 Comments No Sex and Gender Information Value Date Recorded Sex Assigned at Female 08/20/2021 7:10 AM EDT Legal Sex Female 8:50 AM EST Gender Identity Female 04/10/2024 2:45 AM EST Sexual Orientation Straight 06/09/2024 11 :58 PM EDT documented as of this encounter Last Filed Vital Signs Vital Sign Reading Time Taken Comments Blood Pressure 142/113 01/11/2025 4:30 AM EST Pulse 103 01/11/2025 4:30 AM EST Temperature 36.8 C (98.2 F) 01/11/2025 4:30 AM EST Respiratory Rate 17 01/11/2025 4:30 AM EST Oxygen Saturation 98% 01/11/2025 4:31 AM EST Inhaled Oxygen Concentration - - Weight 68 kg (150 lb) 01/11/2025 3:29 AM EST Height 144.8 cm (4' 9 ) 01/11/2025 3:29 AM EST Body Mass Index 32.46 01/11/2025 3:29 AM EST documented in this encounter Discharge Instructions * Attachments The following attachments cannot be sent through Care Everywhere. * Flank pain ??? ED discharge instructions (Congolese) documented in this encounter Medications at Time of Discharge cloNIDine HCL (CATAPRES) 0.1 mg tablet Take 1 tablet (0.1 mg total) by mouth 2 (two) times daily. HYDROcodone-acet aminophen (NORCO) 5-325 mg per tablet Take 1 tablet by mouth every 6 (six) hours as needed for pain. 8 tablet 04/10/2024 HYDROcodone-acet aminophen (NORCO) 5-325 mg per tablet Take 1 tablet by mouth every 4 (four) hours as needed for pain (moderate/severe pain) for up to 2 doses. Dispensed from Emergency Department 2 tablet 06/22/2024 HYDROcodone-acet aminophen (NORCO) 5-325 mg per tablet Take 1 tablet by mouth every 6 (six) hours as needed (Severe pain) for up to 8 doses. 8 tablet 08/21/2024 8:37 AM EDT 08/20/2024 HYDROcodone-acet aminophen (NORCO) 5-325 mg per tablet Take 1 tablet by mouth every 4 (four) hours as needed for pain (moderate/severe pain) for up to 2 doses. Dispensed from Emergency Department 2 tablet 10/24/2024 lidocaine 4 % topical patch Place 1 patch over 12 hours onto the skin every 24 hours. Remove & Discard patch within 12 hours or as directed by 30 patch 07/19/2024 lithium 300 mg tablet Take 1 tablet (300 mg total) by mouth 2 (two) times daily with breakfast and dinner. losartan (COZAAR) 50 mg tablet Take 1 tablet (50 mg total) by mouth daily. 03/06/2022 ondansetron (ZOFRAN) 4 mg tablet Take 1 tablet (4 mg total) by mouth every 6 (six) hours. 12 tablet 04/10/2024 ondansetron (ZOFRAN) 4 mg tablet Take 1 tablet (4 mg total) by mouth every 6 (six) hours as needed for nausea for up to 8 doses. 8 tablet 08/20/2024 oxyCODONE (ROXICODONE) 5 mg Immediate Release tablet Take 1 tablet (5 mg total) by mouth every 8 (eight) hours as needed for pain. 4 tablet 07/19/2024 oxyCODONE-acetam inophen (PERCOCET) 5-325 mg per tablet Take 1 tablet by mouth every 4 (four) hours as needed for pain (moderate/severe pain) for up to 2 doses. Dispensed from Emergency Department 2 tablet 12/11/2024 pantoprazole (PROTONIX) 40 mg tablet Take 1 tablet (40 mg total) by mouth daily. PROAIR HFA 90 mcg/actuation HFA aerosol inhaler Inhale 1 puff into the lungs daily as needed. 11/21/2020 tiZANidine (ZANAFLEX) 2 mg capsule Take 1 capsule (2 mg total) by mouth 2 (two) times daily as needed for muscle spasms. 8 capsule 03/08/2024 documented as of this encounter ED Notes * Ara Salazar MD - 01/11/2025 4:36 AM EST Images from the original note were not included. Chief Complaint Patient presents with Flank Pain BIBA [facility] c/o left flank pain 11/24. Hx kidney stones. HPI/PE: Past Medical History: No date: Anemia Comment: resolved since hysterectomy No date: Anxiety No date: Arrhythmia Comment: TACCHYCARDIA No date: Asthma Comment: USES INHALERS DAILY No date: Bipolar 1 disorder (HC Code) (HC CODE) No date: Bipolar 1 disorder (HC Code) (HC CODE) No date: Blood transfusion without reported diagnosis No date: Blood transfusion, without reported diagnosis Comment: S/P C/SECTION No date: Depression No date: Diabetes mellitus (HC CODE) Comment: pre dm No date: GERD (gastroesophageal reflux disease) Comment: severe per pt No date: Hypertension Comment: pt denies. states goes up when in pain and stress only 03/17/2015: Iron deficiency anemia Comment: Low ferritin 02/2015 No date: Kidney stone 11/23/2012: Kidney stones No date: Migraines No date: Pancreatitis Comment: treated per pt No date: PONV (postoperative nausea and vomiting) No date: Rheumatoid arthritis (HC Code) (HC CODE) No date: Seizures (HC Code) (HC CODE) Comment: brought on by stress. nonepileptic psychogenic. No date: Spinal stenosis No date: Tachycardia Comment: r/t anxiety No date: UTI (lower urinary tract infection Returns to ed stating severe L sided flank pain - chronic, flared up Notes she moved to [facility] 1 month ago but has been back in [place] for weeks and ran out of her depakote No nv, urinary symptoms, fevers, chills, trauma Feels like previous pain flares w no known cause Pt denies other complaints/concerns MDM: Gastritis, gb disease, pancreatitis, stone, obstruction >> acs, pe, dissection, pna Appendicitis, uti, pyelo, stone, obstruction, diverticulitis, gi bleed, gu/metalsmith disease An acute or life threatening problem was considered during this evaluation A decision regarding hospitalization was made during this visit Patient does not require admission or further ED Observation at this time External data reviewed: Notes (OSH or non-ED) Physical Exam ED Triage Vitals [01/11/25 1319] BP: (!) 163/118 Pulse: (!) 138 Pulse from O2 sat: n/a Resp: 16 Temp: 98.4 ??F (36.9 ??C) Temp src: Oral SpO2: 99 % BP (!) 142/113 Pulse (!) 103 Temp 98.2 ??F (36.8 ??C) (Oral) Resp 17 Ht 4' 9 (1.448 m) Wt 68 kg (150 lb) LMP 09/02/2015 SpO2 98% BMI 32.46 kg/m?? Physical Exam Vitals and nursing note reviewed. Constitutional: Appearance: She is well-developed. She is not diaphoretic. Comments: Pacing around room HENT: Head: Normocephalic and atraumatic. Nose: Nose normal. Eyes: General: No scleral icterus. Conjunctiva/sclera: Conjunctivae normal. Pupils: Pupils are equal, round, and reactive to light. Neck: Vascular: No JVD. Cardiovascular: Rate and Rhythm: Normal rate and regular rhythm. Heart sounds: Normal heart sounds. Pulmonary: Effort: Pulmonary effort is normal. No respiratory distress. Breath sounds: Normal breath sounds. Chest: Chest wall: No tenderness. Abdominal: Palpations: Abdomen is soft. Tenderness: There is no abdominal tenderness. There is no guarding or rebound. Musculoskeletal: General: No tenderness. Normal range of motion. Cervical back: Normal and normal range of motion. Thoracic back: Normal. Lumbar back: Normal. Back: Lymphadenopathy: Cervical: No cervical adenopathy. Skin: General: Skin is warm and dry. Findings: No rash. Neurological: Mental Status: She is alert and oriented to person, place, and time. Cranial Nerves: No cranial nerve deficit. Psychiatric: Behavior: Behavior normal. Procedures Attestation/Critical Care Patient Reevaluation: Unable to reproduce pain, however pt points to focal area which has been painful area in past 2/2 pt hx of multiple script providers and extensive allergies tylenol offered to pt while I was inanother pts room - pt declines, states she would like dc papers and also declines waiting to speak w me further; pt left department prior to my ability to re-assess her Dc by rn Clinical Impressions as of 01/11/25 06 Left flank pain ED Disposition Discharge Ara Salazar MD 01/11/25 0690 * Liana Basilio RN - 01/11/2025 4:01 AM EST 3:55 AM Provider at bedside. Patient presents to ED complaining of 10/10 L flank pain, hx kidney stones. Patient walked to restroom with strong and steady gait. 4:33 AM Patient refusing medications, further medical care. Patient requesting discharge. Provider notified. IV access removed, bandage applied. Vitals taken. Patient education given, patient verbalized understanding of next steps. Patient walked off unit with strong and steady gait. documented in this encounter Plan of Treatment Not on file documented as of this encounter Visit Diagnoses Diagnosis Left flank pain- Primary Abdominal pain, unspecified site documented in this encounter Active and Recently Administered Medications Additional Health Concerns Assessment Noted Time PHQ-9 Depression Total Score: 2 12/02/19 22 1:13 PM EDT documented as of this encounter Care Teams Grounds Crew Supervisor Relationship Specialty Start Date End Date Pcp, Does Not Have A PCP - General 01/11/25 documented as of this encounter
--- NOTE | ~2025-01-13 | CT_ITS ---
CLINICAL HISTORY: L flank pain radiating into L groin CT abdomen and pelvis without contrast Comparison: CT/[place]/SR - CT ABDOMEN PELVIS WO IV CON - 02/20/24 23:[address]/SR - CT ABDOMEN PELVIS WO IV CON - 02/02/24 15:50 EST Findings: No hydronephrosis. Right nephrolithiasis measures up to 2 mm. Left nephrolithiasis measures up to 5 mm. Right renal scarring. Left renal parapelvic cysts. No bladder stone. No consolidation at the lung bases. Unremarkable gallbladder. Calcification in the liver of the gallbladder fossa. Status post hysterectomy. The other solid organs are normal. No bowel wall thickening or dilation. A normal appendix is identified. No aneurysm. Trace calcified atherosclerotic disease. No lymphadenopathy. No ascites. No acute fracture. Impression: No urinary tract obstruction or other acute findings. This document has been electronically signed by: Sonia Macias MD on 01/13/2025 13:52:54
[2025-01-13 10:41] VITALS: BP 163/102; PULSE 98; RESP 20; TEMP 35.9; O2SAT 98; BMI 31.1
--- OUTSIDE RECORDS SUMMARY | 2025-01-13 11:17 | XMS_ITS | Encounter Summary ---
Author Organization [facility] Address [address] [place] [address] Care Team Providers Care Suede Cleaner Name Role Phone Pcp, Does Not Have A Primary Care Provider Unava ilable Encounter Details Date Type Department Care Team (Latest Contact Info) Description 07/06/2016 Transcribed Orders [facility] [place] [address] Cl Gutierrez MD [address] [place] [address] Low back pain (Primary Dx); Chronic intractable [...] 4.8 - 10.8 x1000/uL 07/06/2016 9:15 AM [facility] RBC 3.8 M/uL 07/06/2016 9:15 AM [facility] Hemoglobin 12.1 12.0 - 15.0 g/dL 07/06/2016 9:15 AM [facility] Hematocrit 35.9(L) 36.0 - 48.0 % 07/06/2016 9:15 AM [facility] MCV 94.7 81.0 - 99.0 fL 07/06/2016 9:15 AM [facility] MCHC 33.7 33.0 - 37.0 g/dL 07/06/2016 9:15 AM [facility] RDW-CV 13.2 % 07/06/2016 9:15 AM [facility] Platelets 391 120 - 450 x1000/uL 07/06/2016 9:15 AM [facility] MPV 9.0 fL 07/06/2016 9:15 AM [facility] ANC (Abs Neutrophil Count) 4.1 2.2 - 7.2 x 1000/uL 07/06/2016 9:15 AM [facility] Neutrophils 46.3 45.0 - 90.0 % 07/06/2016 9:15 AM [facility] Lymphocytes 46.8 10.0 - 50.0 % 07/06/2016 9:15 AM [facility] Absolute Lymphocyte Count 4.2 0.5 - 5.4 x 1000/uL 07/06/2016 9:15 AM [facility] Monocytes 6.0 3.0 - 11.0 % 07/06/2016 9:15 AM [facility] Monocyte Absolute Count 0.5 0.1 - 1.2 x 1000/uL 07/06/2016 9:15 AM [facility] Eosinophils 0.2 0.0 - 4.0 % 07/06/2016 9:15 AM [facility] Eosinophil Absolute Count 0.0 0.0 - 0.4 x 1000/uL 07/06/2016 9:15 AM [facility] Basophil 0.5 0.0 - 2.0 % 07/06/2016 9:15 AM [facility] Basophil Absolute Count 0.0 0.0 - 0.2 x 1000/uL 07/06/2016 9:15 AM [facility] Immature Granulocytes 0.2 0.0 - 0.4 % 07/06/2016 9:15 AM [facility] Absolute Immature Granulocyte Count 0.0 <=3.0 x 1000/uL 07/06/2016 9:15 AM [facility] nRBC 0.0 % 07/06/2016 9:15 AM [facility] Absolute nRBC 0.0 x 1000/uL 07/06/2016 9:15 AM [facility] MCH 31.9 25.0 - 35.0 pg 07/06/2016 9:15 AM [facility] Blood specimen (specimen) Venipuncture / Unknown 07/06/2016 8:58 AM EDT 07/06/2016 9:04 AM EDT us Cl Gutierrez MD LAB BLOOD ORDERABLES Final Resu lt [facility] [address] [place] [address], [facility] [phone] * Comprehensive metabolic panel (07/06/2016 8:58 AM EDT) Sodium 140 137 - 145 mmol/L 07/06/2016 9:36 AM EDT [facility] Potassium 3.7 3.5 - 5.1 mmol/L 07/06/2016 9:36 AM [facility] Chloride 107 98 - 107 mmol/L 07/06/2016 9:36 AM [facility] CO2 25 22 - 30 mmol/L 07/06/2016 9:36 AM [facility] Anion Gap 8 7 - 16 07/06/2016 9:36 AM [facility] Glucose 79 70 - 100 mg/dL 07/06/2016 9:36 AM [facility] BUN 11 7 - 17 mg/dL 07/06/2016 9:36 AM [facility] Creatinine 0.55 0.52 - 1.04 mg/dL 07/06/2016 9:36 AM [facility] Calcium 9.6 8.4 - 10.2 mg/dL 07/06/2016 9:36 AM [facility] BUN/Creatinine Ratio 20.0 06/16 9:36 AM [facility] Total Protein 7.1 6.3 - 8.2 g/dL 07/06/2016 9:36 AM [facility] Albumin 4.1 3.5 - 5.0 g/dL 07/06/2016 9:36 AM [facility] Total Bilirubin 0.3 0.2 - 1.3 mg/dL 07/06/2016 9:36 AM [facility] Alkaline Phosphatase 48 38 - 126 U/L 07/06/2016 [facility] Alanine Aminotransferase (ALT) 19 9 - 52 U/L 07/06/2016 9:36 AM [facility] Aspartate Aminotransferase (AST) 15 14 - 36 U/L 07/06/2016 9:36 AM EDT [facility] Globulin 3.0 2.0 - 3.5 g/dL 07/06/2016 9:36 AM T [facility] A/G Ratio 1.4 1.1 - 2.2 07/06/2016 9:36 AM T [facility] eGFR (Afr Amer) >60 >60 mL/min/1. 73m2 07/06/2016 9:36 AM T [facility] Comment: Values under 60mL/min/1.73m2 may indicate CKD if noted for more than 3 months. eGFR is only valid if creatinine is at steady state. eGFR (NON -Iraqi) >60 >60 mL/min/1. 73m2 07/06/2016 9:36 AM T [facility] Comment: Values under 60mL/min/1.73m2 may indicate CKD if noted for more than 3 months. eGFR is only valid if creatinine is at steady state. Blood specimen (specimen) Venipuncture / Unknown 07/06/2016 8:58 AM EDT 07/06/2016 9:04 AM EDT us Cl Gutierrez MD LAB BLOOD ORDERABLES Final Resu lt [facility] [address] [place] [address] * (ABNORMAL) Sedimentation rate (ESR) (07/06/2016 8:58 AM EDT) Sedimentation Rate (ESR) 26(H) 0 - 21 mm/hr 07/06/2016 9:18 AM EDT [facility] Blood specimen (specimen) Venipuncture / Unknown 07/06/2016 8:58 AM EDT 07/06/2016 9:04 AM EDT us Cl Gutierrez MD LAB BLOOD ORDERABLES Final Resu lt [facility] [address] [place] [address] * Hemoglobin A1c (07/06/2016 8:58 AM EDT) Hemoglobin A1c 6.4 4.4 - 6.4 % 07/06/2016 11:11 AM EDT [facility] Blood specimen (specimen) Venipuncture / Unknown 07/06/2016 8:58 AM EDT 07/06/2016 9:03 AM EDT us Cl Gutierrez MD LAB BLOOD ORDERABLES Final Resu lt Performing Organization Address [place]/[facility] Co de Phone Number [facility] [address] [place] [address] * Iron and TIBC ([facility]) (07/06/2016 8:58 AM EDT) Iron 54 37 - 170 ug/dL 07/06/2016 9:46 AM EDT [facility] TIBC 376 250 - 450 ug/dL 07/06/2016 9:46 AM EDT [facility] Iron Saturation 14 13 - 45 % 7 9:46 AM EDT [facility] Blood specimen (specimen) Venipuncture / Unknown 07/06/2016 8:58 AM EDT 07/06/2016 9:04 AM EDT us Cl Gutierrez MD LAB BLOOD ORDERABLES Final Resu lt Performing Organization Address [place]/[facility] Co de Phone Number [facility] [address] [place] [address] * Ferritin (07/06/2016 8:58 AM EDT) Ferritin 13 6 - 137 ng/mL 07/06/2016 10:09 AM EDT [facility] Blood specimen (specimen) Venipuncture / Unknown 07/06/2016 8:58 AM EDT 07/06/2016 9:04 AM EDT us Cl Gutierrez MD LAB BLOOD ORDERABLES Final Resu lt Performing Organization Address [place]/[facility]/ZIP Co de Phone Number [facility] [address] [place] [address] * Albumin/creatinine panel, urine, random (07/06/2016 8:58 AM EDT) Albumin, Urine, Random 17.4 Reference Range Not Established mg/L 07/06/2016 9:40 AM T [facility] Creatinine, Urine, Random 137 Reference Range not established mg/dL 07/06/2016 9:40 AM [facility] Albumin/Creatin ine Ratio, Urine, Random 12.7 Reference Range not established mg/g Cr 07/06/2016 9:40 AM T [facility] Comment: The ADA recommends the following [...] Cl Gutierrez MD URINE ORDERABLES Final Result [facility] [address] [place] [address] * (ABNORMAL) Toxicology screen, urine ([facility] L) (07/06/2016 8:58 AM EDT) Ethanol Urine Negative <25 mg/dL = Negative 07/06/2016 9:43 AM [facility] Amphetamine Screen, Urine Negative <1000 ng/mL = Negative 07/06/2016 9:43 AM [facility] Benzodiazepine Screen, Urine Negative <300 ng/mL = Negative 07/06/2016 9:43 AM [facility] Cannabinoid Screen, Urine Negative <50 ng/mL = Negative 07/06/2016 9:43 AM [facility] Methadone Screen, Urine Negative <300 ng/mL = Negative 07/06/2016 9:43 AM [facility] Opiate Screen, Urine Positive(A) <300 ng/mL = Negative 07/06/2016 9:43 AM [facility] Oxycodone Screen, Urine Negative <100 ng/mL = Negative 07/06/2016 9:43 AM EDT [facility] Phencyclidine Screen, Urine Negative <25 ng/mL = Negative 07/06/2016 9:43 AM [facility] Cocaine Metabolites, Ur Negative <300 ng/mL = Negative 07/06/2016 9:43 AM EDT [facility] Barbiturate Screen, Urine Negative <200 ng/mL = Negative 07/06/2016 9:43 AM T [facility] 6-Acetylmorphine Negative <10 ng/mL = Negative 07/06/2016 9:43 AM T [facility] Comment:6-acetylmorphine is a heroin metabolite. While its absence (in the presence of OPIATES) does not rule out heroin use, its presence is regarded as an indication of illicit heroin use. Propoxyphene Negative <300 ng/mL = Negative 07/06/2016 9:43 AM [facility] Urine specimen (specimen) Collection / Unknown 07/06/2016 8:58 AM EDT 07/06/2016 9:03 AM EDT [facility] - 07/06/2016 9:43 AM EDT A [...] AND DOES NOT INDICATE OR MEASURE INTOXICATION. us Cl Gutierrez MD URINE ORDERABLES Final Result Performing Organization Address City/State/[facility] Co de Phone Number [facility] [address] [place] [address] documented in this encounter Visit Diagnoses Diagnosis [...] documented as of this encounter Care Teams Suede Cleaner Relationship Specialty Start Date End Date Pcp, Does Not Have A PCP - General 01/11/25 documented as of this encounter
--- OUTSIDE RECORDS SUMMARY | 2025-01-13 11:18 | XMS_ITS ---
Author Name [facility] Organization Unknown Results Test Name/Text Value Interpretation Date Range Source BKR REFLEX URINE CULTURE See Comment 12/11/2024 [facility] RBC #/area UrnS HPF 6-10 Abnormal 12/11/2024 0 - 2 [facility] Manual differential performed Bld Ql Performed 12/11/2024 [facility] BKR URINE SQUAMOUS EPITHELIAL CELLS, UA (MANUAL) Few 12/11/2024 - [facility] BKR BACTERIA, UA (MANUAL) Few Abnormal 12/11/2024 - [facility] BKR WBC/HPF 10-20 Abnormal 12/11/2024 0 - 5 [facility] Glucose Ur Strip.auto-mCnc Negative 12/11/2024 - [facility] Color Ur Auto Yellow 12/11/2024 [facility] Urobilinogen Ur Strip-mCnc <2.0 mg/dL 12/11/2024 - [facility] Bilirub Ur Ql Strip.auto Negative 12/11/2024 - [facility] Ketones Ur Strip.auto-mCnc Negative 12/11/2024 - [facility] Nitrite Ur Ql Strip.auto Negative 12/11/2024 - [facility] Hgb Ur Ql Strip.auto 2+ Abnormal 12/11/2024 - [facility] Sp Gr Ur Refract.auto 1.015 12/11/2024 1.0 05 - 1.03 [facility] Clarity Ur Refract.auto Cloudy Abnormal 12/11/2024 - [facility] WBC # Ur Strip 2+ Abnormal 12/11/2024 - [facility] pH Ur Strip.auto 6.0 12/11/2024 5.5 - 7.5 [facility] Prot Ur Strip.auto-mCnc Trace 12/11/2024 - [facility] BKR TEST RECEIVED Yes 12/11/2024 [facility] Calcium SerPl-mCnc 9.4 mg/dL 12/11/2024 8.5 - 10.5 [facility] Potassium SerPl-sCnc 3.7 mmol/L 12/11/2024 3.5 - 5 .1 [facility] Creat SerPl-mCnc 0.82 mg/dL 12/11/2024 0.6 - 1 [facility] Glucose SerPl-mCnc 108.0 mg/dL Above high normal 12/11/2024 70 - 100 [facility] Sodium SerPl-sCnc 141.0 mmol/L 12/11/2024 136 - 14 5 [facility] HCO3 SerPl-sCnc 28.0 mmol/L 12/11/2024 21 - 32 [facility] GFR SerPlBld Creatinine-bsd fmla CKD-EPI >60.0 mL/min/1.73m2 12/11/2024 - [facility] BUN/Creat SerPl 12.2 12/11/2024 8 - 23 [facility] BUN SerPl-mCnc 10.0 mg/dL 12/11/2024 7 - 18 [facility] Anion Gap SerPl Calculated.3Ions-sCnc 9.0 12/11/2024 5 - [facility] Chlor[facility] SerPl-sCnc 104.0 mmol/L 12/11/2024 98 - 1 07 [facility] BKR CREATININE DELTA 0.17 12/11/2024 - [facility] Hgb Bld-mCnc 14.1 g/dL 12/11/2024 11.7 - 15.5 [facility] Imm Granulocytes # Bld Auto 0.01 x 1000/uL 12/11/2024 0 - 0.3 [facility] Monocytes NFr Bld Auto 9.2 % 12/11/2024 4 - 12 [facility] RDW RBC Auto 12.9 % 12/11/2024 11 - 15 [facility] Lymphocytes # Bld Auto 2.17 x 1000/uL 12/11/2024 0 .6 - 3.7 [facility] Eosinophil # Bld Auto 0.06 x 1000/uL 12/11/2024 0 - 1 [facility] Basophils # Bld Auto 0.04 x 1000/uL 12/11/2024 0 - 1 [facility] Neutrophils # Bld Auto 3.84 x 1000/uL 12/11/2024 2 - 7.6 [facility] nRBC # Bld Auto 0.0 x 1000/uL 12/11/2024 0 - 1 [facility] Basophils NFr Bld Auto 0.6 % 12/11/2024 0 - 1. 4 [facility] Imm Granulocytes NFr Bld Auto 0.1 % 12/11/2024 0 - 1 [facility] Eosinophil NFr Bld Auto 0.9 % 12/11/2024 0 - 5 [facility] Neutrophils NFr Bld Auto 57.0 % 12/11/2024 39 - 72 [facility] nRBC Bld Auto-Rto 0.0 % 12/11/2024 0 - 1 [facility] RBC Auto 90.5 fL 12/11/2024 80 - 100 [facility] RBC # Bld Auto 4.53 M/uL 12/11/2024 4 - 6 [facility] Platelet # Bld Auto 281.0 x1000/uL 12/11/2024 150 - 420 [facility] MCHC RBC Auto-EntMCnc 34.4 g/dL 12/11/2024 31 - 36 [facility] Lymphocytes NFr Bld Auto 32.2 % 12/11/2024 17 - 50 [facility] Hct VFr Bld Auto 41.0 % 12/11/2024 35 - 45 [facility] PMV Bld Auto 9.2 fL 12/11/2024 8 - 12 [facility] T WBC # Bld Auto 6.7 x1000/uL 12/11/2024 4 - 11 [facility] MCH RBC Qn Auto 31.1 pg 12/11/2024 27 - 33 [facility] Monocytes # Bld Auto 0.62 x 1000/uL 12/11/2024 0 - 1 [facility] AST SerPl w P-5'-P-cCnc 24.0 U/L 12/01/2024 10 - 35 [facility] Calcium SerPl-mCnc 9.9 mg/dL 12/01/2024 8.8 - 10.2 [facility] GFR SerPlBld Creatinine-bsd fmla CKD-EPI >60.0 mL/min/1.73m2 12/01/2024 - [facility] ALT SerPl w/o P-5'-P-cCnc 21.0 U/L 12/01/2024 10 - 35 [facility] Albumin SerPl BCG-mCnc 4.9 g/dL 12/01/2024 3.6 - 5.1 [facility] Sodium SerPl-sCnc 141.0 mmol/L 12/01/2024 136 - 14 4 [facility] BKR CREATININE DELTA -0.01 12/01/2024 - [facility] Prot SerPl-mCnc 8.3 g/dL 12/01/2024 5.9 - 8.3 [facility] Bilirub SerPl-mCnc 0.4 mg/dL 12/01/2024 - [facility] HCO3 SerPl-sCnc 21.0 mmol/L 12/01/2024 20 - 30 [facility] BUN/Creat SerPl 38.5 Above high normal 12/01/2024 8 - 2 3 [facility] Chloride SerPl-sCnc 104.0 mmol/L 12/01/2024 98 - 1 07 [facility] Globulin Plas-mCnc 3.4 g/dL 12/01/2024 2 - 3.9 [facility] Albumin/Glob SerPl 1.4 12/01/2024 1 - 2.2 [facility] Anion Gap SerPl Calculated.3Ions-sCnc 16.0 12/01/2024 7 - 17 [facility] T AST/ALT SerPl-cRto 1.1 12/01/2024 - [facility] ALP SerPl-cCnc 75.0 U/L 12/01/2024 9 - 122 [facility] BUN SerPl-mCnc 25.0 mg/dL Above high normal 12/01/2024 6 - 2 0 [facility] Potassium SerPl-sCnc 3.9 mmol/L 12/01/2024 3.3 - 5 .3 [facility] Glucose SerPl-mCnc 90.0 mg/dL 12/01/2024 70 - 100 [facility] Creat SerPl-mCnc 0.65 mg/dL 12/01/2024 0.4 - 1.3 [facility] MCHC RBC Auto-EntMCnc 33.3 g/dL 12/01/2024 31 - 36 [facility] Lymphocytes NFr Bld Auto 33.8 % 12/01/2024 17 - 50 [facility] Imm Granulocytes # Bld Auto 0.02 x 1000/uL 12/01/2024 0 - 0.3 [facility] RBC # Bld Auto 4.68 M/uL 12/01/2024 4 - 6 [facility] PMV Bld Auto 9.1 fL 12/01/2024 8 - 12 [facility] T nRBC Bld Auto-Rto 0.0 % 12/01/2024 0 - 1 [facility] RDW RBC Auto 13.1 % 12/01/2024 11 - 15 [facility] T Imm Granulocytes NFr Bld Auto 0.2 % 12/01/2024 0 - 1 [facility] Monocytes # Bld Auto 0.6 x 1000/uL 12/01/2024 0 - 1 [facility] nRBC # Bld Auto 0.0 x 1000/uL 12/01/2024 0 - 1 [facility] Monocytes NFr Bld Auto 6.8 % 12/01/2024 4 - 12 [facility] MCH RBC Qn Auto 30.3 pg 12/01/2024 27 - 33 [facility] WBC # Bld Auto 8.8 x1000/uL 12/01/2024 4 - 11 [facility] Hct VFr Bld Auto 42.7 % 12/01/2024 35 - 45 [facility] RBC Auto 91.2 fL 12/01/2024 80 - 100 [facility] Lymphocytes # Bld Auto 2.96 x 1000/uL 12/01/2024 0 .6 - 3.7 [facility] Basophils NFr Bld Auto 0.6 % 12/01/2024 0 - 1. 4 [facility] Eosinophil # Bld Auto 0.04 x 1000/uL 12/01/2024 0 - 1 [facility] Eosinophil NFr Bld Auto 0.5 % 12/01/2024 0 - 5 [facility] Hgb Bld-mCnc 14.2 g/dL 12/01/2024 11.7 - 15.5 [facility] Neutrophils # Bld Auto 5.1 x 1000/uL 12/01/2024 2 - 7.6 [facility] Basophils # Bld Auto 0.05 x 1000/uL 12/01/2024 0 - 1 [facility] Neutrophils NFr Bld Auto 58.1 % 12/01/2024 39 - 72 [facility] Platelet # Bld Auto 364.0 x1000/uL 12/01/2024 150 - 420 [facility] RBC num/area UrnS HPF 12.0 per hpf Above high normal 025 0 - 4 [facility] Bacteria UrnS Ql Micro Present Abnormal 11/23/2024 - [facility] WBC num/area UrnS HPF 16.0 per hpf Above high normal 025 0 - 4 [facility] Squamous num/area UrnS HPF 4.0 per hpf 11/23/2024 [facility] Bilirub Ur Strip-mCnc Negative 11/23/2024 - [facility] Nitrite Ur Ql Strip Negative 11/23/2024 - [facility] Glucose Ur Strip-mCnc Negative 11/23/2024 - [facility] Ketones Ur Strip-mCnc Trace Abnormal 11/23/2024 - [facility] Clarity Ur Clear 11/23/2024 [facility] Leukocyte esterase Ur Ql Strip Small Abnormal 11/23/2024 - [facility] Sp Gr Ur Strip 1.02 11/23/2024 1.005 - 1.03 [facility] Hgb Ur Ql Strip Small Abnormal 11/23/2024 - [facility] CT pH Ur Strip 6.0 11/23/2024 5 - 8 [facility] Prot Ur Strip-mCnc Negative 11/23/2024 - [facility] Color Ur Yellow 11/23/2024 [facility] Magnesium SerPl-mCnc 1.9 mg/dL 11/23/2024 1.6 - 2. 6 [facility] Lipase SerPl-cCnc 34.0 U/L 11/23/2024 12 - 53 [facility] Glucose SerPl-mCnc 106.0 mg/dL 11/23/2024 74 - 106 [facility] Sodium SerPl-sCnc 137.0 mmol/L 11/23/2024 136 - 14 5 [facility] Potassium SerPl-sCnc 4.8 mmol/L Above high normal 11/23/2024 3.4 - 4.5 [facility] CO2 SerPl-sCnc 24.0 mmol/L 11/23/2024 20 - 31 [facility] Globulin Ser Calc-mCnc 3.5 g/dL 11/23/2024 1.5 - 3.9 [facility] Albumin/Glob SerPl 1.4 Ratio Below low normal 11/23/2024 1.5 - 2.5 [facility] Bilirub SerPl-mCnc 0.3 mg/dL 11/23/2024 0.3 - 1.2 [facility] Prot SerPl-mCnc 8.5 g/dL Above high normal 11/23/2024 5.7 - 8.2 [facility] ALP SerPl-cCnc 71.0 U/L 11/23/2024 32 - 122 [facility] T AST SerPl-cCnc 36.0 U/L Above high normal 11/23/2024 - 34 [facility] GFR/BSA.pred SerPlBld MSK-VHE-QkWWfx >90.0 11/23/2024 59 - [facility] Albumin SerPl-mCnc 5.0 g/dL Above high normal 11/23/2024 3. 4 - 4.8 [facility] ALT SerPl-cCnc 19.0 U/L 11/23/2024 7 - 35 [facility] T Calcium SerPl-mCnc 10.1 mg/dL 11/23/2024 8.7 - 10. 5 [facility] Creat SerPl-mCnc 0.81 mg/dL 11/23/2024 0.6 - 1 [facility] Chloride SerPl-sCnc 103.0 mmol/L 11/23/2024 98 - 1 07 [facility] Anion Gap Bld-sCnc 10.0 11/23/2024 5 - 15 [facility] BUN/Creat SerPl 17.0 Ratio 11/23/2024 10 - 25 [facility] BUN SerPl-mCnc 14.0 mg/dL 11/23/2024 9 - [address] RDW RBC Auto-Rto 12.9 % 11/23/2024 11.5 - 14.5 [facility] Imm Granulocytes/leuk NFr Bld Auto 0.7 % 11/23/2024 [facility] Monocytes/leuk NFr Bld Auto 2.3 % 11/23/2024 [facility] Lymphocytes/leuk NFr Bld Auto 17.4 % 11/23/2024 [facility] Neutrophils num Bld Auto 6.88 Thou/uL 11/23/2024 2 - 7.5 [facility] PMV Bld Auto 9.1 fL 11/23/2024 7.5 - 12.5 [facility] Neutrophils/leuk NFr Bld Auto 79.5 % 11/23/2024 [facility] Platelet num Bld Auto 327.0 Thou/uL 11/23/2024 150 - 450 [facility] Eosinophil num Bld Auto 0.0 Thou/uL 11/23/2024 0 - 0.7 [facility] Lymphocytes num Bld Auto 1.51 Thou/uL 11/23/2024 1.5 - 4.5 [facility] MCH RBC Qn Auto 30.7 pg 11/23/2024 26 - [address] Monocytes num Bld Auto 0.2 Thou/uL 11/23/2024 0.2 - 1.5 [facility] MCHC RBC Auto-mCnc 33.0 g/dL 11/23/2024 30 - 36 [facility] Hgb Bld-mCnc 13.5 g/dL 11/23/2024 11.7 - 15.7 [facility] Eosinophil/leuk NFr Bld Auto 0.0 % 11/23/2024 [facility] Imm Granulocytes num Bld Auto 0.06 Thou/uL 11/23/2024 0 - 0.1 [facility] WBC num Bld Auto 8.7 Thou/uL 11/23/2024 4 - 11 [facility] Hct VFr Bld Auto 40.9 % 11/23/2024 35 - 47 [facility] Basophils/leuk NFr Bld Auto 0.1 % 11/23/2024 [facility] Basophils num Bld Auto 0.01 Thou/uL 11/23/2024 0 - 0.2 [facility] MCV RBC Auto 93.0 fL 11/23/2024 80 - 100 [facility] RBC num Bld Auto 4.4 Mil/uL 11/23/2024 4 - 5.4 [facility] Globulin Ser Calc-mCnc 3.1 g/dL 10/25/2024 1.5 - 3.9 [facility] CO2 SerPl-sCnc 25.0 mmol/L 10/25/2024 20 - 31 [facility] Calcium SerPl-mCnc 9.9 mg/dL 10/25/2024 8.7 - 10.5 [facility] AST SerPl-cCnc 22.0 U/L 10/25/2024 - 34 [facility] T BUN/Creat SerPl 16.0 Ratio 10/25/2024 10 - 25 [facility] Potassium SerPl-sCnc 3.7 mmol/L 10/25/2024 3.4 - 4 .5 [facility] ALT SerPl-cCnc 13.0 U/L 10/25/2024 7 - 35 [facility] T Bilirub SerPl-mCnc 0.2 mg/dL Below low normal 10/25/2024 0.3 - 1.2 [facility] ALP SerPl-cCnc 85.0 U/L 10/25/2024 32 - 122 [facility] T Chloride SerPl-sCnc 104.0 mmol/L 10/25/2024 98 - 1 07 [facility] Prot SerPl-mCnc 8.1 g/dL 10/25/2024 5.7 - 8.[address] BUN SerPl-mCnc 13.0 mg/dL 10/25/2024 9 - [address] Albumin SerPl-mCnc 5.0 g/dL Above high normal 10/25/2024 3. 4 - 4.8 [facility] Anion Gap Bld-sCnc 12.0 10/25/2024 5 - 15 [facility] GFR/BSA.pred SerPlBld FQO-WZC-UcQCln >90.0 10/25/2024 59 - [facility] Creat SerPl-mCnc 0.8 mg/dL 10/25/2024 0.6 - 1 [facility] Albumin/Glob SerPl 1.6 Ratio 10/25/2024 1.5 - 2.5 [facility] Glucose SerPl-mCnc 73.0 mg/dL Below low normal 10/25/2024 74 - 106 [facility] Sodium SerPl-sCnc 141.0 mmol/L 10/25/2024 136 - 14 5 [facility] Platelet num Bld Auto 288.0 Thou/uL 10/25/2024 150 - 450 [facility] PMV Bld Auto 9.6 fL 10/25/2024 7.5 - 12.5 [facility] RDW RBC Auto-Rto 13.7 % 10/25/2024 11.5 - 14.5 [facility] Lymphocytes num Bld Auto 2.75 Thou/uL 10/25/2024 1.5 - 4.5 [facility] Hct VFr Bld Auto 39.8 % 10/25/2024 35 - 47 [facility] Monocytes/leuk NFr Bld Auto 9.2 % 10/25/2024 [facility] Imm Granulocytes/leuk NFr Bld Auto 0.4 % 10/25/2024 [facility] MCH RBC Qn Auto 30.2 pg 10/25/2024 26 - [address] RBC num Bld Auto 4.27 Mil/uL 10/25/2024 4 - 5.4 [facility] Imm Granulocytes num Bld Auto 0.03 Thou/uL 10/25/2024 0 - 0.1 [facility] Eosinophil num Bld Auto 0.1 Thou/uL 10/25/2024 0 - 0.7 [facility] WBC num Bld Auto 8.3 Thou/uL 10/25/2024 4 - 11 [facility] Lymphocytes/leuk NFr Bld Auto 33.3 % 10/25/2024 [facility] Monocytes num Bld Auto 0.76 Thou/uL 10/25/2024 0.2 - 1.5 [facility] Neutrophils/leuk NFr Bld Auto 55.4 % 10/25/2024 [facility] Hgb Bld-mCnc 12.9 g/dL 10/25/2024 11.7 - 15.7 [facility] Eosinophil/leuk NFr Bld Auto 1.2 % 10/25/2024 [facility] Basophils/leuk NFr Bld Auto 0.5 % 10/25/2024 [facility] MCV RBC Auto 93.0 fL 10/25/2024 80 - 100 [facility] MCHC RBC Auto-mCnc 32.4 g/dL 10/25/2024 30 - 36 [facility] Basophils num Bld Auto 0.04 Thou/uL 10/25/2024 0 - 0.2 [facility] Neutrophils num Bld Auto 4.58 Thou/uL 10/25/2024 2 - 7.5 [facility] Lactate SerPl-sCnc 0.9 mmol/L 10/25/2024 0.5 - 1.9 [facility] Urobilinogen Ur Strip-mCnc 4.0 EU/dL Above high normal 10/25/2024 0.2 - 1 [facility] Leukocyte esterase Ur Ql Strip Large Abnormal [facility]-mCnc Unable to perform chemistries due to color of urine Abnormal 10/25/2024 [facility] Ketones Ur Strip-mCnc 15.0 mg/dL Abnormal 10/25/2024 - [facility] Clarity Ur Clear 10/25/2024 [facility] Prot Ur Strip-mCnc Unable to perform chemistries due to color of urine Abnormal 10/25/2024 [facility] pH Ur Strip 5.0 10/25/2024 5 - 8 [facility] Hgb Ur Ql Strip Small Abnormal 10/25/2024 - [facility] CT Sp Gr Ur Strip 1.01 10/25/2024 1.005 - 1.03 [facility] Color Ur [place] 10/25/2024 [facility] Nitrite Ur Ql Strip Unable to perform chemistries due to color of urine Abnormal 10/25/2024 - [facility] Glucose Ur Strip-mCnc 250.0 mg/dL Abnormal 10/25/2024 [facility] Procalcitonin SerPl-mCnc <0.06 ng/mL 10/25/2024 - [facility] Bilirub SerPl-mCnc 0.2 mg/dL 10/25/2024 0.2 - 1.2 [facility] ALT SerPl w/o P-5'-P-cCnc 19.0 U/L 10/25/2024 14 - 63 [facility] Anion Gap SerPl Calculated.3Ions-sCnc 11.0 10/25/2024 5 - 16 [facility] T Creat SerPl-mCnc 0.66 mg/dL 10/25/2024 0.6 - 1 [facility] Chloride SerPl-sCnc 108.0 mmol/L Above high normal 98 - 107 [facility] BUN/Creat SerPl 19.7 10/25/2024 8 - 23 [facility] Ser[facility]-sCnc 25.0 mmol/L 10/25/2024 21 - 32 [facility] AST SerPl w P-5'-P-cCnc 18.0 U/L 10/25/2024 10 - 42 [facility] ALP SerPl-cCnc 69.0 U/L 10/25/2024 46 - 116 [facility] Albumin/Glob SerPl 0.8 Below low normal 10/25/2024 1 - 2.2 [facility] GFR SerPlBld Creatinine-bsd fmla CKD-EPI >60.0 mL/min/1.73m2 10/25/2024 - [facility] BUN SerPl-mCnc 13.0 mg/dL 10/25/2024 7 - 18 [facility] Sodium SerPl-sCnc 144.0 mmol/L 10/25/2024 136 - 14 5 [facility] Potassium SerPl-sCnc 3.7 mmol/L 10/25/2024 3.5 - 5 .1 [facility] Glucose SerPl-mCnc 83.0 mg/dL 10/25/2024 70 - 100 [facility] AST/ALT SerPl-cRto 0.9 10/25/2024 - [facility] Calcium SerPl-mCnc 8.5 mg/dL 10/25/2024 8.5 - 10.5 [facility] Globulin Plas-mCnc 3.9 g/dL Above high normal 10/25/2024 2. 3 - 3.5 [facility] Prot SerPl-mCnc 7.2 g/dL 10/25/2024 6 - 8 [facility] Albumin SerPl BCG-mCnc 3.3 g/dL Below low normal 10/25/2024 3.4 - 5 [facility] BKR CREATININE DELTA -0.03 10/25/2024 - [facility] Prothrombin time 10.6 seconds 10/25/2024 9 - 12 [facility] INR PPP 1.05 10/25/2024 0.9 - 1.1 [facility] Lactate BldA-sCnc 0.7 mmol/L 10/25/2024 0.6 - 1.4 [facility] Basophils NFr Bld Auto 0.4 % 10/25/2024 0 - 1. 4 [facility] Imm Granulocytes NFr Bld Auto 0.1 % 10/25/2024 0 - 1 [facility] nRBC # Bld Auto 0.0 x 1000/uL 10/25/2024 0 - 1 [facility] Hgb Bld-mCnc 13.6 g/dL 10/25/2024 11.7 - 15.5 [facility] Neutrophils NFr Bld Auto 60.4 % 10/25/2024 39 - 72 [facility] Monocytes NFr Bld Auto 9.1 % 10/25/2024 4 - 12 [facility] nRBC Bld Auto-Rto 0.0 % 10/25/2024 0 - 1 [facility] Platelet # Bld Auto 293.0 x1000/uL 10/25/2024 150 - 420 [facility] Eosinophil # Bld Auto 0.07 x 1000/uL 10/25/2024 0 - 1 [facility] Neutrophils # Bld Auto 5.61 x 1000/uL 10/25/2024 2 - 7.6 [facility] MCH RBC Qn Auto 31.2 pg 10/25/2024 27 - 33 [facility] Lymphocytes # Bld Auto 2.71 x 1000/uL 10/25/2024 0 .6 - 3.7 [facility] RBC Auto 93.6 fL 10/25/2024 80 - 100 [facility] Lymphocytes NFr Bld Auto 29.2 % 10/25/2024 17 - 50 [facility] Imm Granulocytes # Bld Auto 0.01 x 1000/uL 10/25/2024 0 - 0.3 [facility] PMV Bld Auto 9.4 fL 10/25/2024 8 - 12 [facility] T RBC # Bld Auto 4.36 M/uL 10/25/2024 4 - 6 [facility] Hct VFr Bld Auto 40.8 % 10/25/2024 35 - 45 [facility] Basophils # Bld Auto 0.04 x 1000/uL 10/25/2024 0 - 1 [facility] MCHC RBC Auto-EntMCnc 33.3 g/dL 10/25/2024 31 - 36 [facility] Monocytes # Bld Auto 0.84 x 1000/uL 10/25/2024 0 - 1 [facility] RDW RBC Auto 13.5 % 10/25/2024 11 - 15 [facility] T WBC # Bld Auto 9.3 x1000/uL 10/25/2024 4 - 11 [facility] Eosinophil NFr Bld Auto 0.8 % 10/25/2024 0 - 5 [facility] BKR REFLEX URINE CULTURE See Comment 10/25/2024 [facility] Manual differential performed Bld Ql Performed 10/24/2024 [facility] BKR BACTERIA, UA (MANUAL) Moderate Abnormal 10/24/2024 - [facility] BKR WBC/HPF >30 Abnormal 10/24/2024 0 - 5 [facility] BKR URINE SQUAMOUS EPITHELIAL CELLS, UA (MANUAL) Few 10/24/2024 - [facility] RBC #/area UrnS HPF 6-10 Abnormal 10/24/2024 0 - 2 [facility] Hgb Ur Ql Strip.auto 1+ Abnormal 10/24/2024 - [facility] Bilirub Ur Ql Strip.auto Negative 10/24/2024 - [facility] Ketones Ur Strip.auto-mCnc Negative 10/24/2024 - [facility] Nitrite Ur Ql Strip.auto Negative 10/24/2024 - [facility] Prot Ur Strip.auto-mCnc Negative 10/24/2024 - [facility] Glucose Ur Strip.auto-mCnc Negative 10/24/2024 - [facility] Sp Gr Ur Refract.auto 1.015 10/24/2024 1.0 05 - 1.03 [facility] Color Ur Auto Yellow 10/24/2024 - [facility] pH Ur Strip.auto 8.0 Above high normal 10/24/2024 5.5 - 7.5 [facility] Clarity Ur Refract.auto Cloudy Abnormal 10/24/2024 - [facility] Urobilinogen Ur Strip-mCnc <2.0 mg/dL 10/24/2024 - [facility] BKR TEST RECEIVED Yes 10/24/2024 [facility] WBC # Ur Strip 3+ Abnormal 10/24/2024 - [facility] CCT Bacteria Ur Cult SEE NOTE Abnormal 10/25/2024 QU EST BKR REFLEX URINE CULTURE See Comment 10/19/2024 [facility] RBC #/area UrnS Auto 17.0 /HPF Above high normal 10/19/2024 0 - 2 [facility] WBC #/area UrnS Auto 265.0 /HPF Above high normal 10/19/2024 0 - 5 [facility] Squamous #/area UrnS Auto 2.0 /HPF 10/19/2024 0 - 5 [facility] WBC # Ur Strip 4+ Abnormal 10/19/2024 - [facility] HCT BKR TEST RECEIVED Yes 10/19/2024 [facility] pH Ur Strip.auto 7.5 10/19/2024 5.5 - 7.5 [facility] Ketones Ur Strip.auto-mCnc Negative 10/19/2024 - [facility] Bilirub Ur Ql Strip.auto Negative 10/19/2024 - [facility] Color Ur Auto Yellow 10/19/2024 - [facility] CT Clarity Ur Refract.auto Cloudy Abnormal 10/19/2024 - [facility] Glucose Ur Strip.auto-mCnc Negative 10/19/2024 - [facility] Hgb Ur Ql Strip.auto 1+ Abnormal 10/19/2024 - [facility] Sp Gr Ur Refract.auto 1.02 10/19/2024 1.0 05 - 1.03 [facility] Prot Ur Strip.auto-mCnc 1+ Abnormal 10/19/2024 - [facility] Nitrite Ur Ql Strip.auto Negative 10/19/2024 - [facility] Urobilinogen Ur Strip-mCnc <2.0 mg/dL 10/19/2024 - [facility] 6MAM Ur Ql NEGATIVE Normal 10/08/2024 - 10 [facility] traMADol Ur-mCnc NEGATIVE Normal 10/08/2024 - 100 [facility] Drug screen comment Ur-Imp 10/08/2024 [facility] Nortramadol Ur-mCnc NEGATIVE Normal 10/08/2024 - 100 [facility] Buprenorphine Ur Ql NEGATIVE Normal 10/08/2024 - 5 [facility] Nortapentadol Ur-mCnc NEGATIVE 10/08/2024 - 50 [facility] Tapentadol Ur-mCnc NEGATIVE 10/08/2024 - [facility] Drug screen comment Ur-Imp 10/08/2024 [facility] Medication prescribed Pregabalin 10/08/2024 [facility] medMATCH Summary 10/08/2024 [facility] EST Benzodiaz Ur Ql NEGATIVE Normal 10/08/2024 - [address] THC Ur Ql NEGATIVE Normal 10/08/2024 - 20 [facility] Opiates Ur Ql NEGATIVE Normal 10/08/2024 - 100 [facility] Oxidants Ur Ql NEGATIVE Normal 10/08/2024 - 200 Q[facility] T BZE Ur Ql POSITIVE Abnormal 10/08/2024 - 150 [facility] Notes and Comments 10/08/2024 [facility] Creat Ur-mCnc 144.1 mg/dL Normal 10/08/2024 - [facility] PCP Ur Ql NEGATIVE Normal 10/08/2024 - 25 [facility] Methadone Ur Ql NEGATIVE Normal 10/08/2024 - [address] oxyCODONE Ur Ql NEGATIVE Normal 10/08/2024 - [address] Barbiturates Ur Ql NEGATIVE Normal 10/08/2024 - 300 [facility] pH Ur 6.3 Normal 10/08/2024 4.5 - 9 [facility] BZE Ur-mCnc 266.0 ng/mL Above high normal 10/08/2024 - 100 [facility] Amphetamines Ur Ql NEGATIVE Normal 10/08/2024 - 500 [facility] Pregabalin Ur Cfm-mCnc NEGATIVE Normal 10/08/2024 - 1000 [facility] Ethanol Ur Ql NEGATIVE Normal 10/08/2024 - 500 [facility] fentaNYL Ur-mCnc NEGATIVE Normal 10/08/2024 - 0.5 [facility] EST Norfentanyl Ur-mCnc NEGATIVE Normal 10/08/2024 - 0.5 [facility] Drug screen comment Ur-Imp 10/08/2024 [facility] Chloride 103.0 mmol/L Normal 09/14/2024 98 - 107 [facility] Globulin 2.7 g/dL Normal 09/14/2024 1.9 - 4.1 [facility] Creatinine 0.6 mg/dL Normal 09/14/2024 0.55 - 1.02 [facility] Total Protein 7.5 g/dL Normal 09/14/2024 5.7 - 8.2 [facility] BUN Creatinine Ratio 17.0 % Normal 09/14/2024 7 - 25 [facility] Anion Gap 10.5 mmol/L Normal 09/14/2024 5 - 16 [facility] BUN 10.0 mg/dL Normal 09/14/2024 9 - 23 [facility] Potassium 3.8 mmol/L Normal 09/14/2024 3.5 - 5.1 [facility] Bilirubin,Total 0.3 mg/dL 09/14/2024 0.3 - 1.2 [facility] Albumin Globulin Ratio 1.8 % Normal 09/14/2024 1.1 - 2.2 [facility] Albumin Level 4.8 g/dL Normal 09/14/2024 3.2 - 4.8 [facility] Alanine Aminotransferase 17.0 U/L Normal 09/14/2024 10 - 49 [facility] Sodium 142.0 mmol/L Normal 09/14/2024 136 - 145 [facility] Calcium 9.7 mg/dL Normal 09/14/2024 8.7 - 10.4 [facility] Alkaline Phosphatase 58.0 U/L Normal 09/14/2024 46 - 110 [facility] Aspartate Amino Transferase 22.0 U/L Normal 09/14/2024 0 - 33.9 [facility] Glucose 103.0 mg/dL Normal 09/14/2024 74 - 106 [facility] Carbon Dioxide 29.0 mmol/L Normal 09/14/2024 20 - 31 [facility] High Sensitivity Trop(Initial) 7.56 ng/L 09/14/2024 [facility] HCG Qualitative Negative 09/14/2024 - [facility] Immature Granulocyte Percent 0.2 % Normal 09/14/2024 0 - 1 [facility] Red Cell Distribution Width 14.7 % Above high normal 09/14/2024 11.5 - 14.5 [facility] Lymphocytes Percent Auto 31.4 % Normal 09/14/2024 20 - 51 [facility] Lymphocytes Absolute Auto 2.6 /CUMM Normal 09/14/2024 1 - 4 [facility] Hematocrit 38.3 % Normal 09/14/2024 37 - 47 [facility] Granulocytes Percent Auto 56.9 % Normal 09/14/2024 40 - 72 [facility] Immature Gran Absolute Auto 0.0 /CUMM Normal 09/14/2024 0 - 0.3 [facility] Eosinophils Percent Auto 0.0 % Normal 09/14/2024 0 - 7 [facility] Granulocytes Absolute Auto 4.6 /CUMM Normal 09/14/2024 1 - 7 [facility] Basophils Absolute Auto 0.0 /CUMM Normal 09/14/2024 0 - 0.2 [facility] Eosinophils Absolute Auto 0.0 /CUMM Normal 09/14/2024 0 - 1 [facility] Monocytes Percent Auto 11.3 % Normal 09/14/2024 1 - 13 [facility] Mean Corpuscular Hemoglobin 30.1 PG Normal 09/14/2024 27 - 31 [facility] Mean Platelet Volume 9.5 FL Normal 09/14/2024 7.4 - 12 [facility] Hemoglobin 12.6 G/DL Normal 09/14/2024 12 - 16 [facility] Mean Corpuscular Volume 91.4 FL Normal 09/14/2024 80 - 96 [facility] Mean Corpuscular HGB Conc 32.9 G/DL Normal 09/14/2024 32 - 37 [facility] Platelet Count 301.0 /CUMM Normal 09/14/2024 140 - 440 [facility] White Blood Count 8.1 /CUMM Normal 09/14/2024 4.8 - 10.8 [facility] Monocytes Absolute Auto 0.9 /CUMM Normal 09/14/2024 0 - 1 [facility] Basophils Percent Auto 0.2 % Normal 09/14/2024 0 - 2 [facility] Red Blood Count 4.19 /CUMM Below low normal 09/14/2024 4.2 - 5.4 [facility] AST SerPl-cCnc 19.0 U/L 09/10/2024 - 34 [facility] T Glucose SerPl-mCnc 106.0 mg/dL 09/10/2024 74 - 106 [facility] Chloride SerPl-sCnc 107.0 mmol/L 09/10/2024 98 - 1 07 [facility] Prot SerPl-mCnc 7.5 g/dL 09/10/2024 5.7 - 8.[address] Globulin Ser Calc-mCnc 2.9 g/dL 09/10/2024 1.5 - 3.9 [facility] BUN SerPl-mCnc 12.0 mg/dL 09/10/2024 9 - [address] CO2 SerPl-sCnc 26.0 mmol/L 09/10/2024 20 - 31 [facility] Creat SerPl-mCnc 0.6 mg/dL 09/10/2024 0.6 - 1 [facility] BUN/Creat SerPl 20.0 Ratio 09/10/2024 10 - 25 [facility] Calcium SerPl-mCnc 8.9 mg/dL 09/10/2024 8.7 - 10.5 [facility] Potassium SerPl-sCnc 4.1 mmol/L 09/10/2024 3.4 - 4 .5 [facility] Sodium SerPl-sCnc 143.0 mmol/L 09/10/2024 136 - 14 5 [facility] Albumin/Glob SerPl 1.6 Ratio 09/10/2024 1.5 - 2.5 [facility] ALP SerPl-cCnc 63.0 U/L 09/10/2024 32 - 122 [facility] T Bilirub SerPl-mCnc 0.4 mg/dL 09/10/2024 0.3 - 1.2 [facility] ALT SerPl-cCnc 7.0 U/L 09/10/2024 7 - 35 [facility] T Anion Gap Bld-sCnc 10.0 09/10/2024 5 - 15 [facility] GFR/BSA.pred SerPlBld [id number] >90.0 09/10/2024 59 - [facility] Albumin SerPl-mCnc 4.6 g/dL 09/10/2024 3.4 - 4.8 [facility] Imm Granulocytes/leuk NFr Bld Auto 0.3 % 09/10/2024 [facility] RBC num Bld Auto 4.32 Mil/uL 09/10/2024 4 - 5.4 [facility] Basophils num Bld Auto 0.04 Thou/uL 09/10/2024 0 - 0.2 [facility] Neutrophils/leuk NFr Bld Auto 82.3 % 09/10/2024 [facility] Eosinophil num Bld Auto 0.02 Thou/uL 09/10/2024 0 - 0.7 [facility] Lymphocytes num Bld Auto 0.86 Thou/uL Below low normal 09/10/2024 1.5 - 4.5 [facility] MCH RBC Qn Auto 30.3 pg 09/10/2024 26 - [address] MCV RBC Auto 91.0 fL 09/10/2024 80 - 100 [facility] Monocytes num Bld Auto 0.24 Thou/uL 09/10/2024 0.2 - 1.5 [facility] RDW RBC Auto-Rto 14.9 % Above high normal 09/10/2024 1 1.5 - 14.5 [facility] MCHC RBC Auto-mCnc 33.2 g/dL 09/10/2024 30 - 36 [facility] Eosinophil/leuk NFr Bld Auto 0.3 % 09/10/2024 [facility] Neutrophils num Bld Auto 5.49 Thou/uL 09/10/2024 2 - 7.5 [facility] Basophils/leuk NFr Bld Auto 0.6 % 09/10/2024 [facility] PMV Bld Auto 9.4 fL 09/10/2024 7.5 - 12.5 [facility] Hct VFr Bld Auto 39.5 % 09/10/2024 35 - 47 [facility] Lymphocytes/leuk NFr Bld Auto 12.9 % 09/10/2024 [facility] WBC num Bld Auto 6.7 Thou/uL 09/10/2024 4 - 11 [facility] Hgb Bld-mCnc 13.1 g/dL 09/10/2024 11.7 - 15.7 [facility] Monocytes/leuk NFr Bld Auto 3.6 % 09/10/2024 [facility] Platelet num Bld Auto 273.0 Thou/uL 09/10/2024 150 - 450 [facility] Imm Granulocytes num Bld Auto 0.02 Thou/uL 09/10/2024 0 - 0.1 [facility] Vit B12 SerPl-mCnc 399.0 pg/mL Normal 09/07/2024 200 - 11 00 [facility] Folate SerPl-mCnc 9.1 ng/mL Normal 09/07/2024 Q [facility] Iron Satn MFr SerPl 27.0 % (calc) Normal 09/07/2024 16 - 45 [facility] Ferritin SerPl-mCnc 38.0 ng/mL Normal 09/07/2024 16 - 232 [facility] Iron SerPl-mCnc 109.0 mcg/dL Normal 09/07/2024 40 - 190 [facility] TIBC SerPl-mCnc 405.0 mcg/dL (calc) Normal 09/07/2024 250 - 450 [facility] Valproate SerPl-mCnc 145.0 mg/L Above high normal 09/07/2024 50 - 100 [facility] 25(OH)D3+25(OH)D2 SerPl-mCnc 35.0 ng/mL Normal 09/07/2024 30 - 100 [facility] Calcium SerPl-mCnc 9.4 mg/dL Normal 09/07/2024 8.6 - 10.2 [facility] AST SerPl-cCnc 17.0 U/L Normal 09/07/2024 10 - 35 [facility] Albumin SerPl-mCnc 4.2 g/dL Normal 09/07/2024 3.6 - 5.1 [facility] Est. average glucose Bld gHb Est-sCnc 6.5 mmol/L 09/07/2024 [facility] Prot SerPl-mCnc 7.0 g/dL Normal 09/07/2024 6.1 - 8.[address] Lymphocytes NFr Bld Auto 39.5 % Normal 09/07/2024 [facility] Cholest SerPl-mCnc 181.0 mg/dL Normal 09/07/2024 - 200 [facility] Monocytes NFr Bld Auto 10.7 % Normal 09/07/2024 [facility] MCH RBC Qn Auto 30.1 pg Normal 09/07/2024 27 - [address] Trigl SerPl-mCnc 68.0 mg/dL Normal 09/07/2024 - 150 Q [facility] RBC # Bld Auto 4.08 Million/uL Normal 09/07/2024 3.8 - 5. 1 [facility] Neutrophils # Bld Auto 2332.0 cells/uL Normal 09/08/19 1500 - 7800 [facility] Neutrophils NFr Bld Auto 47.6 % Normal 09/07/2024 [facility] RBC Auto 95.3 fL Normal 09/07/2024 80 - 100 [facility] RDW RBC Auto 14.9 % Normal 09/07/2024 11 - 15 [facility] Est. average glucose Bld gHb Est-mCnc 117.0 mg/dL 09/07/2024 [facility] Monocytes # Bld Auto 524.0 cells/uL Normal 09/07/2024 200 - 950 [facility] HDLc SerPl-mCnc 71.0 mg/dL Normal 09/07/2024 - [facility] EST eGFRcr SerPlBld CKD-EPI 2020 110.0 mL/min/1.73m2 Normal 09/07/2024 - [facility] Platelet # Bld Auto 300.0 Thousand/uL Normal 09/07/2024 1 40 - 400 [facility] Hct VFr Bld Auto 38.9 % Normal 09/07/2024 35 - 45 [facility] LDLc SerPl Calc-mCnc 95.0 mg/dL (calc) Normal 09/07/2024 [facility] Chloride SerPl-sCnc 105.0 mmol/L Normal 09/07/2024 98 - 1 10 [facility] BUN/Creat SerPl SEE NOTE: 09/07/2024 6 - [address] WBC # Bld Auto 4.9 Thousand/uL Normal 09/07/2024 3.8 - 10 .8 [facility] Creat SerPl-mCnc 0.65 mg/dL Normal 09/07/2024 0.5 - 0.99 [facility] Sodium SerPl-sCnc 140.0 mmol/L Normal 09/07/2024 135 - 14 6 [facility] ALT SerPl-cCnc 11.0 U/L Normal 09/07/2024 6 - 29 [facility] Cholest/HDLc SerPl 2.5 (calc) Normal 09/07/2024 - 5 [facility] Glucose SerPl-mCnc 77.0 mg/dL Normal 09/07/2024 65 - 99 [facility] ALP SerPl-cCnc 51.0 U/L Normal 09/07/2024 31 - 125 [facility] Eosinophil # Bld Auto 69.0 cells/uL Normal 09/07/2024 15 - 500 [facility] Hgb Bld-mCnc 12.3 g/dL Normal 09/07/2024 11.7 - 15.5 [facility] NonHDLc SerPl-mCnc 110.0 mg/dL (calc) Normal 09/07/2024 - 130 [facility] HbA1c MFr Bld 5.7 % Above high normal 09/07/2024 - 5.7 [facility] Lymphocytes # Bld Auto 1936.0 cells/uL Normal 09/07/2024 850 - 3900 [facility] Basophils # Bld Auto 39.0 cells/uL Normal 09/07/2024 0 - 200 [facility] BUN SerPl-mCnc 13.0 mg/dL Normal 09/07/2024 7 - [address] Potassium SerPl-sCnc 3.7 mmol/L Normal 09/07/2024 3.5 - 5 .3 [facility] Globulin Ser Calc-mCnc 2.8 g/dL (calc) Normal 09/07/2024 1.9 - 3.7 [facility] PMV Bld Dennys-Radha 9.2 fL Normal 09/07/2024 7.5 - 12.5 [facility] Albumin/Glob SerPl 1.5 (calc) Normal 09/07/2024 1 - 2.5 [facility] Eosinophil NFr Bld Auto 1.4 % Normal 09/07/2024 [facility] Bilirub SerPl-mCnc 0.4 mg/dL Normal 09/07/2024 0.2 - 1.2 [facility]CHC RBC Auto-EntMCnc 31.6 g/dL Below low normal 09/07/2024 32 - 36 [facility] TSH SerPl-aCnc 0.49 mIU/L Normal 09/07/[address] CO2 SerPl-sCnc 26.0 mmol/L Normal 09/07/2024 20 - 32 [facility] Basophils NFr Bld Auto 0.8 % Normal 09/07/2024 [facility] B2 Glycoprot1 IgM Ser-aCnc <2.0 09/07/2024 [facility] B2 Glycoprot1 IgA Ser-aCnc <2.0 09/07/2024 [facility] RF IgM Ser-aCnc <5 09/07/[address] Nucleosome Ab Ser IA-aCnc <1.0 NEG 09/07/2024 - [facility] B2 Glycoprot1 IgG Ser-aCnc <2.0 09/07/2024 [facility] VENESSA SM+IMPLEMENTATION PROJECT MANAGER Ab Ser IA-aCnc <1.0 NEG 09/07/2024 - [facility] OMAYRA Ser Ql IF POSITIVE Abnormal 09/07/2024 - [facility] VENESSA Scl70 Ab Ser IA-aCnc <1.0 NEG 09/07/2024 - [facility] SS-A Ab Ser IA-aCnc <1.0 NEG 09/07/2024 - [facility] VENESSA Jo1 Ab Ser IA-aCnc <1.0 NEG 09/07/2024 - [facility] Cardiolipin IgA Ser IA-aCnc <2.0 09/07/2024 [facility] VENESSA SS-B Ab Ser IA-aCnc <1.0 NEG 09/07/2024 - [facility] cCP IgG SerPl-aCnc <16 09/07/2024 [facility] Mut cit vimentin Ab Ser-aCnc <20 09/07/2024 - 20 [facility] dsDNA Ab Ser Ql JUANCHO NEGATIVE 09/07/2024 - [facility] Centromere B Ab Ser-aCnc <1.0 NEG 09/07/2024 - [facility] Cardiolipin IgG Ser IA-aCnc <2.0 09/07/2024 [facility] VENESSA SM Ab Ser IA-aCnc <1.0 NEG 09/07/2024 - [facility] RF IgG Ser-aCnc <5 09/07/[address] C3 SerPl-mCnc 147.0 mg/dL 09/07/2024 83 - [address] [facility] [address] Thyroperoxidase Ab SerPl-aCnc <1 09/07/2024 - 9 [facility] Cardiolipin IgM Ser IA-aCnc <2.0 09/07/2024 [facility] RF IgA Ser-aCnc <5 09/07/[address] VENESSA IMPLEMENTATION PROJECT MANAGER Ab Ser-aCnc 2.2 POS Abnormal 09/07/2024 - [facility] C4 SerPl-mCnc 21.0 mg/dL 09/07/2024 15 - 57 [facility] BKR REFLEX URINE CULTURE See Comment 08/21/2024 [facility] Squamous #/area UrnS Auto 2.0 /HPF 08/20/2024 0 - 5 [facility] BKR CALCIUM OXALATE CRYSTALS, UA (INSTRUMENT) Many Abnormal 08/20/2024 - [facility] Bacteria # Ur Auto Few Abnormal 08/20/2024 - [facility] RBC #/area UrnS Auto 21.0 /HPF Above high normal 08/20/2024 0 - 2 [facility] WBC #/area UrnS Auto 20.0 /HPF Above high normal 08/20/2024 0 - 5 [facility] Hgb Ur Ql Strip.auto 2+ Abnormal 08/20/2024 - [facility] BKR TEST RECEIVED Yes 08/20/2024 [facility] Bilirub Ur Ql Strip.auto Negative 08/20/2024 - [facility] WBC # Ur Strip 3+ Abnormal 08/20/2024 - [facility] Nitrite Ur Ql Strip.auto Negative 08/20/2024 - [facility] Color Ur Auto Yellow 08/20/2024 - [facility] Glucose Ur Strip.auto-mCnc Negative 08/20/2024 - [facility] Prot Ur Strip.auto-mCnc Trace 08/20/2024 - [facility] Urobilinogen Ur Strip-mCnc <2.0 mg/dL 08/20/2024 - [facility] Sp Gr Ur Refract.auto 1.032 Above high normal 025 1.005 - 1.03 [facility] Clarity Ur Refract.auto Cloudy Abnormal 08/20/2024 - [facility] Ketones Ur Strip.auto-mCnc Negative 08/20/2024 - [facility] pH Ur Strip.auto 6.5 08/20/2024 5.5 - 7.5 [facility] Calcium SerPl-mCnc 9.3 mg/dL 08/20/2024 8.8 - 10.2 [facility] GFR SerPlBld Creatinine-bsd fmla CKD-EPI >60.0 mL/min/1.73m2 08/20/2024 - [facility] ALT SerPl w/o P-5'-P-cCnc 15.0 U/L 08/20/2024 10 - 35 [facility] AST SerPl w P-5'-P-cCnc 29.0 U/L 08/20/2024 10 - 35 [facility] AST/ALT SerPl-cRto 1.9 08/20/2024 - [facility] Creat SerPl-mCnc 0.69 mg/dL 08/20/2024 0.4 - 1.3 [facility] Glucose SerPl-mCnc 113.0 mg/dL Above high normal 08/20/2024 70 - 100 [facility] Albumin SerPl BCG-mCnc 4.1 g/dL 08/20/2024 3.6 - 5.1 [facility] Globulin Plas-mCnc 3.0 g/dL 08/20/2024 2 - 3.9 [facility] Bilirub SerPl-mCnc 0.2 mg/dL 08/20/2024 - [facility] Anion Gap SerPl Calculated.3Ions-sCnc 13.0 08/20/2024 7 - 17 [facility] T BKR CREATININE DELTA -0.11 08/20/2024 - [facility] ALP SerPl-cCnc 68.0 U/L 08/20/2024 9 - 122 [facility] Potassium SerPl-sCnc 4.1 mmol/L 08/20/2024 3.3 - 5 .3 [facility] Albumin/Glob SerPl 1.4 08/20/2024 1 - 2.2 [facility] BUN SerPl-mCnc 16.0 mg/dL 08/20/2024 6 - 20 [facility] Prot SerPl-mCnc 7.1 g/dL 08/20/2024 5.9 - 8.3 [facility] BUN/Creat SerPl 23.2 Above high normal 08/20/2024 8 - 2 3 [facility] Sodium SerPl-sCnc 141.0 mmol/L 08/20/2024 136 - 14 4 [facility] HCO3 SerPl-sCnc 24.0 mmol/L 08/20/2024 20 - 30 [facility] Chloride SerPl-sCnc 104.0 mmol/L 08/20/2024 98 - 1 07 [facility] Magnesium SerPl-mCnc 1.9 mg/dL 08/20/2024 1.7 - 2. 4 [facility] Basophils NFr Bld Auto 0.5 % 08/20/2024 0 - 1. 4 [facility] nRBC Bld Auto-Rto 0.0 % 08/20/2024 0 - 1 [facility] RDW RBC Auto 14.6 % 08/20/2024 11 - 15 [facility] T Imm Granulocytes NFr Bld Auto 0.2 % 08/20/2024 0 - 1 [facility] RBC # Bld Auto 4.23 M/uL 08/20/2024 4 - 6 [facility] Monocytes NFr Bld Auto 8.0 % 08/20/2024 4 - 12 [facility] Basophils # Bld Auto 0.05 x 1000/uL 08/20/2024 0 - 1 [facility] RBC Auto 92.4 fL 08/20/2024 80 - 100 [facility] Eosinophil NFr Bld Auto 1.1 % 08/20/2024 0 - 5 [facility] Hgb Bld-mCnc 12.7 g/dL 08/20/2024 11.7 - 15.5 [facility] Lymphocytes NFr Bld Auto 30.9 % 08/20/2024 17 - 50 [facility] Monocytes # Bld Auto 0.77 x 1000/uL 08/20/2024 0 - 1 [facility] Lymphocytes # Bld Auto 2.96 x 1000/uL 08/20/2024 0 .6 - 3.7 [facility] PMV Bld Auto 10.1 fL 08/20/2024 8 - 12 [facility] T WBC # Bld Auto 9.6 x1000/uL 08/20/2024 4 - 11 [facility] nRBC # Bld Auto 0.0 x 1000/uL 08/20/2024 0 - 1 [facility] Neutrophils NFr Bld Auto 59.3 % 08/20/2024 39 - 72 [facility] MCH RBC Qn Auto 30.0 pg 08/20/2024 27 - 33 [facility] Platelet # Bld Auto 271.0 x1000/uL 08/20/2024 150 - 420 [facility] Hct VFr Bld Auto 39.1 % 08/20/2024 35 - 45 [facility] Eosinophil # Bld Auto 0.11 x 1000/uL 08/20/2024 0 - 1 [facility] Neutrophils # Bld Auto 5.68 x 1000/uL 08/20/2024 2 - 7.6 [facility] MCHC RBC Auto-EntMCnc 32.5 g/dL 08/20/2024 31 - 36 [facility] Imm Granulocytes # Bld Auto 0.02 x 1000/uL 08/20/2024 0 - 0.3 [facility] Lipase SerPl-cCnc 27.0 U/L 08/19/2024 16 - 77 [facility] Calcium SerPl-mCnc 8.9 mg/dL 08/19/2024 8.5 - 10.5 [facility] BKR CREATININE DELTA 0.13 08/19/2024 - [facility] Sodium SerPl-sCnc 141.0 mmol/L 08/19/2024 136 - 14 5 [facility] ALP SerPl-cCnc 69.0 U/L 08/19/2024 46 - 116 [facility] Globulin Plas-mCnc 3.7 g/dL Above high normal 08/19/2024 2. 3 - 3.5 [facility] ALT SerPl w/o P-5'-P-cCnc 20.0 U/L 08/19/2024 14 - 63 [facility] Albumin SerPl BCG-mCnc 3.6 g/dL 08/19/2024 3.4 - 5 [facility] Potassium SerPl-sCnc 3.6 mmol/L 08/19/2024 3.5 - 5 .1 [facility] BUN SerPl-mCnc 11.0 mg/dL 08/19/2024 7 - 18 [facility] Chloride SerPl-sCnc 103.0 mmol/L 08/19/2024 98 - 1 07 [facility] Bilirub SerPl-mCnc 0.3 mg/dL 08/19/2024 0.2 - 1.2 [facility] AST/ALT SerPl-cRto 0.8 08/19/2024 - [facility] AST SerPl w P-5'-P-cCnc 15.0 U/L 08/19/2024 10 - 42 [facility] Albumin/Glob SerPl 1.0 08/19/2024 1 - 2.2 [facility] GFR SerPlBld Creatinine-bsd fmla CKD-EPI >60.0 mL/min/1.73m2 08/19/2024 - [facility] Prot SerPl-mCnc 7.3 g/dL 08/19/2024 6 - 8 [facility] BUN/Creat SerPl 13.8 08/19/2024 8 - 23 [facility] HCO3 SerPl-sCnc 28.0 mmol/L 08/19/2024 21 - 32 [facility] Anion Gap SerPl Calculated.3Ions-sCnc 10.0 08/19/2024 5 - 16 [facility] T Glucose SerPl-mCnc 90.0 mg/dL 08/19/2024 70 - 100 [facility] Creat SerPl-mCnc 0.8 mg/dL 08/19/2024 0.6 - 1 [facility] WBC # Bld Auto 6.5 x1000/uL 08/19/2024 4 - 11 [facility] RBC # Bld Auto 4.16 M/uL 08/19/2024 4 - 6 [facility] Hgb Bld-mCnc 12.6 g/dL 08/19/2024 11.7 - 15.5 [facility] Lymphocytes # Bld Auto 2.18 x 1000/uL 08/19/2024 0 .6 - 3.7 [facility] Neutrophils # Bld Auto 3.66 x 1000/uL 08/19/2024 2 - 7.6 [facility] PMV Bld Auto 9.5 fL 08/19/2024 8 - 12 [facility] T Imm Granulocytes NFr Bld Auto 0.2 % 08/19/2024 0 - 1 [facility] Hct VFr Bld Auto 38.2 % 08/19/2024 35 - 45 [facility] Neutrophils NFr Bld Auto 56.0 % 08/19/2024 39 - 72 [facility] Monocytes NFr Bld Auto 8.4 % 08/19/2024 4 - 12 [facility] Eosinophil NFr Bld Auto 1.4 % 08/19/2024 0 - 5 [facility] RBC Auto 91.8 fL 08/19/2024 80 - 100 [facility] MCH RBC Qn Auto 30.3 pg 08/19/2024 27 - 33 [facility] Basophils # Bld Auto 0.04 x 1000/uL 08/19/2024 0 - 1 [facility] nRBC Bld Auto-Rto 0.0 % 08/19/2024 0 - 1 [facility] Imm Granulocytes # Bld Auto 0.01 x 1000/uL 08/19/2024 0 - 0.3 [facility] Monocytes # Bld Auto 0.55 x 1000/uL 08/19/2024 0 - 1 [facility] Platelet # Bld Auto 260.0 x1000/uL 08/19/2024 150 - 420 [facility] RDW RBC Auto 14.1 % 08/19/2024 11 - 15 [facility] T nRBC # Bld Auto 0.0 x 1000/uL 08/19/2024 0 - 1 [facility] Eosinophil # Bld Auto 0.09 x 1000/uL 08/19/2024 0 - 1 [facility] Basophils NFr Bld Auto 0.6 % 08/19/2024 0 - 1. 4 [facility] MCHC RBC Auto-EntMCnc 33.0 g/dL 08/19/2024 31 - 36 [facility] Lymphocytes NFr Bld Auto 33.4 % 08/19/2024 17 - 50 [facility] BKR REFLEX URINE CULTURE See Comment 08/19/2024 [facility] BKR URINE SQUAMOUS EPITHELIAL CELLS, UA (MANUAL) Few 08/19/2024 - [facility] BKR BACTERIA, UA (MANUAL) Rare 08/19/2024 - [facility] BKR WBC/HPF 6-10 Abnormal 08/19/2024 0 - 5 [facility] Manual differential performed Bld Ql Performed 08/19/[facility]24 [facility] #/area UrnS HPF 3-5 Abnormal 08/19/2024 0 - 2 [facility] Prot Ur Strip.auto-mCnc Negative 08/19/2024 - [facility] Color Ur Auto Yellow 08/19/2024 - [facility] Nitrite Ur Ql Strip.auto Negative 08/19/2024 - [facility] Clarity Ur Refract.auto Clear 08/19/2024 [facility] Strip.auto-mCnc Negative 08/19/2024 - [facility] Bilirub Ur Ql Strip.auto Negative 08/19/2024 - [facility] Sp Gr Ur Refract.auto 1.02 08/19/2024 1.0 05 - 1.03 [facility] BKR TEST RECEIVED Yes 08/19/2024 [facility] Urobilinogen Ur Strip-mCnc <2.0 mg/dL 08/19/2024 - [facility] Hgb Ur Ql Strip.auto 2+ Abnormal 08/19/2024 - [facility] W[facility] # [facility] Strip 2+ Abnormal 08/19/2024 - [facility] CCT Glucose Ur Strip.auto-mCnc Negative 08/19/2024 - [facility] pH Ur Strip.auto 7.0 08/19/2024 5.5 - 7.5 [facility] Lipase 44.0 U/L Normal 07/09/2024 12 - 53 [facility] HCG Qualitative Negative 07/09/2024 - [facility] BUN Creatinine Ratio 29.0 % Above high normal 07/09/2024 7 - 25 [facility] Calcium 9.1 mg/dL Normal 07/09/2024 8.7 - 10.4 [facility] Aspartate Amino Transferase 34.0 U/L Above high normal 07/09/2024 0 - 33.9 [facility] Potassium 4.5 mmol/L Normal 07/09/2024 3.5 - 5.1 [facility] Creatinine 0.7 mg/dL Normal 07/09/2024 0.55 - 1.02 [facility] Alanine Aminotransferase 31.0 U/L Normal 07/09/2024 10 - 49 [facility] Total Protein 6.8 g/dL Normal 07/09/2024 5.7 - 8.2 [facility] BUN 20.3 mg/dL Normal 07/09/2024 9 - 23 [facility] Albumin Globulin Ratio 2.0 % Normal 07/09/2024 1.1 - 2.2 [facility] Chloride 107.0 mmol/L Normal 07/09/2024 98 - 107 [facility] Glucose 91.0 mg/dL Normal 07/09/2024 74 - 106 [facility] Globulin 2.3 g/dL Normal 07/09/2024 1.9 - 4.1 [facility] Sodium 143.0 mmol/L Normal 07/09/2024 136 - 145 [facility] Alkaline Phosphatase 68.0 U/L Normal 07/09/2024 46 - 110 [facility] Carbon Dioxide 28.0 mmol/L Normal 07/09/2024 20 - 31 CT GR Albumin Level 4.5 g/dL Normal 07/09/2024 3.2 - 4.8 [facility] Anion Gap 8.0 mmol/L Normal 07/09/2024 5 - 16 [facility] Culture Indicated Urine Culture Indicated 07/09/2024 [facility] Urine Microscopic Indicated Ur Sediment Examed 07/09/2024 [facility] Urobilinogen Urine Normal Normal 07/09/2024 - [facility] Clarity Urine Clear Normal 07/09/2024 - [facility] Leukocyte Esterase Urine 250.0 Vivi/uL Abnormal 07/09/2024 - [facility] Ketones Urine Negative Normal 07/09/2024 - [facility] Nitrite Urine Negative Normal 07/09/2024 - [facility] Glucose Urine UA Normal Normal 07/09/2024 - [facility] Color Urine Light-Yellow 07/09/2024 - [facility] Protein Urine Trace Normal 07/09/2024 - [facility] pH Urine 6.0 07/09/2024 5 - 8 [facility] Specific [place] Urine 1.04 07/09/2024 1 - 1. 1 [facility] Bilirubin Urine Negative Normal 07/09/2024 - [facility] Bacteria Urine Few Abnormal 07/09/2024 - [facility] Amorphous Sediment Urine Light 07/09/2024 [facility] Squamous Epithelial Cell Urine Few 07/09/2024 - [facility] Mean Platelet Volume 9.1 FL Normal 07/09/2024 7.4 - 12 [facility] Eosinophils Percent Auto 2.7 % Normal 07/09/2024 0 - 7 [facility] Basophils Percent Auto 0.4 % Normal 07/09/2024 0 - 2 [facility] Platelet Count 248.0 /CUMM Normal 07/09/2024 140 - 440 [facility] Monocytes Absolute Auto 0.7 /CUMM Normal 07/09/2024 0 - 1 [facility] Red Cell Distribution Width 13.5 % Normal 07/09/2024 11.5 - 14.5 [facility] Lymphocytes Percent Auto 42.0 % Normal 07/09/2024 20 - 51 [facility] Basophils Absolute Auto 0.0 /CUMM Normal 07/09/2024 0 - 0.2 [facility] Mean Corpuscular Hemoglobin 29.8 PG Normal 07/09/2024 27 - 31 [facility] Granulocytes Percent Auto 41.8 % Normal 07/09/2024 40 - 72 [facility] Mean Corpuscular Volume 91.8 FL Normal 07/09/2024 80 - 96 [facility] Eosinophils Absolute Auto 0.1 /CUMM Normal 07/09/2024 0 - 1 [facility] Lymphocytes Absolute Auto 2.2 /CUMM Normal 07/09/2024 1 - 4 [facility] Immature Granulocyte Percent 0.2 % Normal 07/09/2024 0 - 1 [facility] Mean Corpuscular HGB Conc 32.5 G/DL Normal 07/09/2024 32 - 37 [facility] White Blood Count 5.3 /CUMM Normal 07/09/2024 4.8 - 10.8 [facility] Red Blood Count 4.26 /CUMM Normal 07/09/2024 4.2 - 5.4 CT [facility] Hematocrit 39.1 % Normal 07/09/2024 37 - 47 [facility] Immature Gran Absolute Auto 0.0 /CUMM Normal 07/09/2024 0 - 0.3 [facility] Monocytes Percent Auto 12.9 % Normal 07/09/2024 1 - 13 [facility] Hemoglobin 12.7 G/DL Normal 07/09/2024 12 - 16 [facility] Granulocytes Absolute Auto 2.2 /CUMM Normal 07/09/2024 1 - 7 [facility] Lipase SerPl-cCnc 43.0 U/L 06/29/2024 12 - 53 [facility] Potassium SerPl-sCnc 3.7 mmol/L 06/29/2024 3.4 - 4 .5 [facility] Albumin SerPl-mCnc 4.9 g/dL Above high normal 06/29/2024 3. 4 - 4.8 [facility] Chloride SerPl-sCnc 104.0 mmol/L 06/29/2024 98 - 1 07 [facility] Albumin/Glob SerPl 1.8 Ratio 06/29/2024 1.5 - 2.5 [facility] CO2 SerPl-sCnc 26.0 mmol/L 06/29/2024 20 - 31 [facility] CCT AST SerPl-cCnc 28.0 U/L 06/29/2024 - 34 [facility] T GFR/BSA.pred SerPlBld BXI-ROH-LhSYhz >90.0 06/29/2024 59 - [facility] ALP SerPl-cCnc 68.0 U/L 06/29/2024 32 - 122 [facility] T Calcium SerPl-mCnc 9.5 mg/dL 06/29/2024 8.7 - 10.5 [facility] BUN/Creat SerPl 17.0 Ratio 06/29/2024 10 - 25 [facility] CCT Bilirub SerPl-mCnc 0.4 mg/dL 06/29/2024 0.3 - 1.2 [facility] Glucose SerPl-mCnc 89.0 mg/dL 06/29/2024 74 - 106 [facility] Creat SerPl-mCnc 0.7 mg/dL 06/29/2024 0.6 - 1 [facility] CCT BUN SerPl-mCnc 12.0 mg/dL 06/29/2024 9 - [address] Anion Gap Bld-sCnc 12.0 06/29/2024 5 - 15 [facility] Sodium SerPl-sCnc 142.0 mmol/L 06/29/2024 136 - 14 5 [facility] Prot SerPl-mCnc 7.7 g/dL 06/29/2024 5.7 - 8.[address] Globulin Ser Calc-mCnc 2.8 g/dL 06/29/2024 1.5 - 3.9 [facility] ALT SerPl-cCnc 21.0 U/L 06/29/2024 7 - 35 [facility] T Monocytes num Bld Auto 0.42 Thou/uL 06/29/2024 0.2 - 1.5 [facility] Basophils/leuk NFr Bld Auto 0.9 % 06/29/2024 [facility] MCV RBC Auto 91.0 fL 06/29/2024 80 - 100 [facility] Imm Granulocytes num Bld Auto 0.01 Thou/uL 06/29/2024 0 - 0.1 [facility] MCH RBC Qn Auto 29.8 pg 06/29/2024 26 - [address] Eosinophil/leuk NFr Bld Auto 1.3 % 06/29/2024 [facility] Neutrophils num Bld Auto 2.76 Thou/uL 06/29/2024 2 - 7.5 [facility] MCHC RBC Auto-mCnc 32.9 g/dL 06/29/2024 30 - 36 [facility] Lymphocytes/leuk NFr Bld Auto 40.0 % 06/29/2024 [facility] Basophils num Bld Auto 0.05 Thou/uL 06/29/2024 0 - 0.2 [facility] Hgb Bld-mCnc 12.9 g/dL 06/29/2024 11.7 - 15.7 [facility] RBC num Bld Auto 4.33 Mil/uL 06/29/2024 4 - 5.4 [facility] Eosinophil num Bld Auto 0.07 Thou/uL 06/29/2024 0 - 0.7 [facility] Imm Granulocytes/leuk NFr Bld Auto 0.2 % 06/29/2024 [facility] RDW RBC Auto-Rto 13.9 % 06/29/2024 11.5 - 14.5 [facility] Monocytes/leuk NFr Bld Auto 7.6 % 06/29/2024 [facility] WBC num Bld Auto 5.5 Thou/uL 06/29/2024 4 - 11 [facility] PMV Bld Auto 9.6 fL 06/29/2024 7.5 - 12.5 [facility] Platelet num Bld Auto 288.0 Thou/uL 06/29/2024 150 - 450 [facility] Lymphocytes num Bld Auto 2.21 Thou/uL 06/29/2024 1.5 - 4.5 [facility] Hct VFr Bld Auto 39.2 % 06/29/2024 35 - 47 [facility] Neutrophils/leuk NFr Bld Auto 50.0 % 06/29/2024 [facility] Squamous num/area UrnS HPF 4.0 per hpf 06/29/2024 [facility] RBC num/area UrnS HPF 6.0 per hpf Above high normal 06/30/19 25 0 - 4 [facility] Bacteria UrnS Ql Micro Negative 06/29/2024 - CCT WBC num/area UrnS HPF 11.0 per hpf Above high normal 025 0 - 4 [facility] Hyaline Casts num/area UrnS LPF 1.0 per lpf 06/29/2024 0 - 4 [facility] Ketones Ur Strip-mCnc Trace Abnormal 06/29/2024 - [facility] Color Ur Yellow 06/29/2024 [facility] Sp Gr Ur Strip 1.014 06/29/2024 1.003 - 1.03 [facility] Glucose Ur Strip-mCnc Negative 06/29/2024 0 - 99 [facility] Hgb Ur Ql Strip Small Abnormal 06/29/2024 - [facility] CT Leukocyte esterase Ur Ql Strip Small Abnormal 06/29/2024 - [facility] Bilirub Ur Strip-mCnc Negative 06/29/2024 - [facility] Prot Ur Strip-mCnc Negative 06/29/2024 - [facility] Clarity Ur Clear 06/29/2024 [facility] Urobilinogen Ur Strip-mCnc 0.2 EU/dL 06/29/2024 0.2 - 1 [facility] Nitrite Ur Ql Strip Negative 06/29/2024 - CCT pH Ur Strip 6.0 06/29/2024 5 - 8 [facility] HCO3 SerPl-sCnc 26.0 mmol/L 06/28/2024 20 - 30 [facility] Calcium SerPl-mCnc 9.6 mg/dL 06/28/2024 8.8 - 10.2 [facility] Creat SerPl-mCnc 0.67 mg/dL 06/28/2024 0.4 - 1.3 [facility] BKR CREATININE DELTA -0.12 06/28/2024 - [facility] Prot SerPl-mCnc 7.7 g/dL 06/28/2024 5.9 - 8.3 [facility] Sodium SerPl-sCnc 142.0 mmol/L 06/28/2024 136 - 14 4 [facility] ALT SerPl w/o P-5'-P-cCnc 21.0 U/L 06/28/2024 10 - 35 [facility] GFR/BSA.pred SerPlBld [id number] >60.0 mL/min/1.73m2 06/28/2024 - [facility] AST SerPl w P-5'-P-cCnc 24.0 U/L 06/28/2024 10 - 35 [facility] Potassium SerPl-sCnc 3.7 mmol/L 06/28/2024 3.3 - 5 .3 [facility] Globulin Plas-mCnc 3.3 g/dL 06/28/2024 2 - 3.9 [facility] Bilirub SerPl-mCnc 0.3 mg/dL 06/28/2024 - [facility] Albumin SerPl BCG-mCnc 4.4 g/dL 06/28/2024 3.6 - 5.1 [facility] Albumin/Glob SerPl 1.3 06/28/2024 1 - 2.2 [facility] Anion Gap3 SerPl-sCnc 11.0 06/28/2024 7 - 17 [facility] BUN/Creat SerPl 20.9 06/28/2024 8 - 23 [facility] ALP SerPl-cCnc 72.0 U/L 06/28/2024 9 - 122 [facility] BUN SerPl-mCnc 14.0 mg/dL 06/28/2024 6 - 20 [facility] Chloride SerPl-sCnc 105.0 mmol/L 06/28/2024 98 - 1 07 [facility] AST/ALT SerPl-cRto 1.1 06/28/2024 - [facility] Glucose SerPl-mCnc 95.0 mg/dL 06/28/2024 70 - 100 [facility] Valproate SerPl-mCnc 24.3 ug/mL Below low normal 06/28/2024 50 - 100 [facility] BKR REFLEX URINE CULTURE See Comment 06/22/2024 [facility] WBC #/area UrnS Auto 24.0 /HPF Above high normal 06/22/2024 0 - 5 [facility] Bacteria # Ur Auto Rare 06/22/2024 - [facility] RBC #/area UrnS Auto 5.0 /HPF Above high normal 06/22/2024 0 - 2 [facility] Squamous #/area UrnS Auto 4.0 /HPF 06/22/2024 0 - 5 [facility] Bilirub Ur Ql Strip.auto Negative 06/22/2024 - [facility] Sp Gr Ur Refract.auto 1.017 06/22/2024 1.0 05 - 1.03 [facility] WBC # Ur Strip 4+ Abnormal 06/22/2024 - [facility] Urobilinogen Ur Strip-mCnc <2.0 mg/dL 06/22/2024 - [facility] Hgb Ur Ql Strip.auto 1+ Abnormal 06/22/2024 - [facility] Ketones Ur Strip.auto-mCnc Negative 06/22/2024 - [facility] BKR TEST RECEIVED Yes 06/22/2024 [facility] pH Ur Strip.auto 7.0 06/22/2024 5.5 - 7.5 [facility] Color Ur Auto Yellow 06/22/2024 - [facility] Prot Ur Strip.auto-mCnc Trace 06/22/2024 - [facility] Clarity Ur Refract.auto Clear 06/22/2024 - [facility] Nitrite Ur Ql Strip.auto Negative 06/22/2024 - [facility] Glucose Ur Strip.auto-mCnc Negative 06/22/2024 - [facility] Sodium SerPl-sCnc 144.0 mmol/L 06/22/2024 136 - 14 4 [facility] Chloride SerPl-sCnc 102.0 mmol/L 06/22/2024 98 - 1 07 [facility] Calcium SerPl-mCnc 10.4 mg/dL Above high normal 06/22/2024 8 .8 - 10.2 [facility] Prot SerPl-mCnc 8.2 g/dL 06/22/2024 5.9 - 8.3 [facility] AST SerPl w P-5'-P-cCnc 27.0 U/L 06/22/2024 10 - 35 [facility] Albumin/Glob SerPl 1.4 06/22/2024 1 - 2.2 [facility] AST/ALT SerPl-cRto 1.2 06/22/2024 - [facility] Potassium SerPl-sCnc 3.5 mmol/L 06/22/2024 3.3 - 5 .3 [facility] BKR CREATININE DELTA 0.11 06/22/2024 - [facility] Glucose SerPl-mCnc 107.0 mg/dL Above high normal 06/22/2024 70 - 100 [facility] Anion Gap3 SerPl-sCnc 19.0 Above high normal 06/22/2024 7 - 17 [facility] BUN SerPl-mCnc 14.0 mg/dL 06/22/2024 6 - 20 [facility] GFR/BSA.pred SerPlBld [id number] >60.0 mL/min/1.73m2 06/22/2024 - [facility] ALP SerPl-cCnc 88.0 U/L 06/22/2024 9 - 122 [facility] BUN/Creat SerPl 17.7 06/22/2024 8 - 23 [facility] Globulin Plas-mCnc 3.4 g/dL 06/22/2024 2 - 3.9 [facility] HCO3 SerPl-sCnc 23.0 mmol/L 06/22/2024 20 - 30 [facility] Albumin SerPl BCG-mCnc 4.8 g/dL 06/22/2024 3.6 - 5.1 [facility] Creat SerPl-mCnc 0.79 mg/dL 06/22/2024 0.4 - 1.3 [facility] Bilirub SerPl-mCnc 0.2 mg/dL 06/22/2024 - [facility] ALT SerPl w/o P-5'-P-cCnc 22.0 U/L 06/22/2024 10 - 35 [facility] Magnesium SerPl-mCnc 1.9 mg/dL 06/22/2024 1.7 - 2. 4 [facility] Lipase SerPl-cCnc 52.0 U/L 06/22/2024 11 - 55 [facility] Eosinophil/leuk NFr Bld Auto 1.0 % 06/22/2024 0 - 5 [facility] RDW RBC Auto-Rto 14.0 % 06/22/2024 11 - 15 [facility] MCHC RBC Auto-mCnc 33.3 g/dL 06/22/2024 31 - 36 [facility] Neutrophils # Bld Auto 5.66 x 1000/uL 06/22/2024 2 - 7.6 [facility] Hct VFr Bld Auto 41.8 % 06/22/2024 35 - 45 [facility] nRBC # Bld Auto 0.0 x 1000/uL 06/22/2024 0 - 1 [facility] Neutrophils/leuk NFr Bld Auto 49.5 % 06/22/2024 39 - 72 [facility] MCH RBC Qn Auto 29.9 pg 06/22/2024 27 - 33 [facility] Imm Granulocytes # Bld Auto 0.02 x 1000/uL 06/22/2024 0 - 0.3 [facility] WBC # Bld Auto 11.4 x1000/uL Above high normal 06/22/2024 4 - 11 [facility] Hgb Bld-mCnc 13.9 g/dL 06/22/2024 11.7 - 15.5 [facility] Lymphocytes # Bld Auto 4.39 x 1000/uL Above high normal 0509/2024 0.6 - 3.7 [facility] Basophils # Bld Auto 0.08 x 1000/uL 06/22/2024 0 - 1 [facility] Lymphocytes/leuk NFr Bld Auto 38.4 % 06/22/2024 17 - 50 [facility] Monocytes/leuk NFr Bld Auto 10.2 % 06/22/2024 4 - 12 [facility] nRBC/100 WBC Bld Auto-Rto 0.0 % 06/22/2024 0 - 1 [facility] PMV Bld Auto 9.9 fL 06/22/2024 8 - 12 [facility] T RBC # Bld Auto 4.65 M/uL 06/22/2024 4 - 6 [facility] Eosinophil # Bld Auto 0.11 x 1000/uL 06/22/2024 0 - 1 [facility] Monocytes # Bld Auto 1.16 x 1000/uL Above high normal 2024 0 - 1 [facility] Platelet # Bld Auto 309.0 x1000/uL 06/22/2024 150 - 420 [facility] Basophils/leuk NFr Bld Auto 0.7 % 06/22/2024 0 - 1.4 [facility] MCV RBC Auto 89.9 fL 06/22/2024 80 - 100 [facility] T Imm Granulocytes/leuk NFr Bld Auto 0.2 % 06/22/2024 0 - 1 [facility] BKR REFLEX URINE CULTURE See Comment Normal 06/14/2024 [facility] RBC #/area UrnS Auto 6.0 /HPF Above high normal 06/14/2024 0 - 2 [facility] Squamous #/area UrnS Auto 2.0 /HPF Normal 06/14/2024 0 - 5 [facility] WBC #/area UrnS Auto 6.0 /HPF Above high normal 06/14/2024 0 - 5 [facility] BKR TEST RECEIVED Yes Normal 06/14/2024 [facility] Refract.auto Clear Normal 06/14/2024 - [facility] pH Ur Strip.auto 6.5 Normal 06/14/2024 5.5 - 7.5 [facility] Sp Gr Ur Refract.auto 1.022 Normal 06/14/2024 1.0 05 - 1.03 [facility] Hgb Ur Ql Strip.auto Trace Abnormal 06/14/2024 - [facility] Ketones Ur Strip.auto-mCnc Negative Normal 06/14/2024 - [facility] Glucose Ur Strip.auto-mCnc Negative Normal 06/14/2024 - [facility] WBC # Ur Strip 2+ Abnormal 06/14/2024 - [facility] Color Ur Auto Yellow Normal 06/14/2024 - [facility] CT Prot Ur Strip.auto-mCnc Trace Normal 06/14/2024 - [facility] Nitrite Ur Ql Strip.auto Negative Normal 06/14/2024 - [facility] Urobilinogen Ur Strip-mCnc <2.0 mg/dL Normal 06/14/2024 - [facility] Bilirub Ur Ql Strip.auto Negative Normal 06/14/2024 - [facility] Manual differential performed Bld Ql Performed Normal 06/10/2024 [facility] BKR URINE SQUAMOUS EPITHELIAL CELLS, UA (MANUAL) Few Normal 06/10/2024 - [facility] RBC #/area UrnS HPF 6-10 Abnormal 06/10/2024 0 - 2 [facility] BKR WBC/HPF 3-5 Normal 06/10/2024 0 - 5 [facility] BKR BACTERIA, UA (MANUAL) Few Abnormal 06/10/2024 - [facility] ALP SerPl-cCnc 72.0 U/L Normal 06/10/2024 46 - 116 [facility] AST/ALT SerPl-cRto 0.8 Normal 06/10/2024 - [facility] HCO3 SerPl-sCnc 26.0 mmol/L Normal 06/10/2024 21 - 32 [facility] Globulin Plas-mCnc 3.9 g/dL Above high normal 06/10/2024 2. 3 - 3.5 [facility] Glucose SerPl-mCnc 91.0 mg/dL Normal 06/10/2024 70 - 100 [facility] Anion Gap3 SerPl-sCnc 13.0 Normal 06/10/2024 5 - 16 [facility] Potassium SerPl-sCnc 3.4 mmol/L Below low normal 06/10/2024 3.5 - 5.1 [facility] BKR CREATININE DELTA -0.03 Normal 06/10/2024 - [facility] Chloride SerPl-sCnc 105.0 mmol/L Normal 06/10/2024 98 - 1 07 [facility] BUN/Creat SerPl 14.7 Normal 06/10/2024 8 - 23 [facility] Albumin/Glob SerPl 1.0 Normal 06/10/2024 1 - 2.2 [facility] AST SerPl w P-5'-P-cCnc 15.0 U/L Normal 06/10/2024 10 - 42 [facility] Creat SerPl-mCnc 0.68 mg/dL Normal 06/10/2024 0.6 - 1 [facility] BUN Ser[facility]-mCnc 10.0 mg/dL Normal 06/10/2024 7 - 18 [facility] GFR/BSA.pred SerPlBld AXR-LEW-NxKEza >60.0 mL/min/1.73m2 Normal 06/10/2024 - [facility] Sodium SerPl-sCnc 144.0 mmol/L Normal 06/10/2024 136 - 14 5 [facility] Bilirub SerPl-mCnc 0.3 mg/dL Normal 06/10/2024 0.2 - 1.2 [facility] Prot SerPl-mCnc 7.7 g/dL Normal 06/10/2024 6 - 8 [facility] Calcium SerPl-mCnc 9.1 mg/dL Normal 06/10/2024 8.5 - 10.5 [facility] ALT SerPl w/o P-5'-P-cCnc 19.0 U/L Normal 06/10/2024 14 - 63 [facility] Albumin SerPl BCG-mCnc 3.8 g/dL Normal 06/10/2024 3.4 - 5 [facility] Procalcitonin SerPl-mCnc <0.06 ng/mL Normal 06/10/2024 - [facility] Clarity Ur Refract.auto Clear Normal 06/10/2024 - [facility] Bilirub Ur Ql Strip.auto Negative Normal 06/10/2024 - [facility] Ketones Ur Strip.auto-mCnc Negative Normal 06/10/2024 - [facility] Prot Ur Strip.auto-mCnc Negative Normal 06/10/2024 - [facility] Nitrite Ur Ql Strip.auto Negative Normal 06/10/2024 - [facility] Urobilinogen Ur Strip-mCnc <2.0 mg/dL Normal 06/10/2024 - [facility] pH Ur Strip.auto 7.5 Normal 06/10/2024 5.5 - 7.5 [facility] Sp Gr Ur Refract.auto 1.01 Normal 06/10/2024 1.0 05 - 1.03 [facility] WBC # Ur Strip 1+ Abnormal 06/10/2024 - [facility] Color Ur Auto Colorless Normal 06/10/2024 - [facility] Glucose Ur Strip.auto-mCnc Negative Normal 06/10/2024 - [facility] Hgb Ur Ql Strip.auto Trace Abnormal 06/10/2024 - [facility] Lactate BldA-sCnc 0.8 mmol/L Normal 06/10/2024 0.6 - 1.4 [facility] RDW RBC Auto-Rto 15.5 % Above high normal 06/10/2024 11 - 15 [facility] Imm Granulocytes # Bld Auto 0.02 x 1000/uL Normal 06/10/2024 0 - 0.3 [facility] Basophils/leuk NFr Bld Auto 0.6 % Normal 06/10/2024 0 - 1.4 [facility] Eosinophil # Bld Auto 0.06 x 1000/uL Normal 06/10/2024 0 - 1 [facility] WBC # Bld Auto 8.3 x1000/uL Normal 06/10/2024 4 - 11 [facility] nRBC # Bld Auto 0.0 x 1000/uL Normal 06/10/2024 0 - 1 [facility] Hgb Bld-mCnc 13.5 g/dL Normal 06/10/2024 11.7 - 15.5 [facility] RBC # Bld Auto 4.49 M/uL Normal 06/10/2024 4 - 6 [facility] Eosinophil/leuk NFr Bld Auto 0.7 % Normal 06/10/2024 0 - 5 [facility] Neutrophils # Bld Auto 4.89 x 1000/uL Normal 06/10/2024 2 - 7.6 [facility] PMV Bld Auto 9.5 fL Normal 06/10/2024 8 - 12 [facility] T Lymphocytes/leuk NFr Bld Auto 31.5 % Normal 06/10/2024 17 - 50 [facility] nRBC/100 WBC Bld Auto-Rto 0.0 % Normal 06/10/2024 0 - 1 [facility] MCV RBC Auto 91.1 fL Normal 06/10/2024 80 - 100 [facility] T Platelet # Bld Auto 321.0 x1000/uL Normal 06/10/2024 150 - 420 [facility] MCH RBC Qn Auto 30.1 pg Normal 06/10/2024 27 - 33 [facility] Basophils # Bld Auto 0.05 x 1000/uL Normal 06/10/2024 0 - 1 [facility] Lymphocytes # Bld Auto 2.62 x 1000/uL Normal 06/10/2024 0 .6 - 3.7 [facility] Imm Granulocytes/leuk NFr Bld Auto 0.2 % Normal 06/10/2024 0 - 1 [facility] Monocytes # Bld Auto 0.69 x 1000/uL Normal 06/10/2024 0 - 1 [facility] Monocytes/leuk NFr Bld Auto 8.3 % Normal 06/10/2024 4 - 12 [facility] Hct VFr Bld Auto 40.9 % Normal 06/10/2024 35 - 45 [facility] MCHC RBC Auto-mCnc 33.0 g/dL Normal 06/10/2024 31 - 36 [facility] Neutrophils/leuk NFr Bld Auto 58.7 % Normal 06/10/2024 39 - 72 [facility] Lipase 47.0 U/L Normal 06/10/2024 12 - 53 [facility] Total Protein 6.9 g/dL Normal 06/10/2024 5.7 - 8.2 [facility] Creatinine 0.56 mg/dL Normal 06/10/2024 0.55 - 1.02 [facility] Sodium 143.0 mmol/L Normal 06/10/2024 136 - 145 [facility] Albumin Level 4.6 g/dL Normal 06/10/2024 3.2 - 4.8 [facility] Alanine Aminotransferase 15.0 U/L Normal 06/10/2024 10 - 49 [facility] Chloride 107.0 mmol/L Normal 06/10/2024 98 - 107 [facility] Glucose 109.0 mg/dL Above high normal 06/10/2024 74 - 106 [facility] Anion Gap 8.9 mmol/L Normal 06/10/2024 5 - 16 [facility] Globulin 2.3 g/dL Normal 06/10/2024 1.9 - 4.1 [facility] Aspartate Amino Transferase 20.0 U/L Normal 06/10/2024 0 - 33.9 [facility] BUN Creatinine Ratio 22.0 % Normal 06/10/2024 7 - 25 [facility] Albumin Globulin Ratio 1.9 % Normal 06/10/2024 1.1 - 2.2 [facility] Bilirubin,Total 0.2 mg/dL Below low normal 06/10/2024 0.3 - 1.2 [facility] Calcium 9.1 mg/dL Normal 06/10/2024 8.7 - 10.4 [facility] Carbon Dioxide 27.0 mmol/L Normal 06/10/2024 20 - 31 CT H Potassium 3.9 mmol/L Normal 06/10/2024 3.5 - 5.1 [facility] BUN 12.4 mg/dL Normal 06/10/2024 9 - 23 [facility] Alkaline Phosphatase 64.0 U/L Normal 06/10/2024 46 - 110 [facility] Culture Indicated Urine Culture Indicated Normal 06/10/2024 [facility] Color Urine Straw Normal 06/10/2024 - [facility] Urine Microscopic Indicated Ur Sediment Examed Normal 06/10/2024 [facility] Clarity Urine Hazy Abnormal 06/10/2024 - [facility] Ketones Urine Negative Normal 06/10/2024 - [facility] pH Urine 7.5 Normal 06/10/2024 5 - 8 [facility] Protein Urine Negative Normal 06/10/2024 - [facility] Bilirubin Urine Negative Normal 06/10/2024 - [facility] RH Hemoglobin Urine Small Abnormal 06/10/2024 - [facility] Urobilinogen Urine 0.2 EU/dL Normal 06/10/2024 0.1 - 1 [facility] Glucose Urine UA Negative Normal 06/10/2024 - [facility] Leukocyte Esterase Urine Small Abnormal 06/10/2024 - [facility] Nitrate Urine Negative Normal 06/10/2024 - [facility] Specific [place] Urine 1.015 Normal 06/10/2024 1 - 1. 1 [facility] Bacteria Urine Few Abnormal 06/10/2024 - [facility] Squamous Epithelial Cell Urine Few Normal 06/10/2024 - [facility] Eosinophils Percent Auto 1.0 % Normal 06/10/2024 0 - 7 [facility] Mean Corpuscular Hemoglobin 29.5 PG Normal 06/10/2024 27 - 31 [facility] Hematocrit 35.5 % Below low normal 06/10/2024 37 - 47 [facility] Lymphocytes Absolute Auto 2.2 /CUMM Normal 06/10/2024 1 - 4 [facility] Lymphocytes Percent Auto 30.6 % Normal 06/10/2024 20 - 51 [facility] Red Cell Distribution Width 15.9 % Above high normal 06/10/2024 11.5 - 14.5 [facility] Basophils Absolute Auto 0.1 /CUMM Normal 06/10/2024 0 - 0.2 [facility] Platelet Count 309.0 /CUMM Normal 06/10/2024 140 - 440 [facility] Mean Corpuscular HGB Conc 33.5 G/DL Normal 06/10/2024 32 - 37 [facility] Basophils Percent Auto 0.7 % Normal 06/10/2024 0 - 2 [facility] White Blood Count 7.3 /CUMM Normal 06/10/2024 4.8 - 10.8 [facility] Eosinophils Absolute Auto 0.1 /CUMM Normal 06/10/2024 0 - 1 [facility] Granulocytes Absolute Auto 4.3 /CUMM Normal 06/10/2024 1 - 7 [facility] Monocytes Percent Auto 9.0 % Normal 06/10/2024 1 - 13 [facility] Immature Gran Absolute Auto 0.0 /CUMM Normal 06/10/2024 0 - 0.3 [facility] Red Blood Count 4.03 /CUMM Below low normal 06/10/2024 4.2 - 5.4 [facility] Immature Granulocyte Percent 0.1 % Normal 06/10/2024 0 - 1 [facility] Hemoglobin 11.9 G/DL Below low normal 06/10/2024 12 - 16 [facility] Granulocytes Percent Auto 58.6 % Normal 06/10/2024 40 - 72 [facility] Monocytes Absolute Auto 0.7 /CUMM Normal 06/10/2024 0 - 1 [facility] Mean Platelet Volume 9.3 FL Normal 06/10/2024 7.4 - 12 [facility] Mean Corpuscular Volume 88.1 FL Normal 06/10/2024 80 - 96 [facility] BKR REFLEX URINE CULTURE See Comment Normal 05/26/2024 [facility] RBC #/area UrnS Auto 9.0 /HPF Above high normal 05/26/2024 0 - 2 [facility] Bacteria # Ur Auto Rare Normal 05/26/2024 - [facility] WBC #/area UrnS Auto 10.0 /HPF Above high normal 05/26/2024 0 - 5 [facility] Squamous #/area UrnS Auto 3.0 /HPF Normal 05/26/2024 0 - 5 [facility] Prot Ur Strip.auto-mCnc 1+ Abnormal 05/26/2024 - [facility] Sp Gr Ur Refract.auto 1.021 Normal 05/26/2024 1.0 05 - 1.03 [facility] Ketones Ur Strip.auto-mCnc Negative Normal 05/26/2024 - [facility] Nitrite Ur Ql Strip.auto Negative Normal 05/26/2024 - [facility] Color Ur Auto Yellow Normal 05/26/2024 - [facility] Glucose Ur Strip.auto-mCnc Negative Normal 05/26/2024 - [facility] Urobilinogen Ur Strip-mCnc <2.0 mg/dL Normal 05/26/2024 - [facility] Clarity Ur Refract.auto Clear Normal 05/26/2024 - [facility] pH Ur Strip.auto 8.5 Above high normal 05/26/2024 5.5 - 7.5 [facility] WBC # Ur Strip 2+ Abnormal 05/26/2024 - [facility] BKR TEST RECEIVED Yes Normal 05/26/2024 [facility] Hgb Ur Ql Strip.auto 1+ Abnormal 05/26/2024 - [facility] Bilirub Ur Ql Strip.auto Negative Normal 05/26/2024 - [facility] Potassium SerPl-sCnc 3.9 mmol/L Normal 05/26/2024 3.3 - 5 .3 [facility] Anion Gap3 SerPl-sCnc 12.0 Normal 05/26/2024 7 - 17 [facility] GFR/BSA.pred SerPlBld MEV-LYA-NrBMgt >60.0 mL/min/1.73m2 Normal 05/26/2024 - [facility] HCO3 SerPl-sCnc 27.0 mmol/L Normal 05/26/2024 20 - 30 [facility] Glucose SerPl-mCnc 114.0 mg/dL Above high normal 05/26/2024 70 - 100 [facility] Chloride SerPl-sCnc 102.0 mmol/L Normal 05/26/2024 98 - 1 07 [facility] BKR CREATININE DELTA 0.09 Normal 05/26/2024 - [facility] Calcium SerPl-mCnc 9.2 mg/dL Normal 05/26/2024 8.8 - 10.2 [facility] Creat SerPl-mCnc 0.71 mg/dL Normal 05/26/2024 0.4 - 1.3 [facility] Sodium SerPl-sCnc 141.0 mmol/L Normal 05/26/2024 136 - 14 4 [facility] BUN SerPl-mCnc 13.0 mg/dL Normal 05/26/2024 6 - 20 [facility] BUN/Creat SerPl 18.3 Normal 05/26/2024 8 - 23 [facility] Prot SerPl-mCnc 7.4 g/dL Normal 05/26/2024 5.9 - 8.3 [facility] Bilirub SerPl-mCnc 0.3 mg/dL Normal 05/26/2024 - [facility] Albumin SerPl BCG-mCnc 4.4 g/dL Normal 05/26/2024 3.6 - 5.1 [facility] AST SerPl w P-5'-P-cCnc 24.0 U/L Normal 05/26/2024 10 - 35 [facility] Albumin/Glob SerPl 1.5 Normal 05/26/2024 1 - 2.2 [facility] Bilirub Direct SerPl-mCnc 0.1 mg/dL Normal 05/26/2024 - [facility] AST/ALT SerPl-cRto 1.3 Normal 05/26/2024 - [facility] ALP SerPl-cCnc 86.0 U/L Normal 05/26/2024 9 - 122 [facility] ALT SerPl w/o P-5'-P-cCnc 18.0 U/L Normal 05/26/2024 10 - 35 [facility] Globulin Plas-mCnc 3.0 g/dL Normal 05/26/2024 2 - 3.9 [facility] Lipase SerPl-cCnc 19.0 U/L Normal 05/26/2024 11 - 55 [facility] MCHC RBC Auto-mCnc 33.7 g/dL Normal 05/26/2024 31 - 36 [facility] Basophils # Bld Auto 0.04 x 1000/uL Normal 05/26/2024 0 - 1 [facility] Imm Granulocytes/leuk NFr Bld Auto 0.3 % Normal 05/26/2024 0 - 1 [facility] Neutrophils # Bld Auto 8.74 x 1000/uL Above high normal 05/16 2 - 7.6 [facility] Hgb Bld-mCnc 13.1 g/dL Normal 05/26/2024 11.7 - 15.5 [facility] RDW RBC Auto-Rto 17.3 % Above high normal 05/26/2024 11 - 15 [facility] nRBC # Bld Auto 0.0 x 1000/uL Normal 05/26/2024 0 - 1 [facility] PMV Bld Auto 9.3 fL Normal 05/26/2024 8 - 12 [facility] T MCH RBC Qn Auto 29.9 pg Normal 05/26/2024 27 - 33 [facility] Eosinophil/leuk NFr Bld Auto 0.7 % Normal 05/26/2024 0 - 5 [facility] Lymphocytes/leuk NFr Bld Auto 12.1 % Below low normal 05/26/2024 17 - 50 [facility] MCV RBC Auto 88.8 fL Normal 05/26/2024 80 - 100 [facility] T Neutrophils/leuk NFr Bld Auto 79.6 % Above high normal 05/26/2024 39 - 72 [facility] Lymphocytes # Bld Auto 1.33 x 1000/uL Normal 05/26/2024 0 .6 - 3.7 [facility] nRBC/100 WBC Bld Auto-Rto 0.0 % Normal 05/26/2024 0 - 1 [facility] Basophils/leuk NFr Bld Auto 0.4 % Normal 05/26/2024 0 - 1.4 [facility] Monocytes/leuk NFr Bld Auto 6.9 % Normal 05/26/2024 4 - 12 [facility] RBC # Bld Auto 4.38 M/uL Normal 05/26/2024 4 - 6 [facility] WBC # Bld Auto 11.0 x1000/uL Normal 05/26/2024 4 - 11 [facility] Platelet # Bld Auto 278.0 x1000/uL Normal 05/26/2024 150 - 420 [facility] Imm Granulocytes # Bld Auto 0.03 x 1000/uL Normal 05/26/2024 0 - 0.3 [facility] Hct VFr Bld Auto 38.9 % Normal 05/26/2024 35 - 45 [facility] Monocytes # Bld Auto 0.76 x 1000/uL Normal 05/26/2024 0 - 1 [facility] Eosinophil # Bld Auto 0.08 x 1000/uL Normal 05/26/2024 0 - 1 [facility] TSH SerPl DL<=0.005 mIU/L-aCnc 1.09 mIU/L Normal 05/25/2024 0.48 - 4.17 [facility] CO2 SerPl-sCnc 28.0 mmol/L Normal 05/25/2024 20 - 31 [facility] CCT Anion Gap Bld-sCnc 9.0 Normal 05/25/2024 5 - 15 [facility] BUN SerPl-mCnc 10.0 mg/dL Normal 05/25/2024 9 - [address] Creat SerPl-mCnc 0.8 mg/dL Normal 05/25/2024 0.6 - 1 [facility] CCT Sodium SerPl-sCnc 141.0 mmol/L Normal 05/25/2024 136 - 14 5 [facility] Glucose SerPl-mCnc 97.0 mg/dL Normal 05/25/2024 74 - 106 [facility] Calcium SerPl-mCnc 9.8 mg/dL Normal 05/25/2024 8.7 - 10.5 [facility] GFR/BSA.pred SerPlBld DZM-GUD-ZzIUrf >90.0 Normal 05/25/2024 59 - [facility] BUN/Creat SerPl 13.0 Ratio Normal 05/25/2024 10 - 25 [facility] CCT Chloride SerPl-sCnc 104.0 mmol/L Normal 05/25/2024 98 - 1 07 [facility] Potassium SerPl-sCnc 3.4 mmol/L Normal 05/25/2024 3.4 - 4 .5 [facility] Magnesium SerPl-mCnc 1.9 mg/dL Normal 05/25/2024 1.6 - 2. 6 [facility] Delta NO PREVIOUS RESULT Normal 05/25/2024 [facility] Troponin I SerPl DL<=0.01 ng/mL-mCnc 9.0 ng/L Normal 05/25/2024 - 34 [facility] Prothrombin time 12.8 seconds Normal 05/25/2024 10 - 13.5 [facility] INR PPP 1.1 Normal 05/25/2024 [facility] Anticoagulant OTHER AGENT OR UNKNOWN Normal 05/25/2024 [facility] MCV RBC Auto 89.0 fL Normal 05/25/2024 80 - 100 [facility] Hct VFr Bld Auto 41.4 % Normal 05/25/2024 35 - 47 [facility] CCT MCHC RBC Auto-mCnc 32.6 g/dL Normal 05/25/2024 30 - 36 [facility] Lymphocytes/leuk NFr Bld Auto 28.2 % Normal 05/25/2024 [facility] RBC num Bld Auto 4.64 Mil/uL Normal 05/25/2024 4 - 5.4 [facility] MCH RBC Qn Auto 29.1 pg Normal 05/25/2024 26 - [address] PMV Bld Auto 9.6 fL Normal 05/25/2024 7.5 - 12.5 [facility] Platelet num Bld Auto 334.0 Thou/uL Normal 05/25/2024 150 - 450 [facility] WBC num Bld Auto 10.2 Thou/uL Normal 05/25/2024 4 - 11 [facility] Eosinophil/leuk NFr Bld Auto 0.4 % Normal 05/25/2024 [facility] Hgb Bld-mCnc 13.5 g/dL Normal 05/25/2024 11.7 - 15.7 [facility] RDW RBC Auto-Rto 17.7 % Above high normal 05/25/2024 1 1.5 - 14.5 [facility] Imm Granulocytes num Bld Auto 0.02 Thou/uL Normal 05/25/2024 0 - 0.1 [facility] Imm Granulocytes/leuk NFr Bld Auto 0.2 % Normal 05/25/2024 [facility] Basophils num Bld Auto 0.04 Thou/uL Normal 05/25/2024 0 - 0.2 [facility] Basophils/leuk NFr Bld Auto 0.4 % Normal 05/25/2024 [facility] Lymphocytes num Bld Auto 2.88 Thou/uL Normal 05/25/2024 1.5 - 4.5 [facility] Eosinophil num Bld Auto 0.04 Thou/uL Normal 05/25/2024 0 - 0.7 [facility] Monocytes num Bld Auto 0.84 Thou/uL Normal 05/25/2024 0.2 - 1.5 [facility] Neutrophils/leuk NFr Bld Auto 62.6 % Normal 05/25/2024 [facility] Neutrophils num Bld Auto 6.39 Thou/uL Normal 05/25/2024 2 - 7.5 [facility] Monocytes/leuk NFr Bld Auto 8.2 % Normal 05/25/2024 [facility] BKR REFLEX URINE CULTURE See Comment Normal 05/21/2024 [facility] BUN SerPl-mCnc 9.0 mg/dL Normal 05/21/2024 6 - 20 [facility] Potassium SerPl-sCnc 3.7 mmol/L Normal 05/21/2024 3.3 - 5 .3 [facility] HCO3 SerPl-sCnc 27.0 mmol/L Normal 05/21/2024 20 - 30 [facility] Calcium SerPl-mCnc 9.3 mg/dL Normal 05/21/2024 8.8 - 10.2 [facility] GFR/BSA.pred SerPlBld LCV-AZD-GcSJia >60.0 mL/min/1.73m2 Normal 05/21/2024 - [facility] Anion Gap3 SerPl-sCnc 11.0 Normal 05/21/2024 7 - 17 [facility] Creat SerPl-mCnc 0.62 mg/dL Normal 05/21/2024 0.4 - 1.3 [facility] Chloride SerPl-sCnc 105.0 mmol/L Normal 05/21/2024 98 - 1 07 [facility] BKR CREATININE DELTA -0.36 Normal 05/21/2024 - [facility] Glucose SerPl-mCnc 93.0 mg/dL Normal 05/21/2024 70 - 100 [facility] Sodium SerPl-sCnc 143.0 mmol/L Normal 05/21/2024 136 - 14 4 [facility] BUN/Creat SerPl 14.5 Normal 05/21/2024 8 - 23 [facility] RBC #/area UrnS Auto 4.0 /HPF Above high normal 05/21/2024 0 - 2 [facility] Squamous #/area UrnS Auto 8.0 /HPF Above high normal 05/21/2024 0 - 5 [facility] WBC #/area UrnS Auto 10.0 /HPF Above high normal 05/21/2024 0 - 5 [facility] Ketones Ur Strip.auto-mCnc Negative Normal 05/21/2024 - [facility] Color Ur Auto Yellow Normal 05/21/2024 - [facility] CT Urobilinogen Ur Strip-mCnc <2.0 mg/dL Normal 05/21/2024 - [facility] Clarity Ur Refract.auto Clear Normal 05/21/2024 - [facility] Nitrite Ur Ql Strip.auto Negative Normal 05/21/2024 - [facility] Glucose Ur Strip.auto-mCnc Negative Normal 05/21/2024 - [facility] Hgb Ur Ql Strip.auto Trace Abnormal 05/21/2024 - [facility] Sp Gr Ur Refract.auto 1.029 Normal 05/21/2024 1.0 05 - 1.03 [facility] Bilirub Ur Ql Strip.auto Negative Normal 05/21/2024 - [facility] WBC # Ur Strip 1+ Abnormal 05/21/2024 - [facility] HCT Prot Ur Strip.auto-mCnc Trace Normal 05/21/2024 - [facility] pH Ur Strip.auto 6.0 Normal 05/21/2024 5.5 - 7.5 [facility] BKR TEST RECEIVED Yes Normal 05/21/2024 [facility] MCH RBC Qn Auto 29.7 pg Normal 05/21/2024 27 - 33 [facility] Imm Granulocytes/leuk NFr Bld Auto 0.2 % Normal 05/21/2024 0 - 1 [facility] nRBC # Bld Auto 0.0 x 1000/uL Normal 05/21/2024 0 - 1 [facility] Hct VFr Bld Auto 41.9 % Normal 05/21/2024 35 - 45 [facility] WBC # Bld Auto 5.4 x1000/uL Normal 05/21/2024 4 - 11 [facility] Imm Granulocytes # Bld Auto 0.01 x 1000/uL Normal 05/21/2024 0 - 0.3 [facility] Monocytes # Bld Auto 0.42 x 1000/uL Normal 05/21/2024 0 - 1 [facility] MCV RBC Auto 92.9 fL Normal 05/21/2024 80 - 100 [facility] T nRBC/100 WBC Bld Auto-Rto 0.0 % Normal 05/21/2024 0 - 1 [facility] Platelet # Bld Auto 333.0 x1000/uL Normal 05/21/2024 150 - 420 [facility] MCHC RBC Auto-mCnc 32.0 g/dL Normal 05/21/2024 31 - 36 [facility] Basophils/leuk NFr Bld Auto 0.7 % Normal 05/21/2024 0 - 1.4 [facility] Neutrophils # Bld Auto 3.01 x 1000/uL Normal 05/21/2024 2 - 7.6 [facility] Lymphocytes/leuk NFr Bld Auto 34.0 % Normal 05/21/2024 17 - 50 [facility] Hgb Bld-mCnc 13.4 g/dL Normal 05/21/2024 11.7 - 15.5 [facility] Eosinophil # Bld Auto 0.07 x 1000/uL Normal 05/21/2024 0 - 1 [facility] Lymphocytes # Bld Auto 1.83 x 1000/uL Normal 05/21/2024 0 .6 - 3.7 [facility] Eosinophil/leuk NFr Bld Auto 1.3 % Normal 05/21/2024 0 - 5 [facility] PMV Bld Auto 9.6 fL Normal 05/21/2024 8 - 12 [facility] T RDW RBC Auto-Rto 18.3 % Above high normal 05/21/2024 11 - 15 [facility] Neutrophils/leuk NFr Bld Auto 56.0 % Normal 05/21/2024 39 - 72 [facility] RBC # Bld Auto 4.51 M/uL Normal 05/21/2024 4 - 6 [facility] Basophils # Bld Auto 0.04 x 1000/uL Normal 05/21/2024 0 - 1 [facility] Monocytes/leuk NFr Bld Auto 7.8 % Normal 05/21/2024 4 - 12 [facility] Drug screen comment Ur-Imp Normal 05/13/2024 [facility] Tapentadol Ur-mCnc NEGATIVE Normal 05/13/2024 - 50 [facility] Nortapentadol Ur-mCnc NEGATIVE Normal 05/13/2024 - 50 [facility] fentaNYL Ur-mCnc NEGATIVE Normal 05/13/2024 - 0.5 [facility] EST Drug screen comment Ur-Imp Normal 05/13/2024 [facility] Norfentanyl Ur-mCnc NEGATIVE Normal 05/13/2024 - 0.5 [facility] Drug screen comment Ur-Imp Normal 05/13/2024 [facility] Pregabalin Ur Cfm-mCnc NEGATIVE Normal 05/13/2024 - 1000 [facility] Ethanol Ur Ql NEGATIVE Normal 05/13/2024 - 500 [facility] 6MAM Ur Ql NEGATIVE Normal 05/13/2024 - 10 [facility] Opiates Ur Ql NEGATIVE Normal 05/13/2024 - 100 [facility] oxyCODONE Ur Ql NEGATIVE Normal 05/13/2024 - [address] Notes and Comments Normal 05/13/2024 [facility] Benzodiaz Ur Ql NEGATIVE Normal 05/13/2024 - [address] Oxidants Ur Ql NEGATIVE Normal 05/13/2024 - 200 Q[facility] T Methadone Ur Ql NEGATIVE Normal 05/13/2024 - [address] PCP Ur Ql NEGATIVE Normal 05/13/2024 - 25 [facility] Creat Ur-mCnc 168.5 mg/dL Normal 05/13/2024 - [facility] Amphetamines Ur Ql NEGATIVE Normal 05/13/2024 - 500 [facility] BZE Ur Ql NEGATIVE Normal 05/13/2024 - 150 [facility] Barbiturates Ur Ql NEGATIVE Normal 05/13/2024 - 300 [facility] pH Ur 5.4 Normal 05/13/2024 4.5 - 9 [facility] THC Ur Ql NEGATIVE Normal 05/13/2024 - 20 [facility] traMADol Ur-mCnc NEGATIVE Normal 05/13/2024 - 100 QU EST Drug screen comment Ur-Imp Normal 05/13/2024 [facility] Nortramadol Ur-mCnc NEGATIVE Normal 05/13/2024 - 100 [facility] medMATCH Summary Normal 05/13/2024 QU EST Buprenorphine Ur Ql NEGATIVE Normal 05/13/2024 - 5 [facility] Magnesium SerPl-mCnc 2.1 mg/dL Normal 04/21/2024 1.7 - 2. 4 [facility] Albumin SerPl BCG-mCnc 4.5 g/dL Normal 04/21/2024 3.6 - 5.1 [facility] Bilirub SerPl-mCnc 0.3 mg/dL Normal 04/21/2024 - [facility] AST/ALT SerPl-cRto 1.1 Normal 04/21/2024 - [facility] BUN/Creat SerPl 13.3 Normal 04/21/2024 8 - 23 [facility] Calcium SerPl-mCnc 9.9 mg/dL Normal 04/21/2024 8.8 - 10.2 [facility] AST SerPl w P-5'-P-cCnc 20.0 U/L Normal 04/21/2024 10 - 35 [facility] Sodium SerPl-sCnc 141.0 mmol/L Normal 04/21/2024 136 - 14 4 [facility] BKR CREATININE DELTA 0.04 Normal 04/21/2024 - [facility] Glucose SerPl-mCnc 105.0 mg/dL Above high normal 04/21/2024 70 - 100 [facility] ALT SerPl w/o P-5'-P-cCnc 18.0 U/L Normal 04/21/2024 10 - 35 [facility] Creat SerPl-mCnc 0.98 mg/dL Normal 04/21/2024 0.4 - 1.3 [facility] HCO3 SerPl-sCnc 20.0 mmol/L Normal 04/21/2024 20 - 30 [facility] Chloride SerPl-sCnc 107.0 mmol/L Normal 04/21/2024 98 - 1 07 [facility] GFR/BSA.pred SerPlBld [id number] >60.0 mL/min/1.73m2 Normal 04/21/2024 - [facility] Albumin/Glob SerPl 1.4 Normal 04/21/2024 1 - 2.2 [facility] BUN SerPl-mCnc 13.0 mg/dL Normal 04/21/2024 6 - 20 [facility] Potassium SerPl-sCnc 4.0 mmol/L Normal 04/21/2024 3.3 - 5 .3 [facility] Anion Gap3 SerPl-sCnc 14.0 Normal 04/21/2024 7 - 17 [facility] Prot SerPl-mCnc 7.8 g/dL Normal 04/21/2024 5.9 - 8.3 [facility] Globulin Plas-mCnc 3.3 g/dL Normal 04/21/2024 2 - 3.9 [facility] ALP SerPl-cCnc 112.0 U/L Normal 04/21/2024 9 - 122 [facility] RBC # Bld Auto 4.22 M/uL Normal 04/21/2024 4 - 6 [facility] MCHC RBC Auto-mCnc 33.4 g/dL Normal 04/21/2024 31 - 36 [facility] Lymphocytes # Bld Auto 3.88 x 1000/uL Above high normal 08/2024 0.6 - 3.7 [facility] Basophils # Bld Auto 0.04 x 1000/uL Normal 04/21/2024 0 - 1 [facility] Imm Granulocytes # Bld Auto 0.02 x 1000/uL Normal 04/21/2024 0 - 0.3 [facility] PMV Bld Auto 9.6 fL Normal 04/21/2024 8 - 12 [facility] T Lymphocytes/leuk NFr Bld Auto 34.4 % Normal 04/21/2024 17 - 50 [facility] Neutrophils # Bld Auto 6.48 x 1000/uL Normal 04/21/2024 2 - 7.6 [facility] Imm Granulocytes/leuk NFr Bld Auto 0.2 % Normal 04/21/2024 0 - 1 [facility] nRBC # Bld Auto 0.0 x 1000/uL Normal 04/21/2024 0 - 1 [facility] Hgb Bld-mCnc 12.4 g/dL Normal 04/21/2024 11.7 - 15.5 [facility] Monocytes # Bld Auto 0.75 x 1000/uL Normal 04/21/2024 0 - 1 [facility] MCV RBC Auto 87.9 fL Normal 04/21/2024 80 - 100 [facility] T Platelet # Bld Auto 346.0 x1000/uL Normal 04/21/2024 150 - 420 [facility] Hct VFr Bld Auto 37.1 % Normal 04/21/2024 35 - 45 [facility] MCH RBC Qn Auto 29.4 pg Normal 04/21/2024 27 - 33 [facility] Basophils/leuk NFr Bld Auto 0.4 % Normal 04/21/2024 0 - 1.4 [facility] Eosinophil/leuk NFr Bld Auto 1.1 % Normal 04/21/2024 0 - 5 [facility] RDW RBC Auto-Rto 21.6 % Above high normal 04/21/2024 11 - 15 [facility] Monocytes/leuk NFr Bld Auto 6.6 % Normal 04/21/2024 4 - 12 [facility] Eosinophil # Bld Auto 0.12 x 1000/uL Normal 04/21/2024 0 - 1 [facility] nRBC/100 WBC Bld Auto-Rto 0.0 % Normal 04/21/2024 0 - 1 [facility] WBC # Bld Auto 11.3 x1000/uL Above high normal 04/21/2024 4 - 11 [facility] Neutrophils/leuk NFr Bld Auto 57.3 % Normal 04/21/2024 39 - 72 [facility] BKR REFLEX URINE CULTURE See Comment Normal 04/21/2024 [facility] Bacteria # Ur Auto Rare Normal 04/21/2024 - [facility] RBC #/area UrnS Auto 2.0 /HPF Normal 04/21/2024 0 - 2 [facility] WBC #/area UrnS Auto 19.0 /HPF Above high normal 04/21/2024 0 - 5 [facility] Squamous #/area UrnS Auto 1.0 /HPF Normal 04/21/2024 0 - 5 [facility] Glucose Ur Strip.auto-mCnc Negative Normal 04/21/2024 - [facility] Nitrite Ur Ql Strip.auto Negative Normal 04/21/2024 - [facility] pH Ur Strip.auto 6.5 Normal 04/21/2024 5.5 - 7.5 [facility] Urobilinogen Ur Strip-mCnc <2.0 mg/dL Normal 04/21/2024 - [facility] Sp Gr Ur Refract.auto 1.019 Normal 04/21/2024 1.0 05 - 1.03 [facility] Bilirub Ur Ql Strip.auto Negative Normal 04/21/2024 - [facility] Hgb Ur Ql Strip.auto 1+ Abnormal 04/21/2024 - [facility] Ketones Ur Strip.auto-mCnc Negative Normal 04/21/2024 - [facility] Color Ur Auto Colorless Normal 04/21/2024 - [facility] WBC # Ur Strip 3+ Abnormal 04/21/2024 - [facility] Clarity Ur Refract.auto Clear Normal 04/21/2024 - [facility] Prot Ur Strip.auto-mCnc Negative Normal 04/21/2024 - [facility] BKR WBC/HPF 10-20 Abnormal 04/20/2024 0 - 5 [facility] BKR BACTERIA, UA (MANUAL) Few Abnormal 04/20/2024 - [facility] differential performed Bld Ql Performed Normal 04/20/2024 [facility] RBC #/area UrnS HPF 3-5 Abnormal 04/20/2024 0 - 2 [facility] BKR URINE SQUAMOUS EPITHELIAL CELLS, UA (MANUAL) Few Normal 04/20/2024 - [facility] Prot Ur Strip.auto-mCnc Trace Normal 04/20/2024 - [facility] Color Ur Auto Yellow Normal 04/20/2024 - [facility] Glucose Ur Strip.auto-mCnc Negative Normal 04/20/2024 - [facility] Nitrite Ur Ql Strip.auto Negative Normal 04/20/2024 - [facility] pH Ur Strip.auto 7.0 Normal 04/20/2024 5.5 - 7.5 [facility] Urobilinogen Ur Strip-mCnc <2.0 mg/dL Normal 04/20/2024 - [facility] Clarity Ur Refract.auto Cloudy Abnormal 04/20/2024 - [facility] Ketones Ur Strip.auto-mCnc Negative Normal 04/20/2024 - [facility] WBC # Ur Strip 2+ Abnormal 04/20/2024 - [facility] Hgb Ur Ql Strip.auto 1+ Abnormal 04/20/2024 - [facility] Bilirub Ur Ql Strip.auto Negative Normal 04/20/2024 - [facility] Sp Gr Ur Refract.auto 1.02 Normal 04/20/2024 1.0 05 - 1.03 [facility] BKR REFLEX URINE CULTURE See Comment Normal 04/20/2024 [facility] Globulin Plas-mCnc 3.6 g/dL Above high normal 04/20/2024 2. 3 - 3.5 [facility] AST/ALT SerPl-cRto 0.5 Normal 04/20/2024 - [facility] Albumin SerPl BCG-mCnc 4.4 g/dL Normal 04/20/2024 3.4 - 5 [facility] Potassium SerPl-sCnc 3.9 mmol/L Normal 04/20/2024 3.5 - 5 .1 [facility] Albumin/Glob SerPl 1.2 Normal 04/20/2024 1 - 2.2 [facility] BKR CREATININE DELTA 0.19 Normal 04/20/2024 - [facility] GFR/BSA.pred SerPlBld BWU-VIW-XdVYuk >60.0 mL/min/1.73m2 Normal 04/20/2024 - [facility] AST SerPl w P-5'-P-cCnc 11.0 U/L Normal 04/20/2024 10 - 42 [facility] ALT SerPl w/o P-5'-P-cCnc 23.0 U/L Normal 04/20/2024 14 - 63 [facility] BUN SerPl-mCnc 6.0 mg/dL Below low normal 04/20/2024 7 - 18 [facility] Glucose SerPl-mCnc 118.0 mg/dL Above high normal 04/20/2024 70 - 100 [facility] Creat SerPl-mCnc 0.94 mg/dL Normal 04/20/2024 0.6 - 1 [facility] ALP SerPl-cCnc 118.0 U/L Above high normal 04/20/2024 46 - 1 16 [facility] Chloride SerPl-sCnc 108.0 mmol/L Above high normal 98 - 107 [facility] BUN/Creat SerPl 6.4 Below low normal 04/20/2024 8 - 23 [facility] HCO3 SerPl-sCnc 25.0 mmol/L Normal 04/20/2024 21 - 32 [facility] Sodium SerPl-sCnc 142.0 mmol/L Normal 04/20/2024 136 - 14 5 [facility] Anion Gap3 SerPl-sCnc 9.0 Normal 04/20/2024 5 - 16 [facility] Prot SerPl-mCnc 8.0 g/dL Normal 04/20/2024 6 - 8 [facility] Bilirub SerPl-mCnc 0.5 mg/dL Normal 04/20/2024 0.2 - 1.2 [facility] Calcium SerPl-mCnc 9.9 mg/dL Normal 04/20/2024 8.5 - 10.5 [facility] MCV RBC Auto 88.9 fL Normal 04/20/2024 80 - 100 [facility] T Eosinophil # Bld Auto 0.11 x 1000/uL Normal 04/20/2024 0 - 1 [facility] Basophils/leuk NFr Bld Auto 0.7 % Normal 04/20/2024 0 - 1.4 [facility] WBC # Bld Auto 9.4 x1000/uL Normal 04/20/2024 4 - 11 [facility] Neutrophils # Bld Auto 5.66 x 1000/uL Normal 04/20/2024 2 - 7.6 [facility] Monocytes # Bld Auto 0.64 x 1000/uL Normal 04/20/2024 0 - 1 [facility] RDW RBC Auto-Rto 21.2 % Above high normal 04/20/2024 11 - 15 [facility] nRBC/100 WBC Bld Auto-Rto 0.0 % Normal 04/20/2024 0 - 1 [facility] Eosinophil/leuk NFr Bld Auto 1.2 % Normal 04/20/2024 0 - 5 [facility] Imm Granulocytes/leuk NFr Bld Auto 0.3 % Normal 04/20/2024 0 - 1 [facility] Hct VFr Bld Auto 39.1 % Normal 04/20/2024 35 - 45 [facility] MCH RBC Qn Auto 28.6 pg Normal 04/20/2024 27 - 33 [facility] Monocytes/leuk NFr Bld Auto 6.8 % Normal 04/20/2024 4 - 12 [facility] RBC # Bld Auto 4.4 M/uL Normal 04/20/2024 4 - 6 [facility] Platelet # Bld Auto 346.0 x1000/uL Normal 04/20/2024 150 - 420 [facility] MCHC RBC Auto-mCnc 32.2 g/dL Normal 04/20/2024 31 - 36 [facility] PMV Bld Auto 9.1 fL Normal 04/20/2024 8 - 12 [facility] T Basophils # Bld Auto 0.07 x 1000/uL Normal 04/20/2024 0 - 1 [facility] Lymphocytes # Bld Auto 2.89 x 1000/uL Normal 04/20/2024 0 .6 - 3.7 [facility] Lymphocytes/leuk NFr Bld Auto 30.7 % Normal 04/20/2024 17 - 50 [facility] Imm Granulocytes # Bld Auto 0.03 x 1000/uL Normal 04/20/2024 0 - 0.3 [facility] nRBC # Bld Auto 0.0 x 1000/uL Normal 04/20/2024 0 - 1 [facility] Hgb Bld-mCnc 12.6 g/dL Normal 04/20/2024 11.7 - 15.5 [facility] Neutrophils/leuk NFr Bld Auto 60.3 % Normal 04/20/2024 39 - 72 [facility] BKR REFLEX URINE CULTURE See Comment Normal 04/19/2024 [facility] RBC #/area UrnS Auto 1.0 /HPF Normal 04/19/2024 0 - 2 [facility] Squamous #/area UrnS Auto 1.0 /HPF Normal 04/19/2024 0 - 5 [facility] WBC #/area UrnS Auto 5.0 /HPF Normal 04/19/2024 0 - 5 [facility] Bilirub Ur Ql Strip.auto Negative Normal 04/19/2024 - [facility] pH Ur Strip.auto 6.5 Normal 04/19/2024 5.5 - 7.5 [facility] Glucose Ur Strip.auto-mCnc Negative Normal 04/19/2024 - [facility] Urobilinogen Ur Strip-mCnc <2.0 mg/dL Normal 04/19/2024 - [facility] Hgb Ur Ql Strip.auto Trace Abnormal 04/19/2024 - [facility] Color Ur Auto Colorless Normal 04/19/2024 - [facility] CT Sp Gr Ur Refract.auto 1.008 Normal 04/19/2024 1.0 05 - 1.03 [facility] WBC # Ur Strip 4+ Abnormal 04/19/2024 - [facility] Clarity Ur Refract.auto Clear Normal 04/19/2024 - [facility] Prot Ur Strip.auto-mCnc Negative Normal 04/19/2024 - [facility] Nitrite Ur Ql Strip.auto Negative Normal 04/19/2024 - [facility] Ketones Ur Strip.auto-mCnc Negative Normal 04/19/2024 - [facility] fentaNYL Ur Ql Scn Negative Normal 04/19/2024 - [facility] BKR DRUGS OF ABUSE NOTE Normal 04/19/2024 [facility] Amphetamines Ur Ql Scn Negative Normal 04/19/2024 - [facility] Cannabinoids Ur Ql Scn Negative Normal 04/19/2024 - [facility] BKR DRUGS OF ABUSE DISCLAIMER See Comment Normal 04/19/2024 [facility] Opiates Ur Ql Scn Negative Normal 04/19/2024 - [facility] oxyCODONE Ur Ql Scn Negative Normal 04/19/2024 - [facility] PCP Ur Ql Scn>25 ng/mL Negative Normal 04/19/2024 - [facility] Barbiturates Ur Ql Scn Positive Abnormal 04/19/2024 - [facility] Benzodiaz Ur Ql Scn Negative Normal 04/19/2024 - [facility] Methadone Ur Ql Scn Negative Normal 04/19/2024 - [facility] BZE Ur Ql Scn Negative Normal 04/19/2024 - [facility] Magnesium SerPl-mCnc 2.0 mg/dL Normal 04/19/2024 1.7 - 2. 4 [facility] Prot SerPl-mCnc 6.9 g/dL Normal 04/19/2024 5.9 - 8.3 [facility] BUN SerPl-mCnc 7.0 mg/dL Normal 04/19/2024 6 - 20 [facility] Sodium SerPl-sCnc 144.0 mmol/L Normal 04/19/2024 136 - 14 4 [facility] AST/ALT SerPl-cRto 0.9 Normal 04/19/2024 - [facility] Glucose SerPl-mCnc 102.0 mg/dL Above high normal 04/19/2024 70 - 100 [facility] ALP SerPl-cCnc 104.0 U/L Normal 04/19/2024 9 - 122 [facility] GFR/BSA.pred SerPlBld QWC-KBE-ElQIbc >60.0 mL/min/1.73m2 Normal 04/19/2024 - [facility] BKR CREATININE DELTA 0.07 Normal 04/19/2024 - [facility] Albumin/Glob SerPl 1.9 Normal 04/19/2024 1 - 2.2 [facility] Creat SerPl-mCnc 0.75 mg/dL Normal 04/19/2024 0.4 - 1.3 [facility] Anion Gap3 SerPl-sCnc 9.0 Normal 04/19/2024 7 - 17 [facility] AST SerPl w P-5'-P-cCnc 15.0 U/L Normal 04/19/2024 10 - 35 [facility] Calcium SerPl-mCnc 9.9 mg/dL Normal 04/19/2024 8.8 - 10.2 [facility] Globulin Plas-mCnc 2.4 g/dL Normal 04/19/2024 2 - 3.9 [facility] Potassium SerPl-sCnc 4.2 mmol/L Normal 04/19/2024 3.3 - 5 .3 [facility] Albumin SerPl BCG-mCnc 4.5 g/dL Normal 04/19/2024 3.6 - 5.1 [facility] Bilirub SerPl-mCnc 0.4 mg/dL Normal 04/19/2024 - [facility] BUN/Creat SerPl 9.3 Normal 04/19/2024 8 - 23 [facility] Chloride SerPl-sCnc 112.0 mmol/L Above high normal 98 - 107 [facility] HCO3 SerPl-sCnc 23.0 mmol/L Normal 04/19/2024 20 - 30 [facility] ALT SerPl w/o P-5'-P-cCnc 16.0 U/L Normal 04/19/2024 10 - 35 [facility] [place] SerPl-sCnc 0.85 mmol/L Normal 04/19/2024 0.6 - 1. 2 [facility] Basophils # Bld Auto 0.04 x 1000/uL Normal 04/19/2024 0 - 1 [facility] RBC # Bld Auto 4.31 M/uL Normal 04/19/2024 4 - 6 [facility] Neutrophils # Bld Auto 6.53 x 1000/uL Normal 04/19/2024 2 - 7.6 [facility] Basophils/leuk NFr Bld Auto 0.4 % Normal 04/19/2024 0 - 1.4 [facility] Eosinophil/leuk NFr Bld Auto 1.0 % Normal 04/19/2024 0 - 5 [facility] Lymphocytes # Bld Auto 2.15 x 1000/uL Normal 04/19/2024 0 .6 - 3.7 [facility] Lymphocytes/leuk NFr Bld Auto 22.9 % Normal 04/19/2024 17 - 50 [facility] RDW RBC Auto-Rto 21.0 % Above high normal 04/19/2024 11 - 15 [facility] Hgb Bld-mCnc 12.1 g/dL Normal 04/19/2024 11.7 - 15.5 [facility] Monocytes # Bld Auto 0.55 x 1000/uL Normal 04/19/2024 0 - 1 [facility] WBC # Bld Auto 9.4 x1000/uL Normal 04/19/2024 4 - 11 [facility] Monocytes/leuk NFr Bld Auto 5.9 % Normal 04/19/2024 4 - 12 [facility] nRBC # Bld Auto 0.0 x 1000/uL Normal 04/19/2024 0 - 1 [facility] Neutrophils/leuk NFr Bld Auto 69.6 % Normal 04/19/2024 39 - 72 [facility] Imm Granulocytes # Bld Auto 0.02 x 1000/uL Normal 04/19/2024 0 - 0.3 [facility] nRBC/100 WBC Bld Auto-Rto 0.0 % Normal 04/19/2024 0 - 1 [facility] Platelet # Bld Auto 314.0 x1000/uL Normal 04/19/2024 150 - 420 [facility] Eosinophil # Bld Auto 0.09 x 1000/uL Normal 04/19/2024 0 - 1 [facility] PMV Bld Auto 9.6 fL Normal 04/19/2024 8 - 12 [facility] T MCV RBC Auto 87.5 fL Normal 04/19/2024 80 - 100 [facility] T Hct VFr Bld Auto 37.7 % Normal 04/19/2024 35 - 45 [facility] MCH RBC Qn Auto 28.1 pg Normal 04/19/2024 27 - 33 [facility] Imm Granulocytes/leuk NFr Bld Auto 0.2 % Normal 04/19/2024 0 - 1 [facility] MCHC RBC Auto-mCnc 32.1 g/dL Normal 04/19/2024 31 - 36 [facility] Valproate SerPl-mCnc <3.0 mg/L Below low normal 04/18/2024 5 0 - 100 [facility] [place] SerPl-sCnc 1.1 mmol/L Normal 04/18/2024 1 - 1.2 [facility] Platelet num Bld Auto 324.0 Thou/uL Normal 04/18/2024 150 - 450 [facility] Neutrophils/leuk NFr Bld Auto 67.1 % Normal 04/18/2024 [facility] Hgb Bld-mCnc 11.8 g/dL Normal 04/18/2024 11.7 - 15.7 [facility] Lymphocytes/leuk NFr Bld Auto 25.3 % Normal 04/18/2024 [facility] Hct VFr Bld Auto 37.1 % Normal 04/18/2024 35 - 47 [facility] Basophils num Bld Auto 0.06 Thou/uL Normal 04/18/2024 0 - 0.2 [facility] Monocytes/leuk NFr Bld Auto 5.7 % Normal 04/18/2024 [facility] WBC num Bld Auto 10.3 Thou/uL Normal 04/18/2024 4 - 11 [facility] Imm Granulocytes num Bld Auto 0.03 Thou/uL Normal 04/18/2024 0 - 0.1 [facility] PMV Bld Auto 9.7 fL Normal 04/18/2024 7.5 - 12.5 [facility] Imm Granulocytes/leuk NFr Bld Auto 0.3 % Normal 04/18/2024 [facility] MCHC RBC Auto-mCnc 31.8 g/dL Normal 04/18/2024 30 - 36 [facility] RDW RBC Auto-Rto 21.0 % Above high normal 04/18/2024 1 1.5 - 14.5 [facility] Eosinophil/leuk NFr Bld Auto 1.0 % Normal 04/18/2024 [facility] MCV RBC Auto 89.0 fL Normal 04/18/2024 80 - 100 [facility] Monocytes num Bld Auto 0.59 Thou/uL Normal 04/18/2024 0.2 - 1.5 [facility] RBC num Bld Auto 4.18 Mil/uL Normal 04/18/2024 4 - 5.4 [facility] Neutrophils num Bld Auto 6.9 Thou/uL Normal 04/18/2024 2 - 7.5 [facility] Lymphocytes num Bld Auto 2.6 Thou/uL Normal 04/18/2024 1.5 - 4.5 [facility] Basophils/leuk NFr Bld Auto 0.6 % Normal 04/18/2024 [facility] Eosinophil num Bld Auto 0.1 Thou/uL Normal 04/18/2024 0 - 0.7 [facility] MCH RBC Qn Auto 28.2 pg Normal 04/18/2024 26 - [address] ALP SerPl-cCnc 94.0 U/L Normal 04/18/2024 32 - 122 [facility] T Globulin Ser Calc-mCnc 2.8 g/dL Normal 04/18/2024 1.5 - 3.9 [facility] BUN SerPl-mCnc 6.0 mg/dL Below low normal 04/18/2024 9 - 23 [facility] Prot SerPl-mCnc 7.6 g/dL Normal 04/18/2024 5.7 - 8.[address] Bil[place]ub SerPl-mCnc 0.3 mg/dL Normal 04/18/2024 0.3 - 1.2 [facility] Calcium SerPl-mCnc 9.8 mg/dL Normal 04/18/2024 8.7 - 10.5 [facility] Anion Gap Bld-sCnc 6.0 Normal 04/18/2024 5 - 15 [facility] ALT SerPl-cCnc 16.0 U/L Normal 04/18/2024 7 - 35 [facility] T CO2 SerPl-sCnc 24.0 mmol/L Normal 04/18/2024 20 - 31 [facility] BUN/Creat SerPl 8.0 Ratio Below low normal 04/18/2024 10 - 2 5 [facility] AST SerPl-cCnc 20.0 U/L Normal 04/18/2024 - 34 [facility] T Potassium SerPl-sCnc 3.6 mmol/L Normal 04/18/2024 3.4 - 4 .5 [facility] Albumin SerPl-mCnc 4.8 g/dL Normal 04/18/2024 3.4 - 4.8 [facility] Sodium SerPl-sCnc 142.0 mmol/L Normal 04/18/2024 136 - 14 5 [facility] Glucose SerPl-mCnc 93.0 mg/dL Normal 04/18/2024 74 - 106 [facility] Chloride SerPl-sCnc 112.0 mmol/L Above high normal 98 - 107 [facility] Creat SerPl-mCnc 0.8 mg/dL Normal 04/18/2024 0.6 - 1 [facility] Albumin/Glob SerPl 1.7 Ratio Normal 04/18/2024 1.5 - 2.5 [facility] GFR/BSA.pred SerPlBld AGA-LQW-SkXBmv >90.0 Normal 04/18/2024 59 - [facility] BKR REFLEX URINE CULTURE See Comment Normal 04/18/2024 [facility] Squamous #/area UrnS Auto 2.0 /HPF Normal 04/18/2024 0 - 5 [facility] RBC #/area UrnS Auto 1.0 /HPF Normal 04/18/2024 0 - 2 [facility] WBC #/area UrnS Auto 11.0 /HPF Above high normal 04/18/2024 0 - 5 [facility] Glucose Ur Strip.auto-mCnc Negative Normal 04/18/2024 - [facility] Urobilinogen Ur Strip-mCnc <2.0 mg/dL Normal 04/18/2024 - [facility] Clarity Ur Refract.auto Clear Normal 04/18/2024 - [facility] Prot Ur Strip.auto-mCnc Negative Normal 04/18/2024 - [facility] WBC # Ur Strip 3+ Abnormal 04/18/2024 - [facility] Nitrite Ur Ql Strip.auto Negative Normal 04/18/2024 - [facility] Hgb Ur Ql Strip.auto Negative Normal 04/18/2024 - [facility] Bilirub Ur Ql Strip.auto Negative Normal 04/18/2024 - [facility] Sp Gr Ur Refract.auto 1.011 Normal 04/18/2024 1.0 05 - 1.03 [facility] Color Ur Auto Colorless Normal 04/18/2024 - [facility] CT Ketones Ur Strip.auto-mCnc Negative Normal 04/18/2024 - [facility] pH Ur Strip.auto 7.5 Normal 04/18/2024 5.5 - 7.5 [facility] [place] SerPl-sCnc 1.59 mmol/L Above high normal 04/18/2024 0.6 - 1.2 [facility] Glucose SerPl-mCnc 108.0 mg/dL Above high normal 04/18/2024 70 - 100 [facility] Chloride SerPl-sCnc 109.0 mmol/L Above high normal 98 - 107 [facility] Sodium SerPl-sCnc 141.0 mmol/L Normal 04/18/2024 136 - 14 4 [facility] Anion Gap3 SerPl-sCnc 8.0 Normal 04/18/2024 7 - 17 [facility] BUN SerPl-mCnc 6.0 mg/dL Normal 04/18/2024 6 - 20 [facility] ALP SerPl-cCnc 100.0 U/L Normal 04/18/2024 9 - 122 [facility] BUN/Creat SerPl 8.8 Normal 04/18/2024 8 - 23 [facility] Albumin/Glob SerPl 1.8 Normal 04/18/2024 1 - 2.2 [facility] AST SerPl w P-5'-P-cCnc 19.0 U/L Normal 04/18/2024 10 - 35 [facility] AST/ALT SerPl-cRto 1.2 Normal 04/18/2024 - [facility] ALT SerPl w/o P-5'-P-cCnc 16.0 U/L Normal 04/18/2024 10 - 35 [facility] HCO3 SerPl-sCnc 24.0 mmol/L Normal 04/18/2024 20 - 30 [facility] Creat SerPl-mCnc 0.68 mg/dL Normal 04/18/2024 0.4 - 1.3 [facility] Potassium SerPl-sCnc 4.7 mmol/L Normal 04/18/2024 3.3 - 5 .3 [facility] BKR CREATININE DELTA 0.19 Normal 04/18/2024 - [facility] GFR/BSA.pred SerPlBld QHU-RCA-CsFUja >60.0 mL/min/1.73m2 Normal 04/18/2024 - [facility] Globulin Plas-mCnc 2.5 g/dL Normal 04/18/2024 2 - 3.9 [facility] Calcium SerPl-mCnc 10.0 mg/dL Normal 04/18/2024 8.8 - 10. 2 [facility] Albumin SerPl BCG-mCnc 4.5 g/dL Normal 04/18/2024 3.6 - 5.1 [facility] Prot SerPl-mCnc 7.0 g/dL Normal 04/18/2024 5.9 - 8.3 [facility] Bil[place]ub SerPl-mCnc 0.2 mg/dL Normal 04/18/2024 - [facility] Magnesium SerPl-mCnc 2.2 mg/dL Normal 04/18/2024 1.7 - 2. 4 [facility] RBC # Bld Auto 4.54 M/uL Normal 04/18/2024 4 - 6 [facility] Eosinophil/leuk NFr Bld Auto 1.5 % Normal 04/18/2024 0 - 5 [facility] Neutrophils/leuk NFr Bld Auto 71.2 % Normal 04/18/2024 39 - 72 [facility] nRBC/100 WBC Bld Auto-Rto 0.0 % Normal 04/18/2024 0 - 1 [facility] Hgb Bld-mCnc 12.5 g/dL Normal 04/18/2024 11.7 - 15.5 [facility] Monocytes # Bld Auto 0.52 x 1000/uL Normal 04/18/2024 0 - 1 [facility] Platelet # Bld Auto 331.0 x1000/uL Normal 04/18/2024 150 - 420 [facility] Imm Granulocytes/leuk NFr Bld Auto 0.4 % Normal 04/18/2024 0 - 1 [facility] MCH RBC Qn Auto 27.5 pg Normal 04/18/2024 27 - 33 [facility] Eosinophil # Bld Auto 0.13 x 1000/uL Normal 04/18/2024 0 - 1 [facility] Monocytes/leuk NFr Bld Auto 6.1 % Normal 04/18/2024 4 - 12 [facility] MCHC RBC Auto-mCnc 31.4 g/dL Normal 04/18/2024 31 - 36 [facility] Basophils # Bld Auto 0.04 x 1000/uL Normal 04/18/2024 0 - 1 [facility] Hct VFr Bld Auto 39.8 % Normal 04/18/2024 35 - 45 [facility] MCV RBC Auto 87.7 fL Normal 04/18/2024 80 - 100 [facility] T Basophils/leuk NFr Bld Auto 0.5 % Normal 04/18/2024 0 - 1.4 [facility] Imm Granulocytes # Bld Auto 0.03 x 1000/uL Normal 04/18/2024 0 - 0.3 [facility] RDW RBC Auto-Rto 20.7 % Above high normal 04/18/2024 11 - 15 [facility] Lymphocytes/leuk NFr Bld Auto 20.3 % Normal 04/18/2024 17 - 50 [facility] WBC # Bld Auto 8.6 x1000/uL Normal 04/18/2024 4 - 11 [facility] PMV Bld Auto 9.6 fL Normal 04/18/2024 8 - 12 [facility] T nRBC # Bld Auto 0.0 x 1000/uL Normal 04/18/2024 0 - 1 [facility] Neutrophils # Bld Auto 6.11 x 1000/uL Normal 04/18/2024 2 - 7.6 [facility] Lymphocytes # Bld Auto 1.74 x 1000/uL Normal 04/18/2024 0 .6 - 3.7 [facility] HCG Qualitative Negative Normal 04/12/2024 - [facility] Lipase 32.0 U/L Normal 04/12/2024 12 - 53 [facility] Anion Gap 6.0 mmol/L Normal 04/12/2024 5 - 16 [facility] Alanine Aminotransferase 24.0 U/L Normal 04/12/2024 10 - 49 [facility] Carbon Dioxide 30.0 mmol/L Normal 04/12/2024 20 - 31 [facility] Total Protein 7.0 g/dL Normal 04/12/2024 5.7 - 8.2 [facility] Alkaline Phosphatase 82.0 U/L Normal 04/12/2024 46 - 110 [facility] Glucose 91.0 mg/dL Normal 04/12/2024 74 - 106 [facility] BUN Creatinine Ratio 15.0 % Normal 04/12/2024 7 - 25 [facility] Aspartate Amino Transferase 29.0 U/L Normal 04/12/2024 0 - 33.9 [facility] Chloride 107.0 mmol/L Normal 04/12/2024 98 - 107 [facility] Sodium 143.0 mmol/L Normal 04/12/2024 136 - 145 [facility] Albumin Level 4.5 g/dL Normal 04/12/2024 3.2 - 4.8 [facility] Albumin Globulin Ratio 1.8 % Normal 04/12/2024 1.1 - 2.2 [facility] Creatinine 0.63 mg/dL Normal 04/12/2024 0.55 - 1.02 [facility] BUN 9.4 mg/dL Normal 04/12/2024 9 - 23 [facility] Globulin 2.5 g/dL Normal 04/12/2024 1.9 - 4.1 [facility] Potassium 4.2 mmol/L Normal 04/12/2024 3.5 - 5.1 [facility] Calcium 10.3 mg/dL Normal 04/12/2024 8.7 - 10.4 [facility] Bilirubin,Total 0.2 mg/dL Below low normal 04/12/2024 0.3 - 1.2 [facility] Urine Microscopic Indicated Ur Sediment Examed Normal 04/12/2024 [facility] Culture Indicated Urine Culture Indicated Normal 04/12/2024 [facility] Color Urine Yellow Normal 04/12/2024 - [facility] Clarity Urine Clear Normal 04/12/2024 - [facility] Nitrate Urine Negative Normal 04/12/2024 - [facility] Protein Urine Negative Normal 04/12/2024 - [facility] pH Urine 6.5 Normal 04/12/2024 5 - 8 [facility] Hemoglobin Urine Trace-Intact Abnormal 04/12/2024 - [facility] Specific [place] Urine 1.015 Normal 04/12/2024 1 - 1. 1 [facility] Ketones Urine Negative Normal 04/12/2024 - [facility] Glucose Urine UA Negative Normal 04/12/2024 - [facility] Bilirubin Urine Negative Normal 04/12/2024 - [facility] Leukocyte Esterase Urine Small Abnormal 04/12/2024 - [facility] Urobilinogen Urine 1.0 EU/dL Normal 04/12/2024 0.1 - 1 [facility] Mucous Threads Urine Few Normal 04/12/2024 - [facility] Amorphous Sediment Urine Rare Normal 04/12/2024 [facility] Squamous Epithelial Cell Urine Few Normal 04/12/2024 - [facility] Bacteria Urine Few Abnormal 04/12/2024 - [facility] H Mean Corpuscular HGB Conc 31.1 G/DL Below low normal 04/12/2024 32 - 37 [facility] Basophils Absolute Auto 0.1 /CUMM Normal 04/12/2024 0 - 0.2 [facility] Granulocytes Percent Auto 58.5 % Normal 04/12/2024 40 - 72 [facility] Lymphocytes Percent Auto 31.0 % Normal 04/12/2024 20 - 51 [facility] Immature Granulocyte Percent 0.1 % Normal 04/12/2024 0 - 1 [facility] Basophils Percent Auto 0.6 % Normal 04/12/2024 0 - 2 [facility] Monocytes Percent Auto 7.7 % Normal 04/12/2024 1 - 13 [facility] Platelet Count 333.0 /CUMM Normal 04/12/2024 140 - 440 [facility] Monocytes Absolute Auto 0.6 /CUMM Normal 04/12/2024 0 - 1 [facility] Immature Gran Absolute Auto 0.0 /CUMM Normal 04/12/2024 0 - 0.3 [facility] Hemoglobin 11.9 G/DL Below low normal 04/12/2024 12 - 16 [facility] Hematocrit 38.3 % Normal 04/12/2024 37 - 47 [facility] Red Cell Distribution Width 21.2 % Above high normal 04/12/2024 11.5 - 14.5 [facility] Granulocytes Absolute Auto 4.8 /CUMM Normal 04/12/2024 1 - 7 [facility] White Blood Count 8.2 /CUMM Normal 04/12/2024 4.8 - 10.8 [facility] Eosinophils Absolute Auto 0.2 /CUMM Normal 04/12/2024 0 - 1 [facility] Eosinophils Percent Auto 2.1 % Normal 04/12/2024 0 - 7 [facility] Mean Corpuscular Hemoglobin 27.8 PG Normal 04/12/2024 27 - 31 [facility] Mean Corpuscular Volume 89.5 FL Normal 04/12/2024 80 - 96 [facility] Red Blood Count 4.28 /CUMM Normal 04/12/2024 4.2 - 5.4 [facility] Mean Platelet Volume 9.6 FL Normal 04/12/2024 7.4 - 12 [facility] Lymphocytes Absolute Auto 2.5 /CUMM Normal 04/12/2024 1 - 4 [facility] MCHC RBC Auto-mCnc 31.3 g/dL Normal 04/10/2024 31 - 36 [facility] Eosinophil # Bld Auto 0.11 x 1000/uL Normal 04/10/2024 0 - 1 [facility] RBC # Bld Auto 4.0 M/uL Normal 04/10/2024 4 - 6 [facility] Hct VFr Bld Auto 35.5 % Normal 04/10/2024 35 - 45 [facility] Basophils/leuk NFr Bld Auto 0.9 % Normal 04/10/2024 0 - 1.4 [facility] nRBC # Bld Auto 0.0 x 1000/uL Normal 04/10/2024 0 - 1 [facility] Neutrophils/leuk NFr Bld Auto 60.3 % Normal 04/10/2024 39 - 72 [facility] Monocytes/leuk NFr Bld Auto 8.4 % Normal 04/10/2024 4 - 12 [facility] Imm Granulocytes/leuk NFr Bld Auto 0.3 % Normal 04/10/2024 0 - 1 [facility] Lymphocytes/leuk NFr Bld Auto 28.5 % Normal 04/10/2024 17 - 50 [facility] RDW RBC Auto-Rto 20.9 % Above high normal 04/10/2024 11 - 15 [facility] Neutrophils # Bld Auto 4.1 x 1000/uL Normal 04/10/2024 2 - 7.6 [facility] Imm Granulocytes # Bld Auto 0.02 x 1000/uL Normal 04/10/2024 0 - 0.3 [facility] PMV Bld Auto 9.6 fL Normal 04/10/2024 8 - 12 [facility] T nRBC/100 WBC Bld Auto-Rto 0.0 % Normal 04/10/2024 0 - 1 [facility] Hgb Bld-mCnc 11.1 g/dL Below low normal 04/10/2024 11.7 - 15.5 [facility] MCH RBC Qn Auto 27.8 pg Normal 04/10/2024 27 - 33 [facility] Basophils # Bld Auto 0.06 x 1000/uL Normal 04/10/2024 0 - 1 [facility] Monocytes # Bld Auto 0.57 x 1000/uL Normal 04/10/2024 0 - 1 [facility] MCV RBC Auto 88.8 fL Normal 04/10/2024 80 - 100 [facility] T Platelet # Bld Auto 280.0 x1000/uL Normal 04/10/2024 150 - 420 [facility] Eosinophil/leuk NFr Bld Auto 1.6 % Normal 04/10/2024 0 - 5 [facility] WBC # Bld Auto 6.8 x1000/uL Normal 04/10/2024 4 - 11 [facility] Lymphocytes # Bld Auto 1.94 x 1000/uL Normal 04/10/2024 0 .6 - 3.7 [facility] Potassium SerPl-sCnc 3.7 mmol/L Normal 04/10/2024 3.3 - 5 .3 [facility] BKR REFLEX URINE CULTURE See Comment Normal 04/10/2024 [facility] Squamous #/area UrnS Auto 1.0 /HPF Normal 04/10/2024 0 - 5 [facility] WBC #/area UrnS Auto 22.0 /HPF Above high normal 04/10/2024 0 - 5 [facility] RBC #/area UrnS Auto 4.0 /HPF Above high normal 04/10/2024 0 - 2 [facility] Glucose Ur Strip.auto-mCnc Negative Normal 04/10/2024 - [facility] pH Ur Strip.auto 7.0 Normal 04/10/2024 5.5 - 7.5 [facility] Clarity Ur Refract.auto Clear Normal 04/10/2024 - [facility] WBC # Ur Strip 3+ Abnormal 04/10/2024 - [facility] HCT Color Ur Auto Yellow Normal 04/10/2024 - [facility] CT Ketones Ur Strip.auto-mCnc Negative Normal 04/10/2024 - [facility] Bilirub Ur Ql Strip.auto Negative Normal 04/10/2024 - [facility] Hgb Ur Ql Strip.auto Trace Abnormal 04/10/2024 - [facility] Sp Gr Ur Refract.auto 1.028 Normal 04/10/2024 1.0 05 - 1.03 [facility] Nitrite Ur Ql Strip.auto Negative Normal 04/10/2024 - [facility] Urobilinogen Ur Strip-mCnc <2.0 mg/dL Normal 04/10/2024 - [facility] Prot Ur Strip.auto-mCnc Trace Normal 04/10/2024 - [facility] Magnesium SerPl-mCnc 2.2 mg/dL Normal 04/10/2024 1.7 - 2. 4 [facility] Potassium SerPl-sCnc Normal 04/10/2024 [facility] Glucose SerPl-mCnc 80.0 mg/dL Normal 04/10/2024 70 - 100 [facility] Albumin SerPl BCG-mCnc 3.6 g/dL Normal 04/10/2024 3.6 - 5.1 [facility] BKR CREATININE DELTA -0.09 Normal 04/10/2024 - [facility] ALP SerPl-cCnc Normal 04/10/2024 [facility] Albumin/Glob SerPl Normal 04/10/2024 [facility] AST/ALT SerPl-cRto Normal 04/10/2024 [facility] Creat SerPl-mCnc 0.49 mg/dL Normal 04/10/2024 0.4 - 1.3 [facility] ALT SerPl w/o P-5'-P-cCnc Normal 04/10/2024 [facility] Prot SerPl-mCnc Normal 04/10/2024 [facility] HCO3 SerPl-sCnc 22.0 mmol/L Normal 04/10/2024 20 - 30 [facility] BUN/Creat SerPl 24.5 Above high normal 04/10/2024 8 - 2 3 [facility] Bilirub SerPl-mCnc <0.2 mg/dL Normal 04/10/2024 - [facility] Sodium SerPl-sCnc Normal 04/10/2024 [facility] BUN SerPl-mCnc 12.0 mg/dL Normal 04/10/2024 6 - 20 [facility] Calcium SerPl-mCnc 7.3 mg/dL Below low normal 04/10/2024 8.8 - 10.2 [facility] Globulin Plas-mCnc Normal 04/10/2024 [facility] GFR/BSA.pred SerPlBld ZIO-[id number]-LbYReh >60.0 mL/min/1.73m2 Normal 04/10/2024 - [facility] Chloride SerPl-sCnc 111.0 mmol/L Above high normal 98 - 107 [facility] AST SerPl w P-5'-P-cCnc Normal 04/10/2024 [facility] RBC Urine Rare Normal 03/27/2024 0 - 2 [facility] Squamous Epithelial Cell Urine Few Normal 03/27/2024 - [facility] Bacteria Urine Few Abnormal 03/27/2024 - [facility] Urine Microscopic Indicated Ur Sediment Examed Normal 03/27/2024 [facility] Clarity Urine Clear Normal 03/27/2024 - [facility] Color Urine Yellow Normal 03/27/2024 - [facility] Culture Indicated Urine Culture Indicated Normal 03/27/2024 [facility] Hemoglobin Urine Trace-Intact Abnormal 03/27/2024 - [facility] Urobilinogen Urine 0.2 EU/dL Normal 03/27/2024 0.1 - 1 [facility] Specific [place] Urine 1.015 Normal 03/27/2024 1 - 1. 1 [facility] pH Urine 7.5 Normal 03/27/2024 5 - 8 [facility] Protein Urine Trace Abnormal 03/27/2024 - [facility] Glucose Urine UA Negative Normal 03/27/2024 - [facility] Bilirubin Urine Negative Normal 03/27/2024 - [facility] RH Ketones Urine Negative Normal 03/27/2024 - [facility] Nitrate Urine Negative Normal 03/27/2024 - [facility] Leukocyte Esterase Urine Small Abnormal 03/27/2024 - [facility] GFR/BSA.pred SerPlBld DUQ-[id number]-TtLWlo >60.0 mL/min/1.73m2 Normal 03/24/2024 - [facility] BKR CREATININE DELTA -0.08 Normal 03/24/2024 - [facility] Potassium SerPl-sCnc 3.8 mmol/L Normal 03/24/2024 3.5 - 5 .1 [facility] Glucose SerPl-mCnc 92.0 mg/dL Normal 03/24/2024 70 - 100 [facility] Calcium SerPl-mCnc 8.3 mg/dL Below low normal 03/24/2024 8.5 - 10.5 [facility] Chloride SerPl-sCnc 112.0 mmol/L Above high normal 98 - 107 [facility] BUN SerPl-mCnc 7.0 mg/dL Normal 03/24/2024 7 - 18 [facility] HCO3 SerPl-sCnc 27.0 mmol/L Normal 03/24/2024 21 - 32 [facility] Sodium SerPl-sCnc 145.0 mmol/L Normal 03/24/2024 136 - 14 5 [facility] Anion Gap3 SerPl-sCnc 6.0 Normal 03/24/2024 5 - 16 [facility] Creat SerPl-mCnc 0.58 mg/dL Below low normal 03/24/2024 0.6 - 1 [facility] BUN/Creat SerPl 12.1 Normal 03/24/2024 8 - 23 [facility] Neutrophils # Bld Auto 3.39 x 1000/uL Normal 03/24/2024 2 - 7.6 [facility] Hct VFr Bld Auto 32.4 % Below low normal 03/24/2024 35 - 45 [facility] Imm Granulocytes # Bld Auto 0.02 x 1000/uL Normal 03/24/2024 0 - 0.3 [facility] Monocytes/leuk NFr Bld Auto 7.8 % Normal 03/24/2024 4 - 12 [facility] MCHC RBC Auto-mCnc 31.5 g/dL Normal 03/24/2024 31 - 36 [facility] Platelet # Bld Auto 280.0 x1000/uL Normal 03/24/2024 150 - 420 [facility] Neutrophils/leuk NFr Bld Auto 54.0 % Normal 03/24/2024 39 - 72 [facility] RBC # Bld Auto 3.65 M/uL Below low normal 03/24/2024 4 - 6 [facility] Eosinophil/leuk NFr Bld Auto 3.0 % Normal 03/24/2024 0 - 5 [facility] PMV Bld Auto 10.0 fL Normal 03/24/2024 8 - 12 [facility] MCH RBC Qn Auto 27.9 pg Normal 03/24/2024 27 - 33 [facility] Eosinophil # Bld Auto 0.19 x 1000/uL Normal 03/24/2024 0 - 1 [facility] Monocytes # Bld Auto 0.49 x 1000/uL Normal 03/24/2024 0 - 1 [facility] WBC # Bld Auto 6.3 x1000/uL Normal 03/24/2024 4 - 11 [facility] nRBC/100 WBC Bld Auto-Rto 0.0 % Normal 03/24/2024 0 - 1 [facility] RDW RBC Auto-Rto 21.8 % Above high normal 03/24/2024 11 - 15 [facility] Lymphocytes # Bld Auto 2.16 x 1000/uL Normal 03/24/2024 0 .6 - 3.7 [facility] nRBC # Bld Auto 0.0 x 1000/uL Normal 03/24/2024 0 - 1 [facility] Basophils/leuk NFr Bld Auto 0.5 % Normal 03/24/2024 0 - 1.4 [facility] Basophils # Bld Auto 0.03 x 1000/uL Normal 03/24/2024 0 - 1 [facility] MCV RBC Auto 88.8 fL Normal 03/24/2024 80 - [facility] B[facility]-m[facility] 10.2 g/dL Below low normal 03/24/2024 11.7 - 15.5 [facility] Imm Granulocytes/leuk NFr Bld Auto 0.3 % Normal 03/24/2024 0 - 1 [facility] Lymphocytes/leuk NFr Bld Auto 34.4 % Normal 03/24/2024 17 - 50 [facility] Magnesium SerPl-mCnc 1.9 mg/dL Normal 03/23/2024 1.8 - 2. 5 [facility] Procalcitonin SerPl-mCnc 0.06 ng/mL Normal 03/23/2024 - [facility] Calcium SerPl-mCnc 9.4 mg/dL Normal 03/23/2024 8.5 - 10.5 [facility] Creat SerPl-mCnc 0.66 mg/dL Normal 03/23/2024 0.6 - 1 [facility] Potassium SerPl-sCnc 3.3 mmol/L Below low normal 03/23/2024 3.5 - 5.1 [facility] ALP SerPl-cCnc 86.0 U/L Normal 03/23/2024 46 - 116 [facility] AST/ALT SerPl-cRto 0.8 Normal 03/23/2024 - [facility] Anion Gap3 SerPl-sCnc 9.0 Normal 03/23/2024 5 - 16 [facility] Albumin SerPl BCG-mCnc 4.1 g/dL Normal 03/23/2024 3.4 - 5 [facility] BUN/Creat SerPl 10.6 Normal 03/23/2024 8 - 23 [facility] ALT SerPl w/o P-5'-P-cCnc 26.0 U/L Normal 03/23/2024 14 - 63 [facility] Glucose SerPl-mCnc 88.0 mg/dL Normal 03/23/2024 70 - 100 [facility] Globulin Plas-mCnc 3.6 g/dL Above high normal 03/23/2024 2. 3 - 3.5 [facility] AST SerPl w P-5'-P-cCnc 21.0 U/L Normal 03/23/2024 10 - 42 [facility] HCO3 SerPl-sCnc 27.0 mmol/L Normal 03/23/2024 21 - 32 [facility] GFR/BSA.pred SerPlBld [id number] >60.0 mL/min/1.73m2 Normal 03/23/2024 - [facility] Chloride SerPl-sCnc 106.0 mmol/L Normal 03/23/2024 98 - 1 07 [facility] Prot SerPl-mCnc 7.7 g/dL Normal 03/23/2024 6 - 8 [facility] Sodium SerPl-sCnc 142.0 mmol/L Normal 03/23/2024 136 - 14 5 [facility] Bilirub SerPl-mCnc 0.4 mg/dL Normal 03/23/2024 0.2 - 1.2 [facility] BUN SerPl-mCnc 7.0 mg/dL Normal 03/23/2024 7 - 18 [facility] Albumin/Glob SerPl 1.1 Normal 03/23/2024 1 - 2.2 [facility] BKR CREATININE DELTA 0.01 Normal 03/23/2024 - [facility] Imm Granulocytes/leuk NFr Bld Auto 0.3 % Normal 03/23/2024 0 - 1 [facility] Eosinophil # Bld Auto 0.08 x 1000/uL Normal 03/23/2024 0 - 1 [facility] Hct VFr Bld Auto 36.5 % Normal 03/23/2024 35 - 45 [facility] Hgb Bld-mCnc 11.7 g/dL Normal 03/23/2024 11.7 - 15.5 [facility] Neutrophils/leuk NFr Bld Auto 63.8 % Normal 03/23/2024 39 - 72 [facility] MCV RBC Auto 86.7 fL Normal 03/23/2024 80 - 100 [facility] MCHC RBC Auto-mCnc 32.1 g/dL Normal 03/23/2024 31 - 36 [facility] Monocytes/leuk NFr Bld Auto 5.0 % Normal 03/23/2024 4 - 12 [facility] Lymphocytes/leuk NFr Bld Auto 29.4 % Normal 03/23/2024 17 - 50 [facility] RBC # Bld Auto 4.21 M/uL Normal 03/23/2024 4 - 6 [facility] Neutrophils # Bld Auto 4.64 x 1000/uL Normal 03/23/2024 2 - 7.6 [facility] Lymphocytes # Bld Auto 2.14 x 1000/uL Normal 03/23/2024 0 .6 - 3.7 [facility] Monocytes # Bld Auto 0.36 x 1000/uL Normal 03/23/2024 0 - 1 [facility] nRBC/100 WBC Bld Auto-Rto 0.0 % Normal 03/23/2024 0 - 1 [facility] PMV Bld Auto 9.8 fL Normal 03/23/2024 8 - 12 [facility] T Imm Granulocytes # Bld Auto 0.02 x 1000/uL Normal 03/23/2024 0 - 0.3 [facility] Platelet # Bld Auto 343.0 x1000/uL Normal 03/23/2024 150 - 420 [facility] Basophils # Bld Auto 0.03 x 1000/uL Normal 03/23/2024 0 - 1 [facility] MCH RBC Qn Auto 27.8 pg Normal 03/23/2024 27 - [facility] 0.0 x 1000/uL Normal 03/23/2024 0 - 1 [facility] Eosinophil/leuk NFr Bld Auto 1.1 % Normal 03/23/2024 0 - 5 [facility] RDW RBC Auto-Rto 21.3 % Above high normal 03/23/2024 11 - 15 [facility] Basophils/leuk NFr Bld Auto 0.4 % Normal 03/23/2024 0 - 1.4 [facility] WBC # Bld Auto 7.3 x1000/uL Normal 03/23/2024 4 - 11 [facility] Prothrombin time 10.6 seconds Normal 03/23/2024 9.5 - 12. 1 [facility] INR PPP 1.04 Normal 03/23/2024 0.93 - 1.2 [facility] Lactate BldA-sCnc 1.6 mmol/L Above high normal 03/23/2024 0. 6 - 1.4 [facility] BKR REFLEX URINE CULTURE See Comment Normal 03/24/2024 [facility] BKR URINE SQUAMOUS EPITHELIAL CELLS, UA (MANUAL) Few Normal 03/23/2024 - [facility] RBC #/area UrnS HPF 0-2 Normal 03/23/2024 0 - 2 [facility] BKR CALCIUM OXALTE CRYSTALS, UA - MANUAL Moderate Abnormal 03/23/2024 - [facility] T BKR WBC/HPF 6-10 Abnormal 03/23/2024 0 - 5 [facility] Manual differential performed Bld Ql Performed Normal 03/23/2024 [facility] Clarity Ur Refract.auto Clear Normal 03/23/2024 - [facility] pH Ur Strip.auto 6.0 Normal 03/23/2024 5.5 - 7.5 [facility] Prot Ur Strip.auto-mCnc Trace Normal 03/23/2024 - [facility] Bilirub Ur Ql Strip.auto Negative Normal 03/23/2024 - [facility] Glucose Ur Strip.auto-mCnc Negative Normal 03/23/2024 - [facility] Hgb Ur Ql Strip.auto 1+ Abnormal 03/23/2024 - [facility] Urobilinogen Ur Strip-mCnc <2.0 mg/dL Normal 03/23/2024 - [facility] Sp Gr Ur Refract.auto 1.025 Normal 03/23/2024 1.0 05 - 1.03 [facility] Color Ur Auto Yellow Normal 03/23/2024 - [facility] CT WBC # Ur Strip 1+ Abnormal 03/23/2024 - [facility] Ketones Ur Strip.auto-mCnc Negative Normal 03/23/2024 - [facility] Nitrite Ur Ql Strip.auto Negative Normal 03/23/2024 - [facility] Bacteria UrnS Ql Micro Negative Normal 03/14/2024 - [facility] Hyaline Casts num/area UrnS LPF 1.0 per lpf Normal 03/14/2024 0 - 4 [facility] RBC num/area UrnS HPF 5.0 per hpf Above high normal 03/14/19 25 0 - 4 [facility] WBC num/area UrnS HPF 37.0 per hpf Above high normal 025 0 - 4 [facility] Squamous num/area UrnS HPF 5.0 per hpf Normal 03/14/2024 [facility] Clarity Ur Clear Normal 03/14/2024 [facility] Sp Gr Ur Strip 1.026 Normal 03/14/2024 1.003 - 1.03 [facility] Ketones Ur Strip-mCnc Negative Normal 03/14/2024 - [facility] Leukocyte esterase Ur Ql Strip Small Abnormal 03/14/2024 - [facility] Glucose Ur Strip-mCnc Negative Normal 03/14/2024 0 - 99 [facility] pH Ur Strip 5.5 Normal 03/14/2024 5 - 8 [facility] Color Ur Yellow Normal 03/14/2024 [facility] Nitrite Ur Ql Strip Negative Normal 03/14/2024 - [facility] Urobilinogen Ur Strip-mCnc 0.2 EU/dL Normal 03/14/2024 0.2 - 1 [facility] Hgb Ur Ql Strip Small Abnormal 03/14/2024 - [facility] CT Bilirub Ur Strip-mCnc Negative Normal 03/14/2024 - [facility] Prot Ur Strip-mCnc Negative Normal 03/14/2024 - [facility] Lactate SerPl-sCnc 1.5 mmol/L Normal 03/14/2024 0.5 - 1.9 [facility] Bilirub SerPl-mCnc 0.3 mg/dL Normal 03/14/2024 0.3 - 1.2 [facility] Calcium SerPl-mCnc 9.6 mg/dL Normal 03/14/2024 8.7 - 10.5 [facility] CO2 SerPl-sCnc 24.0 mmol/L Normal 03/14/2024 20 - 31 [facility] Globulin Ser Calc-mCnc 2.8 g/dL Normal 03/14/2024 1.5 - 3.9 [facility] ALP SerPl-cCnc 76.0 U/L Normal 03/14/2024 32 - 122 [facility] T ALT SerPl-cCnc 19.0 U/L Normal 03/14/2024 7 - 35 [facility] T Creat SerPl-mCnc 0.8 mg/dL Normal 03/14/2024 0.6 - 1 [facility] BUN/Creat SerPl 13.0 Ratio Normal 03/14/2024 10 - 25 [facility] Anion Gap Bld-sCnc 10.0 Normal 03/14/2024 5 - 15 [facility] Albumin SerPl-mCnc 4.7 g/dL Normal 03/14/2024 3.4 - 4.8 [facility] Sodium SerPl-sCnc 141.0 mmol/L Normal 03/14/2024 136 - 14 5 [facility] Glucose SerPl-mCnc 109.0 mg/dL Above high normal 03/14/2024 74 - 106 [facility] BUN SerPl-mCnc 10.0 mg/dL Normal 03/14/2024 9 - [address] Albumin/Glob SerPl 1.7 Ratio Normal 03/14/2024 1.5 - 2.5 [facility] Chloride SerPl-sCnc 107.0 mmol/L Normal 03/14/2024 98 - 1 07 [facility] AST SerPl-cCnc 20.0 U/L Normal 03/14/2024 - 34 [facility] T Potassium SerPl-sCnc 3.6 mmol/L Normal 03/14/2024 3.4 - 4 .5 [facility] GFR/BSA.pred SerPlBld [id number]-BKK-PlHQrd >90.0 Normal 03/14/2024 59 - [facility] Prot SerPl-mCnc 7.5 g/dL Normal 03/14/2024 5.7 - 8.[address] Monocytes num Bld Auto 0.82 Thou/uL Normal 03/14/2024 0.2 - 1.5 [facility] RDW RBC Auto-Rto 19.9 % Above high normal 03/14/2024 1 1.5 - 14.5 [facility] Monocytes/leuk NFr Bld Auto 6.9 % Normal 03/14/2024 [facility] Lymphocytes num Bld Auto 2.78 Thou/uL Normal 03/14/2024 1.5 - 4.5 [facility] Platelet num Bld Auto 337.0 Thou/uL Normal 03/14/2024 150 - 450 [facility] Eosinophil num Bld Auto 0.12 Thou/uL Normal 03/14/2024 0 - 0.7 [facility] Basophils num Bld Auto 0.05 Thou/uL Normal 03/14/2024 0 - 0.2 [facility] Lymphocytes/leuk NFr Bld Auto 23.4 % Normal 03/14/2024 [facility] PMV Bld Auto 10.3 fL Normal 03/14/2024 7.5 - 12.5 [facility] RBC num Bld Auto 4.13 Mil/uL Normal 03/14/2024 4 - 5.4 [facility] MCHC RBC Auto-mCnc 31.1 g/dL Normal 03/14/2024 30 - 36 [facility] Imm Granulocytes/leuk NFr Bld Auto 0.3 % Normal 03/14/2024 [facility] Neutrophils/leuk NFr Bld Auto 68.0 % Normal 03/14/2024 [facility] Hct VFr Bld Auto 35.4 % Normal 03/14/2024 35 - 47 [facility] Basophils/leuk NFr Bld Auto 0.4 % Normal 03/14/2024 [facility] Neutrophils num Bld Auto 8.06 Thou/uL Above high normal 03/14/2024 2 - 7.5 [facility] MCH RBC Qn Auto 26.6 pg Normal 03/14/2024 26 - [address] Imm Granulocytes num Bld Auto 0.04 Thou/uL Normal 03/14/2024 0 - 0.1 [facility] Hgb Bld-mCnc 11.0 g/dL Below low normal 03/14/2024 11.7 - 15.7 [facility] MCV RBC Auto 86.0 fL Normal 03/14/2024 80 - 100 [facility] Eosinophil/leuk NFr Bld Auto 1.0 % Normal 03/14/2024 [facility] WBC num Bld Auto 11.9 Thou/uL Above high normal 03/14/2024 4 - 11 [facility] Hyaline Casts num/area UrnS LPF 3.0 per lpf Normal 03/12/2024 0 - 4 [facility] RBC num/area UrnS HPF 6.0 per hpf Above high normal 03/12/19 0 - 4 [facility] Bacteria UrnS Ql Micro Negative Normal 03/12/2024 - [facility] Squamous num/area UrnS HPF 19.0 per hpf Normal 03/12/2024 [facility] WBC num/area UrnS HPF 536.0 per hpf Above high normal 2024 0 - 4 [facility] Glucose Ur Strip-mCnc Negative Normal 03/12/2024 0 - 99 [facility] Leukocyte esterase Ur Ql Strip Large Abnormal 03/12/2024 - [facility] Color Ur Yellow Normal 03/12/2024 [facility] pH Ur Strip 6.0 Normal 03/12/2024 5 - 8 [facility] Nitrite Ur Ql Strip Negative Normal 03/12/2024 - [facility] Prot Ur Strip-mCnc Small (30 mg/dL) Abnormal 03/12/2024 - [facility] Hgb Ur Ql Strip Trace Abnormal 03/12/2024 - [facility] CT Clarity Ur Cloudy Normal 03/12/2024 [facility] Bilirub Ur Strip-mCnc Negative Normal 03/12/2024 - [facility] Sp Gr Ur Strip 1.024 Normal 03/12/2024 1.003 - 1.03 [facility] Urobilinogen Ur Strip-mCnc 0.2 EU/dL Normal 03/12/2024 0.2 - 1 [facility] Ketones Ur Strip-mCnc Negative Normal 03/12/2024 - [facility] Chloride SerPl-sCnc 106.0 mmol/L Normal 03/12/2024 98 - 1 07 [facility] Calcium SerPl-mCnc 9.6 mg/dL Normal 03/12/2024 8.7 - 10.5 [facility] CO2 SerPl-sCnc 26.0 mmol/L Normal 03/12/2024 20 - 31 [facility] Anion Gap Bld-sCnc 8.0 Normal 03/12/2024 5 - 15 [facility] GFR/BSA.pred SerPlBld DHN-JVC-NjPPyo >90.0 Normal 03/12/2024 59 - [facility] Sodium SerPl-sCnc 141.0 mmol/L Normal 03/12/2024 136 - 14 5 [facility] BUN/Creat SerPl 16.0 Ratio Normal 03/12/2024 10 - 25 [facility] BUN SerPl-mCnc 13.0 mg/dL Normal 03/12/2024 9 - [address] Glucose SerPl-mCnc 92.0 mg/dL Normal 03/12/2024 74 - 106 [facility] Potassium SerPl-sCnc 3.7 mmol/L Normal 03/12/2024 3.4 - 4 .5 [facility] Creat SerPl-mCnc 0.8 mg/dL Normal 03/12/2024 0.6 - 1 [facility] Platelet num Bld Auto 300.0 Thou/uL Normal 03/12/2024 150 - 450 [facility] Basophils num Bld Auto 0.02 Thou/uL Normal 03/12/2024 0 - 0.2 [facility] PMV Bld Auto 9.8 fL Normal 03/12/2024 7.5 - 12.5 [facility] MCH RBC Qn Auto 26.5 pg Normal 03/12/2024 26 - [address] Monocytes/leuk NFr Bld Auto 7.4 % Normal 03/12/2024 [facility] Neutrophils/leuk NFr Bld Auto 62.8 % Normal 03/12/2024 [facility] Eosinophil num Bld Auto 0.12 Thou/uL Normal 03/12/2024 0 - 0.7 [facility] WBC num Bld Auto 7.8 Thou/uL Normal 03/12/2024 4 - 11 [facility] Hct VFr Bld Auto 36.9 % Normal 03/12/2024 35 - 47 [facility] Imm Granulocytes/leuk NFr Bld Auto 0.3 % Normal 03/12/2024 [facility] RBC num Bld Auto 4.26 Mil/uL Normal 03/12/2024 4 - 5.4 [facility] Eosinophil/leuk NFr Bld Auto 1.5 % Normal 03/12/2024 [facility] Basophils/leuk NFr Bld Auto 0.3 % Normal 03/12/2024 [facility] Lymphocytes num Bld Auto 2.17 Thou/uL Normal 03/12/2024 1.5 - 4.5 [facility] Hgb Bld-mCnc 11.3 g/dL Below low normal 03/12/2024 11.7 - 15.7 [facility] Monocytes num Bld Auto 0.58 Thou/uL Normal 03/12/2024 0.2 - 1.5 [facility] MCHC RBC Auto-mCnc 30.6 g/dL Normal 03/12/2024 30 - 36 [facility] Neutrophils num Bld Auto 4.93 Thou/uL Normal 03/12/2024 2 - 7.5 [facility] Imm Granulocytes num Bld Auto 0.02 Thou/uL Normal 03/12/2024 0 - 0.1 [facility] MCV RBC Auto 87.0 fL Normal 03/12/2024 80 - 100 [facility] Lymphocytes/leuk NFr Bld Auto 27.7 % Normal 03/12/2024 [facility] RDW RBC Auto-Rto 20.1 % Above high normal 03/12/2024 1 1.5 - 14.5 [facility] OMAYRA Titr Ser IF <1:80 Normal 03/08/2024 - [facility] Bacteria # Ur Auto Rare Normal 03/07/2024 - [facility] RBC #/area UrnS Auto <1.0 /HPF Normal 03/07/2024 0 - 2 [facility] WBC #/area UrnS Auto 40.0 /HPF Above high normal 03/07/2024 0 - 5 [facility] Squamous #/area UrnS Auto 3.0 /HPF Normal 03/07/2024 0 - 5 [facility] Renal Epi Cells # UrnS 1.0 /HPF Above high normal 5 - [facility] Color Ur Auto Yellow Normal 03/07/2024 - [facility] CT Sp Gr Ur Refract.auto 1.027 Normal 03/07/2024 1.0 05 - 1.03 [facility] WBC # Ur Strip 4+ Abnormal 03/07/2024 - [facility] Glucose Ur Strip.auto-mCnc Negative Normal 03/07/2024 - [facility] Clarity Ur Refract.auto Clear Normal 03/07/2024 - [facility] Prot Ur Strip.auto-mCnc Trace Normal 03/07/2024 - [facility] Ketones Ur Strip.auto-mCnc Negative Normal 03/07/2024 - [facility] Bilirub Ur Ql Strip.auto Negative Normal 03/07/2024 - [facility] Nitrite Ur Ql Strip.auto Negative Normal 03/07/2024 - [facility] pH Ur Strip.auto 6.0 Normal 03/07/2024 5.5 - 7.5 [facility] Urobilinogen Ur Strip-mCnc <2.0 mg/dL Normal 03/07/2024 - [facility] Hgb Ur Ql Strip.auto Negative Normal 03/07/2024 - [facility] BKR REFLEX URINE CULTURE See Comment Normal 03/07/2024 [facility] CRP SerPl HS-mCnc 1.5 mg/L Normal 03/07/2024 - [facility] Rheumatoid fact Ser Neph-aCnc <10.0 IU/mL Normal 03/07/2024 - 14 [facility] Sodium SerPl-sCnc 138.0 mmol/L Normal 03/07/2024 136 - 14 4 [facility] Anion Gap3 SerPl-sCnc 8.0 Normal 03/07/2024 7 - 17 [facility] BUN/Creat SerPl 26.2 Above high normal 03/07/2024 8 - 2 3 [facility] Calcium SerPl-mCnc 9.3 mg/dL Normal 03/07/2024 8.8 - 10.2 [facility] Creat SerPl-mCnc 0.65 mg/dL Normal 03/07/2024 0.4 - 1.3 [facility] HCO3 SerPl-sCnc 27.0 mmol/L Normal 03/07/2024 20 - 30 [facility] BUN SerPl-mCnc 17.0 mg/dL Normal 03/07/2024 6 - 20 [facility] Glucose SerPl-mCnc 97.0 mg/dL Normal 03/07/2024 70 - 100 [facility] BKR CREATININE DELTA 0.02 Normal 03/07/2024 - [facility] Chloride SerPl-sCnc 103.0 mmol/L Normal 03/07/2024 98 - 1 07 [facility] GFR/BSA.pred SerPlBld OYI-FMX-SsYQsp >60.0 mL/min/1.73m2 Normal 03/07/2024 - [facility] Potassium SerPl-sCnc 4.3 mmol/L Normal 03/07/2024 3.3 - 5 .3 [facility] Magnesium SerPl-mCnc 2.3 mg/dL Normal 03/07/2024 1.7 - 2. 4 [facility] INR PPP 1.07 Normal 03/07/2024 0.9 - 1.16 [facility] Prothrombin time 11.2 seconds Normal 03/07/2024 9.5 - 12. 1 [facility] Hct VFr Bld Auto 36.6 % Normal 03/07/2024 35 - 45 [facility] nRBC # Bld Auto 0.0 x 1000/uL Normal 03/07/2024 0 - 1 [facility] Hgb Bld-mCnc 11.3 g/dL Below low normal 03/07/2024 11.7 - 15.5 [facility] RDW RBC Auto-Rto 18.9 % Above high normal 03/07/2024 11 - 15 [facility] Neutrophils # Bld Auto 4.22 x 1000/uL Normal 03/07/2024 2 - 7.6 [facility] Monocytes # Bld Auto 0.61 x 1000/uL Normal 03/07/2024 0 - 1 [facility] nRBC/100 WBC Bld Auto-Rto 0.0 % Normal 03/07/2024 0 - 1 [facility] RBC # Bld Auto 4.29 M/uL Normal 03/07/2024 4 - 6 [facility] WBC # Bld Auto 7.5 x1000/uL Normal 03/07/2024 4 - 11 [facility] Lymphocytes/leuk NFr Bld Auto 34.4 % Normal 03/07/2024 17 - 50 [facility] Eosinophil # Bld Auto 0.06 x 1000/uL Normal 03/07/2024 0 - 1 [facility] MCV RBC Auto 85.3 fL Normal 03/07/2024 80 - 100 [facility] T Imm Granulocytes # Bld Auto 0.04 x 1000/uL Normal 03/07/2024 0 - 0.3 [facility] MCHC RBC Auto-mCnc 30.9 g/dL Below low normal 03/07/2024 31 - 36 [facility] Monocytes/leuk NFr Bld Auto 8.1 % Normal 03/07/2024 4 - 12 [facility] MCH RBC Qn Auto 26.3 pg Below low normal 03/07/2024 27 - 3 3 [facility] Neutrophils/leuk NFr Bld Auto 56.1 % Normal 03/07/2024 39 - 72 [facility] Basophils/leuk NFr Bld Auto 0.1 % Normal 03/07/2024 0 - 1.4 [facility] Lymphocytes # Bld Auto 2.59 x 1000/uL Normal 03/07/2024 0 .6 - 3.7 [facility] Imm Granulocytes/leuk NFr Bld Auto 0.5 % Normal 03/07/2024 0 - 1 [facility] PMV Bld Auto 9.8 fL Normal 03/07/2024 8 - 12 [facility] T Eosinophil/leuk NFr Bld Auto 0.8 % Normal 03/07/2024 0 - 5 [facility] Basophils # Bld Auto 0.01 x 1000/uL Normal 03/07/2024 0 - 1 [facility] Platelet # Bld Auto 330.0 x1000/uL Normal 03/07/2024 150 - 420 [facility] Chloride SerPl-sCnc 102.0 mmol/L Normal 03/04/2024 98 - 1 07 [facility] Calcium SerPl-mCnc 9.8 mg/dL Normal 03/04/2024 8.8 - 10.2 [facility] Sodium SerPl-sCnc 141.0 mmol/L Normal 03/04/2024 136 - 14 4 [facility] GFR/BSA.pred SerPlBld HQT-VRL-QyWMyb >60.0 mL/min/1.73m2 Normal 03/04/2024 - [facility] Potassium SerPl-sCnc 3.6 mmol/L Normal 03/04/2024 3.3 - 5 .3 [facility] Creat SerPl-mCnc 0.63 mg/dL Normal 03/04/2024 0.4 - 1.3 [facility] BUN SerPl-mCnc 9.0 mg/dL Normal 03/04/2024 6 - 20 [facility] Anion Gap3 SerPl-sCnc 12.0 Normal 03/04/2024 7 - 17 [facility] BUN/Creat SerPl 14.3 Normal 03/04/2024 8 - 23 [facility] Glucose SerPl-mCnc 98.0 mg/dL Normal 03/04/2024 70 - 100 [facility] BKR CREATININE DELTA 0.06 Normal 03/04/2024 - [facility] HCO3 SerPl-sCnc 27.0 mmol/L Normal 03/04/2024 20 - 30 [facility] MCV RBC Auto 85.1 fL Normal 03/04/2024 80 - 100 [facility] T Eosinophil # Bld Auto 0.0 x 1000/uL Normal 03/04/2024 0 - 1 [facility] RDW RBC Auto-Rto 16.5 % Above high normal 03/04/2024 11 - 15 [facility] Imm Granulocytes # Bld Auto 0.09 x 1000/uL Normal 03/04/2024 0 - 0.3 [facility] MCH RBC Qn Auto 26.5 pg Below low normal 03/04/2024 27 - 3 3 [facility] nRBC/100 WBC Bld Auto-Rto 0.4 % Normal 03/04/2024 0 - 1 [facility] MCHC RBC Auto-mCnc 31.2 g/dL Normal 03/04/2024 31 - 36 [facility] Hgb Bld-mCnc 11.0 g/dL Below low normal 03/04/2024 11.7 - 15.5 [facility] PMV Bld Auto 9.4 fL Normal 03/04/2024 8 - 12 [facility] T RBC # Bld Auto 4.15 M/uL Normal 03/04/2024 4 - 6 [facility] Neutrophils # Bld Auto 8.27 x 1000/uL Above high normal 02/15 2 - 7.6 [facility] WBC # Bld Auto 11.8 x1000/uL Above high normal 03/04/2024 4 - 11 [facility] Imm Granulocytes/leuk NFr Bld Auto 0.8 % Normal 03/04/2024 0 - 1 [facility] Monocytes # Bld Auto 1.11 x 1000/uL Above high normal 2024 0 - 1 [facility] Hct VFr Bld Auto 35.3 % Normal 03/04/2024 35 - 45 [facility] Basophils # Bld Auto 0.0 x 1000/uL Normal 03/04/2024 0 - 1 [facility] nRBC # Bld Auto 0.05 x 1000/uL Normal 03/04/2024 0 - 1 [facility] Eosinophil/leuk NFr Bld Auto 0.0 % Normal 03/04/2024 0 - 5 [facility] Monocytes/leuk NFr Bld Auto 9.4 % Normal 03/04/2024 4 - 12 [facility] Platelet # Bld Auto 417.0 x1000/uL Normal 03/04/2024 150 - 420 [facility] Neutrophils/leuk NFr Bld Auto 70.3 % Normal 03/04/2024 39 - 72 [facility] Lymphocytes # Bld Auto 2.29 x 1000/uL Normal 03/04/2024 0 .6 - 3.7 [facility] Lymphocytes/leuk NFr Bld Auto 19.5 % Normal 03/04/2024 17 - 50 [facility] Basophils/leuk NFr Bld Auto 0.0 % Normal 03/04/2024 0 - 1.4 [facility] BKR REFLEX URINE CULTURE See Comment Normal 03/04/2024 [facility] WBC #/area UrnS Auto 27.0 /HPF Above high normal 03/04/2024 0 - 5 [facility] Hyaline Casts #/area UrnS 3.0 /LPF Normal 03/04/2024 0 - 3 [facility] RBC #/area UrnS Auto 4.0 /HPF Above high normal 03/04/2024 0 - 2 [facility] Squamous #/area UrnS Auto 5.0 /HPF Normal 03/04/2024 0 - 5 [facility] Nitrite Ur Ql Strip.auto Negative Normal 03/04/2024 - [facility] Color Ur Auto Yellow Normal 03/04/2024 - [facility] Glucose Ur Strip.auto-mCnc Negative Normal 03/04/2024 - [facility] Clarity Ur Refract.auto Clear Normal 03/04/2024 - [facility] pH Ur Strip.auto 7.5 Normal 03/04/2024 5.5 - 7.5 [facility] WBC # Ur Strip 4+ Abnormal 03/04/2024 - [facility] Urobilinogen Ur Strip-mCnc <2.0 mg/dL Normal 03/04/2024 - [facility] Prot Ur Strip.auto-mCnc Trace Normal 03/04/2024 - [facility] Ketones Ur Strip.auto-mCnc Negative Normal 03/04/2024 - [facility] Bilirub Ur Ql Strip.auto Negative Normal 03/04/2024 - [facility] Hgb Ur Ql Strip.auto Trace Abnormal 03/04/2024 - [facility] Sp Gr Ur Refract.auto 1.02 Normal 03/04/2024 1.0 05 - 1.03 [facility] Hct VFr Bld Auto 33.1 % Below low normal 02/29/2024 35 - 45 [facility] Hgb Bld-mCnc 10.3 g/dL Below low normal 02/29/2024 11.7 - 15.5 [facility] Creat SerPl-mCnc 0.57 mg/dL Normal 02/29/2024 0.4 - 1.3 [facility] Chloride SerPl-sCnc 109.0 mmol/L Above high normal 98 - 107 [facility] Glucose SerPl-mCnc 92.0 mg/dL Normal 02/29/2024 70 - 100 [facility] Anion Gap3 SerPl-sCnc 9.0 Normal 02/29/2024 7 - 17 [facility] Calcium SerPl-mCnc 8.6 mg/dL Below low normal 02/29/2024 8.8 - 10.2 [facility] BUN/Creat SerPl 10.5 Normal 02/29/2024 8 - 23 [facility] Potassium SerPl-sCnc 3.6 mmol/L Normal 02/29/2024 3.3 - 5 .3 [facility] GFR/BSA.pred SerPlBld [id number] >60.0 mL/min/1.73m2 Normal 02/29/2024 - [facility] HCO3 SerPl-sCnc 23.0 mmol/L Normal 02/29/2024 20 - 30 [facility] BUN SerPl-mCnc 6.0 mg/dL Normal 02/29/2024 6 - 20 [facility] Sodium SerPl-sCnc 141.0 mmol/L Normal 02/29/2024 136 - 14 4 [facility] BKR CREATININE DELTA -0.1 Normal 02/29/2024 - [facility] Eosinophil # Bld Auto 0.11 x 1000/uL Normal 02/29/2024 0 - 1 [facility] RBC # Bld Auto 3.22 M/uL Below low normal 02/29/2024 4 - 6 [facility] Eosinophil/leuk NFr Bld Auto 1.9 % Normal 02/29/2024 0 - 5 [facility] Monocytes/leuk NFr Bld Auto 6.7 % Normal 02/29/2024 4 - 12 [facility] RDW RBC Auto-Rto 15.5 % Above high normal 02/29/2024 11 - 15 [facility] nRBC # Bld Auto 0.0 x 1000/uL Normal 02/29/2024 0 - 1 [facility] Imm Granulocytes/leuk NFr Bld Auto 0.2 % Normal 02/29/2024 0 - 1 [facility] Imm Granulocytes # Bld Auto 0.01 x 1000/uL Normal 02/29/2024 0 - 0.3 [facility] Basophils # Bld Auto 0.02 x 1000/uL Normal 02/29/2024 0 - 1 [facility] MCHC RBC Auto-mCnc 31.0 g/dL Normal 02/29/2024 31 - 36 [facility] Lymphocytes # Bld Auto 1.8 x 1000/uL Normal 02/29/2024 0. 6 - 3.7 [facility] Monocytes # Bld Auto 0.38 x 1000/uL Normal 02/29/2024 0 - 1 [facility] Neutrophils/leuk NFr Bld Auto 59.2 % Normal 02/29/2024 39 - 72 [facility] WBC # Bld Auto 5.7 x1000/uL Normal 02/29/2024 4 - 11 [facility] MCV RBC Auto 84.2 fL Normal 02/29/2024 80 - 100 [facility] T Neutrophils # Bld Auto 3.37 x 1000/uL Normal 02/29/2024 2 - 7.6 [facility] Platelet # Bld Auto 320.0 x1000/uL Normal 02/29/2024 150 - 420 [facility] Basophils/leuk NFr Bld Auto 0.4 % Normal 02/29/2024 0 - 1.4 [facility] Hct VFr Bld Auto 27.1 % Below low normal 02/29/2024 35 - 45 [facility] nRBC/100 WBC Bld Auto-Rto 0.0 % Normal 02/29/2024 0 - 1 [facility] Hgb Bld-mCnc 8.4 g/dL Below low normal 02/29/2024 11.7 - 15.5 [facility] Lymphocytes/leuk NFr Bld Auto 31.6 % Normal 02/29/2024 17 - 50 [facility] PMV Bld Auto 9.0 fL Normal 02/29/2024 8 - 12 [facility] T MCH RBC Qn Auto 26.1 pg Below low normal 02/29/2024 27 - 3 3 [facility] BKR REFLEX URINE CULTURE See Comment Normal 02/29/2024 [facility] BKR WBC/HPF 20-30 Abnormal 02/28/2024 0 - 5 [facility] Manual differential performed Bld Ql Performed Normal 02/28/2024 [facility] BKR BACTERIA, UA (MANUAL) Moderate Abnormal 02/28/2024 - [facility] BKR URINE SQUAMOUS EPITHELIAL CELLS, UA (MANUAL) Many Abnormal 02/28/2024 - [facility] RBC #/area UrnS HPF 0-2 Normal 02/28/2024 0 - 2 [facility] Glucose Ur Strip.auto-mCnc Negative Normal 02/28/2024 - [facility] pH Ur Strip.auto 6.5 Normal 02/28/2024 5.5 - 7.5 [facility] Hgb Ur Ql Strip.auto Negative Normal 02/28/2024 - [facility] Sp Gr Ur Refract.auto 1.01 Normal 02/28/2024 1.0 05 - 1.03 [facility] Clarity Ur Refract.auto Clear Normal 02/28/2024 - [facility] Color Ur Auto Yellow Normal 02/28/2024 - [facility] Prot Ur Strip.auto-mCnc Negative Normal 02/28/2024 - [facility] WBC # Ur Strip 4+ Abnormal 02/28/2024 - [facility] Ketones Ur Strip.auto-mCnc Negative Normal 02/28/2024 - [facility] Nitrite Ur Ql Strip.auto Negative Normal 02/28/2024 - [facility] Urobilinogen Ur Strip-mCnc <2.0 mg/dL Normal 02/28/2024 - [facility] Bilirub Ur Ql Strip.auto Negative Normal 02/28/2024 - [facility] TIBC SerPl-mCnc 362.0 ug/dL Normal 02/28/2024 250 - 450 [facility] Iron Satn MFr SerPl 5.0 % Below low normal 02/28/2024 15 - 50 [facility] Iron SerPl-mCnc 19.0 ug/dL Below low normal 02/28/2024 37 - 145 [facility] Ferritin SerPl-mCnc 19.0 ng/mL Normal 02/28/2024 13 - 150 [facility] Lipase SerPl-cCnc 18.0 U/L Normal 02/28/2024 16 - 77 [facility] GFR/BSA.pred SerPlBld [id number] >60.0 mL/min/1.73m2 Normal 02/28/2024 - [facility] Globulin Plas-mCnc 3.3 g/dL Normal 02/28/2024 2.3 - 3.5 [facility] Glucose SerPl-mCnc 103.0 mg/dL Above high normal 02/28/2024 70 - 100 [facility] Potassium SerPl-sCnc 3.3 mmol/L Below low normal 02/28/2024 3.5 - 5.1 [facility] Prot SerPl-mCnc 6.4 g/dL Normal 02/28/2024 6 - 8 [facility] HCO3 SerPl-sCnc 28.0 mmol/L Normal 02/28/2024 21 - 32 [facility] BKR CREATININE DELTA -0.1 Normal 02/28/2024 - [facility] Chloride SerPl-sCnc 108.0 mmol/L Above high normal 98 - 107 [facility] Anion Gap3 SerPl-sCnc 8.0 Normal 02/28/2024 5 - 16 [facility] Albumin/Glob SerPl 0.9 Below low normal 02/28/2024 1 - 2.2 [facility] Sodium SerPl-sCnc 144.0 mmol/L Normal 02/28/2024 136 - 14 5 [facility] AST/ALT SerPl-cRto 1.0 Normal 02/28/2024 - [facility] ALT SerPl w/o P-5'-P-cCnc 22.0 U/L Normal 02/28/2024 14 - 63 [facility] BUN/Creat SerPl 14.9 Normal 02/28/2024 8 - 23 [facility] Creat SerPl-mCnc 0.67 mg/dL Normal 02/28/2024 0.6 - 1 [facility] ALP SerPl-cCnc 80.0 U/L Normal 02/28/2024 46 - 116 [facility] Albumin SerPl BCG-mCnc 3.1 g/dL Below low normal 02/28/2024 3.4 - 5 [facility] AST SerPl w P-5'-P-cCnc 21.0 U/L Normal 02/28/2024 10 - 42 [facility] BUN SerPl-mCnc 10.0 mg/dL Normal 02/28/2024 7 - 18 [facility] Bilirub SerPl-mCnc 0.3 mg/dL Normal 02/28/2024 0.2 - 1.2 [facility] Calcium SerPl-mCnc 8.7 mg/dL Normal 02/28/2024 8.5 - 10.5 [facility] Magnesium SerPl-mCnc 2.0 mg/dL Normal 02/28/2024 1.8 - 2. 5 [facility] Prothrombin time 11.0 seconds Normal 02/28/2024 9.5 - 12. 1 [facility] INR PPP 1.08 Normal 02/28/2024 0.93 - 1.2 [facility] PMV Bld Auto 9.3 fL Normal 02/28/2024 8 - 12 [facility] T Monocytes # Bld Auto 0.46 x 1000/uL Normal 02/28/2024 0 - 1 [facility] Hgb Bld-mCnc 9.2 g/dL Below low normal 02/28/2024 11.7 - 15.5 [facility] Eosinophil/leuk NFr Bld Auto 2.2 % Normal 02/28/2024 0 - 5 [facility] Monocytes/leuk NFr Bld Auto 8.3 % Normal 02/28/2024 4 - 12 [facility] RBC # Bld Auto 3.52 M/uL Below low normal 02/28/2024 4 - 6 [facility] Imm Granulocytes # Bld Auto 0.01 x 1000/uL Normal 02/28/2024 0 - 0.3 [facility] MCH RBC Qn Auto 26.1 pg Below low normal 02/28/2024 27 - 3 3 [facility] Hct VFr Bld Auto 29.6 % Below low normal 02/28/2024 35 - 45 [facility] nRBC # Bld Auto 0.0 x 1000/uL Normal 02/28/2024 0 - 1 [facility] Lymphocytes # Bld Auto 1.8 x 1000/uL Normal 02/28/2024 0. 6 - 3.7 [facility] Platelet # Bld Auto 390.0 x1000/uL Normal 02/28/2024 150 - 420 [facility] RDW RBC Auto-Rto 15.7 % Above high normal 02/28/2024 11 - 15 [facility] Neutrophils/leuk NFr Bld Auto 56.3 % Normal 02/28/2024 39 - 72 [facility] MCHC RBC Auto-mCnc 31.1 g/dL Normal 02/28/2024 31 - 36 [facility] Lymphocytes/leuk NFr Bld Auto 32.6 % Normal 02/28/2024 17 - 50 [facility] Eosinophil # Bld Auto 0.12 x 1000/uL Normal 02/28/2024 0 - 1 [facility] Imm Granulocytes/leuk NFr Bld Auto 0.2 % Normal 02/28/2024 0 - 1 [facility] nRBC/100 WBC Bld Auto-Rto 0.0 % Normal 02/28/2024 0 - 1 [facility] MCV RBC Auto 84.1 fL Normal 02/28/2024 80 - 100 [facility] T Neutrophils # Bld Auto 3.11 x 1000/uL Normal 02/28/2024 2 - 7.6 [facility] WBC # Bld Auto 5.5 x1000/uL Normal 02/28/2024 4 - 11 [facility] Basophils/leuk NFr Bld Auto 0.4 % Normal 02/28/2024 0 - 1.4 [facility] Basophils # Bld Auto 0.02 x 1000/uL Normal 02/28/2024 0 - 1 [facility] BKR REFLEX URINE CULTURE See Comment Normal 02/27/2024 [facility] BKR CREATININE DELTA Normal 02/26/2024 [facility] Anion Gap3 SerPl-sCnc 10.0 Normal 02/26/2024 5 - 16 [facility] HCO3 SerPl-sCnc 27.0 mmol/L Normal 02/26/2024 21 - 32 [facility] ALT SerPl w/o P-5'-P-cCnc 27.0 U/L Normal 02/26/2024 14 - 63 [facility] Potassium SerPl-sCnc Normal 02/26/2024 [facility] Glucose SerPl-mCnc 84.0 mg/dL Normal 02/26/2024 70 - 100 [facility] BUN SerPl-mCnc 15.0 mg/dL Normal 02/26/2024 7 - 18 [facility] GFR/BSA.pred SerPlBld [id number] >60.0 mL/min/1.73m2 Normal 02/26/2024 - [facility] AST SerPl w P-5'-P-cCnc Normal 02/26/2024 [facility] Globulin Plas-mCnc 3.9 g/dL Above high normal 02/26/2024 2. 3 - 3.5 [facility] BUN/Creat SerPl 19.5 Normal 02/26/2024 8 - 23 [facility] Albumin SerPl BCG-mCnc 3.7 g/dL Normal 02/26/2024 3.4 - 5 [facility] Prot SerPl-mCnc 7.6 g/dL Normal 02/26/2024 6 - 8 [facility] AST/ALT SerPl-cRto Normal 02/26/2024 [facility] Calcium SerPl-mCnc 9.2 mg/dL Normal 02/26/2024 8.5 - 10.5 [facility] Sodium SerPl-sCnc 145.0 mmol/L Normal 02/26/2024 136 - 14 5 [facility] Creat SerPl-mCnc 0.77 mg/dL Normal 02/26/2024 0.6 - 1 [facility] Albumin/Glob SerPl 0.9 Below low normal 02/26/2024 1 - 2.2 [facility] Bilirub SerPl-mCnc 0.2 mg/dL Normal 02/26/2024 0.2 - 1.2 [facility] ALP SerPl-cCnc 87.0 U/L Normal 02/26/2024 46 - 116 [facility] Chloride SerPl-sCnc 108.0 mmol/L Above high normal 98 - 107 [facility] Manual differential performed Bld Ql Performed Normal 02/26/2024 [facility] RBC #/area UrnS HPF 0-2 Normal 02/26/2024 0 - 2 [facility] BKR CALCIUM OXALTE CRYSTALS, UA - MANUAL Moderate Abnormal 02/26/2024 - [facility] T BKR URINE SQUAMOUS EPITHELIAL CELLS, UA (MANUAL) Rare Normal 02/26/2024 - [facility] BKR WBC/HPF 3-5 Normal 02/26/2024 0 - 5 [facility] Magnesium SerPl-mCnc 1.9 mg/dL Normal 02/26/2024 1.8 - 2. 5 [facility] WBC # Ur Strip 3+ Abnormal 02/26/2024 - [facility] CCT Prot Ur Strip.auto-mCnc 1+ Abnormal 02/26/2024 - [facility] Nitrite Ur Ql Strip.auto Negative Normal 02/26/2024 - [facility] Color Ur Auto Yellow Normal 02/26/2024 - [facility] CT Ketones Ur Strip.auto-mCnc Negative Normal 02/26/2024 - [facility] Bilirub Ur Ql Strip.auto Negative Normal 02/26/2024 - [facility] Glucose Ur Strip.auto-mCnc Negative Normal 02/26/2024 - [facility] Hgb Ur Ql Strip.auto 1+ Abnormal 02/26/2024 - [facility] Sp Gr Ur Refract.auto >1.03 Above high normal 025 1.005 - 1.03 [facility] Urobilinogen Ur Strip-mCnc 2.0 mg/dL Normal 02/26/2024 - [facility] Clarity Ur Refract.auto Turbid Abnormal 02/26/2024 - [facility] pH Ur Strip.auto 6.0 Normal 02/26/2024 5.5 - 7.5 [facility] Lymphocytes # Bld Auto 2.56 x 1000/uL Normal 02/26/2024 0 .6 - 3.7 [facility] MCV RBC Auto 83.7 fL Normal 02/26/2024 80 - 100 [facility] T MCH RBC Qn Auto 25.8 pg Below low normal 02/26/2024 27 - 3 3 [facility] MCHC RBC Auto-mCnc 30.8 g/dL Below low normal 02/26/2024 31 - 36 [facility] WBC # Bld Auto 9.0 x1000/uL Normal 02/26/2024 4 - 11 [facility] Platelet # Bld Auto 455.0 x1000/uL Above high normal 025 150 - 420 [facility] nRBC # Bld Auto 0.0 x 1000/uL Normal 02/26/2024 0 - 1 [facility] Monocytes/leuk NFr Bld Auto 7.0 % Normal 02/26/2024 4 - 12 [facility] RDW RBC Auto-Rto 15.4 % Above high normal 02/26/2024 11 - 15 [facility] nRBC/100 WBC Bld Auto-Rto 0.0 % Normal 02/26/2024 0 - 1 [facility] Neutrophils/leuk NFr Bld Auto 62.9 % Normal 02/26/2024 39 - 72 [facility] Eosinophil/leuk NFr Bld Auto 1.1 % Normal 02/26/2024 0 - 5 [facility] Lymphocytes/leuk NFr Bld Auto 28.5 % Normal 02/26/2024 17 - 50 [facility] RBC # Bld Auto 3.8 M/uL Below low normal 02/26/2024 4 - 6 [facility] Hct VFr Bld Auto 31.8 % Below low normal 02/26/2024 35 - 45 [facility] Basophils/leuk NFr Bld Auto 0.3 % Normal 02/26/2024 0 - 1.4 [facility] Eosinophil # Bld Auto 0.1 x 1000/uL Normal 02/26/2024 0 - 1 [facility] PMV Bld Auto 9.4 fL Normal 02/26/2024 8 - 12 [facility] T Neutrophils # Bld Auto 5.64 x 1000/uL Normal 02/26/2024 2 - 7.6 [facility] Hgb Bld-mCnc 9.8 g/dL Below low normal 02/26/2024 11.7 - 15.5 [facility] Imm Granulocytes/leuk NFr Bld Auto 0.2 % Normal 02/26/2024 0 - 1 [facility] Basophils # Bld Auto 0.03 x 1000/uL Normal 02/26/2024 0 - 1 [facility] Imm Granulocytes # Bld Auto 0.02 x 1000/uL Normal 02/26/2024 0 - 0.3 [facility] Monocytes # Bld Auto 0.63 x 1000/uL Normal 02/26/2024 0 - 1 [facility] Albumin/Glob SerPl 1.4 Ratio Below low normal 02/22/2024 1.5 - 2.5 [facility] ALT SerPl-cCnc 19.0 U/L Normal 02/22/2024 7 - 35 [facility] T Creat SerPl-mCnc 0.7 mg/dL Normal 02/22/2024 0.6 - 1 [facility] Potassium SerPl-sCnc 3.9 mmol/L Normal 02/22/2024 3.4 - 4 .5 [facility] Calcium SerPl-mCnc 9.3 mg/dL Normal 02/22/2024 8.7 - 10.5 [facility] Bilirub SerPl-mCnc 0.4 mg/dL Normal 02/22/2024 0.3 - 1.2 [facility] Globulin Ser Calc-mCnc 3.0 g/dL Normal 02/22/2024 1.5 - 3.9 [facility] Albumin SerPl-mCnc 4.2 g/dL Normal 02/22/2024 3.4 - 4.8 [facility] Glucose SerPl-mCnc 94.0 mg/dL Normal 02/22/2024 74 - 106 [facility] CO2 SerPl-sCnc 26.0 mmol/L Normal 02/22/2024 20 - 31 [facility] BUN/Creat SerPl 10.0 Ratio Normal 02/22/2024 10 - 25 [facility] AST SerPl-cCnc 25.0 U/L Normal 02/22/2024 - 34 [facility] T Prot SerPl-mCnc 7.2 g/dL Normal 02/22/2024 5.7 - 8.[address] GFR/BSA.pred SerPlBld [id number]-HkBOmj >90.0 Normal 02/22/2024 59 - [facility] BUN SerPl-mCnc 7.0 mg/dL Below low normal 02/22/2024 9 - 23 [facility] Sodium SerPl-sCnc 145.0 mmol/L Normal 02/22/2024 136 - 14 5 [facility] Anion Gap Bld-sCnc 9.0 Normal 02/22/2024 5 - 15 [facility] Chloride SerPl-sCnc 110.0 mmol/L Above high normal 98 - 107 [facility] ALP SerPl-cCnc 89.0 U/L Normal 02/22/2024 32 - 122 [facility] T Squamous num/area UrnS HPF 7.0 per hpf Normal 02/22/2024 [facility] Hyaline Casts num/area UrnS LPF 4.0 per lpf Normal 02/22/2024 0 - 4 [facility] Bacteria UrnS Ql Micro Negative Normal 02/22/2024 - [facility] RBC num/area UrnS HPF 4.0 per hpf Normal 02/22/2024 0 - 4 [facility] WBC num/area UrnS HPF 14.0 per hpf Above high normal 025 0 - 4 [facility] Color Ur Yellow Normal 02/22/2024 [facility] Hgb Ur Ql Strip Negative Normal 02/22/2024 - C CT Bilirub Ur Strip-mCnc Negative Normal 02/22/2024 - [facility] Clarity Ur Clear Normal 02/22/2024 [facility] Leukocyte esterase Ur Ql Strip Moderate Abnormal 02/22/2024 - [facility] Urobilinogen Ur Strip-mCnc 1.0 EU/dL Normal 02/22/2024 0.2 - 1 [facility] Ketones Ur Strip-mCnc Negative Normal 02/22/2024 - [facility] Sp Gr Ur Strip 1.022 Normal 02/22/2024 1.003 - 1.03 [facility] Glucose Ur Strip-mCnc Negative Normal 02/22/2024 0 - 99 [facility] Nitrite Ur Ql Strip Negative Normal 02/22/2024 - [facility] Prot Ur Strip-mCnc Negative Normal [facility]22[facility]2024 [facility] 6.5 Normal 02/22/2024 5 - 8 [facility] Eosinophil/leuk NFr Bld Auto 1.7 % Normal 02/22/2024 [facility] Hct VFr Bld Auto 32.2 % Below low normal 02/22/2024 35 - 47 [facility] MCHC RBC Auto-mCnc 30.1 g/dL Normal 02/22/2024 30 - 36 [facility] Lymphocytes/leuk NFr Bld Auto 35.0 % Normal 02/22/2024 [facility] Imm Granulocytes num Bld Auto 0.02 Thou/uL Normal 02/22/2024 0 - 0.1 [facility] Basophils num Bld Auto 0.04 Thou/uL Normal 02/22/2024 0 - 0.2 [facility] Neutrophils num Bld Auto 3.19 Thou/uL Normal 02/22/2024 2 - 7.5 [facility] Imm Granulocytes/leuk NFr Bld Auto 0.3 % Normal 02/22/2024 [facility] Basophils/leuk NFr Bld Auto 0.7 % Normal 02/22/2024 [facility] RBC num Bld Auto 3.78 Mil/uL Below low normal 02/22/2024 4 - 5.4 [facility] Hgb Bld-mCnc 9.7 g/dL Below low normal 02/22/2024 11.7 - 15.7 [facility] WBC num Bld Auto 6.0 Thou/uL Normal 02/22/2024 4 - 11 [facility] Eosinophil num Bld Auto 0.1 Thou/uL Normal 02/22/2024 0 - 0.7 [facility] Neutrophils/leuk NFr Bld Auto 53.0 % Normal 02/22/2024 [facility] MCV RBC Auto 85.0 fL Normal 02/22/2024 80 - 100 [facility] Monocytes num Bld Auto 0.56 Thou/uL Normal 02/22/2024 0.2 - 1.5 [facility] Platelet num Bld Auto 437.0 Thou/uL Normal 02/22/2024 150 - 450 [facility] MCH RBC Qn Auto 25.7 pg Below low normal 02/22/2024 26 - 3 4 [facility] Lymphocytes num Bld Auto 2.11 Thou/uL Normal 02/22/2024 1.5 - 4.5 [facility] Monocytes/leuk NFr Bld Auto 9.3 % Normal 02/22/2024 [facility] RDW RBC Auto-Rto 15.3 % Above high normal 02/22/2024 1 1.5 - 14.5 [facility] PMV Bld Auto 9.5 fL Normal 02/22/2024 7.5 - 12.5 [facility] History of Medication Use Medication Directions Dispensed Refills Start Date End Date Status 5 11/04/19 25 completed methylPREDNISolone (MEDROL DOSEPAK) 4 MG tablet Take as directed. Be sure to take all the tablets in decreasing doses as stated in the juanjo 5 active 5 completed 5 07/20/19 25 completed 5 completed 5 07/12/19 25 completed 5 07/12/19 25 completed cephalexin (KEFLEX) 500 MG capsule Take 1 capsule (500 mg total) by mouth 2 (two) times a day. Take as directed or until you run out 5 07/09/19 25 active pregabalin (LYRICA) 100 MG capsule Take 1 capsule (100 mg total) by mouth nightly. 5 active oxyCODONE (ROXICODONE) 5 MG immediate release tablet Take 1 tablet (5 mg total) by mouth 3 times daily (every 8 hours) as needed for severe pain. Max Daily Amount: 15 mg 5 06/13/19 25 aborted pregabalin (LYRICA) 50 MG capsule Take 1 capsule (50 mg total) by mouth 3 (three) times a day. 5 active Depakote Sprinkles 125 MG capsule Take 1 capsule (125 mg total) by mouth 2 (two) times a day. 5 active divalproex er (DEPAKOTE ER) 250 MG 24 hr tablet Take 1 tablet (250 mg total) by mouth daily. 5 active Pcuvnevzik-HIOY-Hihtbu ne 50-325-40 MG per capsule Take 1 capsule by mouth 3 times daily (every 8 hours) as needed. 5 active tiZANidine (ZANAFLEX) 2 MG tablet Take 1 tablet (2 mg total) by mouth 3 (three) times a day as needed for muscle spasms. 5 active lithium carbonate 600 MG IR capsule Take 1 capsule (600 mg total) by mouth 2 (two) times a day with meals. 5 active losartan (COZAAR) 50 MG tablet Take 1 tablet (50 mg total) by mouth daily. active predniSONE (DELTASONE) 20 MG tablet Take 2 tablets (40 mg total) by mouth daily. With food. 5 active Cefuroxime Axetil 500 mg tablet 5 active butalbital-acetaminoph en-caffeine (FIORICET, ESGIC) 50-325-40 mg per tablet 1 tablet 1 tablet, Oral, EVERY 6 HOURS PRN, migraine, Starting on 03/25/24 at 0614, Maximum dose of acetaminophen is 4000 mg from all sources in 24 hours. 5 03/25/19 aborted cefuroxime (CEFTIN) 500 mg tablet Take 1 tablet (500 mg total) by mouth 2 (two) times daily for 7 days. active cefTRIAXone (ROCEPHIN) 1 g in sodium chloride 0.9% PF 10 mL (100 mg/mL) 1 g (rounded from 1,000 mg), IV Push, EVERY 24 HOURS, First dose (after last modification) on 03/25/24 at 0800, For 1 dose, Intravenous ceftriaxone must not be infused through the same line as calcium containing fluids (including calcium gluconate, calcium chloride, Lactated Ringers, total lise 5 03/25/19 completed cloNIDine HCL (CATAPRES) tablet 0.1 mg 0.1 mg, Oral, 2 TIMES DAILY PRN, other, anxiety, Starting on [place] 03/23/24 at 2100, Hold for SBP < 90 mm Hg, Reason For Use: Other, Other reason: anxiety, OP SIG:Take 1 tablet (0.1 mg total) by mouth 2 (two) times daily. 5 03/25/19 aborted pantoprazole (PROTONIX) EC tablet 40 mg 40 mg, Oral, Daily, First dose on Wed03/24/24 at 0900, Tablet should be swallowed whole; do no split, crush or chew with the EXCEPTION of patients with a J-tube in which the tablet(s) may be crushed for administration. Common Side Effects: stomach upset, headache, nausea., Reason for Use (RFU): Jeff 03/25/19 aborted sodium chloride 0.45 % infusion 100 mL/hr, Intravenous, CONTINUOUS, Starting on Wed03/24/24 at 0630 03/25/19 aborted sodium chloride 0.9 % (new bag) bolus 1,000 mL 1,000 mL, Intravenous, Administer over 15 Minutes, ONCE, On Wed03/24/24 at 0745, For 1 dose 03/24/19 completed 03/30/19 completed acetaminophen (TYLENOL) tablet 650 mg 650 mg, Oral, EVERY 6 HOURS PRN, temperature > 100.4 F (38 C), mild Pain (PIS 1-3), for adult patients may also give for higher pain score per patient preference, Starting on Wed03/23/24 at 1628, Maximum dose of acetaminophen is 4000 mg from all sources in 24 hours. 03/25/19 aborted lithium Immediate Release capsule 300 mg 300 mg, Oral, 2 Times Daily With Breakfast and Dinner, First dose on Wed03/23/24 at 1800, Pharmacist will implement [facility] [place] Drug Monitoring Protocol unless otherwise specified: Implement Protocol, Protocol: [email or web address] Drug Monitoring Protocol/Li 03/25/19 aborted melatonin tablet 3 mg 3 mg, Oral, Nightly PRN, insomnia, Starting on Wed03/23/24 at 1628, Recommended to administer at least 60 minutes prior to intended bedtime 03/25/19 aborted morphine injection 4 mg 4 mg, Subcutaneous, EVERY 4 HOURS PRN, severe Pain (PIS 7-10), Starting on [place] 03/23/24 at 1628, For 2 days, If patient unable to take PO or has inadequate response 1 hour after the administration of the oral medication for severe pain 06 16/08/20 25 aborted ondansetron (ZOFRAN-ODT) disintegrating tablet 4 mg [Order 1 Start] Name: ondansetron (ZOFRAN-ODT) disintegrating tablet 4 mg Signed Summary: 4 mg, Oral, EVERY 6 HOURS PRN, nausea or vomiting, Starting on [place] 03/23/24 at 1628, First line therapy. Common Side Effects: Lightheaded, stomach upset, headache. [Order 1 End] [Order 2 Start] Name: ondansetron 5 03/25/19 aborted potassium chloride SA (K-DUR,KLOR-CON M) 24 hr tablet 40 mEq 40 mEq, Oral, Daily, First dose on Wed03/24/24 at 0900, NOTE: Product is dosed in mEq of ELEMENTAL potassium. Hold for Postassium level > 4.5 mmol/L, and call MD/JORGE if potassium repletion should be continued. Common Side Effects: Stomach upset, diarrhea. 03/25/19 aborted sodium chloride 0.9 % flush 3 mL 3 mL, IV Push, Every 8 Hours Scheduled, First dose on [place]ley 03/23/24 at 2200, For PIV lock flush only. 03/25/19 aborted cefTRIAXone (ROCEPHIN) 2 g in sodium chloride 0.9% PF 20 mL (100 mg/mL) 2 g (rounded from 2,000 mg), Intravenous, ONCE, On [place] 03/23/24 at 1400, For 1 dose, Intravenous ceftriaxone must not be infused through the same line as calcium containing fluids (including calcium gluconate, calcium chloride, Lactated Ringers, total parenteral nutrition, dialysis solutions). Irritan 5 03/23/19 completed ondansetron (PF) (ZOFRAN) injection 4 mg 4 mg, IV Push, ONCE, On [place] 03/23/24 at 1400, For 1 dose, Maximum IV Push dose of 16 mg. If ordered IV Push administer undiluted over 2 minutes. Common side effects include: lightheaded, stomach upset, and headache. Irritant 03/23/19 completed sodium chloride 0.9 % (new bag) bolus 2,000 mL 2,000 mL, Intravenous, Administer over 15 Minutes, ONCE, On [place] 03/23/24 at 1415, For 1 dose 5 03/23/19 25 completed 5 04/01/19 25 completed 5 03/24/19 25 completed ketoconazole (NIZORAL) 2 % cream Apply topically 2 (two) times a day. Apply to affected area twice daily 5 active Clonazepam 0.5 mg tablet 5 active Clonidine Hcl 0.1 mg tablet 5 active Hydrocodone-Acetaminop hen 5-325 mg tablet 5 active Levofloxacin 500 mg tablet 5 active [place] Carbonate 300 mg tablet 5 active Nystatin 100,000 unit/gram cream 5 active Pantoprazole 40 mg tablet,delayed release (DR/EC) 5 active Tizanidine 2 mg tablet 5 active tiZANidine (ZANAFLEX) 2 mg capsule Take 1 capsule (2 mg total) by mouth 2 (two) times daily as needed for muscle spasms. 5 active 5 completed Caplyta 42 MG Cap Take 1 capsule (42 mg total) by mouth daily. 5 active Caplyta 21 MG Cap Take 1 capsule by mouth daily. 5 active 4 completed 4 completed 4 completed cefpodoxime (VANTIN) 100 mg tablet Take 2 tablets (200 mg total) by mouth twice daily (every 12 hours). 3 active sulfamethoxazole-trime thoprim (BACTRIM DS,SEPTRA DS) 800-160 MG per tablet Take 1 tablet by mouth 2 (two) times a day. Take as directed or until you run out. Take with lots of fluids. 3 active ciprofloxacin (CIPRO) 500 MG tablet Take 1 tablet (500 mg total) by mouth 2 (two) times a day. Do not start before August 03, 2022. 3 active predniSONE (DELTASONE) 20 MG tablet Take 3 tablets (60 mg total) by mouth daily. With food. 3 active oxyCODONE-acetaminophe n (PERCOCET) 5-325 mg per tablet Take 1 tablet by mouth 4 times daily (every 6 hours) as needed for severe pain (pain). Max Daily Amount: 4 tablets 3 active ondansetron (ZOFRAN-ODT) 4 MG disintegrating tablet Take 1 tablet (4 mg total) by mouth 3 times daily (every 8 hours) as needed for nausea or vomiting. Place tablet on tongue to dissolve. 3 active sucralfate (CARAFATE) 1 GM/10ML suspension Take 10 mL (1 g total) by mouth 4 (four) times a day before meals and nightly. On an empty stomach. 3 06/07/19 23 active ondansetron (ZOFRAN) 4 MG tablet Take 1 tablet (4 mg total) by mouth 3 times daily (every 8 hours) as needed for nausea or vomiting. 3 05/16/19 23 active clonazePAM (KlonoPIN) 0.5 MG tablet Take 1 tablet (0.5 mg total) by mouth daily as needed. 3 active clonazePAM (KlonoPIN) 0.5 MG tablet 3 active lithium carbonate 300 MG IR tablet 3 active methocarbamol (ROBAXIN) 750 MG tablet Take 2 tablets (1,500 mg total) by mouth 3 (three) times a day. 3 05/09/19 23 active amLODIPine (NORVASC) 10 MG tablet 3 active Emgality 120 MG/ML injection 3 active gadobutrol (GADAVIST) injection 10 mL 10 mL, Intravenous, Once in imaging, contrast, Starting on [place] 03/12/22 at 1447, For 1 dose, Radiology Appointment 3 03/12/19 23 completed EPINEPHrine 0.3 mg/0.3 mL IJ auto-injection Inject 0.3 mL (0.3 mg total) into the shoulder, thigh, or buttocks. 3 active losartan (COZAAR) 50 mg tablet Take 1 tablet (50 mg total) by mouth daily. 3 active losartan (COZAAR) 50 MG tablet 3 active methylPREDNISolone (MEDROL DOSEPAK) 4 MG tablet Take as directed. Be sure to take all the tablets in decreasing doses as stated in the juanjo 2 03/12/19 active oxyCODONE-acetaminophe n (PERCOCET) 5-325 mg per tablet Take 1-2 tablets by mouth Every 4 (four) to 6 (six) hours as needed for severe pain. Max Daily Amount: 12 tablets 2 03/12/19 active baclofen (LIORESAL) 10 MG tablet Take 1 tablet (10 mg total) by mouth 3 (three) times a day. 2 06/27/19 active HYDROcodone-acetaminop hen (NORCO) 5-325 mg per tablet Take 1 tablet by mouth 4 times daily (every 6 hours) as needed for severe pain (pain). Max Daily Amount: 4 tablets 2 03/12/19 aborted gadobutrol (GADAVIST) injection 7 mL 7 mL, Intravenous, Once in imaging, contrast, Starting on Wed12/10/21 at 1427, For 1 dose, Radiology Appointment 2 12/11/19 completed tamsulosin (FLOMAX) 0.4 MG capsule Take 1 capsule (0.4 mg total) by mouth daily. 2 12/11/19 active acetaminophen (TYLENOL) 325 MG tablet Take 2 tablets (650 mg total) by mouth 4 times daily (every 6 hours) as needed for mild pain. 2 active tiZANidine (ZANAFLEX) 4 MG tablet Take 0.5-2 tablets (2-8 mg total) by mouth 3 (three) times a day as needed (moderate to severe headaches.). Max use 3 days per week. 2 active Emgality 120 MG/ML injection INJECT 1 ML (120 MG TOTAL) UNDER THE SKIN EVERY 30 DAYS (ONCE A MONTH). PLEASE DISPENSE AUTOINJECTOR 2 03/12/19 aborted galcanezumab-gnlm (Emgality) 120 MG/ML injection Inject 2 mL (240 mg total) under the skin once. Note: 1 time loading dose for first month of treatment. Please dispense autoinjector 2 active PANTOprazole (PROTONIX) 40 MG EC tablet Take 1 tablet (40 mg total) by mouth every morning before breakfast. 2 active 2 08/13/19 23 completed butalbital-acetaminoph en-caffeine (FioriCET, ESGIC) 50-325-40 mg tablet Take 1-2 tablets by mouth every 4 (four) hours as needed for pain. Max: 6 capsules/tablets in 24 hours 2 active amLODIPine (NORVASC) 5 MG tablet Take 1 tablet (5 mg total) by mouth daily. 2 05/07/19 23 active 2 06/14/19 22 completed Suboxone 8-2 MG per SL film nightly. 2 12/11/19 22 active Diclofenac Sodium (SOLARAZE) 3 % gel as needed. 2 12/11/19 22 active buprenorphine-naloxone (SUBOXONE) 4-1 MG per SL film every morning. 1 12/11/19 22 active hydrOXYzine HCl (ATARAX) 25 MG tablet Take 1 tablet by mouth 3 times daily (every 8 hours) as needed. 1 12/11/19 22 aborted 1 12/22/19 21 completed 1 12/22/19 21 completed albuterol (PROVENTIL HFA; VENTOLIN HFA) 108 (90 Base) MCG/ACT inhaler Inhale 2 puffs every 4 (four) hours as needed. active PROAIR HFA 90 mcg/actuation HFA aerosol inhaler Inhale 1 puff into the lungs daily as needed. active hydrOXYzine HCl (ATARAX) 25 MG tablet Take 1 tablet (25 mg total) by mouth 4 times daily (every 6 hours) as needed for anxiety (symptoms). 1 active 1 12/25/19 21 completed 1 08/01/19 21 completed 1 10/16/19 21 completed 1 09/16/19 21 completed 1 07/21/19 21 completed 1 06/29/19 21 completed 1 06/02/19 21 completed 1 05/28/19 21 completed 1 04/24/19 21 completed 0 02/07/20 20 completed 0 01/18/20 20 completed 0 06/20/19 21 completed 0 01/21/20 20 completed 0 01/10/20 20 completed active active active active active active active cloNIDine (CATAPRES) 0.1 MG tablet Take 1 tablet (0.1 mg total) by mouth 2 (two) times a day. active lithium 300 mg tablet Take 1 tablet (300 mg total) by mouth 2 (two) times daily with breakfast and dinner. active lithium carbonate 300 MG IR tablet Take 1 tablet (300 mg total) by mouth 2 (two) times a day with meals. active Allergies Allergen Reaction Severity Comment Documented Date Source Status KETOROLAC ANAPHYLAXIS 02/26/2024 [facility] active ZOLPIDEM HIVESDELERIUM/C ONFUSION/PSYCHO SISDELIRIUM/CON FUSION/PSYCHOSI S Moderate 02/14/2022 [facility] active AMOXICILLIN UNKNOWN/PATIENT AND FAMILY UNABLE TO DEFINE 08/26/2021 [facility] active IODINATED CONTRAST MEDIA HIVES hives, wheezing per pt. 02/29/2020 [facility] active IODINATED DIAGNOSTIC AGENTS HIVES hives, wheezing per pt. 02/29/2020 [facility] active IODINE AND IODIDE CONTAINING PRODUCTS HIVES hives, wheezing per pt. 02/29/2020 [facility] active OXYCODONE GI INTOLERANCE/ARNOL SEA/VOMITINGNAU SEA AND VOMITINGUNKNOWN /PATIENT AND FAMILY UNABLE TO DEFINE Tolerated percocet in the past 04/22/20 2330 08/08/2019 [facility] active TILACTASE UNKNOWN/PATIENT AND FAMILY UNABLE TO DEFINE Moderate 08/08/2019 [facility] active NSAIDS NAUSEA AND VOMITING Moderate 09/28/2017 [facility] active NSAIDS (NON-STEROIDAL ANTI-INFLAMMATOR Y DRUG) 09/28/2017 [facility] active AMOXICILLIN-POT CLAVULANATE UNKNOWN/PATIENT AND FAMILY UNABLE TO DEFINE Moderate 06/24/2017 [facility] active IBUPROFEN UNKNOWN/PATIENT AND FAMILY UNABLE TO DEFINE Moderate 11/25/2016 [facility] active LACTOSE NAUSEA AND VOMITING 10/09/2015 [facility] active OXYCODONE-ACETAM INOPHEN GI INTOLERANCE/ARNOL SEA/VOMITINGNAU SEA AND VOMITING Tolerated Morphine, oxycodone, Tramadol, acetaminophen and Fiorcet in the past. 06/03/2014 [facility] active PROCHLORPERAZINE UNKNOWN/PATIENT AND FAMILY UNABLE TO DEFINE Moderate Jittery 02/04/2014 [facility] active SHELLFISH ALLERGY HIVES Unsure of reaction to betadine 02/14/2013 [facility] active SHELLFISH CONTAINING PRODUCTS HIVES Unsure of reaction to betadine 02/14/2013 [facility] active SERTRALINE OTHER (SEE COMMENTS)HIVES Moderate SUICIDAL THOUGHTS 01/10/2013 [facility] active METOCLOPRAMIDE HCL Given hives,acting out,itchy 11/16/2012 [facility] active DIPHENHYDRAMINE HIVES Moderate [facility] SHELLFISH-DERIVE D PRODUCTS HIVESSHORTNESS OF BREATH ModerateSevere [facility] AMBIEN [facility] COMPAZINE [facility] REGLAN [facility] METOCLOPRAMIDE UNKNOWN/PATIENT AND FAMILY UNABLE TO DEFINE Moderate [facility] ADHESIVE TAPE-SILICONES HIVES Paper tape is OK per pt [facility] ADHESIVES/TAPE UNKNOWN/PATIENT AND FAMILY UNABLE TO DEFINEHIVES Moderate Paper tape is OK per pt [facility] IODINE UNKNOWN/PATIENT AND FAMILY UNABLE TO DEFINE Moderate [facility] LACTASE UNKNOWN/PATIENT AND FAMILY UNABLE TO DEFINE Moderate [facility] DIPHENHYDRAMINE HCL ANXIETY Cant have through IV, can drink PO [facility] Problems Problem Status Onset Date Problem Type Date of Resolution Source 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-22 ProblemAct [facility] Essential (primary) hypertension active 2024-04-19 ProblemAct [facility] Carpal tunnel syndrome, left upper limb active 2020-07-30 ProblemAct [facility] Seasonal allergic rhinitis active 2020-07-17 ProblemAct [facility] Low back pain active 2019-12-05 ProblemAct [facility] Migraine without aura, not intractable, without status migrainosus active 2019-12-22 ProblemAct [facility] Acute sinusitis active 2020-07-[address] [facility] Anxiety active 2020-10-18 ProblemAct [facility] Purpuric rash active 2020-11-12 ProblemAct [facility] Abnormal thyroid blood test active 2024-04-11 ProblemAct [facility] Kidney stone active 2020-06-07 ProblemAct [facility] Allergic rhinitis, unspecified active 2019-12-22 ProblemAct [facility] Person consulting for explanation of examination or test findings active 2020-01-08 ProblemAct [facility] Seizure disorder active 2019-12-21 ProblemAct [facility] Tendinitis active 2020-07-23 ProblemAct [facility] Multiple joint pain active 2020-09-18 ProblemAct [facility] Opioid withdrawal active 2021-08-12 ProblemAct [facility] Elevated blood pressure reading without diagnosis of hypertension active 2020-05-22 ProblemAct [facility] Moderate depression active 2020-10-18 ProblemAct [facility] Sciatica, right side active 2022-05-27 ProblemAct [facility] Urinary tract infection, site not specified active 2024-10-23 ProblemAct [facility] Leg swelling active 2022-05-05 ProblemAct [facility] Upper gastrointestinal bleeding active 2024-03-02 ProblemAct [facility] Hyperlipidemia, unspecified active 2020-01-08 ProblemAct [facility] Acute maxillary sinusitis, unspecified active 2022-08-20 ProblemAct [facility] Eruption active 2020-11-21 ProblemAct [facility] Vitamin D deficiency, unspecified active 2020-01-08 ProblemAct [facility] Asthma active 2020-11-21 ProblemAct [facility] Encounter for preprocedural laboratory examination active 2020-10-21 ProblemAct [facility] Viral upper respiratory illness active 2024-03-17 ProblemAct [facility] Acute sinusitis, unspecified active 2020-07-17 ProblemAct [facility] Headache active 2019-12-22 ProblemAct [facility] Chest wall pain active 2020-05-[address] [facility] Abdominal pain active 2019-11-08 ProblemAct [facility] Low back pain, unspecified active 2024-04-19 ProblemAct [facility] Bipolar disorder active 2020-10-18 ProblemAct [facility] Neck pain active 2020-09-26 ProblemAct [facility] Acute pyelonephritis active 2024-03-23 ProblemAct [facility] Muscle spasm of back active 2020-01-08 ProblemAct [facility] Migraine active 2019-11-08 ProblemAct [facility] Wedge compression fracture of unspecified lumbar vertebra, sequela active 2019-12-05 ProblemAct [facility] Snoring active 2021-07-17 ProblemAct [facility] Abnormal involuntary movement active 2021-07-17 ProblemAct [facility] Illness anxiety disorder active 2018-01-22 ProblemAct [facility] Anxiety active 2021-07-17 ProblemAct [facility] Asthma active 2013-10-02 ProblemAct [facility] Epigastric pain active 2021-12-18 ProblemAct [facility] Depression active 2021-12-18 ProblemAct [facility] Unsteady gait active 2021-07-17 ProblemAct [facility] T Intractable migraine with aura without status migrainosus active 2021-07-17 ProblemAct [facility] Gastroesophageal reflux disease active 2022-05-06 ProblemAct [facility] Intractable abdominal pain active 2020-01-18 ProblemAct [facility] Pyelonephritis active ProblemAct [facility] Urinary tract infection active ProblemAct [facility] Obesity active 2020-01-18 ProblemAct [facility] Anxiety active 2012-12-08 ProblemAct [facility] Lumbar compression fracture, sequela active 2020-02-05 ProblemAct [facility] Pancreatitis active 2020-01-18 ProblemAct [facility] Upper GI bleed active 2019-09-25 ProblemAct [facility] Right hip pain active 2016-08-28 ProblemAct [facility] Intractable back pain active 2024-03-07 ProblemAct [facility] Renal calculus active 2014-05-16 ProblemAct [facility] Migraine without aura and without status migrainosus, not intractable active 2016-04-06 ProblemAct [facility] Iron deficiency anemia active 2015-03-17 ProblemAct [facility] Chest pain with low risk for cardiac etiology active 2013-08-08 ProblemAct [facility] Hypotension due to hypovolemia active EncounterDiagnosisAct [facility] Esotropia of left eye active 2015-01-04 ProblemAct [facility] Intractable abdominal pain active 2020-04-23 ProblemAct [facility] Adnexal cyst active 2014-04-26 ProblemAct [facility] Acute pyelonephritis active EncounterDiagnosisA ct [facility] Lumbar radiculopathy active 2020-02-05 ProblemAct [facility] Hypertension active 2015-08-15 ProblemAct [facility] Vaginal pain active 2017-09-03 ProblemAct [facility] Partial thickness burn of left hand active 2017-04-14 ProblemAct [facility] Hypotension active 2024-02-28 ProblemAct [facility] SIRS (systemic inflammatory response syndrome) (HC Code) active EncounterDiagnosisAct [facility] Bipolar disorder active ProblemAct [facility] Lower urinary tract infectious disease active 2014-04-18 ProblemAct [facility] Immunizations Vaccine Date Source Lot Number Status TB Screening (PPD/Quantiferon) 10/14/2016 [facility] [id number] AA completed Measles, Mumps, and Rubella Virus Vaccine 10/01/2016 [facility] completed MMR 09/30/2016 [facility] completed TB Screening (PPD/Quantiferon) 09/30/2016 [facility] [id number] AA completed Hep B, adult (Engerix/Recombivax) 09/24/2016 [facility] [id number] completed Influenza, injectable, quadr ivalent, preservative free 01/31/2016 [facility] completed Influenza, injectable, quadr ivalent, preservative free 01/16/2015 [facility] completed Influenza, injectable, quadr ivalent, preservative free 12/20/2013 [facility] [id number] completed Influenza, split virus, triv alent, Preservative Free 03/27/2013 [facility] [id number] completed Influenza, trivalent, inject able, contains preservative 03/09/2012 [facility] completed DTaP 04/01/2010 [facility] completed Pneumococcal polysaccharide PPSV23 04/01/2010 [facility] completed Encounters Encounter Type Encounter Reason Primary Diagnosis Location Date Ambulatory [facility] 01/12/2025 Emergency Abdominal pain, othe r specified site Abdominal pain, other specified site [facility] 01/11/2025 Emergency Abdominal pain, othe r specified site Abdominal pain, other specified site [facility] 12/11/2024 Ambulatory [facility] 12[facility]08[facility]2024 Emergency Headache(784.0) Headache(784.0) [facility] 12/01/2024 Emergency Urinary tract infection, site not specified Urinary tract infection, site not specified [facility] 11/23/2024 Emergency Headache(784.0) Headache(784.0) [facility] 11/13/2024 Emergency Acute cystitis without hematuria Acute cystitis without hematuria [facility] 10/25/2024 Emergency Urinary tract infection, site not specified Urinary tract infection, site not specified [facility] 10/24/2024 Emergency Abdominal pain, othe r specified site Abdominal pain, other specified site [facility] 10/19/2024 Ambulatory Encounter for therapeutic drug level monitoring Encounter for therapeutic drug level monitoring [facility] 10/04/2024 Ambulatory [facility] 09/19/2024 Ambulatory [facility] 09/19/2024 Emergency Chest pain/Numb and tingly fingers/Lower back pain Chest pain, unspecified [facility] 09/13/2024 Emergency Chest Pain Chest Pain [facility] 09/13/2024 Emergency Dorsalgia, unspecified Dorsalgia, unspecified [place] [facility] 09/10/2024 Emergency Abdominal pain, othe r specified site Abdominal pain, other specified site [facility] 08/20/2024 Emergency Acute pyelonephritis without lesion of renal medullary necrosis Acute pyelonephritis without lesion of renal medullary necrosis [facility] 08/19/2024 Emergency Sprain of ribs, initial encounter Sprain of ribs, initial encounter [place] [email or web address] 08/04/2024 Emergency Chest pain, unspecified Chest pain, unspecified [facility] 07/19/2024 Emergency UTI? Dorsalgia, unspecified [facility] 07/09/2024 Emergency Breathing Difficulty Breathing Difficulty [facility] 07/08/2024 Emergency Urinary tract infection, site not specified Urinary tract infection, site not specified [place] [facility] 06/30/2024 Emergency Hydronephrosis with renal and ureteral calculous obstruction Hydronephrosis with renal and ureteral calculous obstruction [place] [facility] 06/29/2024 Emergency Abdominal pain, othe r specified site Abdominal pain, other specified site [facility] 06/21/2024 Emergency Dysuria Dysuria [facility] 06/14/2024 Ambulatory Lumbago with sciatica, right side Lumbago with sciatica, right side [place] [facility] 06/12/2024 Emergency Abdominal pain, othe r specified site Abdominal pain, other specified site [facility] 06/10/2024 Emergency abd/back pain, headache, poss. kidney stones Dorsalgia, unspecified [facility] 06/09/2024 Emergency [facility]culus of kidney [facility] Emergency Other chest pain Other chest pain [facility] 05/25/2024 Emergency Chest Pain Chest Pain [facility] 05/25/2024 Emergency Chronic pain syndrome Chronic pain syndro me [place] [facility] 05/25/2024 Emergency Abdominal pain, othe r specified site Abdominal pain, other specified site [facility] 05/21/2024 Ambulatory Lumbago with sciatica, right side Lumbago with sciatica, right side [facility] 05/08/2024 Ambulatory Lumbago with sciatica, right side Lumbago with sciatica, right side [facility] 05/08/2024 Ambulatory Encounter for antineoplastic radiation therapy Encounter for antineoplastic radiation therapy [facility] 05/08/2024 Emergency Other disorders of pituitary gland Other disorders of pituitary gland [facility] 05/02/2024 Emergency Abdominal pain, othe r specified site Abdominal pain, other specified site [facility] 04/20/2024 Emergency Urinary tract infection, site not specified Urinary tract infection, site not specified [facility] 04/20/2024 Emergency Abnormal involuntary movements(781.0) Abnormal involuntary movements(781.0) [facility] 04/19/2024 Emergency Malingerer (consciou s simulation) Malingerer (conscious simulation) [facility] 04/18/2024 Emergency Surgical or other procedure not carried out because of patient's decision Surgical or other procedure not carried out because of patient's decision [facility] 04/18/2024 Emergency Vomiting/chills pos s UTI a lot of pain. Frequency of micturition [facility] 04/11/2024 Emergency Myalgia and myositis , unspecified Myalgia and myositis, unspecified [facility] 04/10/2024 Emergency Abdominal pain, othe r specified site Abdominal pain, other specified site [facility] 04/10/2024 Emergency Back Pain Back Pain [facility] 04/09/2024 Emergency Back Pain Back Pain [facility] 04/09/2024 Emergency Dorsalgia, unspecified Dorsalgia, unspecified [facility] 04/04/2024 Emergency Kidney infection. Chills. Back/stomach pain [facility] 03/27/2024 Inpatient Pyelonephritis, unspecified Pyelonephritis, unspecified [facility] 03/23/2024 Emergency Other forms of migraine, without mention of intractable migraine without mention of status migrainosus Other forms of migraine, without mention of intractable migraine without mention of status migrainosus [facility] 03/22/2024 Emergency Other forms of migraine, without mention of intractable migraine without mention of status migrainosus Other forms of migraine, without mention of intractable migraine without mention of status migrainosus [facility] 03/21/2024 Emergency Urinary tract infection, site not specified Urinary tract infection, site not specified [place] [email or web address] [facility] 03/14/2024 Emergency left flank pain, pain Calculus of kidney [facility] 03/13/2024 Emergency Pain in unspecified joint Pain in unspecified joint [facility] 03/12/2024 Emergency Generalized pain Generalized pain [facility] 03/11/2024 Emergency Pain in joint, site unspecified Pain in joint, site unspecified [facility] 03/11/2024 Emergency body pain, loss of appetite body pain, loss of appetite [facility] 03/11/2024 Emergency Backache, unspecified Backache, unspecifi ed [facility] 03/07/2024 Emergency Back Pain Back Pain [facility] 03/06/2024 Emergency Backache, unspecified Backache, unspecifi ed [facility] 03/04/2024 Ambulatory Hypotension, unspecified Hypotension, unspecified [facility] 02/28/2024 Inpatient Hypotension, unspecified Hypotension, unspecified [facility] 02/28/2024 Emergency Abdominal Pain Abdominal Pain [facility] 02/28/2024 Emergency Calculus of kidney Calculus of kidney [facility] 02/26/2024 Emergency Hand Pain Hand Pain [facility] 02/26/2024 Emergency Anxiety state, unspecified Anxiety state, unspecified [facility] 02/25/2024 Emergency Unspecified abdomina l pain Unspecified abdominal pain [place] [email or web address] [facility] 02/22/2024 Emergency Flank Pain Flank Pain [facility] 02/21/2024 Emergency Urinary Frequency Urinary Frequency [facility] [email or web address] [facility] 02/21/2024 Ambulatory [facility] 01/24/2024 Emergency Headache, unspecified Headache, unspecifi ed [place] [facility] 10/03/2022 Emergency Urinary tract infection, site not specified [place] [facility] 09/12/2022 Emergency Other muscle spasm [place] [facility] 08/30/2022 Emergency Unspecified adve rse effect of drug or medicament, initial encounter [place] [facility] 08/02/2022 Ambulatory Urinary tract infection, site not specified [facility] 07/30/2022 Emergency Low back pain, unspecified [employer] [facility] 07/20/2022 Ambulatory M25.50,M79.10,R76.8 PAIN IN UNSP ECIFIED JOINT [facility]) 07/15/2022 Emergency Lumbago with sciatica, right side [facility] 07/04/2022 Emergency Backache, unspecified [facility] 06/08/2022 Emergency Neck Pain [facility] 06/07/2022 Emergency Dorsalgia, unspecified [facility] 05/29/2022 Emergency Sciatica, unspec ified side [facility] 05/22/2022 Emergency Dorsalgia, unspecified [facility] 05/09/2022 Emergency Nausea [facility] 05/07/2022 Ambulatory [facility] 05/06/2022 Emergency Unspecified abdo amber pain [facility] 04/25/2022 Emergency Epigastric pain [facility] 04/22/2022 Ambulatory Sciatica [facility] 04/18/2022 Emergency Wedge compressio n fracture of unspecified lumbar vertebra, initial encounter for closed fracture [facility] 04/17/2022 Emergency Generalized abdo amber pain [facility] 03/22/2022 Ambulatory Primary thunderc lap headache [facility] 03/12/2022 Ambulatory Primary thunderc lap headache [facility] 03/12/2022 Ambulatory [facility] 03/11/2022 Ambulatory Headache(784.0) [facility] 03/04/2022 Emergency Low back pain, unspecified [facility] 02/14/2022 Ambulatory Lumbago [facility] 02/05/2022 Emergency Dorsalgia, unspecified [facility] 02/02/2022 Emergency Flank Pain [facility] 01/21/2022 Emergency Lower Abd. Pain [facility] 01/21/2022 Ambulatory [facility] 01/21/2022 Emergency Headache, unspecified [facility] 12/25/2021 Ambulatory Primary thunderc lap headache [facility] 12/19/2021 Ambulatory Abdominal pain, other specified site [facility] 12/12/2021 Emergency Back Pain [facility] 12/10/2021 Ambulatory [facility] 12/10/2021 Ambulatory [facility] 12/08/2021 Emergency Headache(784.0) [facility] 12/04/2021 Emergency Chest pain, unspecified [place] [facility] 11/27/2021 Ambulatory [place] [facility] 11/27/2021 Emergency Unspecified abdo amber pain [place] [facility] 11/24/2021 Emergency Abdominal pain, other specified site [facility] 11/21/2021 Emergency Calculus of kidney [place] [facility] 11/16/2021 Emergency Pain in right lo wer leg [place] [facility] 11/01/2021 Emergency Abdominal pain, other specified site [facility] 10/24/2021 Emergency Abdominal pain, other specified site [facility] 10/23/2021 Emergency Flank Pain [facility] 10/23/2021 Emergency Flank Pain [place] [facility] 10/22/2021 Emergency Tension-type headache, unspecified, not intractable [place] [facility] 10/16/2021 Ambulatory Migraine with au ra, not intractable, without status migrainosus [place] [facility] 09/17/2021 Emergency Conversion disorder [facility] 08/28/2021 Emergency Unspecified abdo amber pain [place] [facility] 08/25/2021 Emergency Palpitations [place] [facility] 08/24/2021 Emergency Abdominal pain, unspecified site [facility] 08/22/2021 Emergency Acute pancreatitis [facility] 08/19/2021 Emergency Abdominal Pain [facility] 08/19/2021 Emergency Abdominal Pain [facility] 08/18/2021 Emergency Unspecified abdo amber pain [place] [facility] 08/17/2021 Ambulatory Other specified symptom associated with female genital organs [facility] 08/14/2021 Emergency Malingerer (cons cious simulation) [place] [facility] 08/13/2021 Emergency Diarrhea [facility] 08/11/2021 Emergency Malingerer (cons cious simulation) [place] [facility] 08/04/2021 Emergency Headache, unspecified [facility] 2021 Ambulatory Snoring [place] [facility] 07/17/2021 Emergency Migraine, unspecified, not intractable, without status migrainosus [place] [facility] 05/04/2021 Ambulatory Cortical senile cataract [facility] 12/16/2020 Emergency Unspecified abdo amber pain [place] [facility] 12/05/2020 Emergency Drug withdrawal (HC Code) (HC CODE) [facility] 11/16/2020 Emergency Anxiety disorder , unspecified [facility] 11/14/2020 Ambulatory Cortical senile cataract [facility] 10/28/2020 Care Team Organization Name Specialty Phone Email Start Date End Da te [facility] 025 10/30/2024 [facility] 08/04/2024 12/24/2024 [facility] 06/28/2024 025 [facility] 06/10/2024 [facility] 04/19/2024 [facility] 03/28/2024 10/30/2024 [facility] 025 [facility] 03/25/2024 04/15/2024 [facility] 03/18/2024 [facility] 03/13/2024 [facility] 03/12/2024 [facility] 03/12/2024 [facility] 02/26/2024 [facility] 12/30/2024 [facility] 01/31/2024 [facility] 01/24/2024 [facility] 06/15/2023 [facility] 08/27/2022 [facility] PHYSICIAN NO Primary Care 07/21/2022 10/04/2023 [facility] ([facility]) 07/16/2022 10/04/2023 [facility] ([facility]) NO PHYSICIAN Primary Care 07/15/2022 07/15/2022 [facility] OMAIRA KING Primary Care 06/08/2022 [facility] Omaira King Primary Care 06/07/20222022 [facility] 05/06/2022 05/06/2022 [place] [facility] PCP,No Primary Care 03/12/2022 12/24/2024 [facility] 03/04/2022 0 03/04/2022 [place] [facility] NO PCP Primary Care 02/14/2022 02/14/2022 [place] [facility] 02/14/2022 [facility] 02/05/2022 1 03/01/2024 [facility] 01/21/2022 [place] [email or web address] [facility] Primary Care 12/26/2021 12/24/2024 [facility] Primary Care 08/19/2021 11/21/2021 [facility] Primary Care 11/26/2020 11/26/2020 [facility] Primary Care 10/28/2020 12/12/2021 [place] [facility] NO PCP Primary Care 06/10/2019 03/12/2022 [employer] [facility] Primary Care 06/10/2019 12/25/2021 [place] [facility] Primary Care 06/10/2019 12/25/2021
--- OUTSIDE RECORDS SUMMARY | 2025-01-13 11:18 | XMS_ITS | Encounter Summary ---
Author Organization [facility] Address [address] [place] [address] Care Team Providers Care Photocopying Equipment Repairer Name Role Phone Pcp, Does Not Have A Primary Care Provider Unava ilable Reason for Visit * Reason Comments Other Appointment Encounter Details Date Type Department Care Team ([facility] st Contact Info) Description 02/17/2022 Telephone Orthopaedics & Rehabilitation at [address] Physicians [place], [place] [id number] Khoa Kaye MD [address] [place] [address] Other; Appointment Social History Tobacco [...] declined 05/26/2020 How often do you attend taoism or alevism serv ices? Patient declined 05/26/2020 Do you belong to any clubs o r organizations such as taoism groups, unions, fraternal or athletic groups, or [...] Date Recorded PHQ-2 Total Score 2 12/01/2021 [facility] - Occupational Stress Questionnaire Answer Date [...] documented as of this encounter Care Teams Photocopying Equipment Repairer Relationship Specialty Start Date End Date Pcp, Does Not Have A PCP - General 01/11/25 documented as of this encounter
--- OUTSIDE RECORDS SUMMARY | 2025-01-13 11:18 | XMS_ITS | Encounter Summary ---
Author Organization [facility] Address [address] [place] [address] Care Team Providers Care Senior Finance Manager Name Role Phone [facility] Unavailable Unavailable Omaira Champion APRN Primary Care Provider [phone] Encounter Details Date Type Department Care Team (Late st Contact Info) Description 11/01/2024 Scanned Document [facility] Pain Management [address] [place] [address] Henna Brush MD [address] [facility] [address] [place], [place] [address] Social History Tobacco Use Types Packs/Day Years Used Date Smoking Tobacco: Never Smokeless Tobacco: Never Alcohol Use Standard Drinks/Week Comments Never 0 (1 standard drink = 0.6 oz pur e alcohol) PHQ-2 Answer Date Recorded PHQ-2 Total Score 0 03/12/2022 [facility] [place] of Occupat ional Health - Occupational Stress [...] filedocumented in this encounter Care Teams Senior Finance Manager Relationship Specialty Start Date End Date Omaira Champion APRN [address] [place] [phone] PCP - General Internal Medicine 04/18/24 [facility] 02/14/22 12/26/24 documented as of this encounter
--- OUTSIDE RECORDS SUMMARY | 2025-01-13 11:18 | XMS_ITS | Encounter Summary ---
Author Organization [facility] and [facility] Address [address] [place] [phone] Care Team Providers Care Military Pay Clerk Name Role Phone Pcp, Does Not Have A Primary Care Provider Unava ilable Encounter Details Date Type Department Care Team ([facility] st Contact Info) Description 04/25/2022 Scanned Document INTERFACE DEFAULT [address] [place] [id number] System, Provider Not In Social History Tobacco [...] declined 05/26/2020 How often do you attend jewish or orthodoxy serv ices? Patient declined 05/26/2020 Do you belong to any clubs o r organizations such as jewish groups, unions, fraternal or athletic groups, or [...] Date Recorded PHQ-2 Total Score 2 12/01/2021 [facility] of Occupat ional Health - Occupational Stress [...] documented as of this encounter Care Teams Military Pay Clerk Relationship Specialty Start Date End Date Pcp, Does Not Have A PCP - General 01/11/25 documented as of this encounter
--- OUTSIDE RECORDS SUMMARY | 2025-01-13 11:18 | XMS_ITS | Encounter Summary ---
Author Organization [facility] Address [address] [place] [address] Care Team Providers Care Protein Purification Scientist Name Role Phone [facility] Unavailable Unavailable Omaira Champion APRN Primary Care Provider [phone] Encounter Details Date Type Department Care Team (Late st Contact Info) Description 05/12/2024 Scanned Document [facility] [address] [place] [address] Henna Brush MD [address] [facility] [address] [place], [place] [address] Social History Tobacco Use Types Packs/Day Years [...] on filedocumented in this encounter Care Teams Protein Purification Scientist Relationship Specialty Start Date End Date Omaira Champion APRN [address] [place] [address] PCP - General Internal Medicine 04/18/24 [facility] 02/14/22 12/26/24 documented as of this encounter
--- OUTSIDE RECORDS SUMMARY | 2025-01-13 11:18 | XMS_ITS | Encounter Summary ---
Author Organization [facility] Address [address] [place] [address] Care Team Providers Care Eligibility Consultant Name Role Phone [facility] Unavailable Unavailable Omaira Champion APRN Primary Care Provider [phone] Encounter Details Date Type Department Care Team (Late st Contact Info) Description 05/09/2024 Scanned Document [facility] [address] [place] [address] Henna Brush MD [address] [facility] [address] [place], [place] [address] Social History Tobacco Use Types Packs/Day Years [...] on filedocumented in this encounter Care Teams Eligibility Consultant Relationship Specialty Start Date End Date Omaira Champion APRN [address] [place] [address] PCP - General Internal Medicine 04/18/24 [facility] 02/14/22 12/26/24 documented as of this encounter
--- OUTSIDE RECORDS SUMMARY | 2025-01-13 11:18 | XMS_ITS | Encounter Summary ---
Author Organization [facility] Address [address] [place] [address] Care Team Providers Care Psychologist Engineering Name Role Phone Pcp, Does Not Have A Primary Care Provider Unava ilable Encounter Details Date Type Department Care Team (Latest Contact Info) Description 10/15/2020 Transcribed Orders [address] [id number] Ja Valadez MD [address] [phone] False positive serological test for syphilis (Primary [...] declined 05/26/2020 How often do you attend oriental orthodox or adventism serv ices? Patient declined 05/26/2020 Do you belong to any clubs o r organizations such as oriental orthodox groups, unions, fraternal or athletic groups, or [...] Answer Date Recorded PHQ-2 Score 2 07/19/2018 [facility] - Occupational Stress Questionnaire Answer Date Recorded [...] Associated Diagnoses Date /Time Miscellaneous test, blood ([facility]) Lab Routine False positive serological test for syphilis 10/15/2020 10:28 AM EDT Scheduled Orders Name Type Priority Associated Diagnoses Orde r Schedule Miscellaneous test, blood ([facility]) Lab Routine False positive serological test [...] documented as of this encounter Care Teams Psychologist Engineering Relationship Specialty Start Date End Date Pcp, Does Not Have A PCP - General 01/11/25 documented as of this encounter
--- OUTSIDE RECORDS SUMMARY | 2025-01-13 11:18 | XMS_ITS | Encounter Summary ---
Author Organization [facility] Address [address] [place] [address] Care Team Providers Care Auto Parts Counter Person Name Role Phone Pcp, Does Not Have A Primary Care Provider Unava ilable Reason for Visit * Reason Comments Medication Refill Encounter Details Date Type Department Care Team (Late st Contact Info) Description 12/25/2020 [place] [address] Poncho Sun MD [address] [place] [phone] Medication Refill Social History Tobacco Use [...] declined 05/26/2020 How often do you attend religion or taoism serv ices? Patient declined 05/26/2020 Do you belong to any clubs o r organizations such as religion groups, unions, fraternal or athletic groups, or [...] Answer Date Recorded PHQ-2 Score 2 07/19/2018 [facility] Occupat ional [facility] - Occupational Stress Questionnaire Answer Date [...] documented as of this encounter Care Teams Auto Parts Counter Person Relationship Specialty Start Date End Date Pcp, Does Not Have A PCP - General 01/11/25 documented as of this encounter
--- OUTSIDE RECORDS SUMMARY | 2025-01-13 11:18 | XMS_ITS | Clinical Summary ---
Author Organization [address] Address [address] [place] [phone] Care Team Providers Care Deputy Chief Counsel Name Role Phone Pcp, Does Not Have A Primary Care Provider Unava ilable Allergies Active Allergy Reactions Criticality Noted Date [...] for up to 8 doses. 8 tablet 5 8:37 AM EDT 08/21/19 25 Active ondansetron [...] 25 Active DULoxetine (CYMBALTA) 20 mg capsule 12/28/19 21 2021 Discontinued ondansetron (ZOFRAN-ODT) 4 mg disintegrating tablet [...] in 2018 at Clinic associated with the [facility]. Diagnosed to have migraine and has [...] in 2018 at Clinic associated with the [facility]. Diagnosed to have migraine and has [...] 2018 at a clinic associated with the [facility]. Diagnosed to have migraine and has [...] 2018 at a clinic associated with the [facility]. Diagnosed to have migraine and has [...] Encounters Date Type Department Care Team Description 01/11/2025 3:31 AM EST - 01/11/2025 4:36 AM EST Emergency [facility] Emergency Department [address] [place] [address] Ara Salazar MD Left flank pain (Primary Dx) Discharge Disposition: Home or Self Care 01/11/2025 Travel 12/11/2024 1:38 AM EDT - 12/11/2024 3:13 AM EDT Emergency [facility] Emergency Department [address] [place] [address] Ara Salazar MD Flank pain, chronic (Primary Dx) Discharge Disposition: Home or Self Care 12/11/2024 Travel 12/01/2024 11:16 AM EDT - 12/01/2024 3:08 PM EDT Emergency [facility] Emergency Department [address] [place] [address] Ben Torres MD Nonintractable headache, unspecified chronicity pattern, unspecified headache type (Primary Dx); Hypertension, unspecified type Discharge Disposition: Home or Self Care 12/01/2024 Travel 11/13/2024 8:34 PM EDT - 11/13/2024 11:31 PM EDT Emergency [facility] Emergency Department [address] [place] [address] Chuck Hooker MD Acute intractable headache, unspecified headache type (Primary Dx) Discharge Disposition: Home or Self Care 11/13/2024 Travel 10/28/2024 Results Follow-Up [facility] Emergency Department [address] [place] [address] Oren Gibbs MD UA reflex to culture, Urinalysis with culture reflex (BH LMW YH), Urine culture 10/24/2024 6:18 PM EDT - 10/24/2024 10:29 PM EDT Hospital [facility] Emergency Department [address] [place] [address] Seven Berg MD Urinary tract infection without hematuria, site unspecified (Primary Dx) Discharge Disposition: Home or Self Care 10/24/2024 Travel 10/22/2024 Results Follow-Up [facility] [address] [place] [address] Oren Gibbs MD UA reflex to culture, Urinalysis with culture reflex (BH LMW YH), Urine culture 10/19/2024 1:53 AM EDT - 10/19/2024 3:26 AM EDT Emergency [facility] Emergency Department [address] [place] [address] Ara Salazar MD Flank pain (Primary Dx); [...] drink = 0.6 oz pur e alcohol) [employer] Utilities Answer Date Recorded In the past 12 months has [employer], oil, or water [employer] threatened to shut off services in your home? No 03/23/2024 Social Connection and Isolation Panel Answer Date Recorded In a typical week, how many times do you talk on the phone with family, friends, or neighbors? Patient declined 05/26/2020 How often do you get togethe r with friends or relatives? Patient declined 05/26/2020 How often do you attend muslim or yazidi serv ices? Patient declined 05/26/2020 Do you belong to any clubs o r organizations such as muslim groups, unions, fraternal or athletic groups, or [...] Date Recorded PHQ-2 Total Score 0 03/23/2024 [facility] of Occupat ional Health - Occupational Stress [...] your living situation today? I have a [facility] place to live 03/23/2024 Housing [...] Mass Index 32.46 01/11/2025 3:29 AM EST Plan of Treatment Health Maintenance Due Date Last Done Comments Pneumococcal Vaccine (2 - 49 years) (2 of 2 - PCV) 04/01/2011 04/01/2010 Breast cancer screening 2018 Tetanus adult (Td q 10,TDAP once) 04/01/2020 04/01/2010 Cervical cancer screening 05/21/2020 05/22/2015 Colon cancer screening, Colonoscopy 07/29/2023 Influenza vaccine 09/15/2024 12/20/2013, , 03/09/2012 Covid-19 vaccine series ( season) 2024 Lipid disorder screening 01/17/2025 020, [...] this topic Medical Devices Implanted Type Area Pipe Cutter Device Identifier Shelf Expiration Date Model / Serial / Lot Lens Tecnis Simplicity Lens Tecnis Eyhance U 20.5d - [id number] Implanted:Qty: 1 on 06/07/2020 by Jamar Gates MD at [address] Implant Left: Eye [employer] 06/08/2023 [id number] / [id number] / [id number] Lens Tecnis Smplcty 1pc Clr Bath 20.0 - [id number] Implanted:Qty: 1 on 10/28/2020 by Jamar Gates MD at [address] Implant Right: Eye [employer] 09/13/2023 [id number] 20.0 / [id number] / [id number] Explanted Type Area Pipe Cutter Device Identifier Shelf Expiration Date Model / Serial / Lot Stent Inlay Dbl Pigtail 6x24cm - [id number] Implanted:Qty: 1 on 04/26/2014 by Allen Alexandra MD at [address] Explanted:Qty: 1 on 06/05/2014 by Raymond Valenzuela MD Stent Right: Ureter CR BARD MED 01/14/2019 [id number] / / [id number] Stent Inlay 7x24 W/O Wire - [id number] Implanted:Qty: 1 on 06/05/2014 by Raymond Valenzuela MD at [address] Explanted:Qty: 1 on 07/04/[address] Stent Right: Ureter CR [employer]ARD MED 03/01/2019 [id number] / / [id number] Procedures Procedure Name Priority Date/Time Associated Diagnosis Comments POCT URINE STAT 12/11/2024 2:13 AM EDT URINE MICROSCOPIC ([facility]) STAT 12/11/2024 2:13 AM EDT [...] DIFFERENTIAL Timed 10/24/2024 8:17 PM EDT PROCALCITONIN (BH GH LMW Q YH) Urgent 10/24/2024 8:17 [...] STAT 10/24/2024 6:35 PM EDT URINE MICROSCOPIC ( GH LMW YH) STAT 10/24/2024 6:35 PM EDT URINALYSIS WITH CULTURE REFLEX ( LMW YH) STAT 10/24/2024 6:35 PM EDT UA REFLEX CULTURE STAT 10/24/2024 6:3 5 PM EDT URINALYSIS WITH CULTURE REFLEX STAT 10/24/2024 6:35 PM EDT URINE CULTURE STAT 10/24/2024 6:35 PM EDT URINE MICROSCOPIC ( GH LMW YH) Routine 10/19/2024 2:06 AM EDT URINALYSIS WITH CULTURE REFLEX ( LMW YH) Routine 10/19/2024 2:06 AM EDT UA REFLEX CULTURE Routine 10/19/2024 2:0 6 AM EDT URINALYSIS WITH CULTURE REFLEX Routine 10/19/2024 2:06 AM EDT URINE CULTURE Routine 10/19/2024 2:06 AM EDT LIPID PANEL Timed 01/18/2020 12:44 PM EST CYTOLOGY SHEET ROCK INSTALLATION HELPER CASES ( YH) Routine 05/22/2015 9:45 AM EDT HIV-1 AND HIV-2 ANTIBODIES (BH) Routine 10/08/2011 10:30 AM EDT HEPATITIS C AB WITH REFLEX TO HCV PCR Routine 10/08/2011 10:30 AM EDT from Last 3 Months or Most Recently Relevant to Health Maintenance Results * (ABNORMAL) Urinalysis with culture reflex (BH LMW YH) (12/11/2024 2:13 AM EDT) Only the most recent of3 resultswithin the time period is included. Clarity, UA Cloudy(A) Clear 12/11/2024 2:33 AM EDT [facility] Color, UA Yellow Yellow, Colorless 12/11/2024 2:33 AM EDT [facility] Specific [place], UA 1.015 1.005 - 1.030 12/11/2024 2:33 AM EDT [facility] pH, UA 6.0 5.5 - 7.5 12/11/2024 2:33 AM EDT [facility] Protein, UA Trace Negative-Trac e 12/11/2024 2:33 AM EDT [facility] Glucose, UA Negative Negative 12/11/2024 2:33 AM EDT [facility] Ketones, UA Negative Negative 12/11/2024 2:33 AM EDT [facility] Blood, UA 2+(A) Negative 12/11/2024 2:33 AM EDT [facility] Bilirubin, UA Negative Negative 12/11/2024 2:33 AM EDT [facility] Leukocytes, UA 2+(A) Negative 12/11/2024 2:33 AM EDT [facility] Nitrite, UA Negative Negative 12/11/2024 2:33 AM EDT [facility] Urobilinogen, UA <2.0 <=2.0 mg/dL 12/11/2024 2:33 AM EDT [facility] Perez Top Tube Received ? Yes 12/11/2024 2:33 AM EDT [facility] Urine URINE SPECIMEN OBTAINED BY CLEAN CATCH PROCEDURE / Unknown Collection / Unknown 12/11/2024 2:13 AM EDT 12/11/2024 2:22 AM EDT Ara Salazar MD URINE ORDERABLES Final Res ult Performing Organization Address [facility] Co de Phone Number [facility] [address] [place] [address] * UA reflex to culture (12/11/2024 2:13 AM EDT) Only the most recent of3 resultswithin the time period is included. Reflex Urine Culture See Comment 12/11/2024 5:00 AM EDT [facility] DEPARTMENT OF LABORATORY MEDICINE Urine URINE SPECIMEN OBTAINED BY CLEAN CATCH PROCEDURE / Unknown Collection / Unknown 12/11/2024 2:13 AM EDT 12/11/2024 2:22 AM EDT Narrative [facility] DEPARTMENT OF LABORATORY MEDICINE - 12/11/2024 5:00 AM EDT Urine culture will be reflexed if indicated by urinalysis results. Please check microbiology results for urine culture. Ara Salazar MD URINE ORDERABLES Final Res ult Performing Organization Address [facility] Co de Phone Number [facility] DEPARTMENT OF LABORATORY MEDICINE [address] [place] [address] * (ABNORMAL) Urine microscopic ([facility]) (12/11/2024 2:13 AM EDT) Only the most recent of3 resultswithin the time period is included. Manual Microscopic Performed 12/11/2024 2:44 AM EDT [facility] RBC/HPF 6-10(A) 0 - 2 /HPF 12/11/2024 2:44 AM EDT [facility] WBC/HPF 10-20(A) 0 - 5 /HPF 12/11/2024 2:44 AM EDT [facility] Bacteria, UA Few(A) None-Rare /HPF 12/11/2024 2:44 AM EDT [facility] Urine Squamous Epithelial Cells, UA Few None-Few /HPF 12/11/2024 2:44 AM EDT [facility] Urine URINE SPECIMEN OBTAINED BY CLEAN CATCH PROCEDURE / Unknown Collection / Unknown 12/11/2024 2:13 AM EDT 12/11/2024 2:22 AM EDT Ara Salazar MD URINE ORDERABLES Final Res ult [facility] [address] [place] [address] * POCT urine (12/11/2024 2:13 AM EDT) Only the most recent of2 resultswithin the time period is included. Preg Test, Ur, POC Negative Negative [facility] Line in Control Window? (+ Control) Yes [facility] Background Clear? (- Control) Yes [facility] Kit Lot Number [id number] [facility] Expiration Date 04/05/26 [facility] Urine URINE SPECIMEN / Unknown 12/11/2024 2:13 AM EDT us Ara Salazar MD POINT OF CARE TEST ORDERAB LES Final Result Performing Organization Address City/[facility]/ZIP Co de Phone Number [facility] [place], [place], [facility] * Urine culture (12/11/2024 2:13 AM EDT) Only the most recent of3 resultswithin the time period is included. Urine Culture, Routine Less than 10,000 CFU/mL. Clinical significance is unlikely for organism(s) present in quantities of less than 10,000 CFU/mL. 12/12/2024 3:46 AM EDT [facility] DEPARTMENT OF LABORATORY MEDICINE Urine URINE SPECIMEN OBTAINED BY CLEAN CATCH PROCEDURE / Unknown Collection / Unknown 12/11/2024 2:13 AM EDT 12/11/2024 2:22 AM EDT Narrative [facility] DEPARTMENT OF LABORATORY MEDICINE - 12/12/2024 3:46 AM EDT Culture, organism identification, and/or susceptibility results may have been generated with a non-FDA approved method. All methods used in this report have been validated by [facility] Microbiology for clinical use. us Ara Salazar MD MICROBIOLOGY - GENERAL ORD ERABLES Final Result [facility] DEPARTMENT OF LABORATORY MEDICINE [address] [place] [address] * (ABNORMAL) Basic metabolic panel (12/11/2024 2:06 AM EDT) Sodium 141 136 - 145 mmol/L 12/11/2024 2:35 AM EDT [facility] Potassium 3.7 3.5 - 5.1 mmol/L 12/11/2024 2:35 AM EDT [facility] Chloride 104 98 - 107 mmol/L 12/11/2024 2:35 AM EDT [facility] CO2 28 21 - 32 mmol/L 12/11/2024 2:35 AM EDT [facility] Anion Gap 9 5 - 16 12/11/2024 2:35 AM EDT [facility] Glucose 108(H) 70 - 100 mg/dL 12/11/2024 2:35 AM EDT [facility] BUN 10 7 - 18 mg/dL 12/11/2024 2:35 AM EDT [facility] Creatinine 0.82 0.60 - 1.00 mg/dL 12/11/2024 2:35 AM EDT [facility] Calcium 9.4 8.5 - 10.5 mg/dL 12/11/2024 2:35 AM EDT [facility] BUN/Creatinine Ratio 12.2 8.0 - 23.0 12/11/2024 2:35 AM EDT [facility] eGFR (Creatinine) >60 >=60 mL/min/1.73 m2 12/11/2024 2:35 AM EDT [facility] Comment: [facility] utilizes CKD-EPI Creatinine 2020 to report eGFR. Values < 60 mL/min/1.73 m2 may indicate CKD if present for more than three months AND creatinine is at steady state. The eGFR provides a rough estimate of kidney function. For further guidance, please refer to the CKD: Adult Health Policy Manager Signature pathway. Creatinine Delta 0.17 See Comment 2:35 AM EDT [facility] Comment: Delta creatinine is the [...] Salazar MD LAB BLOOD ORDERABLES Final Result [facility] [address] [place] [phone] * CBC auto differential (12/11/2024 2:06 AM EDT) Only the most recent of3 resultswithin the time period is included. WBC 6.7 4.0 - 11.0 x1000/ L 12/11/2024 2:11 AM EDT [facility] RBC 4.53 4.00 - 6.00 M/ L 12/11/2024 2:11 AM EDT [facility] Hemoglobin 14.1 11.7 - 15.5 g/dL 12/11/2024 2:11 AM EDT [facility] Hematocrit 41.00 35.00 - 45.00 % 12/11/2024 2:11 AM [facility] MCV 90.5 80.0 - 100.0 fL 12/[facility]24 [facility] MCH 31.1 27.0 - 33.0 pg 12/11/2024 2:11 AM [facility] MCHC 34.4 31.0 - 36.0 g/dL 12/11/2024 2:11 AM [facility] RDW-CV 12.9 11.0 - 15.0 % 12/11/2024 2:11 AM [facility] Platelets 281 150 - 420 x1000/ L 12/11/2024 2:11 AM [facility] MPV 9.2 8.0 - 12.0 fL 12/11/2024 2:11 AM [facility] Neutrophils 57.0 39.0 - 72.0 % 12/11/2024 2:11 AM [facility] Lymphocytes 32.2 17.0 - 50.0 % 12/11/2024 2:11 AM [facility] Monocytes 9.2 4.0 - 12.0 % 12/11/2024 2:11 AM [facility] Eosinophils 0.9 0.0 - 5.0 % 12/11/2024 2:11 AM [facility] Basophil 0.6 0.0 - 1.4 % 12/11/2024 2:11 AM [facility] Immature Granulocytes 0.1 0.0 - 1.0 % 12/11/2024 2:11 AM [facility] nRBC 0.0 0.0 - 1.0 % 12/11/2024 2:11 AM [facility] Absolute Lymphocyte Count 2.17 0.60 - 3.70 x 1000/ L 12/11/2024 2:11 AM [facility] Monocyte Absolute Count 0.62 0.00 - 1.00 x 1000/ L 12/11/2024 2:11 AM EDT [facility] Eosinophil Absolute Count 0.06 0.00 - 1.00 x 1000/ L 12/11/2024 2:11 AM EDT [facility] Basophil Absolute Count 0.04 0.00 - 1.00 x 1000/ L 12/11/2024 2:11 AM EDT [facility] Absolute Immature Granulocyte Count 0.01 0.00 - 0.30 x 1000/ L 12/11/2024 2:11 AM EDT [facility] Absolute nRBC 0.00 0.00 - 1.00 x 1000/ L 12/11/2024 2:11 AM EDT [facility] ANC (Abs Neutrophil Count) 3.84 2.00 - 7.60 x 1000/ L 12/11/2024 2:11 AM EDT [facility] Blood Venipuncture / Unknown 12/11/2024 2:06 AM EDT 12/11/2024 2:09 AM EDT us Ara Salazra MD LAB BLOOD ORDERABLES Final Result [facility] [address] [place], [place] [id number] * (ABNORMAL) Comprehensive metabolic panel (12/01/2024 1:59 PM EDT) Only the most recent of2 resultswithin the time period is included. Sodium 141 136 - 144 mmol/L 12/01/2024 2:27 PM EDT [facility] Potassium 3.9 3.3 - 5.3 mmol/L 12/01/2024 2:27 PM T [facility] Chloride 104 98 - 107 mmol/L 12/01/2024 2:27 PM EDT [facility] CO2 21 20 - 30 mmol/L 12/01/2024 2:27 PM T [facility] Anion Gap 16 7 - 17 12/01/2024 2:27 PM T [facility] Glucose 90 70 - 100 mg/dL 12/01/2024 2:27 PM T [facility] BUN 25(H) 6 - 20 mg/dL 12/01/2024 2:27 PM [facility] Creatinine 0.65 0.40 - 1.30 mg/dL 12/01/2024 2:27 PM [facility] Calcium 9.9 8.8 - 10.2 mg/dL 12/01/2024 2:27 PM [facility] BUN/Creatinine Ratio 38.5(H) 8.0 - 23.0 12/01/2024 2:27 PM [facility] Total Protein 8.3 5.9 - 8.3 g/dL 2:27 PM [facility] Albumin 4.9 3.6 - 5.1 g/dL 12/01/2024 2:27 PM [facility] Total Bilirubin 0.4 <=1.2 mg/dL 12/02/19 2:27 PM [facility] Alkaline Phosphatase 75 9 - 122 U/L 12/01/2024 2:27 PM [facility] Alanine Aminotransferase (ALT) 21 10 - 35 U/L 12/01/2024 2:27 PM [facility] Comment:Calcium dobesilate c an cause artificially low ALT results at therapeutic concentrations Aspartate Aminotransferase (AST) 24 10 - 35 U/L 12/01/2024 2:27 PM [facility] Globulin 3.4 2.0 - 3.9 g/dL 12/01/2024 2:27 PM [facility] A/G Ratio 1.4 1.0 - 2.2 12/01/2024 2:27 PM [facility] AST/ALT Ratio 1.1 Reference Range Not Established 12/01/2024 2:27 PM [facility] eGFR (Creatinine) >60 >=60 mL/min/1.73m2 12/01/2024 2:27 PM [facility] Comment: [facility] utilizes CKD-EPI Creatinine 2020 to report eGFR. Values < 60 mL/min/1.73 m2 may indicate CKD if present for more than three months AND creatinine is at steady state. The eGFR provides a rough estimate of kidney function. For further guidance, please refer to the CKD: Adult Health Policy Manager Signature pathway. Creatinine Delta -0.01 See Comment 2:27 PM [facility] Comment: Delta creatinine is the difference [...] MD LAB BLOOD ORDERABLES Fi nal Result Performing Organization Address City/State/[facility] Co de Phone Number [address] [phone] * CT Head wo IV Contrast (11/13/2024 9:50 PM EDT) Anatomical Region Laterality Modality Head, Ortho Head Computed Tomogr aphy 11/13/2024 9:56 PM EDT Impressions 11/13/2024 9:57 PM EDT No acute intracranial abnormality. Please note that Noncontrast Head CT is not sensitive for the detection of ischemic infarct. If ischemic infarct is of clinical concern, additional clinical or imaging evaluation is recommended. [facility] Radiology Notify System Classification: Routine. Reported and signed by: Sarah Byers MD [facility] Narrative 11/13/2024 9:[address] HEAD WO IV CONTRAST INDICATION: headache, worse than prior COMPARISON: CT HEAD CERVICAL SPINE WO IV CONTRAST ([facility]) 2019-03-12; MRI BRAIN W WO IV CONTRAST [...] HEAD CERVICAL SPINE WO IV CONTRAST ([facility]) 2019-03-12;MRI BRAIN W WO IV CONTRAST 2015-04-01 [...] concern, additionalclinical or imaging evaluation is recommended. [facility] Radiology Notify System Classification: Routine. Reported and signed by: Sarah Byers MD [facility] us Chuck Hooker MD IMG CT ORDERABLES Final Result * EKG (11/13/2024 8:22 PM EDT) Heart Rate 85 bpm [facility] EKG QRS Interval 80 ms [facility] EKG QT Interval 382 ms [facility] EKG QTC Interval 454 ms [facility] EKG P [place] 72 deg [facility] EKG QRS [place] 83 deg [facility] EKG T Wave [place] 68 deg [facility] EKG P-R Interval 118 msec [facility] EKG SEVERITY Borderline ECG severity [facility] EKG Comment::Normal sinus rhythm :Possible Left atrial enlargement:Borderline ECG:Electronically Signed On 11-14-2024 05:27:17 EDT by Adam Morrison MD OTHER / Unknown 11/13/2024 8 :22 PM EDT us Seven Berg MD ECG ORDERABLES Final Result [facility] EKG * Cardiac EKG Result Scan [...] patient underwent 9 CT abdomen pelvis examination [facility] Classification: Routine. Reported and signed by: Fabi Rodrigues MD [facility] Narrative 10/24/2024 9:16 [...] of the L1 vertebral body. Procedure Note Revzin, Fabi V, MD - 10/24/2024 CT ABDOMEN PELVIS WO [...] months patient underwent 9CT abdomen pelvis examination [facility] Classification: Routine. Reported and signed by: Fabi Rodrigues MD [facility] us Seven Berg MD IM CT ORDERABLES Final Resul t * Procalcitonin (BH GH LMW Q YH) (10/24/2024 8:17 PM EDT) Procalcitonin <0.06 See Comment ng/mL 10/24/2024 9:08 PM EDT [facility] Comment: Procalcitonin Value Likelihood of [...] ORDERABLES Final Re sult Performing Organization Address City/[facility] Co de Phone Number [facility] [address] [place] [address] * Lactic Acid, Whole Blood, Venous (Reflex 2H Repeat) () (10/24/2024 8:17 PM EDT) [facility] Lactic Acid, Blood Gas 0.7 0.6 - 1.4 mmol/L 10/24/2024 8:45 PM EDT [facility] Blood Venipuncture / Unknown 10/24/2024 8:17 PM EDT 10/24/2024 8:39 PM EDT Seven Berg MD LAB BLOOD ORDERABLES Final Re sult Performing Organization Address [facility] Co de Phone Number [facility] [address] [place] [address] * Blood culture (10/24/2024 8:17 PM EDT) Only the most recent of2 resultswithin the time period is included. [facility] Blood Culture No Growth after 5 days of incubation 10/30/2024 3:33 AM EDT [facility] DEPARTMENT OF LABORATORY MEDICINE Blood PERIPHERAL BLOOD SPECIMEN / Unknown Venipuncture / Unknown 10/24/2024 8:17 PM EDT 10/24/2024 8:37 PM EDT Narrative [facility] DEPARTMENT OF LABORATORY MEDICINE - 10/30/2024 3:33 AM EDT All blood culture bottles with growth will be reported. Culture, organism identification, and/or susceptibility results may have been generated with a non-FDA approved method. All methods used in this report have been validated by [facility] Microbiology for clinical use. Anaerobic bottle loaded. Aerobic bottle loaded. Seven Berg MD MICROBIOLOGY - GENERAL ORDERA BLES Final Result Performing Organization Address City/[facility]/ZIP Co de Phone Number [facility] DEPARTMENT OF LABORATORY MEDICINE [address] [place] [address], [facility] [phone] * Protime and INR (10/24/2024 8:17 PM EDT) [facility] Prothrombin Time 10.6 9.0 - 12.0 seconds 10/24/2024 8:53 PM EDT [facility] INR 1.05 0.90 - 1.10 10/24/2024 8:53 PM EDT [facility] Blood Venipuncture / Unknown 10/24/2024 8:17 PM EDT 10/24/2024 8:37 PM EDT Narrative [facility] - 10/24/2024 8:53 PM EDT Effective 10/19/2024. New Normal Reference Intervals are in place at all [facility] Labs. Seven Berg MD LAB BLOOD ORDERABLES Final Re sult [facility] [address] [place] [address] * (ABNORMAL) Lipid panel (01/18/2020 12:44 PM EST) [facility] Cholesterol 174 See Comment mg/dL 01/18/2020 3:18 PM [facility] Comment: Total Cholesterol (mg/dL) Adults (>18 years) Children (<18 years) Desirable <200 <170 Borderline-High 200-239 170-199 High >=240 >=200 HDL 48 >=40 mg/dL 01/18/2020 3:18 PM [facility] Triglycerides 99 See Comment mg/dL 01/18/2020 3:18 PM [facility] Comment: Triglycerides (mg/dL) Adults (>18 years) Children (<18 years) Desirable <150 Not Established Borderline-High 150-199 Not Established High 200-499 Not Established Chol/HDL Ratio 3.6 0.0 - 5.0 01/18/2020 3:18 PM [facility] LDL Calculated 106(H) See Comment mg/dL 01/18/2020 3:18 PM [facility] Comment: LDL Cholesterol (mg/dL) Adults (>18 years) Children (<18 years) Desirable <100 <110 Above Desirable 100-129 Not Established Borderline-High 130-159 110-129 High 160-189 >=130 Very High >=190 Not Established Blood Venipuncture / Unknown 01/18/2020 12:44 PM EST 01/18/2020 1:18 PM EST us Malcolm Peña MD LAB BLOOD ORDERAB[place] [address], [facility] [phone] * Cytology manager electrical cases ([facility]) (05/22/2015 9:45 AM EDT) Cytology Chain Maker Hand Cases [facility] RE[facility] Procedures/Addend a Attached Patient: RAVINDRA MCDONNELL MR #: [id number] ([id number]) Submitted by: Jody Vizcaino M.D. FINAL DIAGNOSIS [...] used to evaluate suspected endometrial abnormalities. ([facility], 2001) 05/27/2015 16:24 * Report Electronically [...] 05/23/2015 Status: Signed Out Reported: 05/27/2015 Pathologist: [facility] Interpretation Specimen: SurePath Pap Smear - BPT - ENDOCERVICAL, SUREPATH PAP SMEAR BELOW CUTOFF FOR HIGH RISK HPV HPV types 16, 18, 31, 33, 35, 39, 45, 51, 52, 56, 58, 59, 66, and 68 DNA were either considered NEGATIVE, undetectable,or below the pre-set threshold. This test was performed at [facility] Department of Pathology, [address] [place] [address], CLIA# [id number] using the Deepit irais 4800 HPV Test System and is only approved by the Food and Drug Administration (FDA) for use oncervicalspecimen s collected in Cytyc Preservcyt Solution (ThinPrep). When using ThinPrep liquid based samples for non-cervical specimens, SurePath liquid based samples, or formalin fixed paraffin embedded tissue, the performance characteristics have been determined by [facility]. Although testing on samples that are not cervical in origin, and/or in any other medium besides ThinPrep, has not been cleared or approved by the FDA, the FDA has determined that such clearance or approval is not necessary. [facility] 05/22/2015 9:45 AM EDT Comment:ENDOCERVICAL, SUREPA TH PAP SMEAR+ HPV Jody Vizcaino MD PATHOLOGY/CYTOLOGY ORDERABL ES Final Result Performing Organization Address [facility] Co de Phone Number [facility] Department of Pathology [address] [place] [phone] * Hepatitis C antibody (10/08/2011 10:30 AM EDT) Hepatitis C Ab Non Reactive Non Reactive [facility] Hepatitis C Antibody Signal/Cutoff Ratio 0.02 ratio [facility] Comment: HCV S/CO RATIO: HCV testing [...] ORDERABLES Final R esult Performing Organization Address [facility]/ZIP Co de Phone Number [facility] [address] [place] [phone] * HIV-1 and HIV-2 antibodies ( Y) (10/08/2011 10:30 AM EDT) Exposure? No [facility] HIV-1/HIV-2 Ab Negative [facility] BLOOD SPECIMEN / Unknown 10/08/2011 10:30 AM EDT Cam Evans MD LAB BLOOD ORDERABLES Final R esult [facility] [address] [place] [address] from Last 3 Months or Most Recently Relevant to Health Maintenance Insurance [place] [id number] [place] [id number] [place] [id number] [place] Advance Directives * Full Code (Latest Code [...] the Code Status Discussed? Patient Care Teams Deputy Chief Counsel Relationship Specialty Start Date End Date Pcp, Does Not Have A PCP - General 01/11/25
--- OUTSIDE RECORDS SUMMARY | 2025-01-13 11:18 | XMS_ITS | Encounter Summary ---
Author Organization [facility] Address [address] [place] [address] Care Team Providers Care Filter Press Supervisor Name Role Phone [facility] Unavailable Unavailable Nicola Mcbride MD Primary Care Provider [phone] Omaira Champion APRN Primary Care Provider [phone] Encounter Details Date Type Department Care Team (Late st Contact Info) Description 04/07/2024 Scanned Document [facility] Radiology [address] [place] [address] Provider, Generic Social History Tobacco [...] on filedocumented in this encounter Care Teams Filter Press Supervisor Relationship Specialty Start Date End Date Nicola Mcbride MD [address] [place] [address] PCP - General Family Medicine 02/22/24 04/17/24 Omaira Champion APRN [address] [place] [phone] PCP - General Internal Medicine 04/18/24 [facility] 02/14/22 12/26/24 documented as of this encounter
--- OUTSIDE RECORDS SUMMARY | 2025-01-13 11:20 | XMS_ITS | Encounter Summary ---
Author Organization [facility] Address [address] [place] [address] Care Team Providers Care Shopper Insights Manager Name Role Phone Nicola Mcbride MD Primary Care Provider [phone] [facility] Primary Care Provider Unavailable Pcp, No Primary Care Provider Unavailabl e [facility] Unavailable Unavailable Unknown Primary Care Provider +[phone] [facility] Primary Care Provider Unavailable Nicola Mcbride MD Primary Care Provider + Omaira Champion APRN Primary Care Provider [phone] Encounter Details Date Type Department Care Team (Late st Contact Info) Description 07/20/2021 Scanned Document [address] [place] [address] Provider, Generic Social History Tobacco Use [...] documented as of this encounter Care Teams Shopper Insights Manager Relationship Specialty Start Date End Date Nicola Mcbride MD [address] [place] [address] PCP - General Family Medicine 11/16/19 10/15/21 [facility] PCP - General 10/16/21 02/13/22 Pcp, Alize PCP - General General Medicine 02/14/22 03/21/22 Unknown Unknow Provider Address PCP - General 08/31/22 09/11/22 [facility] PCP - General 09/12/22 02/21/24 Nicola Mcbride MD [address] [place] [address] PCP - General Family Medicine 02/22/24 04/17/24 Omaira Champion APRN [address] [place] [phone] PCP - General Internal Medicine 04/18/24 [facility] 02/14/22 12/26/24 documented as of this encounter
--- OUTSIDE RECORDS SUMMARY | 2025-01-13 11:20 | XMS_ITS | Encounter Summary ---
Author Organization [facility] Address [address] [place] [phone] Care Team Providers Care Logistics Associate Name Role Phone Pcp, Does Not Have A Primary Care Provider Unava ilable Encounter Details Date Type Department Care Team ([facility] st Contact Info) Description 09/05/2024 Scanned Document INTERFACE DEFAULT [address] [place] [address] System, Provider Not In Social History Tobacco Use Types Packs/Day Years Used Date Smoking Tobacco: Never Smokeless Tobacco: Never Alcohol Use Standard Drinks/Week Comments Not Currently 0 (1 standard drink = 0.6 oz pur e alcohol) [facility] Utilities Answer Date Recorded In the past 12 months has [employer] electric, gas, oil, or water company threatened [...] declined 05/26/2020 How often do you attend yarsani or adventism serv ices? Patient declined 05/26/2020 Do you belong to any clubs o r organizations such as yarsani groups, unions, fraternal or athletic groups, or [...] Date Recorded PHQ-2 Total Score 0 03/23/2024 [facility] - Occupational Stress Questionnaire [...] your living situation today? I have a [facility] to live 03/23/2024 Housing Stability Not [...] documented as of this encounter Care Teams Logistics Associate Relationship Specialty Start Date End Date Pcp, Does Not Have A PCP - General 01/11/25 documented as of this encounter
--- OUTSIDE RECORDS SUMMARY | 2025-01-13 11:20 | XMS_ITS | Encounter Summary ---
Author Organization [facility] Address [address] [place] [address] Care Team Providers Care Sales And Retail Management Recruiter Name Role Phone Pcp, Does Not Have A Primary Care Provider Unava ilable Encounter Details Date Type Department Care Team (Late st Contact Info) Description 09/08/2018 Documentation [facility] Adult Reach Program [address] [place] [address] Elayne Kaminski LCSW [address] [facility] [address] [place] [address] Social History Tobacco Use Types Packs/Day Years [...] Kaminski LCSW - 09/08/2018 1:06 PM EDT Denture Packer received a referral from Nicolasa Decker APRN of INTERNSHIP clinic. Patient was recently in the [facility] ED being treated for lithium toxicity. She was evaluated by Dr. Laura López of theBIT team who recommended IOP level of care. Denture Packer called patient to overview program and make appointment. Patient stated that she could not make Wednesdays as she sees her daughter who is in DCF custody. Denture Packer offered That we could possibly work with DCF to change her visitation day so she couldattend program-- but patient stated she did not want to attend the IOP and did not want group therapy, that she wanted individual therapy. Patient stated she had questions about her medication and would call Nicolasa Decker immediately. Denture Packer also called Nicolasa Decker to inform patient refused IOP services. Patient declined IOP services at this time and if she reconsiders internal communications writer provided name and number. Elayne Kaminski LCSW 09/08/2018 1:16 PM documented in this [...] documented as of this encounter Care Teams Sales And Retail Management Recruiter Relationship Specialty Start Date End Date Pcp, Does Not Have A PCP - General 01/11/25 documented as of this encounter
--- OUTSIDE RECORDS SUMMARY | 2025-01-13 11:20 | XMS_ITS | Encounter Summary ---
Author Organization [facility] Address [address] [place] [address] Care Team Providers Care Clinic Office Assistant Name Role Phone Nicola Mcbride MD Primary Care Provider [phone] [facility] Primary Care Provider Unavailable Pcp, No Primary Care Provider Unavailabl e [facility] Unavailable Unavailable Unknown Primary Care Provider +[phone] -[phone] [facility] Primary Care Provider Unavailable Nicola Mcbride MD Primary Care Provider + Omaira Champion APRN Primary Care Provider [phone] Encounter Details Date Type Department Care Team (Late st Contact Info) Description 05/20/2021 Scanned Document [facility] Neurology [address] [address] Nicola Mcbride MD [address] [place], [place] [phone] Social History Tobacco Use Types Packs/Day Years [...] documented as of this encounter Care Teams Clinic Office Assistant Relationship Specialty Start Date End Date Nicola Mcbride MD [address] [place] [address] PCP - General Family Medicine 11/16/19 10/15/21 [facility] PCP - General 10/16/21 02/13/22 Pcp, No PCP - General General Medicine 02/14/22 03/21/22 Unknown Unknow Provider Address PCP - General 08/31/22 09/11/22 [facility] PCP - General 09/12/22 02/21/24 Nicola Mcbride MD [address] [place] [address] PCP - General Family Medicine 02/22/24 04/17/24 Omaira Champion APRN [address] [place] [phone] PCP - General Internal Medicine 04/18/24 [facility] 02/14/22 12/26/24 documented as of this encounter
--- OUTSIDE RECORDS SUMMARY | 2025-01-13 11:20 | XMS_ITS | Encounter Summary ---
Author Organization [facility] Address [address] [place] [address] Care Team Providers Care Calculus Professor Name Role Phone Nicola Mcbride MD Primary Care Provider [phone] [facility] Primary Care Provider Unavailable Pcp, No Primary Care Provider Unavailabl e [facility] Unavailable Unavailable Unknown Primary Care Provider +-000-000 -0000 [facility] Primary Care Provider Unavailable Nicola Mcbride MD Primary Care Provider + Omaira Champion APRN Primary Care Provider [phone] Encounter Details Date Type Department Care Team (Late st Contact Info) Description 09/18/[address] [facility] Rheumatology [address] [address] Nicola Mcbride MD [address] [place], [place] [address] Social History Tobacco Use Types Packs/Day Years [...] documented as of this encounter Care Teams Calculus Professor Relationship Specialty Start Date End Date Nicola Mcbride MD [address] [place] [address] PCP - General Family Medicine 11/16/19 10/15/21 [facility] PCP - General 10/16/21 02/13/22 Pcp, No PCP - General General Medicine 02/14/22 03/21/22 Unknown Unknow Provider Address PCP - General 08/31/22 09/11/22 [facility] PCP - General 09/12/22 02/21/24 Nicola Mcbride MD [address] [place] [address] PCP - General Family Medicine 02/22/24 04/17/24 Omaira Champion, ERYN [address] [place] [phone] PCP - General Internal Medicine 04/18/24 [facility] 02/14/22 12/26/24 documented as of this encounter
--- OUTSIDE RECORDS SUMMARY | 2025-01-13 11:20 | XMS_ITS | Encounter Summary ---
Author Organization [facility] Address [address] [place] [phone] Care Team Providers Care Supervisor Treating And Pumping Name Role Phone Pcp, Does Not Have A Primary Care Provider Unava ilable Encounter Details Date Type Department Care Team ([facility] st Contact Info) Description 12/08/2012 Abstract [facility] [address] [place] [address], [place] [address] Viky Fountain, HUSBANDRY PERSON [address] [place] [phone] Social History Tobacco Use Types Packs/Day [...] documented as of this encounter Care Teams Supervisor Treating And Pumping Relationship Specialty Start Date End Date Pcp, Does Not Have A PCP - General 01/11/25 documented as of this encounter
--- OUTSIDE RECORDS SUMMARY | 2025-01-13 11:20 | XMS_ITS | Encounter Summary ---
Author Organization [facility] Address [address] [place] [address] Care Team Providers Care Phone Representative Name Role Phone Nicola Mcbride MD Primary Care Provider [phone] [facility] Primary Care Provider Unavailable Pcp, No Primary Care Provider Unavailabl e [facility] Unavailable Unavailable Unknown Primary Care Provider +000-000 -0000 [facility] Primary Care Provider Unavailable Nicola Mcbride MD Primary Care Provider + Omaira Champion APRN Primary Care Provider [phone] Encounter Details Date Type Department Care Team (Late st Contact Info) Description 05/20/2021 Scanned Document [facility] Neurology [address] [address] Nicola Mcbride MD [address] [place], [place] [address] Social History Tobacco Use Types Packs/Day Years [...] documented as of this encounter Care Teams Phone Representative Relationship Specialty Start Date End Date Nicola Mcbride MD [address] [place] [address] PCP - General Family Medicine 11/16/19 10/15/21 [facility] PCP - General 10/16/21 02/13/22 Pcp, No PCP - General General Medicine 02/14/22 03/21/22 Unknown Unknow Provider Address PCP - General 08/31/22 09/11/22 [facility] PCP - General 09/12/22 02/21/24 Nicola Mcbride MD [address] [place] [address] PCP - General Family Medicine 02/22/24 04/17/24 Omaira Champion APRN [address] [place] [phone] PCP - General Internal Medicine 04/18/24 [facility] 02/14/22 12/26/24 documented as of this encounter
--- OUTSIDE RECORDS SUMMARY | 2025-01-13 11:20 | XMS_ITS | Encounter Summary ---
Author Organization [facility] Address [address] [place] [address] Care Team Providers Care Plastic Injection Mold Maker Name Role Phone [facility] Primary Care Provider Unavailable Pcp, No Primary Care Provider Unavailabl e [facility] Unavailable Unavailable Unknown Primary Care Provider +-000-000 -0000 [facility] Primary Care Provider Unavailable Nicola Mcbride MD Primary Care Provider [phone] Omaira Champion APRN Primary Care Provider [phone] Encounter Details Date Type Department Care Team (Late st Contact Info) Description 10/22/2021 Scanned Document [facility] [address] [facility] [address] [place] [address] Provider, Generic Social History Tobacco [...] documented as of this encounter Care Teams Plastic Injection Mold Maker Relationship Specialty Start Date End Date [facility] PCP - General 10/16/21 02/13/22 Pcp, No PCP - General General Medicine 02/14/22 03/21/22 Unknown Unknow Provider Address PCP - General 08/31/22 09/11/22 [facility] PCP - General 09/12/22 02/21/24 Nicola Mcbride MD [address] [place] [address] PCP - General Family Medicine 02/22/24 04/17/24 Omaira Champion, VEHICLE TRIMMER [address] [place] [phone] PCP - General Internal Medicine 04/18/24 [facility] 02/14/22 12/26/24 documented as of this encounter
--- OUTSIDE RECORDS SUMMARY | 2025-01-13 11:20 | XMS_ITS | Encounter Summary ---
Author Organization [facility] Address [address] [place] [address] Care Team Providers Care Rental Car Porter Name Role Phone Pcp, Does Not Have A Primary Care Provider Unava ilable Encounter Details Date Type Department Care Team (Latest Contact Info) Description 05/03/2014 Transcribed Orders [facility] - [address] [id number] Adam Velazquez MD [address] [place] [phone] Calculus of kidney (Primary Dx) Social History [...] EDT) WBC 7.52 4.80 - 10.80 X 10(3)/[facility] LABORATORY RBC 3.79 3.50 - 5.50 X 10(6)/[facility] LABORATORY Hemoglobin 11.5(L) 12.0 - 15.0 g/dL LABORATORY Hematocrit 34.9(L) 36.0 - 48.0 % LABORATORY MCV 92.1 81.0 - 99.0 [place] LAB[facility]ORY MCH 30.3 25.0 - 36.0 pg LABORATORY MCHC 33.0 33.0 - 37.0 g/dL LABORATORY Red Cell Distribution Width SD 50.7(H) 36.4 - 46.3 [place] [facility] Red Cell Distribution Width-CV 15.0(H) 11.7 - 14.4 % LABORATORY Platelets 341 120 - 450 X 10(3)/[facility] LABORATORY MPV 9.2(H) 8.5 - 9.0 [place] [facility] nRBC% 0.0 0.0 - 0.0 /100 WBC [facility] nRBC Absolute, Auto 0.00 0.00 - 0.00 /[facility] Blood specimen (specimen) ARM NEC / Unknown 05/03/2014 7:40 AM EDT us Adam Velazquez MD LAB BLOOD ORDERABLES Final Result LABORATORY [address] [place] [phone] * (ABNORMAL) Comprehensive metabolic panel (05/03/2014 7:40 AM EDT) Glucose 98 70 - 100 mg/dL LABORATORY BUN 12 7 - 17 mg/dL LABORATORY Creatinine 0.50(L) 0.52 - 1.04 mg/dL LABORATORY Sodium 139 137 - 145 mmol/L LABORATORY Potassium 3.9 3.5 - 5.1 mmol/L LABORATORY Chloride 102 98 - 107 mmol/L LABORATORY CO2 26 22 - 30 mmol/L LABORATORY Anion Gap 11 7 - 16 mmol/L LABORATORY Calcium 9.7 8.4 - 10.2 mg/dL LABORATORY Total Protein 6.9 6.3 - 8.2 g/dL LABORATORY Albumin 4.0 3.5 - 5.0 g/dL LABORATORY Globulin 3.0 2.0 - 3.5 g/dL LABORATORY A/G Ratio 1.3 1.1 - 2.2 LABORATORY Aspartate Aminotransferase (AST) 20 14 - 36 u/l LABORATORY Alkaline Phosphatase 48 38 - 126 u/l LABORATORY Total Bilirubin 0.1(L) 0.2 - 1.3 mg/dL LABORATORY Alanine Aminotransferase (ALT) 38 9 - 52 u/l LABORATORY eGFR >60 LABORATORY Comment: Interpretation Stage 1 90 ml/min [...] BLOOD ORDERABLES Edite d Result - Final Performing Organization Address City/State/[facility] Co de Phone Number LABORATORY [address] [place] [address] documented in this encounter Visit Diagnoses Diagnosis [...] documented as of this encounter Care Teams Rental Car Porter Relationship Specialty Start Date End Date Pcp, Does Not Have A PCP - General 01/11/25 documented as of this encounter
--- OUTSIDE RECORDS SUMMARY | 2025-01-13 11:20 | XMS_ITS | Encounter Summary ---
Author Organization [facility] Address [address] [place] [address] Care Team Providers Care Hand Tacker Name Role Phone Pcp, Does Not Have A Primary Care Provider Unava ilable Encounter Details Date Type Department Care Team ([facility] st Contact Info) Description 09/20/2013 Abstract [facility] [address] [place] [phone] Nancy Mathur RN Social History Tobacco Use Types Packs/Day Years [...] documented as of this encounter Care Teams Hand Tacker Relationship Specialty Start Date End Date Pcp, Does Not Have A PCP - General 01/11/25 documented as of this encounter
--- OUTSIDE RECORDS SUMMARY | 2025-01-13 11:20 | XMS_ITS | Encounter Summary ---
Author Organization [facility] Address [address] [place] [address] Care Team Providers Care Parts Clerk Name Role Phone Pcp, Does Not Have A Primary Care Provider Unava ilable Reason for Referral * Consultation (Routine) - New Request Specialty Diagnoses / Procedures Referred By Kala wooten Referred To Contact Neurology Diagnoses Hx of migraine headaches Omaira Champion APRN [address] [place] [address] Phone: tel: fax: Neurology [address] [address] Phone: tel: fax: Referral ID Status Reason Start Date Expiration Date Visits Requested Visits Authorized [id number] New Request Specialty Services Required: Fax 04/19/2024 04/19/2025 1 1 Encounter Details Date Type Department Care Team (Latest Contact Info) Description 04/19/2024 Transcribed Orders EXTERNAL REFERRAL SOURCE [address] [place] [id number] Omaira Champion APRN [address] [place] [address] Hx of migraine headaches (Primary Dx) Social History Tobacco Use Types Packs/Day Years Used Date Smoking Tobacco: Never Smokeless Tobacco: Never Alcohol Use Standard Drinks/Week Comments Not Currently 0 (1 standard drink = 0.6 oz pur e alcohol) [facility] Utilities Answer Date Recorded In the past 12 months has th e electric, gas, oil, or water [employer] threatened to shut off services in your home? No 03/23/2024 Social Connection and Isolation Panel Answer Date Recorded In a typical week, how many times do you talk on the phone with family, friends, or neighbors? Patient declined 05/26/2020 How often do you get togethe r with friends or relatives? Patient declined 05/26/2020 How often do you attend temple or sikh serv ices? Patient declined 05/26/2020 Do you belong to any clubs o r organizations such as temple groups, unions, fraternal or athletic groups, or [...] Date Recorded PHQ-2 Total Score 0 03/23/2024 [facility] - Occupational [...] documented as of this encounter Care Teams Parts Clerk Relationship Specialty Start Date End Date Pcp, Does Not Have A PCP - General 01/11/25 documented as of this encounter
--- OUTSIDE RECORDS SUMMARY | 2025-01-13 11:20 | XMS_ITS | Encounter Summary ---
Author Organization [facility] Address [address] [place] [address] Care Team Providers Care Amusement Centre Manager Name Role Phone Pcp, Does Not Have A Primary Care Provider Unava ilable Encounter Details Date Type Department Care Team (Latest Contact Info) Description 03/08/2014 Transcribed Orders [facility] - [address] [address] Stacey Calderón MD [address] [place] [phone] Tachycardia (Primary Dx) Social History Tobacco Use [...] 9:00 AM EST) Heart Rate 96 BPM [facility] EKG Heart Rate 96 BPM [facility] EKG P-R Interval 116 ms [facility] EKG QRS Duration 80 ms [facility] EKG Q-T Interval 348 ms [facility] EKG QTC Calculation(Be zet) 439 ms [facility] EKG P [place] 53 degrees [facility] EKG R [place] 60 degrees [facility] EKG T [place] 43 degrees [facility] EKG Diagnosis Normal sinus rhythm [facility] EKG 03/08/2014 9:00 AM EST 03/08/2014 2:18 PM EST us Oren Gusman MD ECG ORDERABLES Final Result [facility] EKG documented in this encounter Visit Diagnoses Diagnosis Tachycardia- Primary Tachycardia, unspecified documented in this encounter Additional Health Concerns 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 coli Comment:Urine: 10/05/18, [...] documented as of this encounter Care Teams Amusement Centre Manager Relationship Specialty Start Date End Date Pcp, Does Not Have A PCP - General 01/11/25 documented as of this encounter
--- OUTSIDE RECORDS SUMMARY | 2025-01-13 11:20 | XMS_ITS | Clinical Summary ---
Author Organization [facility] Address [address] [place] [address] Care Team Providers Care Cotton Tipper Name Role Phone Akira Omaira Robert CERNA Primary Care Provider [phone] Allergies Active Allergy Reactions Criticality Noted Date [...] puffs every 4 (four) hours as needed. 1 Active PANTOprazole (PROTONIX) 40 MG EC tablet Take 1 tablet (40 mg total) by mouth every morning before breakfast. 30 tablet 2 Active EPINEPHrine 0.3 mg/0.3 mL IJ auto-injection Inject 0.3 mL (0.3 mg total) into the thigh once as needed for allergic reaction. 3 Active clonazePAM (KlonoPIN) 0.5 MG tablet Take 1 tablet (0.5 mg total) by mouth daily as needed. 3 Active ondansetron (ZOFRAN-ODT) 4 MG disintegrating tablet Take 1 tablet (4 mg total) by mouth 3 times daily (every 8 hours) as needed for nausea or vomiting. Place tablet on tongue to dissolve. 10 tablet 3 Active ketoconazole (NIZORAL) 2 % cream Apply topically 2 (two) times a day. Apply to affected area twice daily 15 g 5 Active losartan (COZAAR) 50 MG tablet Take 1 tablet (50 mg total) by mouth daily. 30 tablet 5 Active cloNIDine (CATAPRES) 0.1 MG tablet Take 1 tablet (0.1 mg total) by mouth 2 (two) times a day. Active divalproex er (DEPAKOTE ER) 250 MG 24 hr tablet Take 1 tablet (250 mg total) by mouth daily. 5 Active Depakote Sprinkles 125 MG capsule Take 1 capsule (125 mg total) by mouth 2 (two) times a day. 5 Active amLODIPine (NORVASC) 5 MG tablet Take 1 tablet (5 mg total) by mouth daily. 5 Active methylPREDNISolone (MEDROL DOSEPAK) 4 MG tablet Take as directed. Be sure to take all the tablets in decreasing doses as stated in the juanjo 21 tablet 5 Active tiZANidine (ZANAFLEX) 2 MG tabletIndications: Chronic midline low back pain with right-sided sciatica Take 1 tablet (2 mg total) by mouth 3 (three) times a day. 90 tablet 5 Active oxyCODONE (ROXICODONE) 5 MG immediate release tablet Take 1 tablet (5 mg total) by mouth Every 4 (four) to 6 (six) hours as needed for severe pain. Max Daily Amount: 30 mg 2 tablet 5 Active Active Problems Problem Noted Date Diagnosed [...] EDT - 11/23/2024 11:14 AM EDT [facility] Emergency Department [address] [place] [address] Shama Lombardo MD UTI (urinary tract infection) (Primary Dx) Discharge Disposition: Home or Self Care 11/01/2024 Scanned Document [facility] [address] [place] [phone] Henna Brush MD 10/25/2024 7:58 AM EDT - 10/25/2024 2:15 PM EDT [facility] Emergency Department [address] [place] [address] Vincenzo Esquivel MD Acute cystitis (Primary Dx) Discharge Disposition: Home or Self Care from Last 3 Months Social History Tobacco Use Types Packs/Day Years Used Date Smoking Tobacco: Never Smokeless Tobacco: Never Tobacco Cessation:Counseling Given: Not Answered Alcohol Use Standard Drinks/Week Comments Never 0 (1 standard drink = 0.6 oz pur e alcohol) PHQ-2 Answer Date Recorded PHQ-2 Total Score 0 03/12/2022 [facility] [place] of Occupat ional Health - Occupational Stress [...] Vaccine 09/15/2024 12/20/2013, , 03/09/2012 COVID-19 Vaccine (1 - 2023-2 5 season) 2024 HIV Screening [...] STAT 10/25/2024 8:23 AM EDT DRUG MONITOR, [facility] Routine 11:15 AM EDT from Last 3 Months or Most Recently Relevant to Health Maintenance Results * CT Abdomen+pelvis w/o contrast- flank [...] AM EDT) Ventricular rate 67 BPM EKG [facility] Atrial rate 67 BPM EKG [facility] P-R interval 114 ms EKG [facility] QRS duration 68 ms EKG [facility] Q-T interval 394 ms EKG [facility] QTC calculation (Bazett) 416 ms EKG [facility] P axis 48 degrees EKG [facility] R axis 39 degrees EKG [facility] T axis 47 degrees EKG [facility] 11/23/2024 8:06 AM EDT Narrative EKG [facility] - 11/23/2024 1:44 PM EDT Normal sinus rhythm Normal ECG When compared with ECG of 04-Aug-2024 07:09, Nonspecific T wave abnormality no longer evident in Anterior leads Confirmed by MD Smith Anja ([id number]) on 11/23/2024 1:44:50 PM Procedure Note Pineda Smith MD - 11/23/2024 Normal sinus rhythm Normal ECG When compared with ECG of 04-Aug-2024 07:09, Nonspecific T wave abnormality no longer evident in Anterior leads Confirmed by MD Smith Anja ([id number]) on 11/23/2024 1:44:50 PM us Shama Lombardo MD ECG ORDERABLES Final Result EKG [facility] * (ABNORMAL) Reflexive Urine Culture (11/23/2024 7:45 AM EDT) Culture Non lactose fermenting Gram negative yadira 1000 col/mL (A) 11/25/2024 8:34 AM EDT [facility] Culture Gram positive coryneform bacillus or Gram positive cocci 1000 col/mL (A) 11/25/2024 8:34 AM EDT [facility] Culture This is a mixed culture. No further identification will be performed.(A) 11/25/2024 8:34 AM EDT [facility] Urine specimen obtained by clean catch procedure / Unknown 11/23/2024 7:45 AM EDT 11/23/2024 7:58 AM EDT Comment:Urine us Shama Lombardo MD MICROBIOLOGY - GENERAL ORDERABLE S Final Result [facility] [address] [place] [address], [place] * (ABNORMAL) Urinalysis with Reflex to Microscopic and Culture (11/23/2024 7:45 AM EDT) Only the most recent of2 resultswithin the time period is included. Color Yellow 11/23/2024 8:36 AM EDT [facility] Clarity Clear 11/23/2024 8:36 AM EDT [facility] Specific [place] 1.020 1.005 - 1.030 11/23/2024 8:36 AM EDT [facility] pH 6.0 5.0 - 8.0 11/23/2024 8:36 AM EDT [facility] Leukocyte Esterase Small(A) Negative 11/23/2024 8:36 AM EDT [facility] Nitrite Negative Negative 11/23/2024 8:36 AM EDT [facility] Protein Negative Negative mg/dL 11/23/2024 8:36 AM EDT [facility] Glucose Negative Negative mg/dL 11/23/2024 8:36 AM EDT [facility] Ketones Trace(A) Negative mg/dL 11/23/2024 8:36 AM EDT [facility] Blood Small(A) Negative 11/23/2024 8:36 AM EDT [facility] Bilirubin Negative Negative 11/23/2024 8:36 AM EDT [facility] RBC 12(H) 0 - 4 per hpf 11/23/2024 8:36 AM EDT [facility] WBC 16(H) 0 - 4 per hpf 11/23/2024 8:36 AM EDT [facility] Epithelial Cells 4 per hpf 11/23/2024 8:36 AM EDT [facility] Bacteria Present(A) Absent 11/23/2024 8:36 AM EDT [facility] Comment:Presence of bacteria does not necessarily indicate a UTI. Please correlate with degree of pyuria and presence of clinical symptoms for UTI. Urine Urine specimen obtained by clean catch procedure / Unknown 11/23/2024 7:45 AM EDT 11/23/2024 7:58 AM EDT us Shama Lombardo MD URINE ORDERABLES Final Result [facility] [address] [place] [address], * Complete Blood Count, with Differential (11/23/2024 7:32 AM EDT) Only the most recent of2 resultswithin the time period is included. White Blood Cell Count 8.7 4.0 - 11.0 Thou/uL 11/23/2024 7:52 AM EDT [facility] Platelet Count 327 150 - 450 Thou/uL 11/23/2024 7:52 AM EDT [facility] Hemoglobin 13.5 11.7 - 15.7 g/dL 11/23/2024 7:52 AM EDT [facility] Hematocrit 40.9 35.0 - 47.0 % 11/23/2024 7:52 AM EDT [facility] Red Blood Cell Count 4.40 4.00 - 5.40 Mil/uL 11/23/2024 7:52 AM EDT [facility] MCV 93 80 - 100 fL 11/23/2024 7:52 AM EDT [facility] MCH 30.7 26.0 - 34.0 pg 11/23/2024 7:52 AM EDT [facility] MCHC 33.0 30.0 - 36.0 g/dL 11/23/2024 7:52 AM EDT [facility] RDW 12.9 11.5 - 14.5 % 11/23/2024 7:52 AM EDT [facility] MPV 9.1 7.5 - 12.5 fL 11/23/2024 7:52 AM EDT [facility] Neutrophils Auto 79.5 % 11/24/19 7:52 AM EDT [facility] Immature Granulocytes 0.7 % 11/23/2024 7:52 AM EDT [facility] Lymphocytes Auto 17.4 % 11/24/19 7:52 AM EDT [facility] Monocytes Auto 2.3 % 11/23/2024 7:52 AM EDT [facility] Eosinophils Auto 0.0 % 11/24/19 7:52 AM EDT [facility] Basophils Auto 0.1 % 11/23/2024 7:52 AM EDT [facility] Abs Neutrophils Auto 6.88 2.00 - 7.50 Thou/uL 11/23/2024 7:52 AM EDT [facility] Abs Immature Granulocytes 0.06 0.00 - 0.10 Thou/uL 11/23/2024 7:52 AM EDT [facility] Abs Lymphocytes Auto 1.51 1.50 - 4.50 Thou/uL 11/23/2024 7:52 AM EDT [facility] Abs Monocytes Auto 0.20 0.20 - 1.50 Thou/uL 11/23/2024 7:52 AM EDT [facility] Abs Eosinophils Auto 0.00 0.00 - 0.70 Thou/uL 11/23/2024 7:52 AM EDT [facility] Abs Basophils Auto 0.01 0.00 - 0.20 Thou/uL 11/23/2024 7:52 AM EDT [facility] Blood Blood specimen / Unknown 11/23/2024 7:32 AM EDT 11/23/2024 7:39 AM EDT us Shama Lombardo MD LAB [place] [address], [place] * Magnesium (11/23/2024 7:32 AM EDT) Magnesium 1.9 1.6 - 2.6 mg/dL 11/23/2024 8:23 AM EDT [facility] Blood Blood specimen / Unknown 11/23/2024 7:32 AM EDT 11/23/2024 7:39 AM EDT Shama Lombardo MD LAB BLOOD ORDERABLES Final Resul t Performing Organization Address [facility] [place] [address], [place] * Lipase (11/23/2024 7:32 AM EDT) Lipase 34 12 - 53 U/L 11/23/2024 8:23 AM EDT [facility] Blood Blood specimen / Unknown 11/23/2024 7:32 AM EDT 11/23/2024 7:39 AM EDT Shama Lombardo MD LAB BLOOD ORDERABLES Final Resul t Performing Organization Address [facility] [place] [address], [place] * (ABNORMAL) Comprehensive Metabolic Panel (11/23/2024 7:32 AM EDT) Only the most recent of2 resultswithin the time period is included. Glucose 106 74 - 106 mg/dL 11/23/2024 8:23 AM EDT [facility] Comment:Fasting: <100 mg/dL, Non-Fasting: <200 mg/dL (ADA 2005) Blood Urea Nitrogen (BUN) 14 9 - 23 mg/dL 11/23/2024 8:23 AM EDT [facility] Creatinine 0.81 0.60 - 1.00 mg/dL 11/23/2024 8:23 AM EDT [facility] eGFR >90 >59 11/23/2024 8:23 AM EDT [facility] Comment:CKD-EPI (2020) in mL /min/1.73 sq meters. Sodium 137 136 - 145 mmol/L 11/23/2024 8:23 AM EDT [facility] Potassium 4.8(H) 3.4 - 4.5 mmol/L 11/23/2024 8:23 AM EDT [facility] Comment:Slight hemolysis Chloride 103 98 - 107 mmol/L 11/23/2024 8:23 AM EDT [facility] CO2 24 20 - 31 mmol/L 11/23/2024 8:23 AM EDT [facility] Calcium 10.1 8.7 - 10.5 mg/dL 11/23/2024 8:23 AM EDT [facility] Alkaline Phosphatase 71 32 - 122 U/L 11/23/2024 8:23 AM EDT [facility] Aspartate Aminotrans (AST) 36(H) <34 U/L 11/23/2024 8:23 AM EDT [facility] Alanine Aminotrans (ALT) 19 7 - 35 U/L 11/23/2024 8:23 AM EDT [facility] Bilirubin, Total 0.3 0.3 - 1.2 mg/dL 11/23/2024 8:23 AM EDT [facility] Protein, Total 8.5(H) 5.7 - 8.2 g/dL 11/23/2024 8:23 AM EDT [facility] Albumin 5.0(H) 3.4 - 4.8 g/dL 11/23/2024 8:23 AM EDT [facility] BUN/Creatinine Ratio 17 10.0 - 25.0 Ratio 11/23/2024 8:23 AM EDT [facility] Globulin 3.5 1.5 - 3.9 g/dL 11/23/2024 8:23 AM EDT [facility] Albumin/Globulin Ratio 1.4(L) 1.5 - 2.5 Ratio 11/23/2024 8:23 AM EDT [facility] Anion Gap 10 5 - 15 11/23/2024 8:23 AM EDT [facility] Blood Blood specimen / Unknown 11/23/2024 7:32 AM EDT 11/23/2024 7:39 AM EDT us Shama Lombardo MD LAB BLOOD ORDERABLES Final Resul t [facility] [address] [place] [address], [place] * CT Stone study w/o contrast (10/25/2024 11:32 AM EDT) Anatomical Region Laterality Modality Abdomen, Pelvis Computed Tomogra phy 10/25/2024 11:4 7 AM EDT Impressions 10/25/2024 12:24 PM EDT No significant change in bilateral nonobstructing renal calculi. Narrative 10/25/2024 12:24 PM EDT CLINICAL INFORMATION: Nephrolithiasis, diagnosed with kidney stones yesterday at [facility] COMPARISON: [facility] CT abdomen and pelvis 10/24/2024, [facility] CT abdomen and pelvis 06/29/2024. Please note that this patient has had 12 CT scans performed at [facility] since February [address] scans performed at [facility] since February 2024. TECHNIQUE: CT [...] INFORMATION: Nephrolithiasis, diagnosed with kidney stonesyesterday at [facility] COMPARISON: [facility] CT abdomen and pelvis 10/24/2024, [facility] CT abdomen andpelvis 06/29/2024. Please note that this patient has had 12 CT scans performed at [facility] sinceFebruary [address] scans performed at [facility] since February 2024. TECHNIQUE: CT [...] after 5 days 10/30/2024 7:32 AM EDT [facility] Blood Blood specimen / Unknown 10/25/2024 9:02 AM EDT 10/25/2024 9:14 AM EDT Comment:Blood us Deana Greenwood PA-C LAB BLOOD ORDERABLES Final Result [facility] [address] [place] [address], [place] * Lactic Acid, Plasma (10/25/2024 9:02 AM EDT) Lactic Acid 0.9 0.5 - 1.9 mmol/L 10/25/2024 9:36 AM EDT [facility] Blood Blood specimen / Unknown 10/25/2024 9:02 AM EDT 10/25/2024 9:10 AM EDT Deana Greenwood PA-C LAB BLOOD ORDERABLES Final Result Performing Organization Address [facility]/ZIP Co de Phone Number [facility] [address] [place] [address], [place] * XR Chest 1 view-Portable (10/25/2024 8:53 [...] Deana Greenwood PA-C IMG DIAGNOSTIC IMAGING [facility] Final Result * (ABNORMAL) Microscopic Urinalysis (10/25/2024 8:23 AM EDT) WBC 5(H) 0 - 4 per hpf 10/25/2024 9:49 AM EDT [facility] RBC 20(H) 0 - 4 per hpf 10/25/2024 9:49 AM EDT [facility] Bacteria Absent Absent 10/25/2024 9:49 AM EDT [facility] Crystals Absent 10/25/2024 9:49 AM EDT [facility] Epithelial Cells 11 per hpf 10/25/2024 9:49 AM EDT [facility] Urine specimen / Unknown 10/25/2024 8:23 AM EDT 10/25/2024 8:56 AM EDT us Deana Greenwood PA-C URINE ORDERABLES Final Resu lt Performing Organization Address City/[facility]/ZIP Co de Phone Number [facility] [address] [place] [address], * Drug Monitor, MedMATCH (Q [id number]) (10/04/2024 11:15 AM EDT) medMATCH Summary [facility] Comment: Prescribed Prescribed Not Prescribed Consistent Inconsistent Inconsistent Pregabalin Benzoylecgonine Prescribed Drug 1 Pregabalin [facility] 10/04/2024 11:1 5 AM EDT 10/04/2024 10:17 PM EDT us Henna Brush MD URINE ORDERABLES Final Resu lt [facility] [address] [place] [address] from Last 3 Months or Most Recently Relevant to Health Maintenance Insurance [facility] Our Security Team [facility] Care Teams Cotton Tipper Relationship Specialty Start Date End Date Omaira Champion, ERYN [address] [place] [address] PCP - General Internal Medicine 04/18/24
--- OUTSIDE RECORDS SUMMARY | 2025-01-13 11:20 | XMS_ITS | Encounter Summary ---
Author Organization [facility] Address [address] [place] [phone] Care Team Providers Care Drupal Architect Name Role Phone Pcp, Does Not Have A Primary Care Provider Unava ilable Encounter Details Date Type Department Care Team ([facility] st Contact Info) Description 05/08/2024 Scanned Document INTERFACE DEFAULT [address] [place] [id number] System, Provider Not In Social History Tobacco Use Types Packs/Day Years Used Date Smoking Tobacco: Never Smokeless Tobacco: Never Alcohol Use Standard Drinks/Week Comments Not Currently 0 (1 standard drink = 0.6 oz pur e alcohol) [facility] Utilities Answer Date Recorded In the past 12 months has [employer], gas, oil, or water company threatened [...] declined 05/26/2020 How often do you attend mormon or spiritism serv ices? Patient declined 05/26/2020 Do you belong to any clubs o r organizations such as mormon groups, unions, fraternal or athletic groups, or [...] Date Recorded PHQ-2 Total Score 0 03/23/2024 [facility] - Occupational Stress Questionnaire Answer [...] your living situation today? I have a [facility] place to live 03/23/2024 Housing Stability [...] documented as of this encounter Care Teams Drupal Architect Relationship Specialty Start Date End Date Pcp, Does Not Have A PCP - General 01/11/25 documented as of this encounter
--- OUTSIDE RECORDS SUMMARY | 2025-01-13 11:20 | XMS_ITS | Encounter Summary ---
Author Organization [facility] Address [address] [place] [address] Care Team Providers Care Medical Service Representative Name Role Phone Pcp, Does Not Have A Primary Care Provider Unava ilable Encounter Details Date Type Department Care Team (Latest Contact Info) Description 06/28/2024 Transcribed Orders [facility] - [address] [id number] Omaira Couch, TERRITORY ACCOUNT MANAGER [address] [phone] Bipolar disorder, unspecified (HC Code) (Primary Dx) Social History Tobacco Use Types Packs/Day Years Used Date Smoking Tobacco: Never Smokeless Tobacco: Never Alcohol Use Standard Drinks/Week Comments Not Currently 0 (1 standard drink = 0.6 oz pur e alcohol) [facility] Utilities Answer Date Recorded In the past 12 months has [employer], gas, oil, or water [employer] threatened to shut off services in your home? No 03/23/2024 Social Connection and Isolation Panel Answer Date Recorded In a typical week, how many times do you talk on the phone with family, friends, or neighbors? Patient declined 05/26/2020 How often do you get togethe r with friends or relatives? Patient declined 05/26/2020 How often do you attend anabaptism or yazidi serv ices? Patient declined 05/26/2020 Do you belong to any clubs o r organizations such as anabaptism groups, unions, fraternal or athletic groups, or [...] Date Recorded PHQ-2 Total Score 0 03/23/2024 [facility] Occupat ional Health - [...] 136 - 144 mmol/L 06/28/2024 9:[address] [facility] Potassium 3.7 3.3 - 5.3 mmol/L 06/28/2024 9:45 [address] [facility] Chloride 105 98 - 107 mmol/L 06/28/2024 9:45 AM [facility] CO2 26 20 - 30 mmol/L 06/28/2024 9:45 AM [facility] Anion Gap 11 7 - 17 06/28/2024 9:45 AM [facility] Glucose 95 70 - 100 mg/dL 06/28/2024 9:45 AM [facility] BUN 14 6 - 20 mg/dL 06/28/2024 9:45 AM [facility] Creatinine 0.67 0.40 - 1.30 mg/dL 06/28/2024 9:45 AM [facility] Calcium 9.6 8.8 - 10.2 mg/dL 06/28/2024 9:45 AM [facility] BUN/Creatinine Ratio 20.9 8.0 - 23.0 06/28/2024 9:45 AM [facility] Total Protein 7.7 5.9 - 8.3 g/dL 025 9:45 AM [facility] Comment:As of 2023, th e reference interval for Total Protein has been changed from (6.6 to 8.7 g/dL) to (5.9 to 8.3 g/dL). Albumin 4.4 3.6 - 5.1 g/dL 06/28/2024 9:45 AM [facility] Comment:As of 2023, th e reference interval for Albumin has been changed from (3.6 to 4.9 g/dL) to (3.6 to 5.1 g/dL). Total Bilirubin 0.3 <=1.2 mg/dL 06/29/19 25 9:45 AM [facility] Alkaline Phosphatase 72 9 - 122 U/L 06/28/2024 9:45 AM [facility] Alanine Aminotransferase (ALT) 21 10 - 35 U/L 06/28/2024 9:45 AM [facility] Comment:Calcium dobesilate c an cause artificially low ALT results at therapeutic concentrations Aspartate Aminotransferase (AST) 24 10 - 35 U/L 06/28/2024 9:45 AM [facility] Globulin 3.3 2.0 - 3.9 g/dL 06/28/2024 9:45 AM [facility] Comment:As of 2023, th e reference interval for Globulin has been changed from (2.3 to 3.5 g/dL) to (2.0 to 3.9 g/dL). A/G Ratio 1.3 1.0 - 2.2 06/28/2024 9:45 AM [facility] AST/ALT Ratio 1.1 Reference Range Not Established 06/28/2024 9:45 AM [facility] eGFR (Creatinine) >60 >=60 mL/min/1.73m2 06/28/2024 9:45 AM [facility] Comment: [facility] utilizes CKD-EPI Creatinine 2020 to report eGFR. Values < 60 mL/min/1.73 m2 may indicate CKD if present for more than three months AND creatinine is at steady state. The eGFR provides a rough estimate of kidney function. For further guidance, please refer to the CKD: Adult Veneer Jointer Helper Signature pathway. Creatinine Delta -0.12 See Comment 05/14/2 025 9:45 AM EDT [facility] Comment: Delta creatinine is the [...] ORDERABLES Final Res ult Performing Organization Address [facility]/ZIP Co de Phone Number [address] [phone] * (ABNORMAL) Valproic acid level, total (06/28/2024 7:50 AM EDT) Valproic Acid Lvl 24.3(L) 50.0 - 100.0 ug/mL 06/28/2024 9:35 AM EDT [facility] Blood Venipuncture / Unknown 06/28/2024 7:50 AM EDT 06/28/2024 7:50 AM EDT us Omaira Couch NP LAB BLOOD ORDERABLES Final Res ult Performing Organization Address [facility]/ZIP Co de Phone Number [address] [phone] documented in this encounter Visit Diagnoses Diagnosis [...] documented as of this encounter Care Teams Medical Service Representative Relationship Specialty Start Date End Date Pcp, Does Not Have A PCP - General 01/11/25 documented as of this encounter
--- OUTSIDE RECORDS SUMMARY | 2025-01-13 11:20 | XMS_ITS | Encounter Summary ---
Author Organization [facility] Address [address] [place] [phone] Care Team Providers Care Deck Builder Name Role Phone Pcp, Does Not Have A Primary Care Provider Unava ilable Encounter Details Date Type Department Care Team (Latest Contact Info) Description 01/11/2025 Travel Social History Tobacco Use Types Packs/Day Years Used Date Smoking Tobacco: Never Smokeless Tobacco: Never Alcohol Use Standard Drinks/Week Comments Not Currently 0 (1 standard drink = 0.6 oz pur e alcohol) [facility] Utilities Answer Date Recorded In the past 12 months has [employer] electric, gas, oil, or water [employer] threatened to shut off services in your home? No 03/23/2024 Social Connection and Isolation Panel Answer Date Recorded In a typical week, how many times do you talk on the phone with family, friends, or neighbors? Patient declined 05/26/2020 How often do you get togethe r with friends or relatives? Patient declined 05/26/2020 How often do you attend orthodoxy or jewish serv ices? Patient declined 05/26/2020 Do you belong to any clubs o r organizations such as orthodoxy groups, unions, fraternal or athletic groups, or [...] Date Recorded PHQ-2 Total Score 0 03/23/2024 [facility] - Occupational Stress Questionnaire Answer [...] your living situation today? I have a [facility] place to live 03/23/2024 Housing Stability [...] documented as of this encounter Care Teams Deck Builder Relationship Specialty Start Date End Date Pcp, Does Not Have A PCP - General 01/11/25 documented as of this encounter
--- OUTSIDE RECORDS SUMMARY | 2025-01-13 11:20 | XMS_ITS | Encounter Summary ---
Author Organization [facility] Address [address] [place] [phone] Care Team Providers Care Instructional Design Consultant Name Role Phone Pcp, Does Not Have A Primary Care Provider Unava ilable Encounter Details Date Type Department Care Team ([facility] st Contact Info) Description 09/01/2024 Scanned Document INTERFACE DEFAULT [address] [place] [id number] System, Provider Not In Social History Tobacco Use Types Packs/Day Years Used Date Smoking Tobacco: Never Smokeless Tobacco: Never Alcohol Use Standard Drinks/Week Comments Not Currently 0 (1 standard drink = 0.6 oz pur e alcohol) [facility] Utilities Answer Date Recorded In the past 12 months has [employer] electric, gas, oil, or water company threatened [...] How often do you attend methodist or jainism serv ices? Patient declined 05/26/2020 Do you [...] Date Recorded PHQ-2 Total Score 0 03/23/2024 [facility] - Occupational Stress Questionnaire Answer Date [...] your living situation today? I have a [facility] place to live 03/23/2024 Housing Stability Not [...] documented as of this encounter Care Teams Instructional Design Consultant Relationship Specialty Start Date End Date Pcp, Does Not Have A PCP - General 01/11/25 documented as of this encounter
--- OUTSIDE RECORDS SUMMARY | 2025-01-13 11:21 | XMS_ITS | Encounter Summary ---
Author Organization [facility] Address [address] [place] [address] Care Team Providers Care Ship'S Officer Name Role Phone Pcp, Does Not Have A Primary Care Provider Unava ilable Encounter Details Date Type Department Care Team ([facility] st Contact Info) Description 11/08/2014 Documentation [facility] Re[facility] Program [address] [place] [address], FIRST FLOOR [place], [place] [id number] Sonia Jolly RN Social History Tobacco Use Types Packs/Day [...] PM EDT R/O COVID-19 10/10/2019 10/10/2019 10/10/2019 2:5 6 PM EDT R/O COVID-19 11/09/2019 11/09/2019 11/09/2019 [...] documented as of this encounter Care Teams Ship'S Officer Relationship Specialty Start Date End Date Pcp, Does Not Have A PCP - General 01/11/25 documented as of this encounter
--- OUTSIDE RECORDS SUMMARY | 2025-01-13 11:21 | XMS_ITS | Encounter Summary ---
Author Organization [facility] Address [address] [place] [address] Care Team Providers Care Workflow Developer Name Role Phone Pcp, Does Not Have A Primary Care Provider Unava ilable Encounter Details Date Type Department Care Team ([facility] st Contact Info) Description 03/15/2015 Documentation [facility] Adult Reach Program [address] [place] [address], [place] [address] Elayne Kaminski LCSW [address] [facility] [address] [place] [address] Social History Tobacco Use Types Packs/Day Years [...] of non compliance pt was discharged from [facility]. Her last appt at [facility] was 12/09/12 and she was a no [...] documented as of this encounter Care Teams Workflow Developer Relationship Specialty Start Date End Date Pcp, Does Not Have A PCP - General 01/11/25 documented as of this encounter
--- OUTSIDE RECORDS SUMMARY | 2025-01-13 11:21 | XMS_ITS | Encounter Summary ---
Author Organization [facility] Address [address] [place] [address] Care Team Providers Care Traffic Representative Name Role Phone Pcp, Does Not Have A Primary Care Provider Unava ilable Encounter Details Date Type Department Care Team (Late st Contact Info) Description 12/12/2019 Abstract [facility] [address] [address] Nicola Mcbride MD [address] [place] [address] Social History Tobacco Use Types [...] Friends and Family Patient declined 11/09/2019 Attends Sikhism Services Patient declined 10/17 Active Member of Clubs or Organizations Patient declined 11/09/2019 Attends Club or Organization Meetings Patient de clined 11/09/2019 Marital Status Patient declined 11/09/2019 AUDIT-C Answer Date Recorded Frequency of Alcohol Consumption Never 04/14/2018 Average Number of Drinks Not on file 019 Frequency of Binge Drinking Not on file 03/19 PHQ-2 Answer Date Recorded PHQ-2 Score 2 07/19/2018 [facility]at [facility] - Occupational Stress [...] documented as of this encounter Care Teams Traffic Representative Relationship Specialty Start Date End Date Pcp, Does Not Have A PCP - General 01/11/25 documented as of this encounter
--- OUTSIDE RECORDS SUMMARY | 2025-01-13 11:21 | XMS_ITS | Encounter Summary ---
Author Organization [facility] and [facility] Address [address] [place] [phone] Care Team Providers Care Regional Extension Service Specialist Name Role Phone Pcp, Does Not Have A Primary Care Provider Unava ilable Encounter Details Date Type Department Care Team (Latest Contact Info) Description 05/11/2019 Transcribed Orders [facility] - [address] [address] Jung Diaz MD MPH Simple bruising (Primary [...] documented as of this encounter Care Teams Regional Extension Service Specialist Relationship Specialty Start Date End Date Pcp, Does Not Have A PCP - General 01/11/25 documented as of this encounter
--- OUTSIDE RECORDS SUMMARY | 2025-01-13 11:21 | XMS_ITS | Encounter Summary ---
Author Organization [facility] and [facility] Address [address] [place] [address] Care Team Providers Care Tax Accounting Manager Name Role Phone Pcp, Does Not Have A Primary Care Provider Unava ilable Encounter Details Date Type Department Care Team ([facility] st Contact Info) Description 11/13/2014 Documentation [facility] Adult Reach Program [address] [place] [address], FIRST F[place] [place] [phone] Denae Guerra LCSW [address] [place] [id number] Social History Tobacco Use Types Packs/Day Years [...] be reached, due to moving up to [place] this summer. Patient reports she was going to move [place] to [place] permanently, however reports she recently returned to [place], and will be staying in [place] for now. This engineering writer discussed referral [...] don't want to come down to the REACH office. Patientstated last week her PCP made a referral for her to see Dr. Mascorro at the clinic. [employer] made patient aware if she is interested in IOP in the future, to contact this engineering writer. Patient expressed thank s. [employer] to F/U as needed. Denae Guerra LCSW [...] documented as of this encounter Care Teams Tax Accounting Manager Relationship Specialty Start Date End Date Pcp, Does Not Have A PCP - General 01/11/25 documented as of this encounter
--- OUTSIDE RECORDS SUMMARY | 2025-01-13 11:21 | XMS_ITS | Clinical Summary ---
Author Organization [facility] Address [address] [place] [address] Phone Care Team Providers Care Cash Application Representative Name Role Phone Physician, No Pcp Primary [...] mmol/L LAB CHEMISTRY METHOD 02/15/2024 6:10 PM [facility] Potassium 3.5 3.5 - 5.5 mmol/L LAB CHEMISTRY METHOD 02/15/2024 6:10 PM [facility] Chloride 105 96 - 110 mmol/L LAB CHEMISTRY METHOD 02/15/2024 6:10 PM [facility] CO2 25 21 - 32 mmol/L LAB CHEMISTRY METHOD 02/15/2024 6:10 PM [facility] Anion Gap 7 3 - 11 LAB CHEMISTRY METHOD 02/15/2024 6:10 PM [facility] Glucose 107(H) 70 - 100 mg/dL LAB CHEMISTRY METHOD 02/15/2024 6:10 PM [facility] BUN 10 5 - 25 mg/dL LAB CHEMISTRY METHOD 02/15/2024 6:10 PM [facility] Creatinine 0.69 0.50 - 1.10 mg/dL LAB CHEMISTRY METHOD 02/15/2024 6:10 PM [facility] eGFR 109 >=60 mL/min/1. 73m2 LAB CHEMISTRY METHOD 02/15/2024 6:10 PM [facility] Comment:Calculation based on the Chronic Kidney Disease Epidemiology Collaboration (CKD-EPI) equation refit without adjustment for race. BUN/Creatinine Ratio 14.5 LAB CHEMISTRY METHOD 02/15/2024 6:10 PM [facility] Calcium 9.7 8.5 - 10.5 mg/dL LAB CHEMISTRY METHOD 02/15/2024 6:10 PM [facility] AST (SGOT) 34 10 - 42 unit/L LAB CHEMISTRY METHOD 02/15/2024 6:10 PM [facility] ALT (SGPT) 29 10 - 60 unit/L LAB CHEMISTRY METHOD 02/15/2024 6:10 PM [facility] Alkaline Phosphatase 94 42 - 121 unit/L LAB CHEMISTRY METHOD 02/15/2024 6:10 PM [facility] Total Protein 8.0 6.0 - 8.0 g/dL LAB CHEMISTRY METHOD 02/15/2024 6:10 PM [facility] Albumin 4.0 3.2 - 5.0 g/dL LAB CHEMISTRY METHOD 02/15/2024 6:10 PM [facility] Total Bilirubin 0.3 0.0 - 1.4 mg/dL LAB CHEMISTRY METHOD 02/15/2024 6:10 PM [facility] Blood Venous blood specimen / Unknown Venipuncture / Unknown 02/15/2024 4:31 PM EST 02/15/2024 5:14 PM EST us Flaquito Redd DO LAB BLOOD ORDERABLES Final Result [facility] [address] [place] [address], from Last 3 Months or Most Recently Relevant to Health Maintenance Insurance MEDICAID - [place] Care Teams Cash Application Representative Relationship Specialty Start Date End Date Physician, No Pcp PCP - General 02/12/24
--- OUTSIDE RECORDS SUMMARY | 2025-01-13 11:21 | XMS_ITS | Encounter Summary ---
Author Organization [facility] and [facility] Address [address] [place] [address] Care Team Providers Care Pay Station Department Manager Name Role Phone Pcp, Does Not Have A Primary Care Provider Unava ilable Encounter Details Date Type Department Care Team (Late st Contact Info) Description 05/08/2014 Transcribed Orders [facility] - [address] [address] Graciela Sparks MD [address] [place] [address] [address] [place] [address] Ecchymosis (Primary Dx) Social History [...] EDT) Iron 57 37 - 170 mcg/dL [facility] TIBC 433 250 - 450 [facility] Iron Saturation 13 13 - 45 % [facility] Blood specimen (specimen) 05/08/2014 7:35 AM EDT us Oren Gusman MD LAB BLOOD ORDERABLES Edited R esult - Final [facility] [address] [place] [address] documented in this encounter Visit Diagnoses Diagnosis [...] documented as of this encounter Care Teams Pay Station Department Manager Relationship Specialty Start Date End Date Pcp, Does Not Have A PCP - General 01/11/25 documented as of this encounter
--- NOTE | 2025-01-13 11:23 | ED_ITS ---
HPI - Abdominal Pain General Chief Complaint: Abdominal Pain Stated Complaint: General Medical Time Seen by Provider: 01/13/25 11:06 Source: patient, RN notes reviewed and old records reviewed Mode of arrival: ambulatory Limitations: no limitations History of Present Illness ED Provider: RAVINDRA Hughes HPI narrative: 44-year-old female with medical history of nephrolithiasis, HTN, rheumatoid arthritis, recurrent UTI, presents to ED due to L sided flank pain radiating into the L groin. Patient reports flank pain began on 12/21 and presented to ED however eloped from the department without getting CT abdomen pelvis. Patient states the pain had resolved but returned 3 days ago with nausea and vomiting when pain is severe and decreased PO intake since yesterday due to nausea. Patient reports taking 2 tylenol prior to arrival without effect. Patient reports approximately 5 episodes of vomiting since yesterday. Last BM was this morning and was normal in consistency and caliber, is passing flatus. Denies sick contacts, recent travel, chest pain, shortness of breath, gross hematuria, dysuria, fevers, diarrhea Related Data Previous Rx's ?Medication ?Instructions ?Recorded ondansetron 4 mg disintegrating 4 mg PO Q8H 5 days #15 tabs 01/17/24 tablet oxycodone 5 mg tablet 5 mg PO Q6H PRN pain #15 tab s 01/17/24 polyethylene glycol 3350 17 17 g PO DAILY #119 grams 1 03/19/23 gram/dose oral powder (Miralax) cefuroxime axetil 250 mg tablet 250 mg PO Q12H 5 days #10 tabs 01/23/24 morphine 15 mg immediate release 15 mg PO Q8H PRN pain #10 tabs 01/23/24 tablet levofloxacin 500 mg tablet 500 mg PO DAILY #7 tabs methenamine hippurate 1 gram tablet 1 g PO BID #60 tab s 02/02/24 ondansetron 4 mg disintegrating 4 mg PO TID PRN nausea and 02/02/24 tablet vomiting 5 days #10 tabs sulfamethoxazole 800 1 tab PO BID Urinary tract 0 02/21/24 mg-trimethoprim 160 mg tablet infection #14 tabs (Bactrim DS) prednisone 10 mg tablet 10 mg PO BID 5 days #10 tabs 12/28/24 cefuroxime axetil 500 mg tablet 500 mg PO BID 7 days # 14 tabs 01/13/25 ondansetron HCl 4 mg tablet 4 mg PO BID PRN nausea and 01/13/25 vomiting 3 days #6 tabs prednisone 20 mg tablet 20 mg PO BID 5 days #10 tabs 01/13/25 Allergies Allergy/AdvReac Type Severity Reaction Status Date / Time diphenhydramine (From Allergy Severe PASSED OUT Verified 01/13/25 10:43 BENADRYL) WITH IV USE GIVEN. shellfish derived (SHELLFISH Allergy Intermediate HIVES Verified 01/13/25 10:43 DERIVED) lactose (LACTOSE) Allergy Unknown INTOLERANT Verified 01/13/25 10:43 metoclopramide (From REGLAN) Allergy Unknown UNKNOWN Verified 01/13/25 10:43 NSAIDS (Non-Steroidal Allergy Unknown PEPTIC Verified 01/13/25 10:43 Anti-Inflamma (NSAIDS ULCER (NON-STEROIDAL ANTI-INFLAMMA) prochlorperazine (From Allergy Unknown UNKNOWN Verified 01/13/25 10:43 COMPAZINE) sertraline (From ZOLOFT) Allergy Unknown SUICIDAL Verified 01/13/25 10:43 THOUGHTS. zolpidem (From AMBIEN) Allergy Unknown HALLUCINATI Verified 01/13/25 10:43 ONS Iodinated Contrast Media Allergy Anaphylaxis Verified 01/13/25 10:43 (Contrast Dye) ketorolac (From Toradol) Allergy Anaphylaxis Verified 01/13/25 10:43 Review of Systems Review of Systems Yes all other systems are reviewed and are negative PMFSH Past Medical History Attestation statement: The following information was validated with the patient. Source: old records reviewed and nursing notes reviewed Social History Social History Advance Directives: No Advance Directives Information Provided: Yes Do you have a plan to hurt others: No Plan Physical Exam ED Vital Signs: Vital Signs - 24 hr 01/13/25 10:41 01/13/25 11:51 Temperature 96.7 F L Pulse Rate 98 Respiratory Rate 20 20 Blood Pressure 163/102 H Pulse Oximetry 98 Oxygen Delivery Method Room Air BMI result Body Mass Index 31.1 GENERAL APPEARANCE: ?AxOx4, generally well-appearing, no acute distress. HEENT: ?NC, AT. MMM. EOMI, clear conjunctiva, oropharynx clear. NECK: ?Supple without lymphadenopathy.? No stiffness or restricted ROM. HEART:? Normal rate and regular rhythm, normal S1/S2, no m/r/g LUNGS:? CTAB, moving air well. No crackles or wheezes are heard. ABDOMEN: ?Soft, nondistended, no rigidity, negative Deshpande's sign, no rebound tenderness, no suprapubic tenderness, no overlying skin changes, abdomen is nontender BACK: No CVAT, no obvious deformity. EXTREMITIES: ?Without cyanosis, clubbing or edema. NEUROLOGICAL: ?Grossly nonfocal. Alert and oriented, moving all 4 extremities. Observed to ambulate with normal gait. Skin: ?Warm and dry without any rash. Medical Decision Making Medical Decision Making MDM Narrative: 44-year-old female with medical history of nephrolithiasis, HTN, rheumatoid arthritis, recurrent UTI, presents to ED due to L sided flank pain radiating into the L groin. Patient reports flank pain began on 12/21 and presented to ED however eloped from the department without getting CT abdomen pelvis. Patient states the pain had resolved but returned 3 days ago with nausea and vomiting when pain is severe and decreased PO intake since yesterday due to nausea. VS on initial observation-BP 163/102, pulse rate of 98, respiratory rate of 20, afebrile with oral temp of 96.7?, O2 saturation 98% on room air. On physical exam patient is nontoxic appearing, lungs clear to auscultation bilaterally, cardiac exam reveals normal rate and rhythm without murmurs/rubs/gallops, abdomen is soft, nondistended, no rigidity, negative Deshpande's sign, no rebound tenderness, nontender. Plan: Labs, UA, CT abdomen/pelvis - Medicated with 1L IV fluids, 4mg IV zofran, 4mg IV morphine Course 14:14- Labs without leukocytosis/leukopenia no left shift,no evidence of anemia, no electrolyte abnormality, lipase WNL, HCG 3 UA reveals trace urine protein, 15 urine ketones, 1+ urine blood, 1+ leukocyte esterase, 6-10 urine RBCs, 6-10 urine WBCs, 11-20 squamous epithelial cells, 1+ urine bacteria, with calcium oxalate crystals present CT abdomen/pelvis reveals nephrolithiasis in the upper poles of the kidney without hydronephrosis, or obstruction. Left nephrolithiasis measures up to 5 mm, right nephrolithiasis measures up to 2 mm. With calcification in the liver of the gallbladder fossa. These findings were discussed with the patient. Patient presenting with L sided flank pain, non toxic appearing, afebrile, labs without leukocytosis, UA positive for bacteria, CT abdomen and pelvis reveals nephrolithiasis left-sided measures up to 5 mm, right-sided measures up to 2 mm without hydronephrosis or obstruction. I spoke with Dr. Black to discuss appropriate antibiotic as the patient has been on 7 day course of Bactrim in November, and finished a 10 day course of Bactrim 1 week ago, patient has UA cultures that result positive for Strep agalactiae, who agrees on plan of 5 day course of prednisone and 7 day course of cefuroxime, patient without immunocompromised risk factors. Patient will be discharged with 5 day course of prednisone, 7 day course of cefuroxime, 3 days of zofran for nausea, and referral for urology follow up. Patient does not have PCP, I have provided referral. Patient's pain was well controlled today with 4 mg IV morphine, a 1 L of fluids. Patient feels well enough to go home for self-care at this time. I have counseled patient on strict return precautions. Patient is in agreement with the plan. VS on reassessment-BP 120/81, pulse rate of 64, O2 saturation 98% on room air, respiratory rate 16 Differential Diagnosis Differential Diagnoses: The differential diagnosis associated with the presentation includes Pyelonephritis Nephrolithiasis Ureteral colic Musculoskeletal pain Admission/Observation Consideration of admission/observation: Escalation of care including admission/observation considered Lab Data MDM Lab Attestation statement: I reviewed the patient's lab results. 01/13/25 11:27 01/13/25 11:27 Labs: Lab Results 01/13/25 01/13/25 Range/Units 11:27 13:39 WBC 6.9 (4.8-10.8) X10*3/uL RBC 4.20 (4.20-5.50) X10*6/uL Hgb 12.8 (12.0-16.0) g/dl Hct 38.1 (37.0-47.0) % MCV 90.7 (80.0-98.0) fL MCH 30.5 (27.0-33.0) pg MCHC 33.6 (31.0-35.0) g/dl RDW 13.3 (11.0-16.0) % Plt Count 234 (160-400) X10*3/uL MPV 9.0 L (9.4-12.3) fL Immature Gran % (Auto) 0.1 (0.0-0.4) % Neut % (Auto) 53.4 (45-73) % Lymph % (Auto) 36.0 (20-40) % [place] % (Auto) 9.5 (2-11) % Eos % (Auto) 0.4 (0-4) % Baso % (Auto) 0.6 (0-2) % Lymph # (Auto) 2.5 (1.2-4.9) X10*3/uL [place] # (Auto) 0.7 (0.1-1.2) X10*3/uL Eos # (Auto) 0.0 (0.0-0.4) X10*3/uL Baso # (Auto) 0.0 (0.0-0.2) X10*3/uL Abs Immat Gran (auto) 0.01 (0.00-0.03) X10*3/uL Absolute Neuts (auto) 3.7 (2.0-8.3) x10*3/uL Absolute Nucleated RBC 0.000 (0.0-0.012) X10*3/uL Nucleated RBC % (auto) 0.0 (0.0-0.2) /100WBC Sodium 144 (135-145) mmol/L Potassium 3.4 (3.3-5.1) mmol/L Chloride 107 (96-108) mmol/L Carbon Dioxide 28 (22-29) mmol/L Anion Gap 12 (12-20) BUN 13 (9-16) mg/dL Creatinine 0.65 (0.5-1.4) mg/dL Estim Creat Clear Calc 84.0 Estimated GFR > 60 Random Glucose 100 (60-115) mg/dL Calcium 9.7 (8.4-10.2) mg/dL Magnesium 2.0 (1.6-2.6) mg/dL Total Bilirubin 0.7 (0.0-1.0) mg/dL AST 28 (5-31) U/L ALT 20 (0-31) U/L Alkaline Phosphatase 66 (39-117) U/L Total Protein 7.4 (6.5-8.0) g/dL Albumin 4.6 (3.5-5.0) g/dL Lipase 15 (8-78) U/L Beta HCG, Quant 3 mIU/mL Urine Color Yellow Urine Appearance Clear Urine pH 6.5 (5.0-9.0) Ur Specific [place] 1.020 (1.005-1.025) Urine Protein Trace (Neg-Trace) mg/dL Urine Glucose (UA) Negative (Negative) mg/dL Urine Ketones 15 (Negative) mg/dL Urine Blood Small (1+) H (Negative) Urine Nitrite Negative (Negative) Ur Leukocyte Esterase Small (1+) H (Negative) Urine RBC 6-10 H (0-2) /HPF Urine WBC 6-10 H (0-5) /HPF Ur Squamous Epith Cells 11-20 (0-2) /HPF Calcium Oxalate Crystal Present Urine Bacteria 1+ (None Seen) Hyaline Casts 0-2 (0-2) /LPF Independent Interpretation I performed an independent interpretation of an: CT Scan Interpretation: I personally interpreted the CT abdomen/pelvis which reveals bilateral nephrolithiasis without hydronephrosis, or obstruction, I agree with the radiologist's interpretation Radiology Impression Discussion of test interpretation with radiology: I have reviewed the radiologist's reading. Radiologist Impression: CT abdomen and pelvis Findings: No hydronephrosis. Right nephrolithiasis measures up to 2 mm. Left nephrolithiasis measures up to 5 mm. Right renal scarring. Left renal parapelvic cysts. No bladder stone. No consolidation at the lung bases. Unremarkable gallbladder. Calcification in the liver of the gallbladder fossa. Status post hysterectomy. The other solid organs are normal. No bowel wall thickening or dilation. A normal appendix is identified. No aneurysm. Trace calcified atherosclerotic disease. No lymphadenopathy. No ascites. No acute fracture. Impression: No urinary tract obstruction or other acute findings. This document has been electronically signed by: Sonia Macias MD on 01/13/2025 13:52:54 Dictated By: Sonia Cabezas MD Signed By: <Electronically signed by Sonia Cabezas MD in [place]> 01/13/25 7725 External Record Review External record reviewed: Inpatient record, Office record, Outpatient record and Prior outpatient labs Chronic Conditions Patient?s care impacted by: Hypertension Medications Administered Discontinued Medications Generic Name Dose Route Start Last Admin Trade Name Maged PRN Reason Stop Dose Admin Lactated Ringer's 1,000 mls @ 999 mls/hr 01/13/25 11:39 01/13/25 12:51 Lr IV 01/13/25 12:39 Infused .Q1H1M ONE Infusion Acetaminophen 1,000 mg in 100 mls @ 400 mls/hr 01/13/25 11:40 01/13/25 11:51 Ofirmev IV 01/13/25 11:54 Not Given ONCE ONE Morphine Sulfate 4 mg 01/13/25 11:39 01/13/25 11:51 Morphine Sulfate 4 Mg/Ml Cartridge IVPUSH 01/13/25 11:40 4 mg ONCE ONE Administration Protocol Ondansetron HCl 4 mg 01/13/25 11:43 01/13/25 11:51 Ondansetron Hcl 4 Mg/2 Ml Vial IVPUSH 01/13/25 11:44 4 mg ONCE ONE Administration Discharge Plan Discharge Clinical Impression: Kidney stone Patient Disposition: Home, Self-Care Instructions: Renal Colic (ED) Additional Instructions: You were evaluated in the emergency department for left-sided flank pain. The CT of your abdomen/pelvis shows stones within the left and right kidney however are nonobstructive. Your urine is positive for bacteria, blood, and oxalate stones. You are being prescribed a 5 day course of prednisone which is a sterioid for inflammation, and a 7 day course of cefuroxime which is an antibiotic for UTI. [facility] will be contacting you within 2 business?days after being discharged from the Emergency?Department.? During this?phone call, they will inform you when your follow up appointment will be scheduled. If you have not received a call from [facility] after 2 business?days, please call the?office at [phone]. Additionally, I have placed referrals to primary care, you need to call their office as they will not call you. Please return to the emergency department if you experience fevers over 100.4? that are not managed by Tylenol or ibuprofen, worsening flank pain, blood in the urine, inability to urinate, abdominal pain, or any new, worsening, concerning symptoms. Prescriptions: New prednisone 20 mg tablet 20 mg PO BID 5 Days Qty: 10 0RF ondansetron HCl 4 mg tablet 4 mg PO BID PRN (Reason: nausea and vomiting) 3 Days Qty: 6 0RF cefuroxime axetil 500 mg tablet 500 mg PO BID 7 Days Qty: 14 0RF No Action morphine 15 mg tablet 15 mg PO Q8H PRN (Reason: pain) Qty: 10 0RF Rx Instructions: Partial Fill upon patient request. cefuroxime axetil 250 mg tablet 250 mg PO Q12H 5 Days Qty: 10 0RF methenamine hippurate 1 gram tablet 1 g PO BID Qty: 60 0RF ondansetron 4 mg tablet,disintegrating 4 mg PO Q8H 5 Days Qty: 15 0RF oxycodone 5 mg tablet 5 mg PO Q6H PRN (Reason: pain) Qty: 15 0RF Rx Instructions: partial filing upon pt request; Partial Fill upon patient request. polyethylene glycol 3350 [Miralax] 17 gram/dose powder 17 g PO DAILY Qty: 119 0RF ondansetron 4 mg tablet,disintegrating 4 mg PO TID PRN (Reason: nausea and vomiting) 5 Days Qty: 10 0RF levofloxacin 500 mg tablet 500 mg PO DAILY Qty: 7 0RF sulfamethoxazole-trimethoprim [Bactrim DS] 800-160 mg tablet 1 tab PO BID Qty: 14 0RF prednisone 10 mg tablet 10 mg PO BID 5 Days Qty: 10 0RF Referrals: [facility] [Provider Group, Urology] [facility] Care, [facility] [Provider Group, Internal Medicine] Christy Hernández PA [Physician Executive Assistant, Primary Care] Barney Harris MD [Physician, Internal Medicine] Print Language: Icelandic
[2025-01-13 11:31] LABS: Hematocrit 38.1 % (37.0-47.0); Hemoglobin 12.8 g/dl (12.0-16.0); Imm Gran Abs Auto 0.01 X10*3/uL (0.00-0.03); Imm Gran Pct Auto 0.1 % (0.0-0.4); Lymphocytes Absolute Auto 2.5 X10*3/uL (1.2-4.9); MANUAL DIFF FLAG NO; Mean Corpuscular HGB Conc 33.6 g/dl (31.0-35.0); Mean Corpuscular Hemoglobin 30.5 pg (27.0-33.0); Mean Corpuscular Volume 90.7 fL (80.0-98.0); NRBC Abs Auto 0.000 X10*3/uL (0.0-0.012); NRBC Pct Auto 0.0 /100WBC (0.0-0.2); Platelet Count 234 X10*3/uL (160-400); Red Blood Count 4.20 X10*6/uL (4.20-5.50); White Blood Count 6.9 X10*3/uL (4.8-10.8)
--- NOTE | 2025-01-13 11:32 | PC.NURSE ---
FAN Hughes at bedside speaking with the patient. 20g IV access established to left AC. Labs also drawn and sent for analysis. Awaiting results.
[2025-01-13 11:51] VITALS: RESP 20
[2025-01-13] MEDS: Lactated Ringers 1,000 ML 999 ML IV (11:51)
[2025-01-13 11:55] LABS: Alanine Aminotransferase 20 U/L (0-31); Albumin Level 4.6 g/dL (3.5-5.0); Alkaline Phosphatase 66 U/L (39-117); Anion Gap 12 (12-20); Aspartate Amino Transferase 28 U/L (5-31); Blood Urea Nitrogen 13 mg/dL (9-16); Calcium 9.7 mg/dL (8.4-10.2); Carbon Dioxide 28 mmol/L (22-29); Chloride 107 mmol/L (96-108); Creatinine Clr Calc Pharmacy 84.0; Estimated Glomerular Filt Rate > 60; Magnesium 2.0 mg/dL (1.6-2.6); Potassium 3.4 mmol/L (3.3-5.1); Sodium 144 mmol/L (135-145); Total Protein 7.4 g/dL (6.5-8.0)
[2025-01-13 12:15] LABS: Lipase 15 U/L (8-78)
[2025-01-13 13:58] LABS: Appearance Urine Clear; Glucose Urine UA Negative (Negative); PH 6.5 (5.0-9.0); Specific Gravity - Urine 1.020 (1.005-1.025); UMIC TRIGGER UACC YES
[2025-01-13 14:11] LABS: UACC Culture Trigger YES
[2025-01-13 15:07] VITALS: BP 120/84; PULSE 84; RESP 20; TEMP -17.7; TEMP 0; O2SAT 98
== END 2025-01-13 15:07 | disposition home or self-care (01) ==
PROVIDERS: Physician Assistant Medical; Emergency Provider Emergency Medicine
DX: N20.0 Calculus of kidney (principal); N39.0 Urinary tract infection, site not specified; Z87.440 Personal history of urinary (tract) infections
CPT/HCPCS: 36415; 74176; 80053; 81001; 83690; 83735; 84702; 85025; 87086; 87147; 96361; 96374; 96375; 99283; 99284; J2270; J2405; J7120

== ENCOUNTER → 2025-01-13 11:39 | Outpatient (BNV) | payer OTHER, MEDICAID, SELFPAY | PROVIDERS: Emergency Provider Emergency Medicine; Visit Provider Radiology Diagnostic Radiology | DX: R10.A2 Flank pain, left side (principal) | CPT/HCPCS: 74176 ==

== ENCOUNTER 2025-01-25 10:20 | Emergency (ER) | payer MEDICAID, SELFPAY ==
--- NOTE | ~2025-01-25 | CT_ITS ---
EXAMINATION: CT ABDOMEN PELVIS WITHOUT IV CONTRAST HISTORY: flank pain, worsening COMPARISON: Comparison is made with the prior examination dated 01/13/2025. TECHNIQUE: CT scan of the abdomen and pelvis was performed without contrast using standard departmental protocol. Coronal and sagittal reformatted images were generated and reviewed. Oral contrast material was not administered per department protocol. This CT exam was performed with one or more of the following dose reduction techniques: automated exposure control, adjustment of the mA and/or kV according to patient size, use of iterative reconstruction technique. DLP: 385 mGy-cm FINDINGS: LOWER CHEST: The visualized lung bases are clear. There is no pleural effusion. CARDIOVASCULATURE: The heart is normal in size. There is no pericardial effusion. LIVER: The liver is normal in size and contour. The liver has an unremarkable unenhanced appearance. GALLBLADDER / BILE DUCTS: The gallbladder is unremarkable. There is no intra or extrahepatic biliary ductal dilatation. SPLEEN: The spleen is normal in size and has an unremarkable unenhanced appearance. PANCREAS: The pancreas has an unremarkable unenhanced appearance. ADRENAL GLANDS: Unremarkable. KIDNEYS/RETROPERITONEUM: There are punctate nonobstructing calculi in the interpolar region of the left kidney and a 3 mm nonobstructing calculus at the lower pole. There is a 1.8 cm left renal parapelvic cyst. There is no hydronephrosis or hydroureter. No ureteral calculi are identified. LYMPH NODES: No retroperitoneal lymphadenopathy is identified in the abdomen or pelvis. VASCULATURE: The abdominal aorta is normal in caliber. MESENTERY/PERITONEUM: No free fluid. No masses. There is no free intraperitoneal gas. STOMACH: The stomach is unremarkable. SMALL BOWEL: The small bowel is normal in caliber. COLON: The colon is unremarkable. APPENDIX: Normal. URINARY BLADDER/PELVIC ORGANS: The urinary bladder is collapsed, limiting evaluation. The patient is status post hysterectomy. BONES / SOFT TISSUES: No suspicious bony or soft tissue abnormalities. CT/CT abdomen pelvis wo IV con IMPRESSION: Left nephrolithiasis as described. No evidence of ureteral obstruction. Electronically signed by: Adam Turpin MD 01/25/2025 12:29 PM [facility]
[2025-01-25 10:27] VITALS: BP 164/86; BP 199/144; PULSE 130; PULSE 144; RESP 20; TEMP 37.4; O2SAT 95; O2SAT 97; BMI 33.5
--- NOTE | 2025-01-25 10:38 | ECG_ITS ---
Test Reason : DIZZINESS Blood Pressure : */* mmHG Vent. Rate : 115 BPM Atrial Rate : 115 BPM P-R Int : 130 ms QRS Dur : 68 ms QT Int : 354 ms P-R-T Axes : 61 73 51 degrees QTcB Int : 489 ms Sinus tachycardia Possible Left atrial enlargement Borderline ECG When compared with ECG of 08-Feb-2024 21:47, No significant change was found Referred By: Generic ED Physician Electronically Signed By: ANGELA FINK MD
--- NOTE | 2025-01-25 10:45 | ED_ITS ---
HPI - General Adult General Chief complaint: Dizziness Stated complaint: DIZZY,N/V,BP 184/88 PER EMS Time Seen by Provider: 01/25/25 10:45 Source: patient and EMS Mode of arrival: EMS Limitations: no limitations History of Present Illness ED Provider: Rahel Flores PA-C HPI narrative: Patient is a 44 year old female with a history of recurrent UTIs, kidney stones, and HTN on amlodipine and losartan presenting to the emergency department today with right flank pain. Patient states that she was seen a few weeks ago and told she had a UTI and started on Bactrim. 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 Patient states that starting this morning she began to have right flank pain, dizziness, nausea, and chills. Patient states that she was nauseous so she didn't take her blood pressure medications this morning. Patient states that she has an appointment with [facility] Urology coming up in the March 2025. Patient denies any other complaints at this time. Related Data Previous Rx's ?Medication ?Instructions ?Recorded ondansetron 4 mg disintegrating 4 mg PO Q8H 5 days #15 tabs 01/17/24 tablet oxycodone 5 mg tablet 5 mg PO Q6H PRN pain #15 tab s 01/17/24 polyethylene glycol 3350 17 17 g PO DAILY #119 grams 1 03/19/23 gram/dose oral powder (Miralax) cefuroxime axetil 250 mg tablet 250 mg PO Q12H 5 days #10 tabs 01/23/24 morphine 15 mg immediate release 15 mg PO Q8H PRN pain #10 tabs 01/23/24 tablet levofloxacin 500 mg tablet 500 mg PO DAILY #7 tabs methenamine hippurate 1 gram tablet 1 g PO BID #60 tab s 02/02/24 ondansetron 4 mg disintegrating 4 mg PO TID PRN nausea and 02/02/24 tablet vomiting 5 days #10 tabs sulfamethoxazole 800 1 tab PO BID Urinary tract 0 02/21/24 mg-trimethoprim 160 mg tablet infection #14 tabs (Bactrim DS) prednisone 10 mg tablet 10 mg PO BID 5 days #10 tabs 12/28/24 cefuroxime axetil 500 mg tablet 500 mg PO BID 7 days # 14 tabs 01/13/25 ondansetron HCl 4 mg tablet 4 mg PO BID PRN nausea and 01/13/25 vomiting 3 days #6 tabs prednisone 20 mg tablet 20 mg PO BID 5 days #10 tabs 01/13/25 Allergies Allergy/AdvReac Type Severity Reaction Status Date / Time diphenhydramine (From Allergy Severe PASSED OUT Verified 01/25/25 10:34 BENADRYL) WITH IV USE GIVEN. shellfish derived (SHELLFISH Allergy Intermediate HIVES Verified 01/25/25 10:34 DERIVED) lactose (LACTOSE) Allergy Unknown INTOLERANT Verified 01/25/25 10:34 metoclopramide (From REGLAN) Allergy Unknown UNKNOWN Verified 01/25/25 10:34 NSAIDS (Non-Steroidal Allergy Unknown PEPTIC Verified 01/25/25 10:34 Anti-Inflamma (NSAIDS ULCER (NON-STEROIDAL ANTI-INFLAMMA) prochlorperazine (From Allergy Unknown UNKNOWN Verified 01/25/25 10:34 COMPAZINE) sertraline (From ZOLOFT) Allergy Unknown SUICIDAL Verified 01/25/25 10:34 THOUGHTS. zolpidem (From AMBIEN) Allergy Unknown HALLUCINATI Verified 01/25/25 10:34 ONS Iodinated Contrast Media Allergy Anaphylaxis Verified 01/25/25 10:34 (Contrast Dye) ketorolac (From Toradol) Allergy Anaphylaxis Verified 01/25/25 10:34 Review of Systems 2 Constitutional: Constitutional: Reports as per HPI Eyes: Eyes: Reports as per HPI ENT: Reports as per HPI Cardiovascular: Cardiovascular: Reports as per HPI Respiratory: Respiratory: Reports as per HPI Gastrointestinal: Gastrointestinal: Reports as per HPI Genitourinary: Genitourinary: Reports as per HPI Musculoskeletal: Musculoskeletal: Reports as per HPI Integumentary/Breasts: Skin/Breast: Reports as per HPI Neurologic: Reports as per HPI Psychiatric: Psychiatric: Reports as per HPI Endocrine: Endocrine: Reports as per HPI Hematologic/Lymphatic: Hematologic/Lymphatic: Reports as per HPI Allergic/Immunologic: Allergic/Immunologic: Reports as per HPI PMFSH Past Medical History Attestation statement: The following information was validated with the patient. Source: old records reviewed and nursing notes reviewed Social History Social History Smoked in Last 30 Days: No Use of substances other than those prescribed or required for medical reasons: No Advance Directives: No Advance Directives Information Provided: Yes Do you have a plan to hurt others: No Plan Patient : No Physical Exam ED Vital Signs: Vital Signs - 24 hr 01/25/25 10:27 01/25/25 11:41 01/25/25 11:41 Temperature 99.3 F Pulse Rate 130 H Respiratory Rate 20 Blood Pressure 199/144 H 125/82 125/82 Pulse Oximetry 95 Oxygen Delivery Method Room Air 01/25/25 11:42 01/25/25 12:51 01/25/25 13:14 Temperature 99.3 F 98.2 F 98.2 F Pulse Rate 83 87 87 Respiratory Rate 16 16 Blood Pressure 125/82 120/96 H 120/96 H Pulse Oximetry 97 96 96 Oxygen Delivery Method Room Air Room Air Room Air BMI result Body Mass Index 33.5 Const General: cooperative, no acute distress, alert and awake Nutritional Appearance: well nourished Orientation/consciousness: patient oriented x3 HENMT Head: Yes normal to inspection and Yes atraumatic Ears: hearing grossly normal bilaterally and external ears normal General nose exam: Normal external nose present, no nasal discharge noted and no epistaxis Face and sinus: Yes normal facial exam, No abrasion and No laceration Mouth: Normal oral and palatal mucosa present, no drooling and no muffled voice Eyes General: appearance normal, both eyes and all related structures Periorbital: periorbital findings normal Eyelids: Yes eyelids normal Conjunctivae: conjunctivae normal Pupils: Equal, round and reactive pupils present EOM: EOMs intact bilaterally Neck Neck: Yes normal visual inspection and Yes full ROM Resp Effort & Inspection: normal respiratory effort and able to speak in complete sentences Neuro General: patient oriented x3, moves all extremities and CN's II-XI intact bilaterally Cranial nerves: Yes Equal, round and reactive pupils present Cognition (Neuro): normal cognition Extrem General: Yes normal to inspection, Yes full ROM and Yes capillary refill normal Psych Appearance: grossly normal Mental Status: mental status grossly normal Affect: normal affect Attitude: cooperative Thought process: Normal thought process present Thought content: Normal thought content present Insight: Good insight present (Psych) Medications Administered Discontinued Medications Generic Name Dose Route Start Last Admin Trade Name Freq PRN Reason Stop Dose Admin Amlodipine Besylate 10 mg 01/25/25 10:52 01/25/25 11:41 Amlodipine Besylate 10 Mg Tablet PO 01/25/25 10:53 Not Given ONCE ONE Protocol Hydromorphone HCl 1 mg 01/25/25 10:50 01/25/25 11:07 Hydromorphone Hcl 1 Mg/Ml Syringe IVPUSH 01/25/25 10:51 1 mg ONCE ONE Administration Protocol Sodium Chloride 1,000 mls @ 999 mls/hr 01/25/25 11:00 01/25/25 12:49 Ns IV 01/25/25 12:00 Infused .Q1H1M MELINDA Infusion Ceftriaxone Sodium 2 gm/ 50 mls @ 100 mls/hr 01/25/25 10:50 01/25/25 11:40 Sodium Chloride IV 01/25/25 11:19 Infused ONCE ONE Infusion Losartan Potassium 100 mg 01/25/25 10:52 01/25/25 11:41 Losartan Potassium 50 Mg Tablet PO 01/25/25 10:53 Not Given ONCE ONE Protocol Ondansetron HCl 4 mg 01/25/25 10:50 01/25/25 11:07 Ondansetron Hcl 4 Mg/2 Ml Vial IVPUSH 01/25/25 10:51 4 mg ONCE ONE Administration Medical Decision Making Medical Decision Making [facility] Narrative: Patient is a 44 year old female with a history of recurrent UTIs, kidney stones, and HTN on amlodipine and losartan presenting to the emergency department today with right flank pain. Patient's physical exam was as noted in the physical exam portion of this note. Patient's blood work was unremarkable. Patient's beta hcg is consistently 3-4. Patient's urine showed no acute process and no evidence of infection. Patient's CT abd/pelvis showed no acute process. Patient's clinical presentation is most consistent with renal colic. Patient received IV Dilaudid, Zofran, and fluids which, upon re-evaluation, she stated it helped her symptoms significantly. Patient was able to tolerate PO intake while in the department. I explained my physical exam findings as well as all test results to the patient. I answered all questions asked by the patient. I stressed the importance of the patient taking her medication as directed (either prescribed or as the over the counter packaging recommends). I stressed the importance of the patient following up with her primary care provider and the urology team as scheduled. I stressed the importance of the patient returning to the emergency department immediately if her symptoms were to worsen or if she were to develop any dizziness, shortness of breath, difficulty breathing, chest pain, blurry vision, loss of vision, nausea, vomiting, abdominal pain, fever, chills, back pain, or any other complaints. Patient verbalized agreement and understanding with this treatment plan and discharge. Differential Diagnosis Differential Diagnoses: The differential diagnosis associated with the presentation includes Renal colic UTI Kidney stone Pyelonpehritis Admission/Observation Consideration of admission/observation: Escalation of care including admission/observation considered Patient would have been admitted to the hospital had her work up had any findings where hospital admission was appropriate and her clinical presentation warranted hospital admission. Lab Data [facility] Lab Attestation statement: I reviewed the patient's lab results. My interpretation of these results are in the [facility] Rationale portion of this note. 01/25/25 10:47 01/25/25 10:47 Labs: Lab Results 01/25/25 01/25/25 Range/Units 10:47 11:45 WBC 5.9 (4.8-10.8) X10*3/uL RBC 4.56 (4.20-5.50) X10*6/uL Hgb 13.7 (12.0-16.0) g/dl Hct 41.0 (37.0-47.0) % MCV 89.9 (80.0-98.0) fL MCH 30.0 (27.0-33.0) pg MCHC 33.4 (31.0-35.0) g/dl RDW 13.5 (11.0-16.0) % Plt Count 317 D (160-400) X10*3/uL MPV 9.2 L (9.4-12.3) fL Immature Gran % (Auto) 0.2 (0.0-0.4) % Neut % (Auto) 49.0 (45-73) % Lymph % (Auto) 40.1 H (20-40) % [place] % (Auto) 8.8 (2-11) % Eos % (Auto) 1.2 (0-4) % Baso % (Auto) 0.7 (0-2) % Lymph # (Auto) 2.4 (1.2-4.9) X10*3/uL [place] # (Auto) 0.5 (0.1-1.2) X10*3/uL Eos # (Auto) 0.1 (0.0-0.4) X10*3/uL Baso # (Auto) 0.0 (0.0-0.2) X10*3/uL Abs Immat Gran (auto) 0.01 (0.00-0.03) X10*3/uL Absolute Neuts (auto) 2.9 (2.0-8.3) x10*3/uL Absolute Nucleated RBC 0.000 (0.0-0.012) X10*3/uL Nucleated RBC % (auto) 0.0 (0.0-0.2) /100WBC Sodium 142 (135-145) mmol/L Potassium 3.8 (3.3-5.1) mmol/L Chloride 108 (96-108) mmol/L Carbon Dioxide 25 (22-29) mmol/L Anion Gap 13 (12-20) BUN 10 (9-16) mg/dL Creatinine 0.74 (0.5-1.4) mg/dL Estim Creat Clear Calc 76.8 Estimated GFR > 60 Random Glucose 90 (60-115) mg/dL Lactic Acid 2.0 (0.5-2.0) mmol/L Calcium 9.6 (8.4-10.2) mg/dL Magnesium 2.0 (1.6-2.6) mg/dL Total Bilirubin 0.4 (0.0-1.0) mg/dL AST 33 H (5-31) U/L ALT 28 (0-31) U/L Alkaline Phosphatase 73 (39-117) U/L Troponin I High Sens < 2.7 (<3.5-17.0) ng/L Total Protein 7.8 (6.5-8.0) g/dL Albumin 4.8 (3.5-5.0) g/dL Beta HCG, Quant 4 mIU/mL Urine Color Yellow Urine Appearance Cloudy Urine pH 7.0 (5.0-9.0) Ur Specific [place] 1.020 (1.005-1.025) Urine Protein Trace (Neg-Trace) mg/dL Urine Glucose (UA) Negative (Negative) mg/dL Urine Ketones Negative (Negative) mg/dL Urine Blood Small (1+) H (Negative) Urine Nitrite Negative (Negative) Ur Leukocyte Esterase Negative (Negative) Urine RBC 11-20 H (0-2) /HPF Urine WBC 0-5 (0-5) /HPF Ur Squamous Epith Cells 0-2 (0-2) /HPF Urine Bacteria None Seen (None Seen) Hyaline Casts 3-5 (0-2) /LPF Independent Interpretation I performed an independent interpretation of an: CT Scan Interpretation: My interpretation is in agreement with the radiologist's impression of this imaging study as written below. Report Number: [id number]: Total DLP = 385.00 mGy-cm Reason for Exam: flank pain, worsening EXAMINATION: CT ABDOMEN PELVIS WITHOUT IV CONTRAST HISTORY: flank pain, worsening COMPARISON: Comparison is made with the prior examination dated 01/13/2025. TECHNIQUE: CT scan of the abdomen and pelvis was performed without contrast using standard departmental protocol. Coronal and sagittal reformatted images were generated and reviewed. Oral contrast material was not administered per department protocol. This CT exam was performed with one or more of the following dose reduction techniques: automated exposure control, adjustment of the mA and/or kV according to patient size, use of iterative reconstruction technique. DLP: 385 mGy-cm FINDINGS: LOWER CHEST: The visualized lung bases are clear. There is no pleural effusion. CARDIOVASCULATURE: The heart is normal in size. There is no pericardial effusion. LIVER: The liver is normal in size and contour. The liver has an unremarkable unenhanced appearance. GALLBLADDER / BILE DUCTS: The gallbladder is unremarkable. There is no intra or extrahepatic biliary ductal dilatation. SPLEEN: The spleen is normal in size and has an unremarkable unenhanced appearance. PANCREAS: The pancreas has an unremarkable unenhanced appearance. ADRENAL GLANDS: Unremarkable. KIDNEYS/RETROPERITONEUM: There are punctate nonobstructing calculi in the interpolar region of the left kidney and a 3 mm nonobstructing calculus at the lower pole. There is a 1.8 cm left renal parapelvic cyst. There is no hydronephrosis or hydroureter. No ureteral calculi are identified. LYMPH NODES: No retroperitoneal lymphadenopathy is identified in the abdomen or pelvis. VASCULATURE: The abdominal aorta is normal in caliber. MESENTERY/PERITONEUM: No free fluid. No masses. There is no free intraperitoneal gas. STOMACH: The stomach is unremarkable. SMALL BOWEL: The small bowel is normal in caliber. COLON: The colon is unremarkable. APPENDIX: Normal. URINARY BLADDER/PELVIC ORGANS: The urinary bladder is collapsed, limiting evaluation. The patient is status post hysterectomy. BONES / SOFT TISSUES: No suspicious bony or soft tissue abnormalities. CT/CT abdomen pelvis wo IV con IMPRESSION: Left nephrolithiasis as described. No evidence of ureteral obstruction. Electronically signed by: Adam Turpin MD 01/25/2025 12:29 PM [facility] Dictated By: Adam Turpin MD Signed By: Electronically signed by Adam Turpin MD 01/25/25 1229 Radiology Impression Discussion of test interpretation with radiology: I have reviewed the radiologist's reading. Independent Historian Clinical information obtained from an independent historian. History obtained from or confirmed by: EMS (EMS provided additional history and confirmed the history provided by the patient.) Critical Care Time Critical Care Time Critical Care Time: Yes Total Critical Care Time: 46 Attestation: I spent 46 minutes of Critical Care Time with this patient. This does not include time spent on separately reported billable procedures. Discharge Plan Discharge Clinical Impression: Renal colic Patient Disposition: Home, Self-Care Instructions: Renal Colic (ED) Additional Instructions: Your work up today was reassuring there is no EMERGENT cause for your symptoms. Please keep your urology appointment as scheduled. IF you are prescribed home medications and/or you are taking over the counter medications at home - it is very important you continue to do so as prescribed / directed unless told otherwise by a healthcare provider. Follow up with your primary care provider. Do your best to stay well hydrated and rest. Return to the emergency department immediately if your symptoms worsen or if you develop any numbness, tingling, dizziness, shortness of breath, difficulty breathing, chest pain, blurry vision, loss of vision, nausea, vomiting, abdominal pain, fever, chills, back pain, or any other complaints. L If you do not have a primary care provider - call any of the below numbers to establish and follow up with a primary care provider. [facility] Primary Care ([place]) [phone] [place] [address], [address] [facility] Primary Care ([address] [place] [address]) [phone] [place] [address], [address] [facility], [address] [facility] Primary Care ([facility]) [phone] [place] [address], [address] [facility], [address] [facility] Primary Care ([place]) [phone] [place] [address], [address] [place], [address] [facility] Family Medicine [phone] [address] [facility], [address] Please see the information below about our Patient Portal. If you are not yet enrolled in the [facility] Patient Portal, you will receive an enrollment email invitation following your visit to any [facility] setting. You may also self-enroll in the Patient Portal by visiting our website: [email or web address] The following information is required to access the Patient Portal: - Your [facility] Medical Record Number - Your personal home email address (must match what is in your electronic medical record, Registration staff can assist with this) - Name - Date of Capabilities of the Patient Portal: - Message some providers - View upcoming appointments - Access your health summary, medical history, and visit history - View current conditions and allergies - View procedure and lab results - View your medications, including guidelines, side effects, and precautions - Complete pre-appointment questionnaires requested by your provider - Ready summary reports of your office visits and procedures To access the Patient Portal Mobile [employer], follow these directions: - Search [employer] in the Abhi Store or [employer] True[employer] Store - Download the Abhi - Search for [facility] - Enter your login/password Prescriptions: No Action morphine 15 mg tablet 15 mg PO Q8H PRN (Reason: pain) Qty: 10 0RF Rx Instructions: Partial Fill upon patient request. cefuroxime axetil 250 mg tablet 250 mg PO Q12H 5 Days Qty: 10 0RF methenamine hippurate 1 gram tablet 1 g PO BID Qty: 60 0RF prednisone 20 mg tablet 20 mg PO BID 5 Days Qty: 10 0RF ondansetron HCl 4 mg tablet 4 mg PO BID PRN (Reason: nausea and vomiting) 3 Days Qty: 6 0RF cefuroxime axetil 500 mg tablet 500 mg PO BID 7 Days Qty: 14 0RF ondansetron 4 mg tablet,disintegrating 4 mg PO Q8H 5 Days Qty: 15 0RF oxycodone 5 mg tablet 5 mg PO Q6H PRN (Reason: pain) Qty: 15 0RF Rx Instructions: partial filing upon pt request; Partial Fill upon patient request. polyethylene glycol 3350 [Miralax] 17 gram/dose powder 17 g PO DAILY Qty: 119 0RF ondansetron 4 mg tablet,disintegrating 4 mg PO TID PRN (Reason: nausea and vomiting) 5 Days Qty: 10 0RF levofloxacin 500 mg tablet 500 mg PO DAILY Qty: 7 0RF sulfamethoxazole-trimethoprim [Bactrim DS] 800-160 mg tablet 1 tab PO BID Qty: 14 0RF prednisone 10 mg tablet 10 mg PO BID 5 Days Qty: 10 0RF Interventions: ED Discharge Assessment Last Done: 01/25/25 13:14 Discharge Date/Time: 01/25/25 13:19 Print Language: Djiboutian
[2025-01-25 10:55] LABS: MANUAL DIFF FLAG NO
[2025-01-25 10:58] LABS: Hematocrit 41.0 % (37.0-47.0); Hemoglobin 13.7 g/dl (12.0-16.0); Imm Gran Abs Auto 0.01 X10*3/uL (0.00-0.03); Imm Gran Pct Auto 0.2 % (0.0-0.4); Lymphocytes Absolute Auto 2.4 X10*3/uL (1.2-4.9); Mean Corpuscular HGB Conc 33.4 g/dl (31.0-35.0); Mean Corpuscular Hemoglobin 30.0 pg (27.0-33.0); Mean Corpuscular Volume 89.9 fL (80.0-98.0); NRBC Abs Auto 0.000 X10*3/uL (0.0-0.012); NRBC Pct Auto 0.0 /100WBC (0.0-0.2); Platelet Count 317 X10*3/uL (160-400); Red Blood Count 4.56 X10*6/uL (4.20-5.50); White Blood Count 5.9 X10*3/uL (4.8-10.8)
[2025-01-25 11:26] LABS: Troponin-I High Sensitivity < 2.7 ng/L (<3.5-17.0)
[2025-01-25 11:41] VITALS: BP 125/82
[2025-01-25 11:42] VITALS: BP 125/82; PULSE 83; TEMP 37.4; O2SAT 97
[2025-01-25 11:52] LABS: Alanine Aminotransferase 28 U/L (0-31); Albumin Level 4.8 g/dL (3.5-5.0); Alkaline Phosphatase 73 U/L (39-117); Anion Gap 13 (12-20); Aspartate Amino Transferase 33 U/L (5-31); Blood Urea Nitrogen 10 mg/dL (9-16); Calcium 9.6 mg/dL (8.4-10.2); Carbon Dioxide 25 mmol/L (22-29); Chloride 108 mmol/L (96-108); Creatinine Clr Calc Pharmacy 76.8; Estimated Glomerular Filt Rate > 60; Magnesium 2.0 mg/dL (1.6-2.6); Potassium 3.8 mmol/L (3.3-5.1); Sodium 142 mmol/L (135-145); Total Protein 7.8 g/dL (6.5-8.0)
[2025-01-25 11:55] LABS: Appearance Urine Cloudy; Glucose Urine UA Negative (Negative); PH 7.0 (5.0-9.0); Specific Gravity - Urine 1.020 (1.005-1.025); UMIC TRIGGER UACC YES
[2025-01-25 12:51] VITALS: BP 120/96; PULSE 87; RESP 16; TEMP 36.8; O2SAT 96
[2025-01-25 13:14] VITALS: BP 120/96; PULSE 87; RESP 16; TEMP 36.8; O2SAT 96
== END 2025-01-25 13:19 | disposition home or self-care (01) ==
PROVIDERS: Physician Assistant Medical; Emergency Provider Emergency Medicine
DX: N23 Unspecified renal colic (principal); R42 Dizziness and giddiness; R00.0 Tachycardia, unspecified; Z79.899 Other long term (current) drug therapy
CPT/HCPCS: 36415; 74176; 80053; 81001; 83605; 83735; 84484; 84702; 85025; 87040; 93005; 96365; 96375; 99284; 99285; J0696; J1171; J2405

== ENCOUNTER → 2025-01-25 10:38 | Outpatient (BNV) | payer MEDICAID, SELFPAY | PROVIDERS: Visit Provider Internal Medicine Cardiovascular Disease | DX: R00.0 Tachycardia, unspecified (principal) | CPT/HCPCS: 93010 ==

== ENCOUNTER → 2025-01-25 10:50 | Outpatient (BNV) | payer MEDICAID, SELFPAY | PROVIDERS: Visit Provider Radiology Diagnostic Radiology | DX: N20.0 Calculus of kidney (principal) | CPT/HCPCS: 74176 ==